=== PATIENT | male | born 1950 | race Hispanic/Latino ===

== ENCOUNTER 2020-07-30 10:20 | Emergency (ER) | payer OTHER, MEDICARE ==
--- OUTSIDE RECORDS SUMMARY | 2020-07-30 11:15 | XMS REPORT | Summary of Care ---
:1950 Author Organization [facility] - Health Address [address] [place] [address] Care Team Providers Name Role Phone Annie Luis Primary Care Provider Reason for Visit Auth/Cert Status Reason Specialty Diagnoses / Procedures Referred By José Miguel ontact Referred To Contact Surgery Diagnoses Combined forms of age-related cataract, left eye Combined forms of age-related cataract of left eye [H25.812] Adc Pre/Pacu/Post Procedures GA XCAPSL CTRC RMVL INSJ IO LENS PROSTH W/O ECP PHACOEMULSIFICATION OF CATARACT WITH INTRAOCULAR LENS IMPLANT 29182 - GA XCAPSL CTRC RMVL INSJ IO LENS PROSTH W/O ECP [address] [place], [place] [address] Phone: Fax: Encounter Details Date Type Department Care Team Description 06/11/2020 Hospital Encounter [facility] MD [place] Dr [place] [address] [place] [address] [place] [address] [place], [place] [phone] Allergies No Known Allergiesdocumented as of this encounter (statuses as of 06/11/2020) Medications Medication Sig Dispensed Refills Start Date End Date Status metFORMIN 500 mg tablet 0 07/14/2016 Active lisinopril 20 mg tablet 0 07/05/2016 Active levothyroxine 50 mcg 0 07/05/2016 Active tablet atorvastatin 20 mg 0 07/05/2016 Active tablet acetaminophen (TYLENOL Take 650 mg by 0 Active ARTHRITIS PAIN) 650 mg mouth every 8 CR tablet (eight) hours as needed for Pain. documented as of this encounter (statuses as of 06/11/2020) Active Problems Not on filedocumented as of this encounter (statuses as of 06/11/2020) Social History Tobacco Use Types Packs/Day Years Used Date Never Smoker Smokeless Tobacco: Never Used Tobacco Cessation: Counseling Given: No Alcohol Use Drinks/Week oz/Week Comments Not Asked 0 Standard drinks or equivalent 0.0 Sex Assigned at Date Recorded Not on file COVID-19 Exposure Response Date Recorded In the last month, have you been in contact with No / Unsure 06/09/2020 1:15 PM SUPERVISOR PROPERTIES someone who was confirmed or suspected to have Coronavirus / COVID-19? documented as of this encounter Last Filed Vital Signs Vital Sign Reading Time Taken Comments Blood Pressure 129/72 06/11/2020 9:25 AM SUPERVISOR PROPERTIES Pulse 69 06/11/2020 9:25 AM SUPERVISOR PROPERTIES Temperature 36.6 C (97.8 F) 06/11/2020 9:20 AM SUPERVISOR PROPERTIES Respiratory Rate 16 06/11/2020 9:25 AM SUPERVISOR PROPERTIES Oxygen Saturation 96% 06/11/2020 9:25 AM SUPERVISOR PROPERTIES Inhaled Oxygen Concentration - - Weight 83.5 kg (184 lb) 06/09/2020 1:00 PM SUPERVISOR PROPERTIES Height 170.2 cm (5' 7") 06/09/2020 1:00 PM SUPERVISOR PROPERTIES Body Mass Index 28.82 06/09/2020 1:00 PM SUPERVISOR PROPERTIES documented in this encounter Discharge Instructions Araceli Martinez RN - 06/11/2020Procedure: Phacoemulsification with intraocular lens implant Dr. Quinteros Post Operative Cataract Instructions: ? With phacoemulsification and foldable lens implants, surgical incisions are very small and suturesmay not be necessary. ? Tape the eye shield on the operative eye on the day of surgery and whenever you nap or sleep at night for 1 week. ? The eye will be more comfortable if you wear protective sunglasses while outside. ? Do not lay on the operative side and put unnecessary pressure on the eye. ? It is okay to take Tylenol if needed for pain. Call your doctor if there is any undue eye discomfort. ? You may resume your normal diet and medications. ? You may experience a scratchy/ itchy sensation in the eye for a couple of days. Let the eye waternaturally and avoid rubbing or pressing on the eye. ? You may wear the eye shield over the operative eye while showering or bathing as a reminder not torub the eye. ? Your vision may be foggy or fluctuate in the early postoperative period. This is normal and generally will clear up in a few days. ? Limit your activities to light duty for the first week after surgery. Avoid any activity that puts pressure on the eye No pushing, pulling, bending at the waist, lifting, straining, jogging, running or swimming. You may watch TV, read or use the computer but you may find that this tires your eyes easily. ? You may gently clean your eyelids of debris or discharge with tissue and water if needed. Please remember to be gentle with your eye it has a lens implant in it! ? Please notify your doctor if you have any significant change to your vision or significant eye pain. ? Your follow-up appointment should be the following day after your surgery. What are some reasons I should contact the doctor? ? Nausea, vomiting and fatigue may occur for a few hours after surgery. If this lasts more than 12 hours, contact your doctor. ? Vision Loss ? Pain that persists despite the use of wmek-tpk-ycgthsw pain medications ? Increase eye redness ? Light flashes or multiple spots (floaters) in front of your eye Contact Information After Hours: [facility] Access Line [phone] and ask to speak to the Nurse On-Call General Surgical Discharge Instructions: ? The medication that was used will be acting in your system for the next 24 hours, so you might feel a little drowsy, with impaired judgment and/ or motor function. This feeling should wear off. Because the medication is still in your system for the next 24 hours you SHOULD NOT: o Drive a car, operate machinery or power tools. o Drink any alcoholic beverages. o Make any important decisions or sign any legal documents. ? You should rest the remainder of the day and not engage in any physical activity. YOU ARE RESPONSIBLE FOR HAVING SOMEONE AT HOME WITH YOU DURING THE AFTERNOON AND NIGHT IMMEDIATELY FOLLOWING YOUR SURGERY. Patients should cough and deep breathe every 2-4 hours while awake to avoid respiratory complications. ? Because the medications used could produce some residual nausea and vomiting after you go home, you should eat lightly today, starting with clear liquids (broth, soft drinks, apple juice, jello) and toast or crackers, progressing to your normal diet as tolerated. If you get sick, wait a couple of hours and then begin to eat. After 24 hours the nausea should be gone. If your nausea persists, callyour physician. ? You may experience some pain and your physician will advise you on what to take for discomfort. This should be taken as directed. If the pain is not relieved, contact your physician. You may also have a sore throat from the airway/ breathing tube that was in place. You may use lozenges, throat spray (Chloraseptic), or warm salt water gargles for symptomatic relief. ? If you are unable to urinate within five hours after your procedure, call your physician. ? The type of surgery performed will determine how much bleeding (if any) to expect. Normally, somespotting might occur. If your dressing pad become saturated, notify your physician. Elevate surgical site, if applicable, to reduce swelling and pain. ? Preventing a surgical site infection: o Dont smoke. It is best to quit at least 30 days before surgery, but quitting after surgery is also helpful. o If you are a diabetic, keep your blood sugar well controlled. WASH YOUR HANDS. o Keep your wound clean and remember to wash your hands before and after contact with the area. o Call your doctor if you have signs of infection: ? increased tenderness at the surgical site ? red streaks or increased redness of the area ? bad-smelling discharge from the incision ? fever of 101 or higher TOBACCO AVOIDANCE Exposure to tobacco either from smoking or from second hand (environmental)smoke or smokeless tobacco (snuff) is damaging to your health. This information is to encourage everyone to avoid tobacco exposure. It is recommended that you: If you smoke or use smokeless tobacco, we encourage you to quit. If you have already quit smoking, continue your good work! If you do not smoke or use smokeless tobacco, do not start. Avoid secondhand smoke. Additional Resources: You may want to contact these organizations for further information on smoking and how to quit- [employer] - http://www.lungusa.org/stop-smoking/ [employer] - http://www.cancer.org/Healthy/StayAwayfromTobacco/index [employer] Heart Association - http://www.heart.org/HEARTORG/GettingHealthy/QuitSmoking/Quit-Smoking _[facility]_001085_SubHomePage.jsp documented in this encounter H&P Notes James Meeks MD - 06/11/2020 8:30 AM CSTH&P Update H&P was reviewed and the patient was examined and there was no change in the patient's condition. documented in this encounter Plan of Treatment Health Maintenance Due Date Last Done Comments HEPATITIS C (HCV) SCREEN 1950 DTaP,Tdap,and Td Vaccines (1 - Tdap) 1967 COLON CANCER SCREENING ANNUAL FIT/FOBT 1998 COLON CANCER SCREENING FIT DNA EVERY 3 YEARS 1998 COLON CANCER SCREENING SIGMOIDOSCOPY EVERY 5 YEARS 1998 COLONOSCOPY 1998 Colorectal Cancer Screening 1998 Zoster Recombinant Vaccine (SHINGRIX) (1 of 2) 1998 Medicare Wellness Visit 2013 PNEUMOCOCCAL VACCINES 65+ (1 of 1 - PPSV23) 2013 INFLUENZA VACCINE (#1) 2020 Depression Screening 06/11/2021 06/11/2020 documented as of this encounter Implants Implanted Type Area Scientific Research Manager Device Shelf Model / Identifier Expiration Date Ser ial / Lot Lens, Stas #[id number] - [id number] LENS Left: Eye Stas 10/03/2024 [id number] / Implanted: Qty: 1 on 06/11/2020 by James Hammond MD at [facility] 1 [id number] / N/A documented as of this encounter Procedures Procedure Name Priority Date/Time Associated Comments Diagnosis POCT GLUCOSE(AGE Routine 06/11/2020 7:56 Results for this >30DAYS) AM SUPERVISOR PROPERTIES procedure are i n the results section. NOTICE OF BILLING Routine 06/02/2020 3:30 PRACTICES FOR MEDICARE PM SUPERVISOR PROPERTIES PATIENTS [facility] PATIENT FINANCIAL Routine 06/02/2020 3:30 POLICY PM SUPERVISOR PROPERTIES NO SHOW OR MISSED Routine 06/02/2020 3:29 APPOINTMENT POLICY PM SUPERVISOR PROPERTIES ACKNOWLEDGEMENT CONSENT/REFUSAL FOR Routine 06/02/2020 3:29 DIAGNOSIS AND TREATMENT PM SUPERVISOR PROPERTIES CONSENT/REFUSAL FOR Routine 06/02/2020 3:29 DIAGNOSIS AND TREATMENT PM SUPERVISOR PROPERTIES ASSIGNMENT OF BENEFITS Routine 06/02/2020 3:28 PM SUPERVISOR PROPERTIES ASSIGNMENT OF BENEFITS Routine 06/02/2020 3:28 PM SUPERVISOR PROPERTIES PHYSICIAN ORDERS Routine 06/02/2020 12:01 AM SUPERVISOR PROPERTIES documented in this encounter Results POCT Glucose (06/11/2020 7:56 AM SUPERVISOR PROPERTIES) Pathologist Sig nature POCT Glu (age>30days) 142 (A) 70 - 110 mg/dL Specimen Blood - CAPILLARY documented in this encounter Visit Diagnoses Diagnosis Cataract, nuclear sclerotic senile, left - Primary documented in this encounter Administered Medications Medication Order MAR Action Action Date Dose Rate Site mydriatic #5 ophthalmic solution Given 06/11/2020 7:50 AM SUPERVISOR PROPERTIES 0 .5 mL 0.5 mL syringe 0.5 mL, Left Eye, ONCE, 1 dose, Tue06/11/20 at 0800, Routine documented in this encounter Insurance Payer Benefit Plan Subscriber ID Effective Phone Address Typ e / Group Dates AETNA - AETNA [id number] 2019-Prese P O BOX Medic are Adv MANAGED MEDICARE ADV nt [id number] [place] [address] documented as of this encounter
--- OUTSIDE RECORDS SUMMARY | 2020-07-30 11:15 | XMS REPORT | Summary of Care ---
:1950 Author Organization [facility] - [facility] Address [address] [place] [address] Care Team Providers Name Role Phone Annie Luis Primary Care Provider Reason for Visit Reason Comments LAB Exposure Cough Encounter Details Date Type Department Care Team Description 07/27/2020 Laboratory Only [facility] Family Nikkie Molina, COMPUTER SCIENCE INTERN [address] [employer] [address] [employer] [address] [place] [address] Exposure to Medicine - [facility], Adc Fam Pob I SARS-associated [address] [facility] coronaviru s ([address] Dx) [place] [address] Allergies No Known Allergiesdocumented as of this encounter (statuses as of 07/27/2020) Medications Medication Sig Dispensed Refills Start Date [...] as of this encounter (statuses as of 07/27/2020) Active Problems Not on filedocumented as of this encounter (statuses as of 07/27/2020) Social History Tobacco Use Types Packs/Day Years Used Date Never Smoker Smokeless Tobacco: Never Used Alcohol Use Drinks/Week oz/Week Comments Not Asked 0 Standard drinks or equivalent 0.0 Sex Assigned at Date Recorded Not on file COVID-19 Exposure Response Date Recorded In the last month, have you been in contact with Yes 07/27/2020 4:49 PM AIR DIRECTOR someone who was confirmed or suspected to have Coronavirus / COVID-19? documented as of this encounter Last Filed Vital Signs Not on filedocumented in this encounter Nursing Notes Emilia Pittman LVN - 07/27/2020 5:20 PM CSTElizabeth Haas is a 70 year old male here for COVID Screening with a Nasopharyngeal Swab All droplet and contact precautions taken with appropriate PPE worn while interacting with patient. ? Goggles ? N95 Mask ? Gloves ? Gown RR 17 Pulse Ox 95% Patient educated on plan of care for visit, swabbing technique, risks and benefits of test and length of time to receive results. Verbal consent obtained to perform test. CDC Fact Sheet for Patients nCoV Diagnostic Panel dated 09/09/2019 and Factsheet What to Do if Sick with COVID 19 08/20/19 provided. Patient swabbed per appropriate nasopharyngeal technique, and patient tolerated well. Patient was discharged from the testing clinic in stable condition. Emilia Pittman LVN 07/27/2020 4:51 PM DIRECTOR documented in this encounter Plan of Treatment Name Type Priority Associated Diagnoses Order S chedule COVID-19 (MOLECULAR LAB Routine Exposure to Expected : 07/27/2020, TESTING SARS-associated Expires: 022 NUCLEIC ACID coronavirus AMPLIFICATION) Health Maintenance Due Date Last Done Comments HEPATITIS C (HCV) SCREEN 1950 SARS-CoV-2 (COVID-19) Vaccine (1 of 2) 1966 DTaP,Tdap,and Td Vaccines (1 - Tdap) 1967 [...] of this encounter Implants Implanted Type Area Floor Coverings Installer Device Shelf Model / Identifier Expiration Date Ser ial / Lot Lens, Stas #[id number] - [id number] LENS Left: Eye Stas 10/03/2024 [id number] / Implanted: Qty: 1 on 06/11/2020 by James Hammond MD at [facility] 1 [id number] / N/A documented as of this encounter Results Not on filedocumented in this encounter Visit Diagnoses Diagnosis Exposure to SARS-associated coronavirus - Primary documented in this encounter Additional Health Concerns Infection Onset Date Last Indicated Resolved Time COVID-19 Rule Out 07/27/2020 07/27/2020 documented as of this encounter Insurance Payer Benefit Plan Subscriber ID Effective Phone Address Typ e / Group Dates AETNA - AETNA [id number] 2019-Prese [address] BOX Me dicare Adv MANAGED MEDICARE ADV nt [id number] [place] [address] documented as of this encounter
--- OUTSIDE RECORDS SUMMARY | 2020-07-30 11:15 | XMS REPORT | Summary of Care ---
:1950 Author Organization [facility] - [facility] Address [address] [place] [address] Care Team Providers Name Role Phone Luis Annie Primary Care Provider Encounter Details Date Type Department Care Team Description 07/28/2020 Letter (Out) [facility] Latricia Harris RN [address] [place] [phone] [place] [address] Allergies No Known Allergiesdocumented as of this encounter (statuses as of 07/28/2020) Medications Medication Sig Dispensed Refills Start Date [...] as of this encounter (statuses as of 07/28/2020) Active Problems Not on filedocumented as of this encounter (statuses as of 07/28/2020) Social History Tobacco Use Types Packs/Day Years Used Date Never Smoker Smokeless Tobacco: Never Used Alcohol Use Drinks/Week oz/Week Comments Not Asked 0 Standard drinks or equivalent 0.0 Sex Assigned at Date Recorded Not on file COVID-19 Exposure Response Date Recorded In the last month, have you been in contact with Yes 07/27/2020 4:49 PM ASPNET DEVELOPER someone who was confirmed or suspected to have Coronavirus / COVID-19? documented as of this encounter Last Filed Vital Signs Not on filedocumented in this encounter Plan of Treatment Health [...] of this encounter Implants Implanted Type Area Data Processing Control Clerk Device Shelf Model / Identifier Expiration Date Ser ial / Lot Lens, Stas #[id number] - [id number] LENS Left: Eye Stas 10/03/2024 [id number] / Implanted: Qty: 1 on 06/11/2020 by James Hammond MD at [facility] 1 [id number] / N/A documented as of this encounter Results Not on filedocumented in this encounter Additional Health Concerns Infection Onset Date Last Indicated Resolved Time COVID-19 Rule Out 07/27/2020 07/27/2020 07/28/2020 5: 43 AM ASPNET DEVELOPER COVID-19 Confirmed 07/27/2020 07/27/2020 documented as of this encounter Insurance Payer Benefit Plan Subscriber ID Effective Phone Address Typ e / Group Dates AETNA - AETNA [id number] 2019-Prese [address] BOX Me dicare Adv MANAGED MEDICARE ADV nt [id number] [place] [address] documented as of this encounter
--- OUTSIDE RECORDS SUMMARY | 2020-07-30 11:15 | XMS REPORT | Summary of Care ---
:1950 Author Organization [facility] - Health Address [address] [place] [address] Care Team Providers Name Role Phone Annie Luis Primary Care Provider Encounter Details Date Type Department Care Team Description 07/27/2020 Letter (Out) [facility] Message s Doctor Unassigned, No [address] [facility] [place] [phone] [facility] [phone] [place] [address] Allergies No Known Allergiesdocumented as of this [...] Assigned at Date Recorded Not on file documented as of this encounter Last Filed Vital Signs Not on filedocumented in this encounter Plan of Treatment Date Type Specialty Care Team Description 07/27/2020 Laboratory Only Family Medicine Nikkie Molina FN P [address] [facility] [address] [place] [address] [phone] Arrived Lab, Adc Fam Pob I Health Maintenance Due Date Last Done Comments [...] of this encounter Implants Implanted Type Area Senior Geologist Device Shelf Model / Identifier Expiration Date Ser ial / Lot Lens, Stas #[id number] - [id number] LENS Left: Eye Stas 10/03/2024 [id number] / Implanted: Qty: 1 on 06/11/2020 by James Hammond MD at [facility] 1 [id number] / N/A documented as of this encounter Results Not on filedocumented in this encounter Insurance Payer Benefit Plan Subscriber ID Effective Phone Address Typ e / Group Dates AETNA - AETNA [id number] 2019-Prese [address] Me dicare Adv MANAGED MEDICARE ADV nt [id number] [place] [address] documented as of this encounter
--- OUTSIDE RECORDS SUMMARY | 2020-07-30 11:15 | XMS REPORT ---
:1950 Author Organization [facility] Address [address] [place], [address] [place] [address] Care Team Providers Name Role Phone Luis Unavailable [phone] PROBLEMS Type Condition ICD9-CM [id number] Onset Condition SNOMED Code Notes Code Code Dates Status Problem Diabetes E11.9 Active 90770246 mellitus, type 2 Problem Hyperlipidemia, E78.2 Active 581385939 mixed Problem Allergic J30.2 Active 950119926 rhinitis, seasonal Problem Carpal tunnel G56.00 Active 44858806 syndrome Problem Chronic back pain M54.9 Active 141191765 Problem Hypertension I10 Active 03512931 Problem Osteoarthritis of M15.9 Active 807383197 multiple joints Problem Atopic dermatitis L20.9 Active 16124684 Problem Pulmonary nodule, R91.1 Active 765822522 right Problem Hypothyroidism E03.9 Active 84405779 Problem Memory changes R41.3 Active 922004598 Problem Lumbar M51.36 Active 36890828 degenerative disc disease Problem Idiopathic G60.9 Active 52456238 peripheral neuropathy Problem Acquired M41.9 Active 573768333 scoliosis Problem Osteoarthritis of M17.0 Active 975984719 both knees, unspecified osteoarthritis type Problem Primary M17.12 Active [id number] osteoarthritis of left knee ALLERGIES No Known Allergies ENCOUNTERS from 1950 to 2020-06-06 Encounter Location Date Provider Diagnosis [facility] [place] [address] [place], [place] Diabetes mellitus, type [address] [place] E11.9 ; [place] [address] Hypothyroidism E03.9 ; Allergic contac t dermatitis, uns pecified trigger L23.9 ; Hypertension I1 0 ; Pulmonary nodul e, right R91.1 ; Hyperli pidemia, mixed E78.2 ; Osteoarthritis of both knees, unspecif ied osteoarthritis type M17.0 ; Memory changes R41.3 ; Adult B MT 28.0-28.9 kg/sq m Z68.28 ; Lower urinary tract symptoms R39.9 and Renal insuf ficiency N28.9 IMMUNIZATIONS Vaccine Route Administration Date Status FluAD IM Intramuscular Apr 15, 2020 Administered FLUZONE HIGH DOSE OVER 65 IM Intramuscular Mar 06, 2019 Admin istered Kenalog (Triamcinolone) IM Intramuscular May 21, 2019 Adminis tered Kenalog (Triamcinolone) IM Intramuscular Aug 07, 2018 Adminis tered SOCIAL HISTORY Tobacco Use: Social History Observation Description Date Details (start date - stop date) Former Smoker Sex Assigned At : Social History Observation Description Sex Assigned At Unknown Alcohol Screen Question Answer Notes Did you have a drink containing alcohol in Yes the past year? Points 2 Interpretation Negative How often did you have 6 or more drinks on Never (0 points) one occasion in the past year? How many drinks did you have on a typical 1 or 2 (0 points) day when you were drinking in the past year? How often did you have a drink containing Two to four times a month (2 points) alcohol in the past year? Tobacco Use/Smoking Question Answer Notes Are you a former smoker Additional Findings: Tobacco Non-User Current non-smoker Tobacco use other than smoking: Question Answer Notes Are you an other tobacco user? No REASON FOR REFERRAL No Information VITAL SIGNS Height 67 in May, Weight 180.6 lbs May, Temperature 97.7 degrees Fahrenheit May, BMI 28.28 kg/m2 May, Oximetry 97 % May, Respiratory Rate 18 /min May, Blood pressure systolic 138 mm Hg May, Blood pressure diastolic 70 mm Hg May, MEDICATIONS Medication SIG (Take, Route, Notes Start Date End Date Status Frequency, Duration) Lipitor 20 MG 1 tablet Orally Once a Active day for 30 days Metformin HCl 1000 MG 1 tablet with meals Active Orally Twice a day for 30 days Lisinopril-Hydrochlorothiaz TAKE ONE TABLET BY MOUTH Active nicole 20-12.5 MG TWICE DAILY for 90 Zestoretic 20-12.5 MG 1 tablet Orally Twice a Active day for 30 days Triamcinolone Acetonide 0.1 1 application to affected Active % area Externally Twice a day for 30 days Levothyroxine Sodium 50 MCG 1 tablet on an empty Active stomach in the morning Orally Once a day for 30 days Aspirin 81 81 MG 1 tablet Orally Once a Active day PROCEDURES No Information RESULTS No Results REASON FOR VISIT 3 mth lab f/u MEDICAL (GENERAL) HISTORY Type Description Date Medical History Diabetes mellitus, type 2 Medical History Hypothyroidism Medical History Hypertension Medical History Hyperlipidemia, mixed Medical History Osteoarthritis of multiple joints Medical History Chronic back pain Medical History Lumbar degenerative disc disease Medical History Idiopathic peripheral neuropathy Medical History Acquired scoliosis Medical History Atopic dermatitis Medical History Allergic rhinitis, seasonal Medical History Carpal tunnel syndrome Surgical History carpal tunnel release Right 03/2017 Surgical History arthroscopic knee surgery right Goals Section No Information Health Concerns No Information MEDICAL EQUIPMENT No Information MENTAL STATUS No Information FUNCTIONAL STATUS No Information ASSESSMENTS Encounter Date Diagnosis Assessment Notes Treatment Notes Treatm ent Clinical Notes May, Diabetes mellitus, Controlled. Diabetes type 2 (ICD-10 - Education Diabetes E11.9) is a disorder that disrupts the way your body uses glucose (sugar). It is a chronic medication condition that requires regular monitoring and treatment throughout your life. Treatment includes: lifestyle modification, self-care measures, and medication. Fortunately, these treatments can keep the blood sugar levels close to normal and minimize the risk of developing complications. The primary blood test to measure the progress of diabetes is the Hemoglobin A1c. Normal levels is less than 7.0 but less than 6.5 is considered excellent control. Fasting blood sugars should be in the range of 80-120 while random blood sugars should range below 200 especially after meals. Carbohydrate (sugar) intake for diabetics should be below 45 grams per meal and 15 grams per snack. Diabetic preventive care is vital to prevent complications, so it is important to have yearly diabetic eye and foot exams with specialists. If your diabetes is not controlled, then contact your doctor to further address.Medication may need to be adjusted and/or added. May, Hypothyroidism Stable. Compliant (ICD-10 - E03.9) with medications May, Allergic contact dermatitis, unspecified trigger (ICD-10 - L23.9) May, Hypertension (ICD-10 Controlled at home. - I10) HTN Education This is a condition that puts at risk for heart attack, stroke, and kidney disease. Lifestyle modification, low fat/low salt diet, exercise, low alcohol intake and medication is utilized to help control your BP. Untreated HTN increases the strain on the heart and arteries, eventually causing organ damage.Normal BP is less than 140/90. High BP is greater than 140/90. If your BP is not controlled, call your doctor. Medication may need to be adjusted and/or added. Compliance with medication is vital. If you have chest pain, shortness of breath, severe nausea/vomiting, fatigue, and other symptoms, you will need to contact your doctor or go to the ER immediately to address. May, Pulmonary nodule, Ordered CT. right (ICD-10 - Asymptomatic. Former R91.1) tobacco user. Encouraged to make appointment. May, Hyperlipidemia, Hyperlipidemia mixed (ICD-10 - Education: E78.2) Hyperlipidemia refers to increased levels of lipids(fats) in the blood, including cholesterol and triglycerides. This can significantly increase your risk of developing coronary artery disease and peripheral artery disease. This can cause chest pain, heart attack, stroke, and fatigue. Treatment is recommended to decrease your risk. Treatment includes: lifestyle modification, low salt/low fat diet, exercise, tobacco cessation, low alcohol intake and sometimes medication. Blood tests (TC,TG, HDL, LDL) are utilized to determine treatment regimens. TC(Total cholesterol) should be below 200. TG(Total Triglycerides) should be below 150. HDL(Good cholesterol) should be above 40. LDL(Bad Cholesterol) should be below 130(if you have one risk factor) or less than 100( if you have more than one risk factor or have DM/CAD/PVD). Compliance with medication and treatment is vital. If you have questions, talk to your doctor. May, Osteoarthritis of Managed by , both knees, Moderate OA. unspecified Planning for osteoarthritis type cortisone (ICD-10 - M17.0) injections. May, Memory changes Discussed (ICD-10 - R41.3) differential diagnosis patient. education given. Will refer to neurology for further evaluation and management. Concern for mild cognitive impairment May, Adult BMI 28.0-28.9 Counseling given. kg/sq m (ICD-10 - Z68.28) May, Lower urinary tract Stable. PSA: 2.2. symptoms (ICD-10 - Education given. R39.9) May, Renal insufficiency Discussed DDX. (ICD-10 - N28.9) Education given. Limited hydration. May, Other -- Medication reviewed and updated. -- Dietary and Lifestyle modifications addressed regarding diet, exercise and weight managemen t. -- Treatment options, risks and benefits, side effects reviewed in detail. -- Advised on signs/symptoms to monitor and when to call clinic and/or visit the nearest ER. Patient verbalized understanding and agreeable with plan. PLAN OF TREATMENT Medication Medication Name Sig Start Date Stop Date Lipitor 20 MG 1 tablet Orally Once a day for 30 days Triamcinolone Acetonide 0.1 % 1 application to affected area Externally Twice a day for 30 days Levothyroxine Sodium 50 MCG 1 tablet on an empty stomach in the morning Orally Once a day for 30 days Zestoretic 20-12.5 MG 1 tablet Orally Twice a day for 30 days Metformin HCl 1000 MG 1 tablet with meals Orally Twice a day for 30 days Treatment Notes Assessment Notes Clinical Notes Diabetes mellitus, type 2 Controlled. Diabetes Education Diabetes is a disorder that disrupts the way your body uses glucose (sugar). It is a chronic medication condition that requires regular monitoring and treatment throughout your life. Treatment includes: lifestyle modification, self-care measures, and medication. Fortunately, these treatments can keep the blood sugar levels close to normal and minimize the risk of developing complications. The primary blood test to measure the progress of diabetes is the Hemoglobin A1c. Normal levels is less than 7.0 but less than 6.5 is considered excellent control. Fasting blood sugars should be in the range of 80-120 while random blood sugars should range below 200 especially after meals. Carbohydrate (sugar) intake for diabetics should be below 45 grams per meal and 15 grams per snack. Diabetic preventive care is vital to prevent complications, so it is important to have yearly diabetic eye and foot exams with specialists. If your diabetes is not controlled, then contact your doctor to further address.Medication may need to be adjusted and/or added. Hypothyroidism Stable. Compliant with medications Hypertension Controlled at home. HTN Education This is a condition that puts at risk for heart attack, stroke, and kidney disease. Lifestyle modification, low fat/low salt diet, exercise, low alcohol intake and medication is utilized to help control your BP. Untreated HTN increases the strain on the heart and arteries, eventually causing organ damage.Normal BP is less than 140/90. High BP is greater than 140/90. If your BP is not controlled, call your doctor. Medication may need to be adjusted and/or added. Compliance with medication is vital. If you have chest pain, shortness of breath, severe nausea/vomiting, fatigue, and other symptoms, you will need to contact your doctor or go to the ER immediately to address. Pulmonary nodule, right Ordered CT. Asymptomatic. Former tobacco user. Encouraged to make appointment. Hyperlipidemia, mixed Hyperlipidemia Education: Hyperlipidemia refers to increased levels of lipids(fats) in the blood, including cholesterol and triglycerides. This can significantly increase your risk of developing coronary artery disease and peripheral artery disease. This can cause chest pain, heart attack, stroke, and fatigue. Treatment is recommended to decrease your risk. Treatment includes: lifestyle modification, low salt/low fat diet, exercise, tobacco cessation, low alcohol intake and sometimes medication. Blood tests (TC,TG, HDL, LDL) are utilized to determine treatment regimens. TC(Total cholesterol) should be below 200. TG(Total Triglycerides) should be below 150. HDL(Good cholesterol) should be above 40. LDL(Bad Cholesterol) should be below 130(if you have one risk factor) or less than 100( if you have more than one risk factor or have DM/CAD/PVD). Compliance with medication and treatment is vital. If you have questions, talk to your doctor. Osteoarthritis of both knees, Managed by , Moderate O A. unspecified osteoarthritis type Planning for cortisone injec tions. Memory changes Discussed differential diagnosis patient. education given. Will refer to neurology for further evaluation and management. Concern for mild cognitive impairment Adult BMI 28.0-28.9 kg/sq m Counseling given. Lower urinary tract symptoms Stable. PSA: 2.2. Education giv en. Renal insufficiency Discussed DDX. Education given. Limited hydration. Treatment Notes Test Name Order Date Lipid Panel With LDL/HDL Ratio 2020-06-06 Thyroid Panel With TSH 2020-06-06 Microalbumin/Creat Ratio, Random Ur 2020-06-06 Hemoglobin A1c 2020-06-06 Comp. Metabolic Panel (14) (CMP) 2020-06-06 Next Appt Details 3 Months + AMW + Labs 1 week Reason: Provider Name:[facility], 2020-08-25 0 9:15:00 AM, [address], [address], [place], [address], Provider Name:[place], 2020-09-01 0 9:40:00 AM, [address], [place], [address], Insurance Providers Payer Name Payer Payer Insured Name Patient Coverage Covera End Address Phone Relationship to Start Date Enrike e Insured [employer] [phone] Francy Haas self 2021 [id number] [facility] [id number]
--- OUTSIDE RECORDS SUMMARY | 2020-07-30 11:15 | XMS REPORT | Summary of Care ---
:1950 Author Organization [facility] Address [address] [place] [id number] Care Team Providers Name Role Phone Annie Luis Primary Care Provider Reason for Visit Reason Comments LAB WORK Auth/Cert Status Reason Specialty Diagnoses / Referred By Referred To Procedures Contact Contact Clinical Medical Procedures Adc Lab Laboratory covid preop [address] [place] [phone] Encounter Details Date Type Department Care Team Description 06/10/2020 Laboratory Only [facility] James Meeks MD [address] [place] [phone] Preop testing Phlebotomy Only, [facility] Test (Primary Dx) Lab-[address] [address] Allergies No Known Allergiesdocumented as of this encounter (statuses as of 06/10/2020) Medications Medication Sig Dispensed Refills Start Date [...] as of this encounter (statuses as of 06/10/2020) Active Problems Not on filedocumented as of this encounter (statuses as of 06/10/2020) Social History Tobacco Use Types Packs/Day Years Used Date Never Smoker Smokeless Tobacco: Never Used Alcohol Use Drinks/Week oz/Week Comments Not Asked 0 Standard drinks or equivalent 0.0 Sex Assigned at Date Recorded Not on file COVID-19 Exposure Response Date Recorded In the last month, have you been in contact with No / Unsure 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 documented as of this encounter Last Filed Vital Signs Not on filedocumented in this encounter Nursing Notes Jacquelyn Shafer - 06/10/2020 10:45 AM CSTCovid swab collected. documented in this encounter Plan of Treatment Date Type Specialty Care Team Description 06/11/2020 Hospital Encounter Surgery James Meeks MD [address] [place] [address] [phone] 06/11/2020 Anesthesia Event Surgery Rolando Pimnetel C [address] [address] [phone] 06/11/2020 Surgery Surgery James Meeks PHACOEMULSI FICATION OF MD Ludwin CATARACT WITH INTRAOCULAR [address] [place] [address] [phone] Name Type Priority Associated Diagnoses Date/Ti me COVID-19 (ID NOW RAPID LAB Routine Preop testing 05/27 11:22 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 TESTING) Name Type Priority Associated Diagnoses Order S chedule COVID-19 (ID NOW RAPID LAB Routine Preop testing Expe cted: 06/10/2020, TESTING) Expires: 2020 Health Maintenance Due Date Last Done Comments HEPATITIS C (HCV) SCREEN 1950 Depression Screening 1960 DTaP,Tdap,and Td Vaccines (1 - Tdap) 1967 COLON CANCER SCREENING ANNUAL FIT/FOBT 1998 COLON CANCER SCREENING FIT DNA EVERY 3 YEARS 1998 COLON CANCER SCREENING SIGMOIDOSCOPY EVERY 5 YEARS 1998 COLONOSCOPY 1998 Colorectal Cancer Screening 1998 Zoster Recombinant Vaccine (SHINGRIX) (1 of 2) 1998 Medicare Wellness Visit 2013 PNEUMOCOCCAL VACCINES 65+ (1 of 1 - PPSV23) 2013 INFLUENZA VACCINE (#1) 2020 documented as of this encounter Results Not on filedocumented in this encounter Visit Diagnoses Diagnosis Preop testing - Primary Preoperative examination, unspecified 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
--- OUTSIDE RECORDS SUMMARY | 2020-07-30 11:15 | XMS REPORT | Continuity of Care Document ---
:1950 Author Organization [facility] t Address [address] [place] [address] Care Team Providers Name Role Phone Rafaela MARQUEZ, M Attending Clinician Kimberly CLOUD, T Attending Clinician Unavailable Lab, Fam Pob I Attending Clinician Unavailable Doctor Unassigned, Name Attending Clinician Unavailable oCnstantino MARQUEZ, A Attending Clinician Only, Test Attending Clinician Unavailable Pob, Lab Main Attending Clinician Unavailable Constantino MARQUEZ, A Admitting Clinician Problems This patient has no known problems. Allergies, Adverse Reactions, Alerts This patient has no known allergies or adverse reactions. Medications Ordered Filled Start Stop Current Ordering Indication Dosage Frequency Signature Comments Components Source Medication Medication Date Date Medication? Clinician (SIG) Name Name Sayda Alfredo Yes [facility] [address] [facility] ne ne 1-04 Luis applicatio [facility] - Acetonide Acetonide 00:00: n to Mem oria 00 affected l area Outpati ent Clinics Levothyroxi Levothyroxi Yes Rancho [address] [facility] ne Sodium ne Sodium Luis on an Wilfredo es - empty Memoria stomach in l the Outpati morning ent Clinics Lipitor Lipitor Yes Rancho [address] [facility] Aspirin 81 Aspirin 81 Yes Rancho [address] [facility] Zestoretic Zestoretic Yes Rancho [address] [facility] Metformin Metformin Yes Rancho [address] [facility] [address] HCl HCl Luis with meals kes - Memoria l [facility] Lisinopril- Lisinopril- Yes Rancho TAKE ONE [facility] Hydrochloro Hydrochloro Luis TABLET BY [facility] - thiazide thiazide MOUTH Memori a TWICE l DAILY [facility] Immunizations Ordered Filled Immunization Date Status Comments Sourc e Immunization Name Name FLUZONE HIGH DOSE FLUZONE HIGH DOSE 2019-03-[address] [facility] - OVER 65 OVER 65 00:00:00 [facility] Procedures This patient has no known procedures. Encounters Start End Encounter Admission Attending Care Care Encounter Source Date/Time Date/Time Type Type Clinicians Facility Department ID 2020-07-29 2020-07-29 Outpatient [facility] [id number] [facility] 2020-07-29 2020-07-29 Telephone Rafaela, [facility] [id number] 00:00:00 00:00:00 Luciano Valencia SPECIALTY [id number] [facility] [id number] CENTER AT [id number] JUDD [address] [place] [address] 2020-07-28 2020-07-28 Letter CHOLO Harris [id number] 00:00:00 00:00:00 (Out) Latricia CARDOZA [id number] [facility] 4.2.7.2.686 [id number] [id number] 2020-07-28 2020-07-28 Telephone Lab, [facility] [id number] 00:00:00 00:00:00 Fam Pob I Health [id number] [place] 4.2.7.2.686 Professio [id number] nal 044 Office Building One 2020-07-27 2020-07-27 Laboratory Lab, [facility] [id number] 16:41:40 17:01:40 Only Fam Pob I Health [id number] [place] 4.2.7.2.686 Professio [id number] nal 044 Office Building One 2020-07-27 2020-07-27 Letter Doctor CHOLO [id number] 00:00:00 00:00:00 (Out) Unassigned, NANI [id number] [place] [facility] 4.2.7.2.686 [id number] 2020-07-27 2020-07-27 Letter Doctor CHOLO [id number] 00:00:00 00:00:00 (Out) Unassigned, NANI [id number] [place] [facility] 4.2.7.2.686 [id number] 2020-07-09 2020-07-09 [facility] [id number]00 [facility] 2020-06-11 2020-06-11 [facility] [id number] 07:45:00 09:40:00 Encounter James Giraldo [id number] [place] 4.2.7.2.686 [facility] [id number] [place] 071 2020-06-10 2020-06-10 Laboratory Only, [facility] [id number] 11:09:27 11:24:27 Only Test [place] [id number] [place] 4.2.7.2.686 [place] [id number] 2020-06-09 2020-06-09 Orders Doctor CHOLO [id number] 00:00:00 00:00:00 Only Unassigned, NANI 350.1.13.10 [place] [facility] 4.2.7.2.686 [id number] 2020-06-06 2020-06-06 [facility] [id number] [facility] 00[facility]00 [facility] 2020-06-02 2020-06-02 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 [facility] [id number] 15:27:19 15:42:19 Visit Lab Main [place] [id number] [place] 4.2.7.2.686 [facility] [id number] [address] 2020-04-24 2020-04-24 [facility] [id number] [facility] 2020-04-15 2020-04-15 [facility] [id number] [facility] 2020-03-07 2020-03-07 [facility] [id number] 08:40:00 08:40:00 t Edgar Edgar Inuvo Luke s - Drive [facility] Medicine l Medicine Outpati ent Clinics 2020-02-01 2020-02-01 [facility] [id number] 15:31:00 15:31:00 t Edgar [employer] s - Drive [facility] l Medicine Outpati ent Clinics 2019-12-06 2019-12-06 [facility] [id number] 08:00:00 08:00:00 t Edgar Edgar Kihon s - Drive [facility] Medicine Medicine Outpati ent Clinics 2019-10-30 2019-10-30 [facility] [id number] 13:56:00 13:56:00 t Edgar Edgar Kihon s - Drive [facility] Medicine l Medicine Outpati ent Clinics 2019-09-07 2019-09-07 [facility] [id number] 08:30:00 08:30:00 t Edgar Edgar Kihon s - Drive [facility] l Medicine Outpati ent Clinics 2019-08-22 2019-08-22 [facility] [id number] 09:54:00 09:54:00 t Edgar Edgar Kihon s - Drive [facility] Medicine Medicine Outpati ent Clinics 2019-06-08 2019-06-08 [facility] [id number] 13:51:00 13:51:00 t Edgar Edgar Kihon s - Drive [facility] l Medicine Outpati ent Clinics 2019-06-07 2019-06-07 [facility] [id number] 08:45:00 08:45:[address] Luke s - Drive [facility] Medicine Medicine Outpati ent Clinics 2019-05-31 2019-05-31 [facility] [id number] 16:16:00 16:16:00 t Edgar Edgar Inuvo Luke s - Drive [facility] l Medicine Outpati ent Clinics 2019-05-21 2019-05-21 [facility] [id number] 08:45:00 08:45:00 t Edgar Edgar Inuvo Luke s - Drive [facility] Medicine l Medicine Outpati ent Clinics 2019-04-11 2019-04-11 [facility] [id number] 15:14:00 15:14:00 t Edgar Edgar Inuvo [employer] s - Drive [facility] Medicine Outpati ent Clinics 2019-03-06 2019-03-06 [facility] [id number] 08:45:00 08:45:00 t Edgar Edgar Kihon s - Drive [facility] Medicine Outpati ent Clinics 2019-02-02 2019-02-02 [facility] [id number] 08:42:00 08:42:00 t Edgar Edgar Kihon s - Drive [facility] Medicine Medicine Outpati ent Clinics 2019-01-26 2019-01-26 [facility] [id number] 09:45:00 09:45:00 t Edgar Edgar Kihon s - Drive [facility] Medicine Outpati ent Clinics 2018-10-23 2018-10-23 [facility] [id number] 08:30:00 08:30:00 t Edgar Edgar Inuvo [employer] s - Drive [facility] Medicine Medicine Outpati ent Clinics 2018-08-07 2018-08-07 [facility] [id number] 14:30:00 14:30:00 t Edgar Edgar Inuvo [employer] s - Drive [facility] Medicine Outpati ent Clinics 2018-07-25 2018-07-25 [facility] [id number] 08:15:00 08:15:00 t Edgar Edgar Inuvo [employer] s - Drive [facility] Medicine Outpati ent Clinics 2018-06-30 2018-06-30 [facility] [id number] 08:00:00 08:00:00 t ABODO s [email or web address] [facility] Medicine Outpati ent Clinics Results This patient has no known results.
--- OUTSIDE RECORDS SUMMARY | 2020-07-30 11:15 | XMS REPORT | Summary of Care ---
:1950 Author Organization [facility] Address [address] [place] [address] Care Team Providers Name Role Phone Annie Luis Primary Care Provider Reason for Visit Reason Comments LAB WORK Auth/Cert Status Reason Specialty Diagnoses / Procedures Referred By José Miguel arce Referred To Contact Phlebotomy Diagnoses h25.812 Adc Pob Lab Draw Procedures cbc Professional Office Building [address] [facility] [facility] , [address] [place] [address] Phone: Fax: Encounter Details Date Type Department Care Team Description 06/02/2020 Pump Tester Visit [facility] Kwame Meeks MD [address] [place] [address] [place] [address] Combined form of Professional Office Pob, Adc Lab Main senile cataract, Building Phlebotomy unspecif ied Lab laterality (Primary Professional Office Dx) Building [address] [facility] , [address] [place] [address] Allergies No Known Allergiesdocumented as of this encounter (statuses as of 06/02/2020) Medications Medication Sig Dispensed Refills Start Date [...] as of this encounter (statuses as of 06/02/2020) Active Problems Not on filedocumented as of this encounter (statuses as of 06/02/2020) Social History Tobacco Use Types Packs/Day Years Used Date Former Smoker Alcohol Use Drinks/Week oz/Week Comments Not Asked 0 Standard drinks or equivalent 0.0 Sex Assigned at Date Recorded Not on file COVID-19 Exposure Response Date Recorded In the last month, have you been in contact with No / Unsure 06/02/2020 3:26 PM SPECIFICATION CONSULTANT someone who was confirmed or suspected to have Coronavirus / COVID-19? documented as of this encounter Last Filed Vital Signs Not on filedocumented in this encounter Nursing Notes Jacquelyn Shafer - 06/02/2020 3:30 PM CST Venipuncture collection performed by clean technique on the right anticubitus. Total of 1 attempts were made. Slight pressure and a bandage/dressing were applied to the site(s). The patient experiencedno complications. The following specimens were processed according to instructions and sent to [facility] laboratories per lab order on : LT BLUE SST RED 1 LAV PPT DK GREEN (LiHep) DK GREEN (SodH) HANKINS DK BLUE (K2) DK BLUE (S) ACD Blood Culture NIPT/NTD documented in this encounter Plan of Treatment Date Type Specialty Care Team Description 06/10/2020 Laboratory Only Clinical Medical Kwame Meeks MD [address] [place] [address] [place] [address] [phone] Laboratory Only, Adc Test 06/11/2020 Hospital Surgery Constantino, Encounter James Mascorro MD [address] [place] [address] [place] [address] [phone] 06/11/2020 Surgery Surgery Constantino, PHACOEMULSIFICA TION OF James Mascorro MD CATARACT WITH INTRAOCULAR [address] [place] [address] [place] [address] [phone] Name Type Priority Associated Diagnoses Order S chedule CBC WITH DIFF LAB Routine Combined form of senile Exp ected: 06/02/2020, cataract, unspecified s: 06/02/2021 laterality Health Maintenance Due Date Last Done Comments [...] filedocumented in this encounter Visit Diagnoses Diagnosis Combined form of senile cataract, unspec ified laterality - Primary 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
--- OUTSIDE RECORDS SUMMARY | 2020-07-30 11:15 | XMS REPORT | Summary of Care ---
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 documented as of this encounter Last Filed Vital Signs Not on filedocumented in this encounter Plan of Treatment Date Type Specialty Care Team Description 07/27/2020 Laboratory Only Family Medicine Nikkie Molina, FN P [address] [facility] [address] [place] [address] [phone] Exposure to Lab, Adc Fam Pob I SARS-associated coronavirus (Pr imary Dx) Health Maintenance Due Date Last Done Comments [...] of this encounter Implants Implanted Type Area Vineyard Worker Device Shelf Model / Identifier Expiration Date Ser ial / Lot Lens, Stas #[id number] - [id number] LENS Left: Eye Stas 10/03/2024 [id number] / Implanted: Qty: 1 on 06/11/2020 by James Hammond MD at [facility] 1 [id number] / N/A documented as of this encounter Results Not on filedocumented in this encounter Additional Health Concerns Infection Onset Date Last Indicated Resolved Time COVID-19 Rule Out 07/27/2020 07/27/2020 documented as of this encounter Insurance Payer Benefit Plan Subscriber ID Effective Phone Address Typ e / Group Dates AETNA - AETNA [id number] 2019-Prese P O BOX Me dicare Adv MANAGED MEDICARE ADV nt [id number] [place] [address] documented as of this encounter
--- OUTSIDE RECORDS SUMMARY | 2020-07-30 11:15 | XMS REPORT | Summary of Care ---
:[address] [facility] - Health Address [address] [place] [address] Care Team Providers Name Role Phone Toby Annie Primary Care Provider Encounter Details Date Type Department Care Team Description 06/09/[address] [facility] Doctor Unassigned, No 301 [facility] [place] [address] [address] [place] [address] Allergies No Known Allergiesdocumented as of this encounter (statuses as of 06/09/2020) Medications Medication Sig Dispensed Refills Start Date [...] as of this encounter (statuses as of 06/09/2020) Active Problems Not on filedocumented as of this encounter (statuses as of 06/09/2020) Social History Tobacco Use Types Packs/Day Years Used Date Former Smoker Alcohol Use Drinks/Week oz/Week Comments Not Asked 0 Standard drinks or equivalent 0.0 Sex Assigned at Date Recorded Not on file COVID-19 Exposure Response Date Recorded In the last month, have you been in contact with No / Unsure 06/02/2020 3:26 PM SYSTEMS 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 documented as of this encounter Last Filed Vital Signs Not on filedocumented in this encounter Plan of Treatment Date Type Specialty Care Team Description 06/10/2020 Laboratory Only Kwame Han, MD [address] [place] [address] [phone] Laboratory Only, Adc Test 06/11/2020 [facility] Surgery James Meeks Encounter MD Lud[place] [address] [place] [address] [phone] 06/11/2020 Anesthesia Event Surgery Rolando Pimentel, [address] [phone] 06/11/2020 Surgery Surgery James Meeks PHACOEMULSI FICATION BLAKE Mascorro MD CATARACT WITH INTRAOCULAR [facility] [address] [facility] [place] [phone] Health Maintenance Due Date Last Done Comments [...] (#1) 2020 documented as of this encounter Procedures Procedure Name Priority Date/Time Associated Diagnosis Comme nts ASSIGNMENT OF BENEFITS Routine 06/09/2020 12:47 PM SYSTEMS REQUIREMENTS PLANNER documented in this encounter Results Not on filedocumented in this encounter Insurance Payer Benefit Plan Subscriber ID Effective Phone Address Typ e / Group Dates AETNA - AETNA [id number] 2019-Prese P O BOX Medic are Adv MANAGED MEDICARE ADV nt [id number] [place] [address] documented as of this encounter
--- OUTSIDE RECORDS SUMMARY | 2020-07-30 11:15 | XMS REPORT | Summary of Care ---
:1950 Author Organization [facility] Address [address] [place] [address] Care Team Providers Name Role Phone Annie Luis Primary Care Provider Reason for Visit Reason Comments Results Covid Test Results Encounter Details Date Type Department Care Team Description 07/28/2020 Telephone [facility] Family Lab, Adc Fam Pob Resul ts (Covid Test Medicine - [facility] Results) [address] [place] [address] [place] [address] Allergies No Known Allergiesdocumented as of this [...] in contact with Yes 07/27/2020 4:49 PM LEGAL BILLING CLERK someone who was confirmed or suspected to have Coronavirus / COVID-19? documented as of this encounter Last Filed Vital Signs Not on filedocumented in this encounter Miscellaneous Notes Telephone Encounter - Latricia Harris RN - 07/28/2020 1:13 PM CST [facility] SARS-CoV-2 NAAT Not Detected PositiveAbnormal I LVM on an Persian identified voicemail, "this is Teressa", to please call #[phone] to discuss recent results. Latricia Nails L BILLING CLERK documented in this encounter Plan of Treatment [...] of this encounter Implants Implanted Type Area Perinatal Social Worker Device Shelf Model / Identifier Expiration Date Ser ial / Lot Lens, Stas #[id number] - [id number] LENS Left: Eye Stas 10/03/2024 [id number] / Implanted: Qty: 1 on 06/11/2020 by James Hammond MD at [facility] 1 [id number] / N/A documented as of this encounter Results Not on filedocumented in this encounter Additional Health Concerns Infection Onset Date Last Indicated Resolved Time COVID-19 Rule Out 07/27/2020 07/27/2020 07/28/2020 5: 43 AM LEGAL BILLING CLERK COVID-19 Confirmed 07/27/2020 07/27/2020 documented as of this encounter Insurance Payer Benefit Plan Subscriber ID Effective Phone Address Typ e / Group Dates AETNA - AETNA [id number] 2019-Shay Gama MANAGED MEDICARE ADV nt [id number] [place] [address] documented as of this encounter
--- OUTSIDE RECORDS SUMMARY | 2020-07-30 11:15 | XMS REPORT | Summary of Care ---
:1950 Author Organization [facility] Address [address] [place] [address] Care Team Providers Name Role Phone Annie Luis Primary Care Provider Reason for Referral (Routine) Status Reason Specialty Diagnoses / Referred By Referred To Procedures Contact Contact New Request Infusion Therapy Diagnoses COVID-19 Luciano Russo, Procedures CONSULT/REFERRAL COVID POSITIVE INFUSION THERAPY Preferred location: [facility] [address] [place] [address] Reason for Visit Reason Comments Referral/consult Encounter Details Date Type Department Care Team Description 07/29/2020 Telephone [facility] Infusion Saritha Russo MD Referral/consult Center, [address] [place], [place] [id number] [place] [phone] Allergies No Known Allergiesdocumented as of this encounter (statuses as of 07/29/2020) Medications Medication Sig Dispensed Refills Start Date [...] as of this encounter (statuses as of 07/29/2020) Active Problems Not on filedocumented as of this encounter (statuses as of 07/29/2020) Social History Tobacco Use Types Packs/Day Years Used Date Never Smoker Smokeless Tobacco: Never Used Alcohol Use Drinks/Week oz/Week Comments Not Asked 0 Standard drinks or equivalent 0.0 Sex Assigned at Date Recorded Not on file COVID-19 Exposure Response Date Recorded In the last month, have you been in contact with Yes 07/27/2020 4:49 PM CENTER AISLE CASHIER someone who was confirmed or suspected to [...] of this encounter Implants Implanted Type Area Scale Clerk Device Shelf Model / Identifier Expiration Date Ser ial / Lot Lens, Stas #[id number] - [id number] LENS Left: Eye Stas 10/03/2024 [id number] / Implanted: Qty: 1 on 06/11/2020 by James Hammond MD at [facility] 1 [id number] / N/A documented as of this encounter Results Not on filedocumented in this encounter Visit Diagnoses Diagnosis COVID-19 - Primary documented in this encounter Additional Health Concerns Infection Onset Date Last Indicated Resolved Time COVID-19 Confirmed 07/27/2020 07/27/2020 documented as of this encounter Insurance Payer Benefit Plan Subscriber ID Effective Phone Address Typ e / Group Dates AETNA - AETNA [id number] 2019-Prese [address] Me dicare Adv MANAGED MEDICARE ADV nt [id number] [place] [address] documented as of this encounter
--- OUTSIDE RECORDS SUMMARY | 2020-07-30 11:15 | XMS REPORT ---
:1950 Author Organization [facility] Address [address] [place], 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.2 Active 723955781 rhinitis, seasonal Problem Carpal tunnel G56.00 Active 11470684 syndrome Problem Chronic back pain M54.9 Active 299501911 Problem Hypertension I10 Active 11841738 Problem Osteoarthritis of M15.9 Active 080335502 multiple joints Problem Atopic dermatitis L20.9 Active 54876271 Problem Pulmonary nodule, R91.1 Active 171814165 right Problem Hypothyroidism E03.9 Active 36488959 Problem Memory changes R41.3 Active 934826852 Problem Lumbar M51.36 Active 78742289 degenerative disc disease Problem Idiopathic G60.9 Active 54946971 peripheral neuropathy Problem Acquired M41.9 Active 294404530 scoliosis Problem Osteoarthritis of M17.0 Active 561696576 both knees, unspecified osteoarthritis type Problem Primary M17.12 Active 908883417133483 osteoarthritis of left knee ALLERGIES No Known Allergies ENCOUNTERS from 1950 to 2020-07-09 Encounter Location Date Provider Diagnosis [facility] [address] [place] [address] Jun, 2020 [facility] Luis Eye exam, routine Family Medicine [address], Z01.00 [place] [address] IMMUNIZATIONS Vaccine Route Administration Date Status FluAD [...] REASON FOR REFERRAL No Information VITAL SIGNS No information MEDICATIONS Medication SIG (Take, Route, Notes Start [...] Information RESULTS No Results REASON FOR VISIT updated ins refer ophthalm MEDICAL (GENERAL) HISTORY Type Description Date Medical [...] Notes Treatment Notes Treatm ent Clinical Notes Jun, Eye exam, routine (ICD-10 - Z01.00) PLAN OF TREATMENT Medication Medication Name Sig [...] Orally Twice a day for 30 days Next Appt Details Provider Name:Rancho Annie Luis, 2020-08-25 09:15:00 AM, [address], [address], [place], [address], Provider Name:Rancho Luis, 2020-09-01 09:40:00 AM, [address], [address], [place], [address], Insurance Providers Payer Name Payer Payer Insured Name Patient Coverage Covera ge End Address Phone Relationship to Start Date Enrike e Insured AETNA [phone] Francy Haas self 2021 [id number] [facility] [id number]
--- OUTSIDE RECORDS SUMMARY | 2020-07-30 11:16 | XMS REPORT ---
:1950 Author Organization [facility] Address [address] [place], [address] [place] [address] Care Team Providers Name Role Phone Luis Unavailable [phone] PROBLEMS Type Condition ICD9-CM [id number] Onset Condition W/U Status Risk SNOM ED Notes Code Code Dates Status Code Problem Diabetes E11.9 Active confirmed 59108583 mellitus, type 2 Problem Hyperlipidemi E78.2 Active confirmed 803507 003 a, mixed Problem Allergic J30.2 Active confirmed 429374478 rhinitis, seasonal Problem Carpal tunnel G56.00 Active confirmed 244193 09 syndrome Problem Chronic back M54.9 Active confirmed 7908920 02 pain Problem Hypertension I10 Active confirmed 8292332 3 Problem Osteoarthriti M15.9 Active confirmed 912811 009 s of multiple joints Problem Atopic L20.9 Active confirmed 44858863 dermatitis Problem Pulmonary R91.1 Active confirmed 798087392 nodule, right Problem Hypothyroidis E03.9 Active confirmed 055416 08 m Problem Memory R41.3 Active confirmed 523328470 changes Problem Lumbar M51.36 Active confirmed 61741631 degenerative disc disease Problem Idiopathic G60.9 Active confirmed 56509196 peripheral neuropathy Problem Acquired M41.9 Active confirmed 157504084 scoliosis Problem Osteoarthriti M17.0 Active confirmed 715878 007 s of both knees, unspecified osteoarthriti s type Problem Primary M17.12 Active confirmed 7840594604 osteoarthriti 67760 s of left knee ALLERGIES No Known Allergies ENCOUNTERS from 1950 to 2020-07-29 Encounter Location Date Provider Diagnosis [facility] [address] Gwen SO Jul[facility] [address], [place] [address] unspecified ty pe J06.9 ; COVID-1 9 U07.1 and Acute maxillary sinus itis, recurrence not specified J01.0 0 IMMUNIZATIONS Vaccine Route Administration Date Status FluAD [...] No Information VITAL SIGNS Height 67 in Jul, Weight 180 lbs Jul, Temperature 99.5 degrees Fahrenheit Jul, BMI 28.19 kg/m2 Jul, Blood pressure systolic 133 mm Hg Jul, Blood pressure diastolic 70 mm Hg Jul, MEDICATIONS Medication SIG (Take, Route, Notes Start Date End Date Status Frequency, Duration) Triamcinolone Acetonide 1 application to Active 0.1 % affected area Externally Twice a day for 30 days Azithromycin 250 MG 2 tablets on the Jul, Jul, Active first day, then 1 tablet daily for 4 days Orally Once a day for 5 day(s) Levothyroxine Sodium 50 1 tablet on an empty Active MCG stomach in the morning Orally Once a day for 30 days Lisinopril-Hydrochlorothi TAKE ONE TABLET BY Active azide 20-12.5 MG MOUTH TWICE DAILY for 90 Metformin HCl 1000 MG 1 tablet with meals Active Orally Twice a day for 30 days Lipitor 20 MG 1 tablet Orally Once a Active day for 30 days Aspirin 81 81 MG 1 tablet Orally Once a Active day Zestoretic 20-12.5 MG 1 tablet Orally Twice Active a day for 30 days Ivermectin 3 MG Take 5 tablets on day Jul, Jul, Active 1 and then on day 3 Orally Once a day for 2 days PROCEDURES No Information RESULTS No Results REASON FOR VISIT Covid + MEDICAL (GENERAL) HISTORY Type Description Date Medical [...] Notes Treatment Notes Treatm ent Clinical Notes Jul, Upper respiratory With the duration and tract infection, severity of unspecified type symptoms/PE, will (ICD-10 - J06.9) treat with Zpak. Side effect discussed with patient. In addition, discussed supportive measures and home remedies for symptomatic relief. Increase hydration. Advised on signs/symptoms to monitor. If able to take, OK to use OTC Tylenol and/or NSAIDs for pain and fever, temporarily. It is important to rest and take your medication as recommended by the doctor. You should clean your hands frequently. You should remain indoors and cover your mouth when coughing. If necessary you may have to wear a mask to keep from infecting others. You should also change your toothbrush within 24-48 hours of starting any antibiotics. Salt water gargles three times a day is recommended for pharyngeal irritation and congestion. Nasal saline sprays three times a day to the nostrils may help with the nasal congestion. You may also take Mucinex OTC for chest congestion. If the symptoms persists or worsen after 24-48 hours especially if taking medication, then you are to call back for reevaluation or go to the ER. 02 Feb, 2021 COVID-19 (ICD-10 Instructed patient on Di scussed - U07.1) vitamin extensively wit h supplementation patient and including but not daughter i n limited to vitamin B, regard s to FDA vitamin C, vitamin D and CDC along with zinc, recommendat ion. Pepcid and Zyrtec. There are no Okay to use approved [id number] medication sets analgesic as needed for outp atient and use as directed. treatme nt for Encourage to monitor against . pulse and oxygen, Discussed other obtain from store. clinical trials If Oxygen is <90% go and res ults. to ED immediately if Will pr escribe unable to maintain ivermecti n 2-day oxygen >90% at rest. course. Side Monitor vitals effect panel closely. Advised on discuss ed. signs and symptoms to Educat ion given. monitor when to contact clinic and/or visit the nearest ED. Patient vocalized understanding. Jul, Acute maxillary sinusitis, recurrence not specified (ICD-10 - J01.00) Jul, Other -- Medication reviewed and updated. -- [...] Medication Name Sig Start Date Stop Date Azithromycin 250 MG 2 tablets on the first day, then 1 Jul, 7 Jul, 2020 tablet daily for 4 days Orally Once a day for 5 day(s) Ivermectin 3 MG Take 5 tablets on day 1 and then on day Jul, 4 Jul, 2020 3 Orally Once a day for 2 days Treatment Notes Assessment Notes Clinical Notes Upper respiratory tract With the duration and severity infection, unspecified type of symptoms/PE, will treat with Zpak. Side effect discussed with patient. In addition, discussed supportive measures and home remedies for symptomatic relief. Increase hydration. Advised on signs/symptoms to monitor. If able to take, OK to use OTC Tylenol and/or NSAIDs for pain and fever, temporarily. It is important to rest and take your medication as recommended by the doctor. You should clean your hands frequently. You should remain indoors and cover your mouth when coughing. If necessary you may have to wear a mask to keep from infecting others. You should also change your toothbrush within 24-48 hours of starting any antibiotics. Salt water gargles three times a day is recommended for pharyngeal irritation and congestion. Nasal saline sprays three times a day to the nostrils may help with the nasal congestion. You may also take Mucinex OTC for chest congestion. If the symptoms persists or worsen after 24-48 hours especially if taking medication, then you are to call back for reevaluation or go to the ER. COVID-19 Instructed patient on vitamin Discussed extensively with supplementation including but patient an d daughter in not limited to vitamin B, regards to FDA and CDC vitamin C, vitamin D along with recommen dation. There are zinc, Pepcid and Zyrtec. Okay no approv ed medication sets to use [id number]-nwqowmc for outpatient t reatment analgesic as needed and use as for again st. Discussed directed. Encourage to monitor other cl inical trials and pulse and oxygen, obtain from results. Will prescribe store. If Oxygen is <90% go to ivermect in 2-day course. ED immediately if unable to Side effect panel maintain oxygen >90% at rest. discussed. Education Monitor vitals closely. given. Advised on signs and symptoms to monitor when to contact clinic and/or visit the nearest ED. Patient vocalized understanding. Next Appt Details prn Reason: Provider Name:Rancho Luis, 2020-08-25 09:15:00 AM, [address], [place], [address], Provider Name:Rancho Luis, 2020-09-01 09:40:00 AM, [address], [place], [address], Insurance Providers Payer Name Payer Payer Insured Name Patient Coverage Covera ge End Address Phone Relationship to Start Date Enrike e Insured [employer] [phone] Francy Haas self 2019 [id number] [facility] [id number]
[2020-07-30 13:04] LABS: Absolute Lymphocytes (CBC) 1.3 K/uL (0.7-4.9); Basophils % 0.4 % (0-1.3); Hematocrit 43.8 % (39.6-49.0); Lymphocytes % 21.1 % (15.3-44.8); RBC Red Blood Cell Count 4.72 M/uL (4.33-5.43)
[2020-07-30 13:07] LABS: Protime INR 0.94
[2020-07-30 13:22] LABS: ALT/SGPT 30 U/L (12-78); AST/SGOT 23 U/L (15-37); Alkaline Phosphatase 77 U/L (45-117); BUN Blood Urea Nitrogen 16 mg/dL (7-18); Bicarbonate 29 mmol/L (21-32); Bilirubin Direct 0.1 mg/dL (0-0.2); Bilirubin Total 0.4 mg/dL (0.2-1.0); Glucose Level 97 mg/dL (74-106); Magnesium 1.9 mg/dL (1.8-2.4); NT PRO-BNP 52 pg/mL (<125); Potassium 3.7 mmol/L (3.5-5.1); Protein, Total 8.1 g/dL (6.4-8.2); Sodium Level 139 mmol/L (136-145); Troponin (Emerg Dept Use Only) < 0.02 ng/mL (0.0-0.045)
--- NOTE | 2020-07-30 13:46 | RAD REPORT ---
EXAM DESCRIPTION: Nory Single View07/30/2020 1:35 pm CLINICAL HISTORY: Chest pain COMPARISON: 2017 FINDINGS: Previously described nodule within the right lung base is equivocally seen on the current exam. If it is present it does not appear to be changed in size Lungs appear clear of acute infiltrate. Heart is normal size
--- NOTE | 2020-07-30 15:28 | ER ---
Nurse's Notes [facility] Name: Elizabeth Haas Age: 70 yrs Sex: Male : 1950 Arrival Date: 07/30/2020 Time: 10:24 Bed 23 Private MD: Rancho Luis Diagnosis: Dyspnea, unspecified;Coronavirus infection, unspecified Presentation: 07/30 10:30 Chief complaint: Patient states: COVID +, cough, chest tightness, back pain, headache, sv decreased appetite x 5 days. Pt received a phone call from [phone] and told him to get seen here. Pt is unsure why though. Dr Luis his PCP has called in prescriptions for him and he has been taking them as prescribed. Coronavirus screen: Client denies travel out of the [place] in the last 14 days. Client presents with at least one sign or symptom that may indicate coronavirus-19. Standard/surgical mask placed on the client. Provider contacted for isolation considerations. Client reports previous positive COVID test result. Ebola Screen: No symptoms or risks identified at this time. Risk Assessment: Do you want to hurt yourself or someone else? Patient reports no desire to harm self or others. Onset of symptoms was June 2020. 10:30 Method Of Arrival: Ambulatory sv 10:30 Acuity: GALLO 4 sv 10:32 Initial Sepsis Screen: Does the patient meet any 2 criteria? No. Patient's initial sv sepsis screen is negative. Does the patient have a suspected source of infection? No. Patient's initial sepsis screen is negative. Triage Assessment: 10:35 General: Appears in no apparent distress. comfortable, Behavior is calm, cooperative, sv appropriate for age. Neuro: Level of Consciousness is awake, alert, obeys commands, Oriented to person, place, time, situation, Gait is steady. Respiratory: Reports cough that is Respiratory effort is even, unlabored, Respiratory pattern is regular, symmetrical. Historical: - Allergies: 10:32 No Known Allergies; sv - PMHx: 10:32 Diabetes - NIDDM; Hyperlipidemia; Hypertension; Thyroid problem; sv Screenin:35 Abuse screen: Denies threats or abuse. Nutritional screening: No deficits noted. vg1 Tuberculosis screening: No symptoms or risk factors identified. Fall Risk No fall in past 12 months (0 pts). No secondary diagnosis (0 pts). No IV (0 pts). Ambulatory Aid- None/Bed Rest/Nurse Assist (0 pts). Gait- Normal/Bed Rest/Wheelchair (0 pts) Mental Status- Oriented to own ability (0 pts). Total Lu Fall Scale indicates No Risk (0-24 pts). Assessment: 12:25 General: Appears in no apparent distress. comfortable, Behavior is calm, cooperative. vg1 Pain: Complains of pain in chest; states pain is when taking a deep breath. Pain currently is 2 out of 10 on a pain scale. Pain began 2-3 days ago. Neuro: Level of Consciousness is awake, alert, obeys commands, Oriented to person, place, time, situation. Cardiovascular: Patient's skin is warm and dry. Respiratory: Airway is patent Respiratory effort is even, unlabored, Respiratory pattern is regular, symmetrical, Breath sounds are clear bilaterally. GI: Reports nausea, Patient currently denies diarrhea, vomiting. : No signs and/or symptoms were reported regarding the genitourinary system. EENT: No signs and/or symptoms were reported regarding the EENT system. Derm: Skin is intact, is healthy with good turgor. Musculoskeletal: Circulation, motion, and sensation intact. 14:33 Reassessment: Patient appears in no apparent distress at this time. Patient and/or vg1 family updated on plan of care and expected duration. Pain level reassessed. Patient is alert, oriented x 3, equal unlabored respirations, skin warm/dry/pink. Patient denies pain at this time. 15:40 Reassessment: Patient appears in no apparent distress at this time. Patient and/or vg1 family updated on plan of care and expected duration. Pain level reassessed. Patient is alert, oriented x 3, equal unlabored respirations, skin warm/dry/pink. Patient denies pain at this time. Patient states feeling better. 15:45 Cardiovascular: Rhythm is sinus rhythm. vg1 Vital Signs: 10:32 BP 127 / 74; Pulse 83; Resp 16; Temp 98.3(TE); Pulse Ox 100% on R/A; Weight 79.38 kg; sv Height 5 ft. 7 in. (170.18 cm); 12:35 BP 127 / 68; Pulse 81; Resp 16; Pulse Ox 98% on R/A; vg1 13:30 BP 119 / 70; Pulse 80; Resp 16; Pulse Ox 96% on R/A; vg1 14:30 BP 122 / 71; Pulse 80; Resp 14; Pulse Ox 98% on R/A; vg1 15:30 BP 126 / 68; Pulse 80; Resp 16; Pulse Ox 97% on R/A; vg1 10:32 Body Mass Index 27.41 (79.38 kg, 170.18 cm) sv ED Course: 10:24 Patient arrived in ED. mr 10:25 Rancho Luis DO is Private Physician. mr 10:26 Arm band placed on. sv 10:32 Triage completed. sv 11:16 Angelo Heath PA is PHCP. jmm 11:16 Kaiden Hook MD is Attending Physician. jmm 12:21 Kaelyn Vee, RN is Primary Nurse. vg1 12:35 Patient has correct armband on for positive identification. Placed in gown. Bed in low vg1 position. Call light in reach. Side rails up X 1. 12:58 EKG done, by ED staff, reviewed by Angelo CUETO. Initial lab(s) drawn, by sc, sent vg1 to lab. Inserted saline lock: 20 gauge in right antecubital area, using aseptic technique. Blood collected. 13:31 Basic Metabolic Panel Sent. sv 13:31 CBC with Diff Sent. sv 13:35 XRAY Chest (1 view) In Process Unspecified. EDMS 13:55 D-Dimer Sent. jp3 15:27 Rancho Luis DO is Referral Physician. [facility] 15:45 No provider procedures requiring assistance completed. IV discontinued, intact, vg1 bleeding controlled, No redness/swelling at site. Pressure dressing applied. Administered Medications: No medications were administered Outcome: 15:28 Discharge ordered by MD. jmm 15:45 Discharged to home ambulatory. vg1 15:45 Condition: stable 15:45 Discharge instructions given to patient, Instructed on discharge instructions, the need for admit, medication usage, Demonstrated understanding of instructions, follow-up care, medications, Prescriptions given X 2. 15:46 Patient left the ED. vg1 Signatures: Dispatcher [employer] EDMS Sima Francis RN RN Angelo Heath PA PA Lindsay Garnica Chau Garzon jp3 Mariusz, Kaelyn, RN RN vg1 Corrections: (The following items were deleted from the chart) 10:35 10:32 Pulse 83bpm; Resp 16bpm; Pulse Ox 100% RA; Temp 98.3F Temporal; 79.38 kg; Height sv 5 ft. 7 in.; BMI: 27.4; sv
--- NOTE | 2020-07-30 15:28 | EDPHYS ---
Physician Documentation [facility] Name: Elizabeth Haas Age: 70 yrs Sex: Male : 1950 Arrival Date: 07/30/2020 Time: 10:24 Bed 23 Private MD: Toby [facility] ED Physician Kaiden Hook HPI: 07/30 12:39 This 70 yrs old Male presents to ER via Ambulatory with complaints of COVID+, jmm Breathing Difficulty. 12:39 The patient or guardian reports cough. Onset: The symptoms/episode began/occurred jmm gradually, 5 day(s) ago. Modifying factors: The symptoms are alleviated by nothing. the symptoms are aggravated by deep breath. Associated signs and symptoms: Pertinent positives: chest pain. This is a 70 year old male with a history of DM, HLP, HTN that presents to the ED with complaints of fatigue, headache, chest pain beginning approx 5 days ago with chest pain the past 3 days worsened with deep inspiration. Patient states the chest pain has been constant. recently diagnosed with covid as well. . Historical: - Allergies: 10:32 No Known Allergies; sv - PMHx: 10:32 Diabetes - NIDDM; Hyperlipidemia; Hypertension; Thyroid problem; sv ROS: 12:39 Constitutional: Positive for fatigue. jmm 12:39 Cardiovascular: Positive for chest pain, with cough. 12:39 Respiratory: Positive for cough, shortness of breath. 12:39 All other systems are negative. Exam: 12:39 Constitutional: This is a well developed, well nourished patient who is awake, alert, jmm and in no acute distress. Head/Face: atraumatic. Eyes: EOMI, no conjunctival erythema appreciated ENT: Moist Mucus Membranes Neck: Trachea midline, Supple Chest/axilla: Normal chest wall appearance and motion. Cardiovascular: Regular rate and rhythm. No edema appreciated Respiratory: Normal respirations, no respiratory distress appreciated Abdomen/GI: Non distended, soft Back: Normal ROM Skin: General appearance color normal MS/ Extremity: Moves all extremities, no obvious deformities appreciated, no edema noted to the lower extremities Neuro: Awake and alert, normal gait Psych: Behavior is normal, Mood is normal, Patient is cooperative and pleasant 13:08 ECG was reviewed by the Attending Physician. [facility] Vital Signs: 10:32 BP 127 / 74; Pulse 83; Resp 16; Temp 98.3(TE); Pulse Ox 100% on R/A; Weight 79.38 kg; sv Height 5 ft. 7 in. (170.18 cm); 12:35 BP 127 / 68; Pulse 81; Resp 16; Pulse Ox 98% on R/A; vg1 13:30 BP 119 / 70; Pulse 80; Resp 16; Pulse Ox 96% on R/A; vg1 14:30 BP 122 / 71; Pulse 80; Resp 14; Pulse Ox 98% on R/A; vg1 15:30 BP 126 / 68; Pulse 80; Resp 16; Pulse Ox 97% on R/A; vg1 10:32 Body Mass Index 27.41 (79.38 kg, 170.18 cm) sv MDM: 12:27 Patient medically screened. [facility] 15:25 Data reviewed: vital signs, nurses notes. Counseling: I had a detailed discussion with micheline the patient and/or guardian regarding: the historical points, exam findings, and any diagnostic results supporting the discharge/admit diagnosis, lab results, radiology results, the need for outpatient follow up, to return to the emergency department if symptoms worsen or persist or if there are any questions or concerns that arise at home. ED course: Patient is alert and non toxic in appearance in the ED. No signs of resp distress. Pain appears pleuretic. I do not suspect ACS. Patient is advised to follow up with pcp and otherwise given strict return precautions. Patient understood and agrees with the plan of care. . 07/30 12:29 Order name: Basic Metabolic Panel [facility] 07/30 12:29 Order name: CBC with Diff [facility] 07/30 12:29 Order name: LFT's; Complete Time: 13:26 [facility] 07/30 12:29 Order name: Magnesium; Complete Time: 13:26 [facility] 07/30 12:29 Order name: NT PRO-BNP; Complete Time: 13:26 [facility] 07/30 12:29 Order name: PT-INR; Complete Time: 13:26 [facility] 07/30 12:29 Order name: Troponin (emerg Dept Use Only); Complete Time: 13:26 [facility] 07/30 12:29 Order name: XRAY Chest (1 view); Complete Time: 13:52 [facility] 07/30 12:29 Order name: EKG; Complete Time: 12:30 [facility] 07/30 12:30 Order name: Basic Metabolic Panel; Complete Time: 13:26 [facility] 07/30 12:30 Order name: CBC with Automated Diff; Complete Time: 13:09 [facility] 07/30 12:38 Order name: CRP; Complete Time: 13:26 [facility] 07/30 13:52 Order name: D-Dimer [facility] 07/30 13:53 Order name: D-Dimer; Complete Time: 15:25 [facility] 07/30 12:29 Order name: Cardiac monitoring; Complete Time: 13:00 [facility] 07/30 12:29 Order name: EKG - Nurse/Tech; Complete Time: 13: [facility] 07/30 12:29 Order name: IV Saline Lock; Complete Time: 13: [facility] 07/30 12:29 Order name: Labs collected and sent; Complete Time: 13:00 [facility] 07/30 12:29 Order name: O2 Per Protocol; Complete Time: 13: [facility] 07/30 12:29 Order name: O2 Sat Monitoring; Complete Time: 13: [facility] EC:08 Rate is 78 beats/min. Rhythm is regular. QRS [place] is Normal. MD interval is normal. QRS jmm interval is normal. QT interval is normal. No Q waves. T waves are Normal. No ST changes noted. Reviewed by me. Administered Medications: No medications were administered Disposition: 07/31 06:00 Co-signature as Attending Physician, Kaiden Hook MD I agree with the assessment and kdr plan of care. Disposition: 07/30/20 15:28 Discharged to Home. Impression: Dyspnea, unspecified, Coronavirus infection, unspecified. - Condition is Stable. - Discharge Instructions: Shortness of Breath, COVID-19. - Prescriptions for Medrol (Josue) 4 mg Oral Tablets, Dose Pack - take 1 tablet by ORAL route as directed - follow package instructions; 1 packet. Albuterol Sulfate 90 mcg/actuation - inhale 1-2 puff by INHALATION route every 4-6 hours; 1 Inhaler. - Medication Reconciliation Form, Thank You Letter, Antibiotic Education, Prescription Opioid Use form. - Follow up: Rancho Luis DO; When: 2 - 3 days; Reason: Recheck today's complaints, Continuance of care, Re-evaluation by your physician. Signatures: Dispatcher [employer] Sima Hess, RN RN Kaiden Lyman MD MD kdr Mickail, Joel, PA PA jmm Garcia, Victoria, RN RN vg1 Corrections: (The following items were deleted from the chart) 07/30 15:46 15:28 07/30/2020 15:28 Discharged to Home. Impression: Dyspnea, unspecified; vg1 Coronavirus infection, unspecified. Condition is Stable. Forms are Medication Reconciliation Form, Thank You Letter, Antibiotic Education, Prescription Opioid Use. Follow up: Rancho Luis; When: 2 - 3 days; Reason: Recheck today's complaints, Continuance of care, Re-evaluation by your physician. shay
== END 2020-07-30 15:46 | disposition home or self-care (01) ==
LOC: ER 10:20
DX: U07.1 COVID-19 (principal); R07.9 Chest pain, unspecified; I10 Essential (primary) hypertension
CPT/HCPCS: 36415; 71045; 80048; 80076; 83735; 83880; 84484; 85025; 85379; 85610; 86140; 93005; 99284

== ENCOUNTER 2020-08-04 11:35 | Emergency (ER) | payer OTHER ==
[2020-08-04] MEDS ORDERED: NA CHLORIDE 0.9% 1,000 ML ONE (15:45)
[2020-08-04 15:59] LABS: Potassium 3.8 mmol/L (3.5-5.1)
--- NOTE | 2020-08-04 16:46 | RAD REPORT ---
EXAM DESCRIPTION: RAD - Chest Single View - 08/04/2020 4:26 pm CLINICAL HISTORY: covid + SOB;Cough COMPARISON: Portable July 30 TECHNIQUE: AP portable chest image was obtained 08/04/2020 4:26 pm . FINDINGS: Lung volumes are low. Minimal patchy alveolar opacities are present in the mid and lower l eneida russ. Upper lung russ are generally spared. Overall lung markings are accentuated by a more s hallow inspiratory effort. Pattern is typical for viral pneumonia. Given the history and current clin ica environment, bilateral COVID-19 pneumonia is the primary consideration. Heart and vasculature are normal. No measurable pleural effusion and no pneumothorax. No acute bony abnormality seen. No acute aortic findings suspected. IMPRESSION: Bilateral pneumonia pattern, mild in degree, most likely COVID-19 pneumonia.
[2020-08-04] MEDS ORDERED: Ringers Lactate 1,000 ML IV ONE (17:11)
--- NOTE | 2020-08-04 18:17 | ER ---
Nurse's Notes [facility] Name: Elizabeth Haas Age: 70 yrs Sex: Male : 1950 Arrival Date: 08/04/2020 Time: 11:42 Bed 23 Private MD: Rancho Luis Diagnosis: Coronavirus infection, unspecified Presentation: 08/04 11:55 Chief complaint: Patient states: COVID + 8 days ago in [place], c/o subjective fever, sv neck pain, decreased appetite since yesterday and diarrhea started today. Coronavirus screen: Client denies travel out of the [place] in the last 14 days. Client presents with at least one sign or symptom that may indicate coronavirus-19. Standard/surgical mask placed on the client. Provider contacted for isolation considerations. Client reports previous positive COVID test result. Ebola Screen: No symptoms or risks identified at this time. Initial Sepsis Screen: Does the patient meet any 2 criteria? HR > 90 bpm. No. Patient's initial sepsis screen is negative. Does the patient have a suspected source of infection? Yes: Other: COVID. Risk Assessment: Do you want to hurt yourself or someone else? Patient reports no desire to harm self or others. Onset of symptoms was August 03, 2020. 11:55 Method Of Arrival: Ambulatory sv 11:55 Acuity: GALLO 3 sv Triage Assessment: 11:57 General: Appears in no apparent distress. uncomfortable, Behavior is calm, cooperative, sv appropriate for age. Pain: Complains of pain in all over. Neuro: Level of Consciousness is awake, alert, obeys commands, Oriented to person, place, time, situation, Gait is steady. Respiratory: Respiratory effort is even, unlabored, Respiratory pattern is regular, symmetrical. Historical: - Allergies: 11:57 No Known Allergies; sv - PMHx: 11:57 Diabetes - NIDDM; Hyperlipidemia; Hypertension; Thyroid problem; sv - PSHx: 11:57 None; sv - Immunization history:: Adult Immunizations up to date. - Social history:: Smoking status: Patient denies any tobacco usage or history of. Screenin:12 Abuse screen: Denies threats or abuse. Denies injuries from another. Nutritional ss screening: No deficits noted. Tuberculosis screening: Never had TB. Fall Risk None identified. Assessment: 15:12 General: Appears in no apparent distress. ill, Behavior is calm, cooperative, Reports ss chills for >3 days, fever for > 3 days, feeling ill for > 3 days, fatigue for >3 days. Pain: Complains of pain in neck/ generalized body aches Pain currently is 10 out of 10 on a pain scale. Is continuous. Neuro: Level of Consciousness is awake, alert, obeys commands, Oriented to person, place, time, situation. Cardiovascular: Pulses are palpable in right radial artery, right posterior tibial artery, left radial artery and left posterior tibial artery. Respiratory: Reports cough that is since x 8 days Airway is patent Respiratory effort is even, unlabored, Respiratory pattern is regular, symmetrical. GI: Abdomen is non-distended, Reports diarrhea, since today decreased appetite x 3 days. EENT: Nares are clear Oral mucosa is moist. Derm: Skin is intact, is healthy with good turgor, Skin is dry, Skin is pink, warm \T\ dry. normal. Musculoskeletal: Circulation, motion, and sensation intact. Range of motion: intact in all extremities, Swelling absent. 15:12 : No signs and/or symptoms were reported regarding the genitourinary system. ss 17:00 Reassessment: Patient appears in no apparent distress at this time. Patient and/or ss family updated on plan of care and expected duration. Pain level reassessed. Patient states feeling better. Patient states symptoms have improved. 18:27 Reassessment: Patient appears in no apparent distress at this time. Patient and/or ss family updated on plan of care and expected duration. Pain level reassessed. Patient is alert, oriented x 3, equal unlabored respirations, skin warm/dry/pink. Patient states feeling better. Vital Signs: 11:55 BP 96 / 61; Pulse 100; Resp 16; Temp 99.3(O); Pulse Ox 98% on R/A; Weight 79.38 kg; sv Height 5 ft. 7 in. (170.18 cm); Pain 10/10; 16:15 BP 120 / 61; Pulse 85; Resp 18; Temp 99.8(O); Pulse Ox 92% on R/A; mh5 17:52 BP 112 / 67; Pulse 81; Resp 17; Temp 100.1(O); Pulse Ox 91% on R/A; mh5 11:55 Body Mass Index 27.41 (79.38 kg, 170.18 cm) ED Course: 11:42 Patient arrived in ED. mr 11:42 Rancho Luis DO is Private Physician. mr 11:57 Triage completed. sv 11:57 Arm band placed on. sv 15:10 Rain Khalil RN is Primary Nurse. 15:11 Angelo Heath PA is PHCP. [facility] 15:11 Devin Parr MD is Attending Physician. [facility] 15:12 Patient has correct armband on for positive identification. Bed in low position. Call ss light in reach. 15:27 Inserted saline lock: 20 gauge in right antecubital area, using aseptic technique. ss Blood collected. 16:26 XRAY Chest (1 view) In Process Unspecified. EDMS 17:00 No provider procedures requiring assistance completed. ss 18:16 Rancho Luis DO is Referral Physician. [facility] 18:27 IV discontinued, intact, bleeding controlled, No redness/swelling at site. Pressure ss dressing applied. Administered Medications: 15:32 Drug: NS 0.9% 1000 ml Route: IV; Rate: 1 bolus; Site: right antecubital; ss 16:54 Follow up: IV Status: Completed infusion; IV Intake: 1000ml 17:00 Drug: Lactated Ringers Solution 500 ml Route: IV; Rate: 500 bolus; Site: right ss antecubital; 17:34 Follow up: IV Status: Completed infusion; IV Intake: 500ml ss Intake: 16:54 IV: 1000ml; Total: 1000ml. 17:34 IV: 500ml; Total: 1500ml. Outcome: 18:16 Discharge ordered by MD. [facility] 18:27 Discharged to home ambulatory, with family. 18:27 Condition: improved 18:27 Discharge instructions given to patient, family, Instructed on discharge instructions, follow up and referral plans. medication usage, Demonstrated understanding of instructions, follow-up care, medications, Prescriptions given X 4. 18:28 Patient left the ED. Signatures: Dispatcher [employer] EDMS Sima Francis RN RN Angelo Heath PA PA Lindsay Garnica mr Rain Khalil RN RN Teressa Marte [facility] Corrections: (The following items were deleted from the chart) 15:14 15:12 Respiratory: Airway is patent Respiratory effort is even, unlabored, Respiratory ss pattern is regular, symmetrical, ss
--- NOTE | 2020-08-04 18:17 | EDPHYS ---
Physician Documentation [facility] Name: Elizabeth Haas Age: 70 yrs Sex: Male : 1950 Arrival Date: 08/04/2020 Time: 11:42 Bed 23 Private MD: Toby Rancho ED Physician Devin Parr HPI: 08/04 15:22 This 70 yrs old Male presents to ER via Ambulatory with complaints of COVID+, jmm Fever, Diarrhea. 15:22 The patient presents to the emergency department with diarrhea. Onset: The jmm symptoms/episode began/occurred gradually, 8 day(s) ago. Possible causes: covid 19. The symptoms are aggravated by nothing. The symptoms are alleviated by nothing. This is a 70 year old male with a history of DM, HLP, HTN, that presents to the ED with complaints of cough, shortness of breath, diarrhea, weakness. Diagnosed with covid 19 8 days ago and has since had a lack of appetite with diarrhea. Historical: - Allergies: 11:57 No Known Allergies; sv - PMHx: 11:57 Diabetes - NIDDM; Hyperlipidemia; Hypertension; Thyroid problem; sv - PSHx: 11:57 None; sv - Immunization history:: Adult Immunizations up to date. - Social history:: Smoking status: Patient denies any tobacco usage or history of. ROS: 15:22 Constitutional: Positive for body aches, fatigue, malaise. jmm 15:22 Cardiovascular: Positive for 15:22 Abdomen/GI: Positive for diarrhea. 15:22 All other systems are negative. 15:22 Respiratory: Positive for cough, shortness of breath. jmm Exam: 15:22 Constitutional: This is a well developed, well nourished patient who is awake, alert, jmm and in no acute distress. Head/Face: atraumatic. Eyes: EOMI, no conjunctival erythema appreciated ENT: Moist Mucus Membranes Neck: Trachea midline, Supple Chest/axilla: Normal chest wall appearance and motion. Cardiovascular: Regular rate and rhythm. No edema appreciated Respiratory: Normal respirations, no respiratory distress appreciated Abdomen/GI: Non distended, soft Back: Normal ROM Skin: General appearance color normal MS/ Extremity: Moves all extremities, no obvious deformities appreciated, no edema noted to the lower extremities Neuro: Awake and alert, normal gait Psych: Behavior is normal, Mood is normal, Patient is cooperative and pleasant Vital Signs: 11:55 BP 96 / 61; Pulse 100; Resp 16; Temp 99.3(O); Pulse Ox 98% on R/A; Weight 79.38 kg; sv Height 5 ft. 7 in. (170.18 cm); Pain 10/10; 16:15 BP 120 / 61; Pulse 85; Resp 18; Temp 99.8(O); Pulse Ox 92% on R/A; mh5 17:52 BP 112 / 67; Pulse 81; Resp 17; Temp 100.1(O); Pulse Ox 91% on R/A; mh5 11:55 Body Mass Index 27.41 (79.38 kg, 170.18 cm) sv MDM: 15:22 Patient medically screened. [facility] 18:14 Data reviewed: vital signs, nurses notes. Counseling: I had a detailed discussion with [facility] the patient and/or guardian regarding: the historical points, exam findings, and any diagnostic results supporting the discharge/admit diagnosis, lab results, radiology results, the need for outpatient follow up, to return to the emergency department if symptoms worsen or persist or if there are any questions or concerns that arise at home. ED course: Patient is alert and non toxic in appearance in the ED. Patient states he feels much better. Patient given strict return precautions. Patient understood and agrees with the plan of care. . 08/04 15:23 Order name: BMP; Complete Time: 16:06 [facility] 08/04 15:33 Order name: XRAY Chest (1 view); Complete Time: 16:54 ss 08/04 15:23 Order name: Saline Lock; Complete Time: 15:27 [facility] Administered Medications: 15:32 Drug: NS 0.9% 1000 ml Route: IV; Rate: 1 bolus; Site: right antecubital; ss 16:54 Follow up: IV Status: Completed infusion; IV Intake: 1000ml ss 17:00 Drug: Lactated Ringers Solution 500 ml Route: IV; Rate: 500 bolus; Site: right ss antecubital; 17:34 Follow up: IV Status: Completed infusion; IV Intake: 500ml ss Disposition: 18:30 Co-signature as Attending Physician, Devin Parr MD. rn Disposition: 08/04/20 18:16 Discharged to Home. Impression: Coronavirus infection, unspecified. - Condition is Stable. - Discharge Instructions: COVID-19. - Prescriptions for Zofran ODT 4 mg Oral tablet,disintegrating - place 1 tablet by TRANSLINGUAL route every 4-6 hours; 20 tablet. ivermectin 3 mg Oral tablet - take 6 tablet by ORAL route as directed One dose on day one, one dose on day 3; 12 tablet. Prednisone 20 mg Oral Tablet - take 3 tablet by ORAL route once daily for 5 days; 15 tablet. Albuterol Sulfate 90 mcg/actuation - inhale 1-2 puff by INHALATION route every 4-6 hours; 1 Inhaler. - Medication Reconciliation Form, Thank You Letter, Antibiotic Education, Prescription Opioid Use form. - Follow up: Rancho Luis DO; When: 1 - 2 days; Reason: Recheck today's complaints, Continuance of care, Re-evaluation by your physician. Signatures: Dispatcher [employer] Sima Hess RN RN sv Mickail, Joel, PA PA jmm Nieto, Roman, MD MD rn [facility] RN ss Corrections: (The following items were deleted from the chart) 18:28 18:16 08/04/2020 18:16 Discharged to Home. Impression: Coronavirus infection, ss unspecified. Condition is Stable. Forms are Medication Reconciliation Form, Thank You Letter, Antibiotic Education, Prescription Opioid Use. Follow up: Rancho Luis; When: 1 - 2 days; Reason: Recheck today's complaints, Continuance of care, Re-evaluation by your physician. [facility] 20:01 15:22 Cardiovascular: Negative for chest pain, palpitations, and edema, Respiratory: [facility] Negative for shortness of breath, cough, wheezing, and pleuritic chest pain, m
[2020-08-04 18:52] VITALS: BP 112/67; TEMP 100.1; O2SAT 91
--- OUTSIDE RECORDS SUMMARY | 2020-08-05 21:56 | XMS REPORT | Continuity of Care Document ---
:1950 Author Organization [facility] t Address [address] [place] [address] Care Team Providers Name Role Phone Rafaela MARQUEZ, M Attending Clinician Kimberly CLOUD, T Attending Clinician Unavailable Lab, Fam Pob I Attending Clinician Unavailable Doctor Unassigned, Name Attending Clinician Unavailable Constantino MARQUEZ, A Attending Clinician Only, Test Attending [...] ent Clinics Aspirin 81 Aspirin 81 Yes Rancoh [address] [facility] Zestoretic Zestoretic Yes Rancho [address] [facility] Clin[facility] Metformin Metformin Yes Rancho [address] [facility] HCl HCl Luis with meals [facility] Clinics Lisinopril- Lisinopril- Yes Rancho TAKE ONE [facility] Hydrochloro Hydrochloro Luis TABLET BY [facility] - thiazide thiazide MOUTH Memori a TWICE l DAILY [facility] ent [facility] Immunizations Ordered Filled Immunization Date Status Comments Sourc e Immunization Name Name FLUZONE HIGH DOSE FLUZONE HIGH DOSE 2019-03-[address] [facility] OVER [facility] OVER 65 00:00:00 [facility] Procedures This patient has no known procedures. Encounters Start End Encounter Admission Attending Care Care Encounter Source Date/Time Date/Time Type Type Clinicians Facility Department ID 2020-07-29 2020-07-29 [id number] 00:00:00 00:00:00 Luciano Valencia SPECIALTY [id number] [facility] [id number] CENTER AT [id number] JUDD Us3 [facility] 2020-07-29 2020-07-29 Outpatient [facility] [id number] [facility] 2020-07-28 2020-07-28 Letter CHOLO Harris [id number] 00:00:00 00:00:00 (Out) Latricia CARDOZA [id number] [facility] [id number] 2020-07-28 2020-07-28 Telephone Lab, [facility] [id number] 00:00:00 00:00:00 Fam Pob I Health [id number] [place] [id number] Professio [id number] nal [address] 2020-07-27 2020-07-27 Laboratory Lab, [facility] [id number] 16:41:40 17:01:40 Only Fam Pob I Health [id number] [place] [id number] Professio [id number] nal 0[address] 2020-07-27 2020-07-27 Letter Doctor CHOLO [id number] 00:00:00 00:00:00 (Out) Unassigned, NANI [id number] [place] [facility] [id number] 2020-07-27 2020-07-27 Letter Doctor CHOLO [id number] 00:00:00 00:00:00 (Out) Unassigned, NAIN [id number] [place] [facility] [id number] 2020-07-09 2020-07-09 [facility] [id number] [facility]00 [facility] 2020-06-11 2020-06-[address] [facility] [id number] 07:45:00 09:40:00 Encounter James Giraldo [id number] [place] [id number] [place] [id number] [place] 07 2020-06-10 2020-06-10 Laboratory Only, [facility] [id number] 11:09:27 11:24:27 Only Test [place] [id number] [place] [id number] [place] [id number] 2020-06-09 2020-06-09 Orders Doctor EMMANUEL [id number] 00:00:00 00:00:00 Only Unassigned, NANI [id number] [place] [facility] [id number] 2020-06-06 2020-06-06 [facility] [id number] [facility] 00[facility]00 [facility] 2020-06-02 2020-06-02 Public Accountant Esthela [facility] [id number] 15:27:19 15:42:19 Visit Lab Main [place] [id number] [place] [id number] [facility] [id number] [address] 2020-04-24 2020-04-24 [facility] [id number] [facility] 2020-04-15 2020-04-15 [facility] [id number] [facility] 2020-03-07 2020-03-07 [facility] [id number] 08:40:00 08:40:[address] [place] [address] [place] [address] [place] - Drive [facility] l Medicine Outpati ent Clinics 2020-02-01 2020-02-01 [facility] [id number] 15:31:00 15:31:00 [place] - Drive [facility] Medicine l Medicine Outpati ent Clinics 2019-12-06 2019-12-06 [facility] [id number] 08:00:00 08:00:00 [place] - Drive [facility] Medicine l Medicine Outpati ent Clinics 2019-10-30 2019-10-30 [facility] [id number] 13:56:00 13:56:00 [place] - [facility] Medicine l Medicine Outpati ent Clinics 2019-09-07 2019-09-07 [facility] [id number] 08:30:00 08:30:00 [place] - Drive [facility] l Medicine Outpati ent Clinics 2019-08-22 2019-08-22 [facility] [id number] 09:54:00 09:54:00 [place] - Drive [facility] l Medicine Outpati ent Clinics 2019-06-08 2019-06-08 [facility] [id number] 13:51:00 13:51:00 [place] - Drive [facility] l Medicine Outpati ent Clinics 2019-06-07 2019-06-07 [facility] [id number] 08:45:00 08:45:00 [place] [address] [place] [address] - Drive [facility] Medicine Medicine Outpati ent Clinics 2019-05-31 2019-05-31 [facility] [id number] 16:16:00 16:16:00 [place] [address] [place] [address] [place] - Drive [facility] l Medicine Outpati ent Clinics 2019-05-21 2019-05-21 [facility] [id number] 08:45:00 08:45:00 [place] [address] [place] - Drive [facility] Medicine l Medicine Outpati ent Clinics 2019-04-11 2019-04-11 [facility] [id number] 15:14:00 15:14:00 [place] [employer] s - Drive [facility] Medicine Outpati ent Clinics 2019-03-06 2019-03-06 [facility] [id number] 08:45:00 08:45:00 [place] [employer] s - Drive [facility] Medicine Outpati ent Clinics 2019-02-02 2019-02-02 [facility] [id number] 08:42:00 08:42:00 [place] [employer] s - Drive [facility] l Medicine Outpati ent Clinics 2019-01-26 2019-01-26 [facility] [id number] 09:45:00 09:45:00 [place] [employer] s - Drive [facility] Medicine Outpati ent Clinics 2018-10-23 2018-10-23 [facility] [id number] 08:30:00 08:30:00 [place] [employer] [place] - Drive [facility] Medicine Medicine Outpati ent Clinics 2018-08-07 2018-08-07 [facility] [id number] 14:30:00 14:30:00 [place] [employer] s - Drive [facility] l Medicine Outpati ent Clinics 2018-07-25 2018-07-25 [facility] [id number] 08:15:00 08:15:00 [place] [employer] s - Drive [facility] Medicine Outpati ent Clinics 2018-06-30 2018-06-30 [id number] [facility] 08:[facility] 08:00:00 [facility] Medicine Medicine Outpati ent Clinics Results This patient has no known results.
== END 2020-08-04 18:28 | disposition home or self-care (01) ==
LOC: ER 11:35
DX: U07.1 COVID-19 (principal); E11.9 Type 2 diabetes mellitus without complications; E78.5 Hyperlipidemia, unspecified; I10 Essential (primary) hypertension
CPT/HCPCS: 96361; 80048; 36415; 71045; 96360; 99284; J7120; J7030

== ENCOUNTER 2020-08-06 19:53 | Inpatient (IN) | payer OTHER ==
--- OUTSIDE RECORDS SUMMARY | 2020-08-06 20:27 | XMS REPORT | Continuity of Care Document ---
:1950 Author Organization [facility] t Address [address] [place] [address] Care Team Providers Name Role Phone Rafaela MARQUEZ, Annie Attending Clinician Lab, Fam Pob I Attending Clinician Unavailable Kimberly CLOUD, T Attending Clinician Unavailable Doctor Unassigned, Name Attending [...] [facility] Metformin Metformin Yes [place] [address] [facility] HCl HCl Luis with meals [facility] Lisinopril- Lisinopril- Yes [place]o TAKE ONE [facility] Hydrochloro Hydrochloro Luis TABLET BY [facility] - thiazide thiazide MOUTH Memori a TWICE l DAILY [facility] ent [facility] Immunizations Ordered Filled Immunization Date Status Comments Sourc e Immunization Name Name FLUZONE HIGH DOSE FLUZONE HIGH DOSE 2019-03-[address] [facility] OVER [facility] 00:[facility]:00 [facility] Procedures This patient has no known procedures. Encounters Start End Encounter Admission Attending Care Care Encounter Source Date/Time Date/Time Type Type Clinicians Facility Department ID 2020-07-29 2020-07-29 Outpatient [facility] [id number] [facility] 2020-07-29 2020-07-29 Telephone Rafaela, [facility] [id number] 00:00:00 00:00:00 Luciano Valencia SPECIALTY [id number] [facility] [id number] CENTER AT [id number] JUDD AbebaEdda [facility] 2020-07-28 2020-07-28 Telephone Lab, [facility] [id number] 00:00:00 00:00:00 Fam Pob I Health [id number] Ace [id number] Professio [id number] nal 044 [address] One 2020-07-28 2020-07-28 Letter CHOLO Harris 1.2.840.114 [id number] 00:00:00 00:00:00 (Out) Latricia CARDOZA [id number] [facility] [id number] 2020-07-27 2020-07-27 Laboratory Lab, [facility] 1.2.840.114 [id number] 16:41:40 17:01:40 Only Fam Pob I Health [id number] [facility] [id number] Professio [id number] nal 044 Office Building One 2020-07-27 2020-07-27 Letter Doctor CHOLO 1.2.840.114 [id number] 00:00:00 00:00:00 (Out) Unassigned, NANI [id number] Binger [facility] [id number] 2020-07-27 2020-07-27 Letter Doctor CHOLO 1.2.840.114 [id number] 00:00:00 00:00:00 (Out) Unassigned, NANI [id number] Binger [facility] [id number] [id number] 2020-07-09 2020-07-09 Outpatient [facility] [id number] [facility]00 [facility] ent [facility] 2020-06-11 2020-06-11 [facility] [id number] 07:45:00 09:40:00 Encounter James Giraldo [id number] [place] [id number] [facility] [id number] [place] 071 2020-06-10 2020-06-10 Laboratory Only, [facility] 1.2.840.114 [id number] 11:09:27 11:24:27 Only Test Ace [id number] [place] [id number] [place] [id number] 2020-06-09 2020-06-09 Orders Doctor CHOLO 1.2.840.114 [id number] 00:00:00 00:00:00 Only Unassigned, NANI [id number] [place]inger [facility] [id number] 2020-06-06 2020-06-06 Outpatient [facility] [id number] [facility]00 [facility] ent [facility] 2020-06-02 2020-06-02 [employer] Esthela [facility] 1.2.840.114 [id number] 15:27:19 15:42:19 Visit Lab Main [place] [id number] [place] [id number] [facility] [id number] [address] 2020-04-24 2020-04-24 Outpatient [facility] [id number] [facility] 2020-04-15 2020-04-15 Outpatient [facility] [id number] [facility] 2020-03-07 2020-03-07 [facility] [id number] [facility] 08:40:00 08:40:[address] [facility] - Drive [facility] l Medicine Outpati ent Clinics 2020-02-01 2020-02-01 [facility] [id number] 15:31:00 15:31:00 [place] [facility] - Drive [facility] Medicine l Medicine Outpati ent Clinics 2019-12-06 2019-12-06 [facility] [id number] 08:00:00 08:00:00 [place] [facility] - Drive [facility] Medicine l Medicine Outpati ent Clinics 2019-10-30 2019-10-30 [facility] [id number] 13:56:00 13:56:00 [place] [facility] - Drive [facility] Medicine l Medicine Outpati ent Clinics 2019-09-07 2019-09-07 [facility] [id number] 08:30:00 08:30:00 [place] [facility] - Drive [facility] Medicine l Medicine Outpati ent Clinics 2019-08-22 2019-08-22 [facility] [id number] 09:54:00 09:54:00 [place] [facility] - Drive [facility] Medicine l Medicine Outpati ent Clinics 2019-06-08 2019-06-08 [facility] [id number] 13:51:00 13:51:00 [place] [employer] s - Drive [facility] Medicine l Medicine Outpati ent Clinics 2019-06-07 2019-06-07 [facility] [id number] 08:45:00 08:45:[address] [place] [facility] - Drive [facility] Medicine Medicine Outpati ent Clinics 2019-05-31 2019-05-31 [facility] [id number] 16:16:00 16:16:[address] [facility] s - Drive [facility] Medicine l Medicine Outpati ent Clinics 2019-05-21 2019-05-21 [facility] [id number] 08:45:00 08:45:[address] [place] [facility] - Drive [facility] Medicine l Medicine Outpati ent Clinics 2019-04-11 2019-04-11 [facility] [id number] 15:14:00 15:14:00 [place] [facility] [place] [facility] Medicine Outpati ent Clinics 2019-03-06 2019-03-06 [facility] [id number] 08:45:00 08:45:00 [place] [facility] [place] [facility] Medicine Outpati ent Clinics 2019-02-02 2019-02-02 [facility] [id number] 08:42:00 08:42:00 [place] - Drive [facility] Medicine l Medicine Outpati ent Clinics 2019-01-26 2019-01-26 [facility] [id number] 09:45:00 09:45:00 [place] [facility] [place] [facility] Medicine Medicine Outpati ent Clinics 2018-10-23 2018-10-23 [facility] [id number] 08:30:00 08:30:00 [place] - Drive [facility] Medicine l Medicine Outpati ent Clinics 2018-08-07 2018-08-07 [facility] [id number] 14:30:00 14:30:00 [place] [facility] [place] [facility] Medicine Outpati ent Clinics 2018-07-25 2018-07-25 [facility] [id number] 08:15:00 08:15:00 [place] - Drive [facility] Medicine Medicine Outpati ent Clinics 2018-06-30 2018-06-30 [facility] [id number] 08:00:00 08:00:00 t [employer] [facility] [employer] [facility] [facility] Medicine Medicine Outpati ent Clinics Results This patient has no known results.
[2020-08-06 20:50] LABS: Absolute Lymphocytes (CBC) 0.4 K/uL (0.7-4.9); Basophils % 0.3 % (0-1.3); Hematocrit 40.9 % (39.6-49.0); MPV 8.6 fL (7.6-11.3); RBC Red Blood Cell Count 4.46 M/uL (4.33-5.43)
[2020-08-06] MEDS ORDERED: DIGOXIN 0.25 MG/ML AMP ONE (20:54)
[2020-08-06] MEDS ORDERED: NA CHLORIDE 0.9% 3,000 ML ONE (20:54)
[2020-08-06 20:55] LABS: Protime INR 0.93
[2020-08-06] MEDS ORDERED: METOPROLOL TARTRATE 5 MG/5 ML INJ IV ONE ×2 (21:05→22:52)
--- NOTE | 2020-08-06 21:13 | RAD REPORT ---
EXAM DESCRIPTION: Nory Single View08/06/2020 9:08 pm CLINICAL HISTORY: Shortness of breath COMPARISON: July FINDINGS: Mild worsening in moderate bilateral pulmonary opacities. Heart is normal size IMPRESSION: Moderate bilateral pulmonary opacities likely pneumonia
[2020-08-06 21:16] LABS: ALT/SGPT 23 U/L (12-78); AST/SGOT 30 U/L (15-37); Albumin 2.7 g/dL (3.4-5.0); Alkaline Phosphatase 57 U/L (45-117); BUN Blood Urea Nitrogen 24 mg/dL (7-18); Bicarbonate 23 mmol/L (21-32); Bilirubin Direct 0.2 mg/dL (0-0.2); Bilirubin Total 0.5 mg/dL (0.2-1.0); CKMB Creatine Kinase MB < 1.0 ng/mL (0.3-3.6); Creatine Phosphokinase 69 U/L (39-308); Glucose Level 386 mg/dL (74-106); Lipase 185 U/L (73-393); Potassium 4.1 mmol/L (3.5-5.1); Protein, Total 7.2 g/dL (6.4-8.2); Sodium Level 130 mmol/L (136-145); Troponin (Emerg Dept Use Only) < 0.02 ng/mL (0.0-0.045)
[2020-08-06 21:43] LABS: Platelet Estimate ADEQ; White Blood Cell Scan OK (OK)
[2020-08-06 21:44] LABS: Blood Morphology Comment NOT SEEN (NOT SEEN)
[2020-08-06] MEDS ORDERED: ENOXAPARIN 80 MG/0.8 ML SQ ONE (21:48)
[2020-08-06] MEDS ORDERED: METHYLPREDNISOLONE 125 MG INJ ONE (21:48)
[2020-08-06] MEDS ORDERED: CEFTRIAXONE/SWI 1gm 1 GM/10 ML SYR ONE (22:14)
[2020-08-06] MEDS ORDERED: NA CHLORIDE 0.9% 250 ML ONE (22:14)
[2020-08-06] MEDS ORDERED: AZITHROMYCIN 500 MG INJ IVPB ONE (22:14)
--- NOTE | 2020-08-06 22:16 | ER ---
Nurse's Notes [facility] Name: Elizabeth Haas Age: 70 yrs Sex: Male : 1950 Arrival Date: 08/06/2020 Time: 19:56 Bed 8 Private MD: Diagnosis: Respiratory failure, unspecified with hypoxia;Atrial fibrillation and flutter;Pneumonia due to other specified infectious organisms;Coronavirus infection, unspecified Presentation: 08/06 19:59 Chief complaint: Patient states: I am having chest pain and shortness of breath. I had jb4 high blood sugar, at home it was 457. I tested positive for Covid last tuesday. Coronavirus screen: Client reports previous positive COVID test result. Ebola Screen: Patient negative for fever greater than or equal to 101.5 degrees Fahrenheit, and additional compatible Ebola Virus Disease symptoms. 19:59 Method Of Arrival: Wheelchair jb4 20:01 Initial Sepsis Screen: Does the patient meet any 2 criteria? RR > 20 per min. HR > 90 jb4 bpm. Yes Does the patient have a suspected source of infection? No. Patient's initial sepsis screen is negative. Risk Assessment: Do you want to hurt yourself or someone else? Patient reports no desire to harm self or others. Onset of symptoms was August 06, 2020. 20:01 Transition of care: patient was not received from another setting of care. jb4 20:01 Acuity: GLALO 2 jb4 Historical: - Allergies: 20:01 No Known Allergies; jb4 - Home Meds: 08/07 05:57 levothyroxine oral [Active]; Lisinopril Oral [Active]; Metformin Oral [Active]; sg - PMHx: 08/06 20:01 Diabetes - NIDDM; Hyperlipidemia; Hypertension; Thyroid problem; jb4 - PSHx: 20:01 R knee; jb4 - Immunization history:: Adult Immunizations up to date. - Social history:: Smoking status: Patient denies any tobacco usage or history of. Patient/guardian denies using alcohol, street drugs. Screenin:46 Abuse screen: Denies threats or abuse. Nutritional screening: No deficits noted. ea Tuberculosis screening: No symptoms or risk factors identified. Fall Risk None identified. Assessment: 20:25 Reassessment: PT heart rate increased to 166, provider notified, EKG performed. jb4 20:40 General: Appears uncomfortable, Behavior is calm, cooperative, appropriate for age. ea Pain: Denies pain. Neuro: Level of Consciousness is awake, alert, obeys commands, Oriented to person, place, time. Cardiovascular: Patient's skin is warm and dry. Cardiovascular: Patient's skin is warm and dry. Rhythm is atrial fibrillation with rapid ventricular response. Respiratory: Airway is patent Respiratory effort is even, labored, Respiratory pattern is tachypnea. Derm: Skin is dry, Skin is normal, Skin temperature is warm. 21:30 Reassessment: Patient and/or family updated on plan of care and expected duration. Pain ea level reassessed. Patient is alert, oriented x 3, equal unlabored respirations, skin warm/dry/pink. 23:10 Reassessment: Patient and/or family updated on plan of care and expected duration. Pain ea level reassessed. Patient is alert, oriented x 3, equal unlabored respirations, skin warm/dry/pink. Vital Signs: 19:59 BP 124 / 86; Pulse 107; Resp 30; Temp 98.2(O); Pulse Ox 80% on R/A; Weight 79.83 kg jb4 (R); Height 5 ft. 7 in. (170.18 cm); Pain 8/10; 21:56 BP 96 / 69; Pulse 88; Resp 20; Pulse Ox 95% on NC; sg 23:00 BP 99 / 59; Pulse 75 MON; Resp 22; Pulse Ox 94% on NC; sg 19:59 Body Mass Index 27.56 (79.83 kg, 170.18 cm) jb4 19:59 Pt placed on 4L NC jb4 ED Course: 19:56 Patient arrived in ED. ag3 20:01 Triage completed. jb4 20:01 Arm band placed on right wrist. jb4 20:02 Harsha Gallegos PA is PHCP. cp 20:02 Miley Agudelo MD is Attending Physician. cp 20:36 Lida Moody, PEDRO LUIS is Primary Nurse. ea 20:46 Patient has correct armband on for positive identification. Bed in low position. Call ea light in reach. Side rails up X2. 21:08 Chest Single View XRAY In Process Unspecified. EDMS 22:09 Akil Klein is Hospitalizing Provider. cp 23:12 No provider procedures requiring assistance completed. Patient admitted, IV remains in ea place. Administered Medications: 20:40 Drug: NS 0.9% (30 ml/kg) 30 ml/kg Route: IV; Rate: bolus; Site: left forearm; sg 22:50 Follow up: Response: No adverse reaction; IV Status: Completed infusion; IV Intake: ea 2300ml 20:42 Not Given (Physician Discretion): Digoxin 0.5 mg IVP once sg 20:50 Drug: Lopressor 2.5 mg Route: IVP; Site: left forearm; ea 22:05 Follow up: Response: No adverse reaction ea 21:40 Drug: Digoxin 0.5 mg Route: IVP; Site: left forearm; sg 22:50 Follow up: Response: No adverse reaction ea 21:50 Drug: Rocephin 1 grams Route: IV; Rate: calculated rate; Site: left forearm; ea 22:50 Follow up: Response: No adverse reaction; IV Status: Completed infusion ea 21:52 Drug: SOLU-Medrol 125 mg Route: IVP; Site: left forearm; ea 22:05 Follow up: Response: No adverse reaction ea 22:05 Drug: Zithromax 500 mg Route: IVPB; Infused Over: 1 hrs; Site: left forearm; ea 23:13 Follow up: Response: No adverse reaction; IV Status: Completed infusion ea 22:46 Drug: Lopressor 2.5 mg Route: IVP; Site: left forearm; ea 08/07 01:08 Follow up: Response: No adverse reaction ea 08/06 22:46 Not Given (Other Intervention Used): Lopressor 5 mg IVP once; Hold for SBP <100 or HR ea <60. 23:06 Drug: Lopressor 25 mg Route: PO; ea 08/07 00:13 Follow up: Response: No adverse reaction ea 01:08 Drug: Lovenox 1 mg/kg Route: Sub-Q; Site: right lower abdomen; ea Intake: 08/06 22:50 IV: 2300ml; Total: 2300ml. ea Outcome: 22:15 Decision to Hospitalize by Provider. cp 22:38 Admitted to ER Hold. Please see [facility] for further documentation. sg 22:48 Condition: stable ea 22:48 Instructed on the need for admit. 08/07 11:37 Patient left the ED. jl7 Signatures: Dispatcher [employer] EDMS Antoine Garvey, RN RN sg Harsha Gallegos PA PA cp Bryson, James, RN RN jb4 Rogerio Jack RN RN jl7 Lida Moody, RN RN Rach Santana ag3 Corrections: (The following items were deleted from the chart) 08/06 20:13 19:59 BP 124 / 86; Pulse 107bpm; Resp 30bpm; Pulse Ox 85% RA; Temp 98.2F Oral; jb4 jb4 20:13 20:01 Acuity: GALLO 3 jb4 jb4 20:13 19:59 BP 124 / 86; Pulse 107bpm; Resp 30bpm; Pulse Ox 80% RA; Temp 98.2F Oral; 79.83 kg jb4 Reported; Height 5 ft. 7 in.; BMI: 27.5; Pain 8/10; jb4 20:31 20:01 Initial Sepsis Screen: Does the patient meet any 2 criteria? RR > 20 per min. Yes jb4 Does the patient have a suspected source of infection? No. Patient's initial sepsis screen is negative. jb4 08/07 05:57 08/06 20:01 Home Meds: Unable to obtain; jb4
--- NOTE | 2020-08-06 22:16 | EDPHYS ---
Physician Documentation [facility] Name: Elizabeth Haas Age: 70 yrs Sex: Male : 1950 Arrival Date: 08/06/2020 Time: 19:56 Bed 8 Private MD: ED Physician Miley Agudelo HPI: 08/06 20:35 This 70 yrs old Male presents to ER via Wheelchair with complaints of cp Shortness Of Breath, COVID +. 20:35 The patient has shortness of breath at rest. Onset: The symptoms/episode began/occurred cp gradually, and became worse today. Duration: The symptoms are continuous, and are steadily getting worse. Associated signs and symptoms: Pertinent positives: chest pain, productive cough, Pertinent negatives: diaphoresis, fever. Severity of symptoms: in the emergency department the symptoms are unchanged despite EMS interventions. Historical: - Allergies: 20:01 No Known Allergies; jb4 - Home Meds: 08/07 05:57 levothyroxine oral [Active]; Lisinopril Oral [Active]; Metformin Oral [Active]; sg - PMHx: 08/06 20:01 Diabetes - NIDDM; Hyperlipidemia; Hypertension; Thyroid problem; jb4 - PSHx: 20:01 R knee; jb4 - Immunization history:: Adult Immunizations up to date. - Social history:: Smoking status: Patient denies any tobacco usage or history of. Patient/guardian denies using alcohol, street drugs. ROS: 20:40 Constitutional: Negative for fever, poor PO intake. cp 20:40 Eyes: Negative for injury, pain, redness, and discharge. cp 20:40 ENT: Negative for ear pain, sore throat, difficulty swallowing, difficulty handling secretions. 20:40 Cardiovascular: Positive for chest pain, palpitations, Negative for edema. 20:40 Respiratory: Positive for cough, shortness of breath, at rest. Negative for wheezing. 20:40 Abdomen/GI: Negative for abdominal pain, nausea, vomiting, and diarrhea, black/tarry stool, rectal bleeding. 20:40 Skin: Negative for cellulitis, rash. 20:40 Neuro: Negative for altered mental status, headache, numbness, syncope, weakness. 20:40 All other systems are negative. Exam: 20:28 ECG was reviewed by the Attending Physician. cp 20:45 Constitutional: The patient appears alert, awake, non-diaphoretic, well developed, well cp nourished, in obvious distress, moderately distressed. 20:45 Head/Face: Normocephalic, atraumatic. cp 20:45 Eyes: Periorbital structures: appear normal, Conjunctiva: normal, no exudate, no injection, Sclera: no appreciated abnormality, Lids and lashes: appear normal, bilaterally. 20:45 ENT: External ear(s): are unremarkable, Nose: is normal, Mouth: Lips: moist, Oral mucosa: moist, Posterior pharynx: Airway: no evidence of obstruction, patent, swelling, is not appreciated, erythema, is not appreciated, exudate, is not appreciated. 20:45 Neck: ROM/movement: is normal, is supple, without pain, no range of motions limitations, no meningismus. 20:45 Chest/axilla: Inspection: normal, Palpation: is normal, no crepitus, no tenderness. 20:45 Cardiovascular: Rate: tachycardic, actual rate is 163 bpm, Rhythm: irregular, Edema: is not appreciated, JVD: is not appreciated. 20:45 Respiratory: moderate respiratory distress is noted, Respirations: labored breathing, that is moderate, shallow respirations, that is moderate, tachypnea, that is mild, Breath sounds: bronchial sounds, that are moderate, are heard diffusely, wheezing: is not appreciated. 20:45 Abdomen/GI: Inspection: abdomen appears normal, Bowel sounds: active, all quadrants, Palpation: abdomen is soft and non-tender, in all quadrants. 20:45 Back: pain, is absent, ROM is normal. 20:45 Skin: cellulitis, is not appreciated, no rash present. 20:45 Neuro: Orientation: to person, place \T\ time. Mentation: is normal, Cerebellar function: is grossly normal, Motor: moves all fours, strength is normal, Sensation: is normal. 20:46 ECG was reviewed by the Attending Physician. cp 21:50 ECG was reviewed by the Attending Physician. cp Vital Signs: 19:59 BP 124 / 86; Pulse 107; Resp 30; Temp 98.2(O); Pulse Ox 80% on R/A; Weight 79.83 kg jb4 (R); Height 5 ft. 7 in. (170.18 cm); Pain 8/10; 21:56 BP 96 / 69; Pulse 88; Resp 20; Pulse Ox 95% on NC; sg 23:00 BP 99 / 59; Pulse 75 MON; Resp 22; Pulse Ox 94% on NC; sg 19:59 Body Mass Index 27.56 (79.83 kg, 170.18 cm) jb4 19:59 Pt placed on 4L NC jb4 MDM: 20:28 Patient medically screened. cp 21:00 Differential diagnosis: CHF exacerbation, Chronic Obstructive Pulmonary Disease cp Myocardial Infarction pneumonia, pulmonary edema, Pulmonary Embolism Unstable Angina. 22:15 Data reviewed: vital signs, nurses notes, lab test result(s), EKG, radiologic studies, cp plain films, I have discussed the patient's presentation/case with the attending Emergency Department Physician; and as a result, I will admit patient, administer antibiotics Rocephin, Zithromax, administer IV fluids, NS bolus. 22:15 Test interpretation: by ED physician or midlevel provider: ECG, plain radiologic cp studies. Counseling: I had a detailed discussion with the patient and/or guardian regarding: the historical points, exam findings, and any diagnostic results supporting the discharge/admit diagnosis, lab results, radiology results, the need for further work-up and treatment in the hospital. Response to treatment: the patient's symptoms have markedly improved after treatment. Physician consultation: Reji CUETO was contacted at 22:00, regarding admission, to the ICU, patient's condition, and will see patient in ED, shortly. 08/06 20:29 Order name: Basic Metabolic Panel cp 08/06 20:29 Order name: Blood Culture Adult (2) cp 08/06 20:29 Order name: CBC with Diff cp 08/06 20:29 Order name: Ckmb cp 08/06 20:29 Order name: CPK cp 08/06 20:29 Order name: Lactate cp 08/06 20:29 Order name: LFT's cp 08/06 20:29 Order name: Lipase cp 08/06 20:29 Order name: Procalcitonin cp 08/06 20:29 Order name: Protime (+inr); Complete Time: 21:01 cp 08/06 20:29 Order name: Ptt, Activated; Complete Time: 21:01 cp 08/06 20:29 Order name: Troponin (emerg Dept Use Only); Complete Time: 21:32 cp 08/06 20:29 Order name: Urine Microscopic Only cp 08/06 20:29 Order name: Chest Single View XRAY; Complete Time: 21:32 cp 08/06 20:29 Order name: Accucheck; Complete Time: 06:28 cp 08/06 20:29 Order name: Cardiac monitoring; Complete Time: 20:30 cp 08/06 20:29 Order name: EKG - Nurse/Tech; Complete Time: 20:30 cp 08/06 20:29 Order name: IV Saline Lock - Large Bore; Complete Time: 20:47 cp 08/06 20:29 Order name: Labs collected and sent; Complete Time: 20:47 cp 08/06 20:29 Order name: O2 Per Protocol; Complete Time: 20:30 cp 08/06 20:29 Order name: O2 Sat Monitoring; Complete Time: 20:30 cp 08/06 20:29 Order name: Basic Metabolic Panel; Complete Time: 21:32 EDMS 08/06 21:32 Interpretation: Normal except: NA 130; CL 94; GLUC 386; BUN 24; CRE 1.70; GFR 40; CA cp 7.6. 08/06 20:29 Order name: Blood Culture EDMS 08/06 20:29 Order name: CBC with Automated Diff; Complete Time: 22:14 EDMS 08/06 20:29 Order name: CKMB Creatine Kinase MB; Complete Time: 21:32 EDMS 08/06 20:29 Order name: Creatine Phosphokinase; Complete Time: 21:32 EDMS 08/06 20:29 Order name: Lactate; Complete Time: 21:32 EDMS 08/06 21:32 Interpretation: Abnormal: LAC 3.0. cp 08/06 20:29 Order name: Liver (Hepatic) Function; Complete Time: 21:32 EDMS 08/06 21:33 Interpretation: Normal except: ALB 2.7; GLOB 4.5; A/G 0.6. cp 08/06 20:29 Order name: Lipase; Complete Time: 21:32 EDMS 08/06 21:43 Order name: CBC Smear Scan; Complete Time: 22:14 EDMS 08/06 21:56 Order name: SARS-COV-2 RT PCR; Complete Time: 22:14 EDMS 08/06 22:29 Order name: CONS Physician Consult EDMS 08/07 01:40 Order name: Lactate Sepsis 2 HR Follow-up EDPA 08/07 05:50 Order name: CBC with Automated Diff EDPA 08/07 05:55 Order name: Basic Metabolic Panel EDPA 08/07 05:55 Order name: Lipid Profile EDPA 08/07 05:55 Order name: C-Reactive Protein EDPA 08/07 05:55 Order name: T4 Free EDPA 08/07 05:55 Order name: Thyroid Stimulating Hormone EDPA 08/07 05:55 Order name: Ferritin EDPA 08/07 07:52 Order name: Glucose, Ancillary Testing EDPA EC:28 Rate is 163 beats/min. Rhythm is irregular. QRS interval is normal. QT interval is cp normal. T waves are Inverted in leads III, aVF, aVR. Interpreted by me. Reviewed by me. 20:46 Rate is 159 beats/min. Rhythm is irregular. QRS interval is normal. QT interval is cp normal. T waves are Inverted in leads III, aVF, aVR. Interpreted by me. Reviewed by me. 21:50 Rate is 98 beats/min. Rhythm is irregular. QRS interval is normal. QT interval is cp normal. T waves are Inverted in leads III, aVF, aVR. Interpreted by me. Reviewed by me. Administered Medications: 20:40 Drug: NS 0.9% (30 ml/kg) 30 ml/kg Route: IV; Rate: bolus; Site: left forearm; sg 22:50 Follow up: Response: No adverse reaction; IV Status: Completed infusion; IV Intake: ea 2300ml 20:42 Not Given (Physician Discretion): Digoxin 0.5 mg IVP once sg 20:50 Drug: Lopressor 2.5 mg Route: IVP; Site: left forearm; ea 22:05 Follow up: Response: No adverse reaction ea 21:40 Drug: Digoxin 0.5 mg Route: IVP; Site: left forearm; sg 22:50 Follow up: Response: No adverse reaction ea 21:50 Drug: Rocephin 1 grams Route: IV; Rate: calculated rate; Site: left forearm; ea 22:50 Follow up: Response: No adverse reaction; IV Status: Completed infusion ea 21:52 Drug: SOLU-Medrol 125 mg Route: IVP; Site: left forearm; ea 22:05 Follow up: Response: No adverse reaction ea 22:05 Drug: Zithromax 500 mg Route: IVPB; Infused Over: 1 hrs; Site: left forearm; ea 23:13 Follow up: Response: No adverse reaction; IV Status: Completed infusion ea 22:46 Drug: Lopressor 2.5 mg Route: IVP; Site: left forearm; ea 08/07 01:08 Follow up: Response: No adverse reaction ea 08/06 22:46 Not Given (Other Intervention Used): Lopressor 5 mg IVP once; Hold for SBP <100 or HR ea <60. 23:06 Drug: Lopressor 25 mg Route: PO; ea 08/07 00:13 Follow up: Response: No adverse reaction ea 01:08 Drug: Lovenox 1 mg/kg Route: Sub-Q; Site: right lower abdomen; ea Disposition: 08/06/20 22:15 Hospitalization ordered by Akil Klein for Inpatient Admission. Preliminary diagnosis are Respiratory failure, unspecified with hypoxia, Atrial fibrillation and flutter, Pneumonia due to other specified infectious organisms, Coronavirus infection, unspecified. - Bed requested for Intensive Care Unit. - Status is Inpatient Admission. jl7 - Condition is Serious. - Problem is new. - Symptoms have improved. Addendum: 09/05/2020 02:07 Co-signature as Attending Physician, Miley laureano a2 Signatures: Dispatcher [employer] [facility] Denae Allred RN RN dw Gay, Steven, RN RN sg Roszak, Josh, PA PA jr8 Geraldine Zaragoza RN RN tl1 Harsha Gallegos PA PA cp Bryson, James, RN RN jb4 Rogerio Jack RN RN jl7 Lida Moody RN RN ea Alzahri, Mohammad, MD MD ma2 Corrections: (The following items were deleted from the chart) 08/06 21:14 20:50 CORONAVIRUS+MR.LAB.BRZ ordered. EDPA EDMS 21:32 21:32 Normal except: NA 130; CL 94; GLUC 386; BUN 24; CRE 1.70; GFR 40. cp cp 21:37 21:05 Chest For PE Angio+CT.RAD.BRZ ordered. EDPA EDMS 22:16 22:15 Hospitalization Ordered by Akil Klein for Inpatient Admission. Preliminary cp diagnosis is Respiratory failure, unspecified with hypoxia; Atrial fibrillation and flutter; Pneumonia due to other specified infectious organisms. Bed requested for Telemetry/MedSurg (Inpatient). Status is Inpatient Admission. Condition is Serious. Problem is new. Symptoms have improved. cp 22:32 22:16 08/06/2020 22:15 Hospitalization Ordered by Akil Klein for Inpatient cp Admission. Preliminary diagnosis is Respiratory failure, unspecified with hypoxia; Atrial fibrillation and flutter; Pneumonia due to other specified infectious organisms; Coronavirus infection, unspecified. Bed requested for Telemetry/MedSurg (Inpatient). Status is Inpatient Admission. Condition is Serious. Problem is new. Symptoms have improved. cp 22:38 22:32 08/06/2020 22:15 Hospitalization Ordered by Akil Klein for Inpatient tl1 Admission. Preliminary diagnosis is Respiratory failure, unspecified with hypoxia; Atrial fibrillation and flutter; Pneumonia due to other specified infectious organisms; Coronavirus infection, unspecified. Bed requested for Intensive Care Unit. Status is Inpatient Admission. Condition is Serious. Problem is new. Symptoms have improved. cp 08/07 05:57 08/06 20:01 Home Meds: Unable to obtain; jb4 sg 08/07 11:10 08/06 22:38 08/06/2020 22:15 Hospitalization Ordered by Akil Klein for Inpatient dw Admission. Preliminary diagnosis is Respiratory failure, unspecified with hypoxia; Atrial fibrillation and flutter; Pneumonia due to other specified infectious organisms; Coronavirus infection, unspecified. Bed requested for [facility]. Status is Inpatient Admission. Condition is Serious. Problem is new. Symptoms have improved. tl1 08/07 11:37 11:10 08/06/2020 22:15 Hospitalization Ordered by Akil Klein for Inpatient jl7 Admission. Preliminary diagnosis is Respiratory failure, unspecified with hypoxia; Atrial fibrillation and flutter; Pneumonia due to other specified infectious organisms; Coronavirus infection, unspecified. Bed requested for Intensive Care Unit. Status is Inpatient Admission. Condition is Serious. Problem is new. Symptoms have improved. dw
[2020-08-06] MEDS ORDERED: METOPROLOL TAR 25 MG TAB ONE (23:16)
--- NOTE | 2020-08-06 23:26 | P.HP ---
Certification for Inpatient Patient admitted to: Inpatient With expected LOS: >2 Midnights Patient will require the following post-hospital care: None Practitioner: I am a practitioner with admitting privileges, knowledge of patient current condition, hospital course, and medical plan of care. Services: Services provided to patient in accordance with Admission requirements found in Title 42 Section 412.3 of the Code of Federal Regulations <Edmundo Arias - Last Filed: 08/06/20 23:21> Patient History Date of Service: 08/06/20 Primary Care Provider: Sincere Luis Reason for admission: Covid Pneumonia, Hypoxia, Atrial fib with RVR History of Present Illness: This is a 70-year-old male patient with a history of [id number] diabetes mellitus, hyperlipidemia, hypertension, thyroid dysfunction that presented to the emergency room for increased shortness of breath. Patient's initial vital signs in the emergency room showed a blood pressure of 124/86 with a pulse of 107, respiratory rate of 30, temperature 98.2, room air oxygen saturation of 80% with moderate increased work of breathing. Patient stated that he was recently diagnosed on July 31 with covid. Patient had been on steroids and Ivermectin. Patient stated over the last couple days he has had increased shortness of breath to the point where he needed to come to the emergency room for further evaluation. Patient was worked up in the ED and found to have a sodium of 130, potassium 4.1, chloride 94, bicarb 23, BUN 24, creatinine 1.7, glucose 386. Patient had a mild increase white cell count of 12.4 with a hemoglobin of 13.9, hematocrit 40.9, platelet 263. Lactate was 3.0. Repeat SARS test showed positive. Viral pneumonia bilaterally present on chest x-ray. Patient while in the emergency room also went into atrial fibrillation with rapid ventricular rate which was controlled with digoxin and Lopressor. Patient doing better at this time but will need to be continued on medicine and monitored in the intensive care unit. Patient was put on high-flow O2 and seems to be doing better after fluid resuscitation and oxygenation. Medicine was consulted at time for further evaluation admission. Patient poor historian so no current medications could be updated. Home medications list reviewed: Yes - Past Medical/Surgical History Diabetic: Yes - Social History Smoking Status: Never smoker () Smoking therapy provided: No Alcohol use: No CD- Drugs: No Caffeine use: Yes Place of Residence: Home <Edmundo Arias - Last Filed: 08/06/20 23:21> Date of Service: 08/07/20 <harpal chavez - Last Filed: 08/07/20 18:45> Allergies No Known Allerg Allergy (Uncoded 03/23/17 11:29) Unknown Home Medications: Levothyroxine [Synthroid] 50 mcg PO [id number] 03/23/17 Metformin HCl [Glucophage] 1,000 mg PO BID 03/23/17 lisinopriL [Lisinopril] 30 mg PO DAILY 03/23/17 Memantine HCl [Namenda] 5 mg PO DAILY 08/07/20 Review of Systems General: Fever, Chills, Weakness, Malaise Eyes: Unremarkable ENT: Unremarkable Respiratory: Cough, Shortness of Breath, SOB with Excertion Cardiovascular: Unremarkable Gastrointestinal: Unremarkable Genitourinary: Unremarkable Musculoskeletal: Unremarkable Integumentary: Unremarkable Neurological: Unremarkable Lymphatics: Unremarkable <Edmundo Arias - Last Filed: 08/06/20 23:21> Physical Examination - Vital Signs Temperature: 98.2 F Blood Pressure: 124/86 Pulse: 107 Respirations: 30 Pulse Ox (%): 80 (Room air) - Physical Exam General: Alert, Oriented x3, Cooperative, Mild distress HEENT: PERRLA, Other (Mucous membranes dry), EOMI Neck: Supple, 2+ carotid pulse no bruit, JVD not distended, No Thyromegaly Respiratory: Clear to auscultation bilaterally, Other (Tachypneic) Cardiovascular: No edema, Normal pulses, No gallops, No rubs, No murmurs, Irregular heart rate/rhythm (Tachycardic with irregular irregular heartbeat) Capillary refill: <2 Seconds Gastrointestinal: Normal bowel sounds, Soft and benign, Non-distended, No ascites, No tenderness, No masses, No rebound, No guarding Musculoskeletal: No clubbing, No swelling, No contractures, No erythema, No tenderness, No warmth Integumentary: No rashes, No breakdown, No significant lesion, No tenderness/swelling, No erythema, No warmth, No cyanosis Neurological: Normal speech, Normal strength at 5/5 x4 extr, Normal tone, Cranial nerves 3-12 intact, Normal affect Lymphatics: No axilla or inguinal lymphadenopathy - Studies Laboratory Data (last 24 hrs) 08/06/20 20:30: PT 10.7, INR 0.93, APTT 29.2 08/06/20 20:30: WBC 12.40 H D, Hgb 13.9, Hct 40.9, Plt Count 263 08/06/20 20:30: Sodium 130 L, Potassium 4.1, BUN 24 H, Creatinine 1.70 H, Glucose 386 H, Total Bilirubin 0.5, AST 30, ALT 23, Alkaline Phosphatase 57, Lipase 185 <Edmundo Arias - Last Filed: 08/06/20 23:21> - Studies Laboratory Data (last 24 hrs) 08/06/20 20:30: PT 10.7, INR 0.93, APTT 29.2 08/06/20 20:30: WBC 12.40 H D, Hgb 13.9, Hct 40.9, Plt Count 263 08/06/20 20:30: Sodium 130 L, Potassium 4.1, BUN 24 H, Creatinine 1.70 H, Glucose 386 H, Total Bilirubin 0.5, AST 30, ALT 23, Alkaline Phosphatase 57, Lipase 185 <harpal chavez - Last Filed: 08/07/20 18:45> Assessment and Plan - Problems (Diagnosis) (1) Hypertension Current Visit: Yes Status: Chronic Plan: Patient's blood pressure will be monitored in the ICU along with other vital signs. Blood pressure management will be given if systolic reaches greater than 162 and or diastolic reaches greater than 110 Qualifiers: Hypertension type: essential hypertension Qualified Code(s): I10 - Essential (primary) hypertension (2) Non-insulin dependent diabetes mellitus Current Visit: Yes Status: Chronic Plan: Patient will be placed on sliding scale as he does have moderate elevation in glucose. Will adjust scale as needed. He will have [facility] glucose checks and will be on ADA diet. (3) Pneumonia due to COVID-19 virus Current Visit: Yes Status: Acute Plan: Patient has chest x-ray and SARS test consistent with covid pneumonia. Patient will be on steroids along with regimented vitamins and therapeutic anticoagulation. Patient will also be started on Remdisivir. Patient has already completed the Ivermectin course. Pulmonology has been consulted for further recommendations. Patient on high-flow oxygen at this time and will be scaled to oxygen saturation and respiratory status. (4) Hypoxia Current Visit: Yes Status: Acute Plan: The patient was placed on high-flow oxygen and we will maintained on that for the time being. Patient be monitor with continuous pulse oximetry and will be scaled to oxygen saturation and respiratory status. Respiratory therapy has also been consulted along with pulmonology. (5) Atrial fibrillation with RVR Current Visit: Yes Status: Acute Plan: Patient was controlled in emergency room with digoxin and metoprolol. Will continue metoprolol b.i.d. and have 's consulted Cardiology for further recommendations if patient continues to be in intermittent rapid ventricular rate with atrial fib. Discharge Plan: Home Plan to discharge in: Greater than 2 days - Advance Directives Does patient have a Living Will: No Does patient have a Durable POA for Healthcare: No - Code Status/Comfort Care Code Status Assessed: No Critical Care: No Time Spent Managing Pts Care (In Minutes): 80 <Edmundo Arias - Last Filed: 08/06/20 23:21> - Problems (Diagnosis) (1) Acute respiratory failure with hypoxia Current Visit: Yes Status: Acute (2) Atrial fibrillation with RVR Current Visit: Yes Status: Acute (3) Pneumonia due to COVID-19 virus Current Visit: Yes Status: Acute (4) Hypertension Current Visit: Yes Status: Chronic Qualifiers: Hypertension type: essential hypertension Qualified Code(s): I10 - Essential (primary) hypertension (5) Non-insulin dependent diabetes mellitus Current Visit: Yes Status: Chronic Physician Review: Patient Assessed, Agree with Above Assessment and Plan Physician Review Additional Text: Acute respiratory failure with hypoxia Pneumonia due to conflict 19 Rapid atrial fibrillation Plan: High-dose steroid IV Remdesevir Consult to pulmonary. Metoprolol b.i.d. Eliquis Cardiology consult. <harpal chavez - Last Filed: 08/07/20 18:45>
[2020-08-07] MEDS ORDERED: D50W 25 GM/50 ML SYRINGE IV PRN ×2 (01:22)
[2020-08-07] MEDS ORDERED: Remdesivir 200 MG in NA CHLORIDE 0.9% 250 ML IV ONE ×2 (01:22→13:00)
[2020-08-07] MEDS ORDERED: GLUCAGON 1 MG/VIAL IM PRN ×2 (01:22)
[2020-08-07] MEDS ORDERED: ACETAMINOPHEN 325 MG TABLET PO PRN (01:22)
[2020-08-07] MEDS: NA CHLORIDE 0.9% 1,000 ML IV SCH ×2 (03:00→12:59)
[2020-08-07 05:33] LABS: Absolute Lymphocytes (CBC) 0.5 K/uL (0.7-4.9); Basophils % 0.3 % (0-1.3); Hematocrit 36.5 % (39.6-49.0); Lymphocytes % 4.8 % (15.3-44.8); MPV 8.5 fL (7.6-11.3); RBC Red Blood Cell Count 3.93 M/uL (4.33-5.43)
[2020-08-07 05:55] LABS: Ferritin 1277.2 ng/mL (26-388); Thyroid Stimulating Hormone 0.232 uIU/mL (0.360-3.740)
[2020-08-07] MEDS: METOPROLOL TAR 25 MG TAB PO SCH ×2 (06:00→17:36)
[2020-08-07] MEDS: FAMOTIDINE 20 MG/2 ML VIAL IV SCH ×2 (09:00→20:52)
[2020-08-07] MEDS: ASCORBIC ACID 500 MG TABLET PO SCH ×4 (09:00→20:54)
[2020-08-07] MEDS: APIXABAN 5 MG TABLET PO SCH ×2 (09:00→20:54)
[2020-08-07] MEDS ORDERED: METHYLPREDNISOLONE 40 MG INJ IV SCH (09:00)
[2020-08-07] MEDS: THIAMINE 200 MG/2 ML INJ IVP SCH ×2 (09:00→20:52)
[2020-08-07] MEDS: VITAMIN D 5,000 UNIT CAP PO SCH (09:00)
[2020-08-07] MEDS: ZINC SULFATE 220 MG CAP PO SCH (09:00)
[2020-08-07] MEDS: INSULIN -REGULAR HUMAN 50 UNIT/0.5 ML ML SQ SCH ×4 (09:08→20:54)
[2020-08-07] MEDS ORDERED: INSULIN -REGULAR HUMAN 50 UNIT/0.5 ML ML ONE (09:10)
[2020-08-07] MEDS ORDERED: METHYLPREDNISOLONE 125 MG INJ ONE (09:12)
[2020-08-07] MEDS ORDERED: ZINC SULFATE 220 MG CAP ONE (09:13)
[2020-08-07] MEDS ORDERED: ASCORBIC ACID 500 MG TABLET ONE (09:13)
[2020-08-07] MEDS ORDERED: APIXABAN 5 MG TABLET ONE (09:13)
[2020-08-07] MEDS ORDERED: FAMOTIDINE 20 MG/2 ML VIAL IV ONE (09:13)
[2020-08-07] MEDS ORDERED: THIAMINE HCL 100 MG TABLET ONE (09:15)
[2020-08-07] MEDS ORDERED: NA CHLORIDE 0.9% 1,000 ML ONE (10:21)
--- NOTE | 2020-08-07 18:25 | CON ---
Date of Consultation: 08/07/2020 Reason For Consultation: Atrial fibrillation with rapid ventricular response. History Of Present Illness: A 70-year-old male with history of diabetes, dyslipidemia, hypothyroidis m, presented to the emergency room with shortness of breath, was hypoxic and in respiratory failure. Oxygen saturation was 80%. He was diagnosed with COVID pneumonia. He apparently went into atrial f ibrillation with rapid ventricular response. Since I was consulted, the patient had a spontaneous co nversion to sinus rhythm and currently is in sinus rhythm and on metoprolol. Past Medical History: As outlined above in HPI. Medications: Refer to reconciliation sheet for detailed list. Allergies: NO KNOWN DRUG ALLERGIES. Family History: No premature coronary artery disease or cancer. Social History: Does not smoke or drink. Does not use any drugs. Review of Systems: All systems reviewed and they were negative except for what mentioned in the HPI. Physical Examination: Vital Signs: Temperature 98.1, pulse 72, breathing at 24, blood pressure is 122/65, saturating 90% o n high-flow oxygen. General: Pleasant elderly male, in no apparent distress. Head and Neck: Pupils are equal, reactive to light. Intact eye movements. No JVD. No cervical lym phadenopathy. Neck: Supple. Thyroid is not enlarged. Lungs: Clear to auscultation bilaterally. Heart: Regular rate and rhythm. No extra sounds. Abdomen: Soft, nontender. Bowel sounds positive. No organomegaly. No masses or hernia. No rigidi ty or rebound. Extremities: No clubbing, cyanosis. Intact pulses. Skin: No rash. Neurologic: Alert, awake, oriented x3. No acute focal deficits appreciated. Investigations: Creatinine 1.2. Rapid troponin is negative. TSH is low at 0.232. Assessment/plan: Atrial fibrillation, rate around 110 initially, now he is in sinus rhythm with norm al rate at 62. I agree with Emily and Vianey by mouth and please obtain echocardiogram. We sylvain l follow the patient as an outpatient post discharge. Thank you for the consult. /PAZ Voice ID: [id number] Report ID: [id number]
--- NOTE | 2020-08-07 18:39 | P.PN ---
Subjective Date of Service: 08/07/20 Primary Care Provider: Sincere Luis Chief Complaint: Covid Pneumonia, Hypoxia, Atrial fib with RVR Patient is currently needing high-flow oxygen. He was in atrial fibrillation but he continuously converted to sinus rhythm. Physical Examination - Vital Signs Temperature: 97.5 F Blood Pressure: 128/58 Pulse: 76 Respirations: 29 Pulse Ox (%): 90 - Physical Exam General: Alert, In no apparent distress Neck: Supple, JVD not distended Respiratory: Crackles/rales Cardiovascular: No edema, Regular rate/rhythm, Normal S1 S2 Gastrointestinal: Soft and benign, Non-distended Musculoskeletal: No swelling Integumentary: No rashes Neurological: Other (No focal motor deficit) - Studies Laboratory Data (last 24 hrs) 08/06/20 20:30: PT 10.7, INR 0.93, APTT 29.2 08/06/20 20:30: WBC 12.40 H D, Hgb 13.9, Hct 40.9, Plt Count 263 08/06/20 20:30: Sodium 130 L, Potassium 4.1, BUN 24 H, Creatinine 1.70 H, Glucose 386 H, Total Bilirubin 0.5, AST 30, ALT 23, Alkaline Phosphatase 57, Lipase 185 Assessment And Plan - Current Problems (Diagnosis) (1) Acute respiratory failure with hypoxia Current Visit: Yes Status: Acute (2) Atrial fibrillation with RVR Current Visit: Yes Status: Acute (3) Pneumonia due to COVID-19 virus Current Visit: Yes Status: Acute (4) Hypertension Current Visit: Yes Status: Chronic Qualifiers: Hypertension type: essential hypertension Qualified Code(s): I10 - Essential (primary) hypertension (5) Non-insulin dependent diabetes mellitus Current Visit: Yes Status: Chronic - Plan Continue IV steroid. Patient started on Remdesivir. Continue Eliquis for thrombo prophylaxis. He is on metoprolol 25 mg b.i.d. Patient converted to sinus rhythm. Cardiology input appreciated. Vitamin-D, vitamin-C and zinc supplementation. Titrate oxygen. High-flow and BiPAP as needed.
[2020-08-07] MEDS: METHYLPREDNISOLONE 125 MG INJ IV SCH (20:52)
[2020-08-07] MEDS: MELATONIN 5 MG TABLET PO SCH (20:53)
[2020-08-08] MEDS: NA CHLORIDE 0.9% 1,000 ML IV SCH (04:02)
[2020-08-08 05:50] LABS: Absolute Lymphocytes (CBC) 0.5 K/uL (0.7-4.9); Basophils % 0.2 % (0-1.3); Hematocrit 34.9 % (39.6-49.0); Lymphocytes % 2.9 % (15.3-44.8); RBC Red Blood Cell Count 3.67 M/uL (4.33-5.43)
[2020-08-08 06:08] LABS: C-Reactive Protein 96.3 mg/L (<3.00)
[2020-08-08] MEDS: METOPROLOL TAR 25 MG TAB PO SCH ×2 (06:32→17:22)
[2020-08-08 07:47] LABS: Albumin 2.2 g/dL (3.4-5.0); Bilirubin Direct 0.1 mg/dL (0-0.2); Bilirubin Total 0.4 mg/dL (0.2-1.0); Protein, Total 5.9 g/dL (6.4-8.2)
[2020-08-08] MEDS: INSULIN -REGULAR HUMAN 50 UNIT/0.5 ML ML SQ SCH ×4 (08:05→20:49)
[2020-08-08] MEDS: FAMOTIDINE 20 MG/2 ML VIAL IV SCH ×2 (08:06→20:06)
[2020-08-08] MEDS: VITAMIN D 5,000 UNIT CAP PO SCH (08:06)
[2020-08-08] MEDS: ASCORBIC ACID 500 MG TABLET PO SCH ×4 (08:06→20:05)
[2020-08-08] MEDS: METHYLPREDNISOLONE 125 MG INJ IV SCH ×2 (08:06→20:05)
[2020-08-08] MEDS: ZINC SULFATE 220 MG CAP PO SCH (08:06)
[2020-08-08] MEDS: THIAMINE 200 MG/2 ML INJ IVP SCH ×2 (08:07→20:05)
[2020-08-08] MEDS: APIXABAN 5 MG TABLET PO SCH ×2 (09:45→20:05)
[2020-08-08] MEDS: Remdesivir 100 MG in NA CHLORIDE 0.9% 250 ML IV SCH (09:45)
--- NOTE | 2020-08-08 15:31 | P.CNS ---
Date of Consult: 08/08/20 Reason for Consult: Respiratory failure Primary Care Provider: Sincere Luis Chief Complaint: Covid Pneumonia, Hypoxia, Atrial fib with RVR History of Present Illness: Patient is 70 years of age [id number]-vrqafsrsh diabetes metabolic syndrome as ended to the emergency room with worsening dyspnea was treated with steroids in ivermectin became progressively worse. She is currently very hypoxic chest x- ray consistent with herndon virus pneumonia Allergies No Known Allerg Allergy (Uncoded 03/23/17 11:29) Unknown Home Medications: Levothyroxine [Synthroid] 50 mcg PO [id number] 03/23/17 Metformin HCl [Glucophage] 1,000 mg PO BID 03/23/17 lisinopriL [Lisinopril] 30 mg PO DAILY 03/23/17 Memantine HCl [Namenda] 5 mg PO DAILY 08/07/20 - Past Medical/Surgical History Diabetic: Yes -: Diabetes -: Hypertension -: Dementia -: Hypothyroidism - Social History Alcohol use: No CD- Drugs: No Caffeine use: Yes Place of Residence: Home Review of Systems General: Weakness Respiratory: Shortness of Breath Physical Examination Temp Pulse Resp BP Pulse Ox 97.8 F 67 35 H 103/37 L 91 08/08/20 08:00 08/08/20 15:00 08/08/20 15:00 08/08/20 15:00 08/08/20 14:00 - Problems (1) Pneumonia due to COVID-19 virus Current Visit: Yes Status: Acute Plan: Patient is 70 years of age admitted with respiratory failure from herndon virus/Dc IV fluids continue with present medications white count is little elevated chest x-ray reviewed on high-flow oxygen resume metformin and Januvia add NPH insulin for sugars elevated
--- NOTE | 2020-08-08 16:58 | P.PN ---
Subjective Date of Service: 08/08/20 Primary Care Provider: Sincere Luis Chief Complaint: Covid Pneumonia, Hypoxia, Atrial fib with RVR Patient remain on high-flow oxygen. He is currently in sinus rhythm. He has no new complaint. Physical Examination - Vital Signs Temperature: 97.8 F Blood Pressure: 95/53 Pulse: 56 Respirations: 31 Pulse Ox (%): 92 - Physical Exam General: Alert, In no apparent distress, Oriented x3 Neck: JVD not distended Cardiovascular: No edema, Regular rate/rhythm Gastrointestinal: Soft and benign, Non-distended Musculoskeletal: No swelling Integumentary: No rashes Neurological: Other (No focal motor deficit) Assessment And Plan - Current Problems (Diagnosis) (1) Acute respiratory failure with hypoxia Current Visit: Yes Status: Acute (2) Atrial fibrillation with RVR Current Visit: Yes Status: Acute (3) Pneumonia due to COVID-19 virus Current Visit: Yes Status: Acute (4) Hypertension Current Visit: Yes Status: Chronic Qualifiers: Hypertension type: essential hypertension Qualified Code(s): I10 - Essential (primary) hypertension (5) Non-insulin dependent diabetes mellitus Current Visit: Yes Status: Chronic - Plan Continue IV steroid. Continue Remdesivir. Continue Eliquis for thrombo prophylaxis. He is on metoprolol 25 mg b.i.d. Vitamin-D, vitamin-C and zinc supplementation. Titrate oxygen. High-flow and BiPAP as needed.
[2020-08-08] MEDS ORDERED: METFORMIN HCL 500 MG TAB PO SCH (17:00)
[2020-08-08] MEDS: INSULIN 70/30 100 UNITS/ML SQ SCH (17:19)
[2020-08-08] MEDS: METFORMIN HCL 500 MG TAB PO SCH (17:21)
[2020-08-08] MEDS: MELATONIN 5 MG TABLET PO SCH (20:05)
[2020-08-09 04:40] LABS: Absolute Lymphocytes (CBC) 0.5 K/uL (0.7-4.9); Basophils % 0.2 % (0-1.3); Hematocrit 37.3 % (39.6-49.0); Lymphocytes % 2.8 % (15.3-44.8); MPV 8.2 fL (7.6-11.3); RBC Red Blood Cell Count 3.94 M/uL (4.33-5.43)
[2020-08-09 05:12] LABS: Blood Morphology Comment NOT SEEN (NOT SEEN); Platelet Estimate ADEQ
[2020-08-09] MEDS: METOPROLOL TAR 25 MG TAB PO SCH ×2 (05:56→17:09)
[2020-08-09 05:59] LABS: Albumin 2.2 g/dL (3.4-5.0); Bilirubin Direct 0.1 mg/dL (0-0.2); Bilirubin Total 0.4 mg/dL (0.2-1.0); C-Reactive Protein 51.1 mg/L (<3.00); Ferritin 1200.8 ng/mL (26-388); Potassium 4.1 mmol/L (3.5-5.1)
[2020-08-09] MEDS: INSULIN 70/30 100 UNITS/ML SQ SCH ×2 (07:59→16:45)
[2020-08-09] MEDS: INSULIN -REGULAR HUMAN 50 UNIT/0.5 ML ML SQ SCH ×4 (08:00→20:26)
[2020-08-09] MEDS: ZINC SULFATE 220 MG CAP PO SCH (08:01)
[2020-08-09] MEDS: METHYLPREDNISOLONE 125 MG INJ IV SCH ×2 (08:01→20:07)
[2020-08-09] MEDS: METFORMIN HCL 500 MG TAB PO SCH ×2 (08:01→16:45)
[2020-08-09] MEDS: THIAMINE 200 MG/2 ML INJ IVP SCH ×2 (08:01→20:07)
[2020-08-09] MEDS: APIXABAN 5 MG TABLET PO SCH ×2 (08:01→20:06)
[2020-08-09] MEDS: FAMOTIDINE 20 MG/2 ML VIAL IV SCH ×2 (08:01→20:07)
[2020-08-09] MEDS: VITAMIN D 5,000 UNIT CAP PO SCH (08:01)
[2020-08-09] MEDS: SITAGLIPTIN PHOS 100 MG TAB PO SCH (08:01)
[2020-08-09] MEDS: ASCORBIC ACID 500 MG TABLET PO SCH ×4 (10:02→20:06)
[2020-08-09] MEDS: Remdesivir 100 MG in NA CHLORIDE 0.9% 250 ML IV SCH (10:02)
--- NOTE | 2020-08-09 10:42 | P.PN ---
Subjective Date of Service: 08/09/20 Primary Care Provider: Sincere Luis Chief Complaint: Covid Pneumonia, Hypoxia, Atrial fib with RVR No changes from yesterday. She still remain on high-flow oxygen. He sometimes tolerate 100% non-rebreather mask. He remaine in sinus rhythm. He has no new complaint. He states he feels better. Physical Examination - Vital Signs Temperature: 97.5 F Blood Pressure: 152/96 Pulse: 77 Respirations: 29 Pulse Ox (%): 97 - Physical Exam General: Alert, In no apparent distress Neck: JVD not distended Cardiovascular: No edema, Regular rate/rhythm, Normal S1 S2 Gastrointestinal: Soft and benign, Non-distended Musculoskeletal: No swelling Integumentary: No rashes Neurological: Other (No focal motor deficit) Assessment And Plan - Current Problems (Diagnosis) (1) Acute respiratory failure with hypoxia Current Visit: Yes Status: Acute (2) Atrial fibrillation with RVR Current Visit: Yes Status: Acute (3) Pneumonia due to COVID-19 virus Current Visit: Yes Status: Acute (4) Hypertension Current Visit: Yes Status: Chronic Qualifiers: Hypertension type: essential hypertension Qualified Code(s): I10 - Essential (primary) hypertension (5) Non-insulin dependent diabetes mellitus Current Visit: Yes Status: Chronic - Plan Continue IV steroid. Continue Remdesivir day 4. Continue Eliquis. Cardiology input for AFib appreciated. Continue metoprolol 25 mg b.i.d. Vitamin-D, vitamin-C and zinc supplementation. Titrate oxygen. High-flow and BiPAP as needed.
[2020-08-09] MEDS ORDERED: D5W 0 ML IV ONE (18:34)
[2020-08-09] MEDS: MELATONIN 5 MG TABLET PO SCH (20:06)
[2020-08-10 05:10] LABS: Absolute Lymphocytes (CBC) 0.4 K/uL (0.7-4.9); Basophils % 0.2 % (0-1.3); Hematocrit 36.4 % (39.6-49.0); Lymphocytes % 2.3 % (15.3-44.8); MPV 8.3 fL (7.6-11.3)
[2020-08-10] MEDS: METOPROLOL TAR 25 MG TAB PO SCH ×2 (05:52→16:47)
[2020-08-10 05:53] LABS: Albumin 2.2 g/dL (3.4-5.0); Bilirubin Direct 0.2 mg/dL (0-0.2); Bilirubin Total 0.6 mg/dL (0.2-1.0); C-Reactive Protein 84.2 mg/L (<3.00); Ferritin 1196.5 ng/mL (26-388); Potassium 4.1 mmol/L (3.5-5.1); Protein, Total 5.9 g/dL (6.4-8.2)
[2020-08-10] MEDS: INSULIN -REGULAR HUMAN 50 UNIT/0.5 ML ML SQ SCH ×4 (07:03→19:49)
[2020-08-10] MEDS: FAMOTIDINE 20 MG/2 ML VIAL IV SCH (08:18)
[2020-08-10] MEDS: ASCORBIC ACID 500 MG TABLET PO SCH ×4 (08:18→19:49)
[2020-08-10] MEDS: THIAMINE 200 MG/2 ML INJ IVP SCH ×2 (08:18→19:49)
[2020-08-10] MEDS: VITAMIN D 5,000 UNIT CAP PO SCH (08:18)
[2020-08-10] MEDS: METHYLPREDNISOLONE 125 MG INJ IV SCH ×2 (08:18→19:48)
[2020-08-10] MEDS: ZINC SULFATE 220 MG CAP PO SCH (08:18)
[2020-08-10] MEDS: SITAGLIPTIN PHOS 100 MG TAB PO SCH (08:18)
[2020-08-10] MEDS: METFORMIN HCL 500 MG TAB PO SCH ×2 (08:22→16:47)
[2020-08-10] MEDS: APIXABAN 5 MG TABLET PO SCH ×2 (08:22→19:49)
[2020-08-10] MEDS: INSULIN 70/30 100 UNITS/ML SQ SCH ×2 (08:22→16:22)
[2020-08-10] MEDS: Remdesivir 100 MG in NA CHLORIDE 0.9% 250 ML IV SCH (09:47)
--- NOTE | 2020-08-10 10:19 | P.PN ---
Subjective Date of Service: 08/10/20 Primary Care Provider: Sincere Luis Chief Complaint: Covid Pneumonia, Hypoxia, Atrial fib with RVR Patient has no new complain. Nursing staff report he was a bit confused last night. Physical Examination - Vital Signs Temperature: 98.2 F Blood Pressure: 142/67 Pulse: 78 Respirations: 37 Pulse Ox (%): 79 - Physical Exam General: Alert, In no apparent distress Neck: Supple, JVD not distended Cardiovascular: No edema, Regular rate/rhythm Gastrointestinal: Soft and benign, Non-distended Musculoskeletal: No swelling Integumentary: No rashes Neurological: Other (No focal motor deficit.) Assessment And Plan - Current Problems (Diagnosis) (1) Acute respiratory failure with hypoxia Current Visit: Yes Status: Acute (2) Atrial fibrillation with RVR Current Visit: Yes Status: Acute (3) Pneumonia due to COVID-19 virus Current Visit: Yes Status: Acute (4) Hypertension Current Visit: Yes Status: Chronic Qualifiers: Hypertension type: essential hypertension Qualified Code(s): I10 - Essential (primary) hypertension (5) Non-insulin dependent diabetes mellitus Current Visit: Yes Status: Chronic - Plan Continue IV steroid. Should complete Remdesivir today. Continue Eliquis. Patient remain in sinus rhythm Continue metoprolol 25 mg b.i.d. Vitamin-D, vitamin-C and zinc supplementation. Titrate oxygen. High-flow and BiPAP as needed.
--- NOTE | 2020-08-10 11:00 | P.PN ---
Subjective Date of Service: 08/10/20 Primary Care Provider: Sincere Luis Chief Complaint: Respiratory failure No change still requiring high concentrations of oxygen Review of Systems Respiratory: Shortness of Breath Physical Examination - Vital Signs Temperature: 98.2 F Blood Pressure: 142/67 Pulse: 78 Respirations: 37 Pulse Ox (%): 79 Assessment & Plan - Problems (Diagnosis) (1) Pneumonia due to COVID-19 virus Current Visit: Yes Status: Acute Plan: Respiratory failure white count elevated most likely prerenal he has a hypernatremic encourage fluid intake start ivermectin still continues to remain very hypoxic Physician Review: Patient Assessed, Agree with Above Assessment and Plan
--- NOTE | 2020-08-10 11:07 | PN ---
Date of Progress Note: 08/08/2020 Subjective: The patient was seen by Dr. Hardy on 08/07/2020 for atrial fibrillation. He was placed on metoprolol and Eliquis. Today 08/08/2020, he is in atrial fibrillation. No cardiac complaints. I think he should continue metoprolol and Eliquis. The echocardiogram was still pending at the time of the dictation. Dr. Mora was seeing the patient for COVID pneumonia and hypoxia. He has a hi story of hypertension, diabetes, dementia, and hypothyroidism. We will continue metoprolol and Eliqu is. See what the echo shows. He will need to follow up in about a month. BRITTANY/PAZ Voice ID: [id number] Report ID: [id number]
[2020-08-10] MEDS ORDERED: IVERMECTIN 3 MG TABLET PO ONE (12:00)
[2020-08-10] MEDS: FAMOTIDINE 20 MG TAB PO SCH (19:49)
[2020-08-10] MEDS: MELATONIN 5 MG TABLET PO SCH (19:49)
--- NOTE | 2020-08-10 20:56 | RAD REPORT ---
EXAM DESCRIPTION: CT - Head Brain Wo Cont - 08/10/2020 8:44 pm CLINICAL HISTORY: Visual disturbance COMPARISON: 2016 TECHNIQUE: Computed axial tomography of the head was obtained. IV contrast was not requested. All CT scans are performed using dose optimization technique as appropriate and may include automated exposure control or mA/KV adjustment according to patient size. FINDINGS: An intracranial bleed is not seen . Small basal ganglia calcifications. The ventricles are normal in caliber. No extra-axial fluid collection is noted. 4 centimeter low-density area right temporal lobe. 7 centimeter low-density area right occipital jean etal lobe. 3 centimeter low-density area left occipital parietal lobe. These are all compatible with acute infarctions. Fluid within the sinuses/ mastoids is not seen. IMPRESSION: Bilateral acute cerebral infarcts. The patient's nurse Sujatha was notified at 8:50 p.m. August 10, 2020
[2020-08-10] MEDS: ASPIRIN 600 MG/SUPP PR SCH (20:59)
--- NOTE | 2020-08-10 20:59 | P.PN ---
Date of Service: 08/10/[address] showing b/l cerebral infarcts , -may be due to Covid infection vs atrial fib -on Eliquis but given altered mental statusand poor po intake , -will dc Eliquis -start rectal Aspirin and lovenox q12
[2020-08-10] MEDS: GLUCERNA SHAKE 237 ML CAN PO SCH (21:00)
[2020-08-10] MEDS: ENOXAPARIN 60 MG/0.6 ML SQ SCH (21:30)
[2020-08-11] MEDS: ASPIRIN 600 MG/SUPP PR SCH (05:07)
[2020-08-11 05:15] LABS: Absolute Lymphocytes (CBC) 0.5 K/uL (0.7-4.9); Basophils % 0.1 % (0-1.3); Hematocrit 37.6 % (39.6-49.0); Lymphocytes % 2.5 % (15.3-44.8); MPV 8.4 fL (7.6-11.3); RBC Red Blood Cell Count 3.99 M/uL (4.33-5.43)
[2020-08-11 05:35] LABS: Albumin 2.2 g/dL (3.4-5.0); Bilirubin Direct 0.2 mg/dL (0-0.2); Bilirubin Total 0.9 mg/dL (0.2-1.0); Protein, Total 6.2 g/dL (6.4-8.2)
[2020-08-11] MEDS: METOPROLOL TAR 25 MG TAB PO SCH ×2 (06:00→17:05)
[2020-08-11] MEDS: ENOXAPARIN 60 MG/0.6 ML SQ SCH ×2 (08:25→21:23)
[2020-08-11] MEDS: INSULIN 70/30 100 UNITS/ML SQ SCH ×3 (08:25→17:00)
[2020-08-11] MEDS: SITAGLIPTIN PHOS 100 MG TAB PO SCH (08:25)
[2020-08-11] MEDS: METHYLPREDNISOLONE 125 MG INJ IV SCH ×2 (08:25→21:25)
[2020-08-11] MEDS: VITAMIN D 5,000 UNIT CAP PO SCH (08:26)
[2020-08-11] MEDS: FAMOTIDINE 20 MG TAB PO SCH ×2 (08:26→21:25)
[2020-08-11] MEDS: Remdesivir 100 MG in NA CHLORIDE 0.9% 250 ML IV SCH (08:26)
[2020-08-11] MEDS: ASCORBIC ACID 500 MG TABLET PO SCH ×4 (08:26→22:45)
[2020-08-11] MEDS: THIAMINE 200 MG/2 ML INJ IVP SCH (08:26)
[2020-08-11] MEDS: ZINC SULFATE 220 MG CAP PO SCH (08:26)
[2020-08-11] MEDS: METFORMIN HCL 500 MG TAB PO SCH ×2 (08:26→17:01)
[2020-08-11] MEDS: GLUCERNA SHAKE 237 ML CAN PO SCH ×2 (08:27→21:45)
[2020-08-11] MEDS: INSULIN -REGULAR HUMAN 50 UNIT/0.5 ML ML SQ SCH ×5 (08:27→21:24)
--- NOTE | 2020-08-11 11:34 | P.PN ---
Subjective Date of Service: 08/11/20 Primary Care Provider: Sincere Luis Chief Complaint: Respiratory failure Patient developed acute visual loss yesterday. CT head done showed acute bilateral occipitoparietal lobe infarcts. Patient continued to require high-flow oxygen. Physical Examination - Vital Signs Temperature: 96.7 F Blood Pressure: 133/63 Pulse: 73 Respirations: 12 Pulse Ox (%): 87 - Physical Exam General: In no apparent distress, Confused HEENT: Mucous membr. moist/pink Neck: Supple, JVD not distended Respiratory: Crackles/rales Cardiovascular: Regular rate/rhythm, Normal S1 S2 Gastrointestinal: Soft and benign, Non-distended Musculoskeletal: No swelling, No tenderness Integumentary: No rashes Neurological: Normal speech, Other (No focal motor deficit. Peripheral vision loss. Difficult to do accurate vision assessment given associated confusion.) Assessment And Plan - Current Problems (Diagnosis) (1) Acute respiratory failure with hypoxia Current Visit: Yes Status: Acute (2) Atrial fibrillation with RVR Current Visit: Yes Status: Acute (3) Pneumonia due to COVID-19 virus Current Visit: Yes Status: Acute (4) Hypertension Current Visit: Yes Status: Chronic Qualifiers: Hypertension type: essential hypertension Qualified Code(s): I10 - Essential (primary) hypertension (5) Non-insulin dependent diabetes mellitus Current Visit: Yes Status: Chronic (6) Acute CVA (cerebrovascular accident) Current Visit: Yes Status: Acute - Plan Continue IV steroid. Eliquis changed to full-dose subcutaneous Lovenox. Aspirin added. MRI of the brain once clinically stable. Echocardiogram completed on 08/08/2020. Result is pending. Speech consult for swallow evaluation. PT Consul. Status post Remdesivir Continue Eliquis. Patient remain in sinus rhythm Continue metoprolol 25 mg b.i.d. Vitamin-D, vitamin-C and zinc supplementation. Titrate oxygen. High-flow and BiPAP as needed.
--- NOTE | 2020-08-11 12:39 | RAD REPORT ---
EXAM DESCRIPTION: - CP - 08/11/2020 12:31 pm CLINICAL HISTORY: Acute CVA, COVID positive COMPARISON: No comparisons TECHNIQUE: Real-time sonographic evaluation of bilateral carotid and vertebral systems was performed . Kim scale and Doppler interrogation were performed with waveform tracing bilaterally. FINDINGS: Normal high resistance waveforms are noted in both external carotid arteries. The common c arotid arteries and internal carotid arteries show normal low resistance waveforms. Calcified and noncalcified plaquing changes are present. Visually this does not cause significant deg lázaro of luminal narrowing. No dissection seen. Velocity values are relatively symmetric right versus left. Peak systolic and end diastolic velocity values and the ICA/CCA ratios are in the non-hemodynam ically significant range. Vertebral arteries not well visualized. Velocity values and ratios were recorded and are retained in the patient's imaging records. IMPRESSION: Calcified and noncalcified plaquing changes are present without significant luminal narr owing. No evidence of a hemodynamically significant stenosis.
[2020-08-11 14:17] LABS: BUN Blood Urea Nitrogen 34 mg/dL (7-18); Bicarbonate 27 mmol/L (21-32); Glucose Level 133 mg/dL (74-106); Potassium 4.3 mmol/L (3.5-5.1); Sodium Level 147 mmol/L (136-145)
--- NOTE | 2020-08-11 14:38 | RAD REPORT ---
EXAM DESCRIPTION: CT - Head angio - 08/11/2020 2:12 pm CLINICAL HISTORY: Acute CVA Headache, drowsiness, CVA symptomology COMPARISON: Head Brain Wo Cont dated 08/10/2020; Head Brain Wo Cont dated 02/03/2017 TECHNIQUE: CT angiography of the head was performed with MIPs. All CT scans are performed using dose optimization technique as appropriate and may include automated exposure control or mA/KV adjustment according to patient size. FINDINGS: No evidence of aneurysm is detected. No flow-limiting stenosis or vascular malformation id entified. Antegrade flow is seen in the vertebral arteries. The vertebral arteries are left-sided dominant. The visualized dural venous sinuses are patent. IMPRESSION: No significant flow abnormality is detected.
--- NOTE | 2020-08-11 14:42 | RAD REPORT ---
EXAM DESCRIPTION: CT - Neck Angio - 08/11/2020 2:13 pm CLINICAL HISTORY: Acute CVA Headache, drowsiness, CVA COMPARISON: Carotid Artery Bilateral dated 08/11/2020 TECHNIQUE: CT angiography of the neck vessels was performed with MIPs. All CT scans are performed using dose optimization technique as appropriate and may include automated exposure control or mA/KV adjustment according to patient size. FINDINGS: A left aortic arch is identified with normal three vessel configuration of the great vesse ls. No significant flow abnormality is seen of the common carotid bilaterally. Moderate atheromatous plaquing is present involving both carotid bulbs, greater on the right. Stenosi s of less than 50% suspected based on NASCET criteria involving the right carotid bulb. Left-sided dominant vertebral artery noted. Severe lung opacities are present in both upper lobes. IMPRESSION: Less than 50% stenosis suspected right carotid bulb.
--- NOTE | 2020-08-11 15:45 | P.PN ---
Subjective Date of Service: 08/11/20 Primary Care Provider: Sincere Luis Chief Complaint: Respiratory failure/Stroke Pt deveopled loss of vision and cordination. Develeped a stroke while of Eliquis. He seems to be doign better Eating Physical Examination - Vital Signs Temperature: 97.9 F Blood Pressure: 115/58 Pulse: 63 Respirations: 21 Pulse Ox (%): 93 Assessment & Plan - Problems (Diagnosis) (1) Pneumonia due to COVID-19 virus Current Visit: Yes Status: Acute Plan: Resp failure recent stroke and AfibWBC elevated. Renal function is normal/ pt on lovenox NormalSR Still on high concentration of Fio2. Hypernatremia. Bilateral acute cerebral infacts. Klein eot Po asprin Physician Review: Patient Assessed, Agree with Above Assessment and Plan
[2020-08-11] MEDS: MELATONIN 5 MG TABLET PO SCH (21:23)
[2020-08-11] MEDS: THIAMINE HCL 100 MG TABLET PO SCH (21:26)
[2020-08-12 05:21] LABS: Absolute Lymphocytes (CBC) 0.2 K/uL (0.7-4.9); Basophils % 0.3 % (0-1.3); Hematocrit 36.1 % (39.6-49.0); Lymphocytes % 1.2 % (15.3-44.8); MPV 8.9 fL (7.6-11.3); RBC Red Blood Cell Count 3.81 M/uL (4.33-5.43)
[2020-08-12 06:04] LABS: ALT/SGPT 19 U/L (12-78); AST/SGOT 25 U/L (15-37); Alkaline Phosphatase 103 U/L (45-117); BUN Blood Urea Nitrogen 32 mg/dL (7-18); Bicarbonate 27 mmol/L (21-32); Bilirubin Total 0.7 mg/dL (0.2-1.0); Glucose Level 165 mg/dL (74-106); Potassium 4.4 mmol/L (3.5-5.1); Protein, Total 5.7 g/dL (6.4-8.2); Sodium Level 149 mmol/L (136-145)
[2020-08-12] MEDS: INSULIN -REGULAR HUMAN 50 UNIT/0.5 ML ML SQ SCH ×4 (07:30→21:00)
[2020-08-12] MEDS: SITAGLIPTIN PHOS 100 MG TAB PO SCH (07:41)
[2020-08-12] MEDS: THIAMINE HCL 100 MG TABLET PO SCH ×2 (07:41→21:45)
[2020-08-12] MEDS: ASPIRIN EC 81 MG TAB PO SCH (07:41)
[2020-08-12] MEDS: FAMOTIDINE 20 MG TAB PO SCH ×2 (07:41→21:45)
[2020-08-12] MEDS: VITAMIN D 5,000 UNIT CAP PO SCH (07:42)
[2020-08-12] MEDS: ZINC SULFATE 220 MG CAP PO SCH (07:42)
[2020-08-12] MEDS: INSULIN 70/30 100 UNITS/ML SQ SCH ×2 (07:42→17:32)
[2020-08-12] MEDS: ENOXAPARIN 60 MG/0.6 ML SQ SCH ×2 (07:42→21:44)
[2020-08-12] MEDS: METHYLPREDNISOLONE 125 MG INJ IV SCH ×2 (07:42→21:45)
[2020-08-12] MEDS: METFORMIN HCL 500 MG TAB PO SCH ×2 (07:42→17:32)
[2020-08-12] MEDS: GLUCERNA SHAKE 237 ML CAN PO SCH ×2 (07:43→21:44)
[2020-08-12] MEDS: METOPROLOL TAR 25 MG TAB PO SCH ×2 (07:44→17:32)
[2020-08-12] MEDS: ASCORBIC ACID 500 MG TABLET PO SCH ×4 (08:52→21:45)
--- NOTE | 2020-08-12 11:24 | P.PN ---
Subjective Date of Service: 08/12/20 Primary Care Provider: Sincere Luis Chief Complaint: Respiratory failure/Stroke Subjective: No new changes (no new significant changes. patient reports feeling slightly better today "maybe". no new complaints. reports low appetite) Physical Examination - Vital Signs Temperature: 97.8 F Blood Pressure: 122/76 Pulse: 66 Respirations: 29 Pulse Ox (%): 89 - Studies Microbiology Data (last 24 hrs): 08/06/20 21:51 Blood - Blood Aerobic Blood Culture - Final No growth in 5 days. 08/06/20 21:51 Blood - Blood Anaerobic Blood Culture - Final No growth in 5 days. 08/06/20 20:30 Blood - Blood Aerobic Blood Culture - Final No growth in 5 days. 08/06/20 20:30 Blood - Blood Anaerobic Blood Culture - Final No growth in 5 days. Assessment & Plan Physician Review Additional Text: Physical Exam Gen: In no apparent distress, appears depressed HEENT: Mucous membr. moist/pink Pulm: Crackles/rales bibasilar, on BIPAP CV: Regular rate/rhythm, Normal S1 S2 Abd: Soft and benign, Non-distended, non-tender Msk: No swelling, No tenderness Skin: No rashes Neurological: normal speech/hearing, no focal motor defecit. b/l vision loss, sees shapes / fuzziness, unable to tell me how many fingers i'm holding up in either eye Problem List Acute respiratory failure with hypoxia Atrial fibrillation with RVR Pneumonia due to COVID-19 virus Hypertension Non-insulin dependent DM2 Acute CVA with b/l vision loss Continue IV solumedrol 80 BID. s/p Remdesevir High-flow and BiPAP as needed. - pulm following Eliquis changed to full-dose subcutaneous Lovenox for now. aspirin added after stroke, continue MRI consistent with stroke, MRA ok, carotids ok. Neurology consulted Continue metoprolol 25 mg b.i.d. - per cardiology recommendations Echocardiogram completed on 08/08/2020. Result is pending. Speech consulted for swallow evaluation. PT/OT consulted Vitamin-D, vitamin-C and zinc supplementation. Titrate oxygen. VTE: full lovenox Dispo: anticipate hospitalization > 2 more days, PT/OT/ST bernstein, neurology consulted would likely benefit from SNF rehab - will discuss with patient/family Time Spent Managing Pts Care (In Minutes): 40
[2020-08-12] MEDS: MELATONIN 5 MG TABLET PO SCH (21:45)
[2020-08-13 05:11] LABS: Hematocrit 35.3 % (39.6-49.0); MPV 8.8 fL (7.6-11.3); RBC Red Blood Cell Count 3.79 M/uL (4.33-5.43)
[2020-08-13 05:32] LABS: BUN Blood Urea Nitrogen 37 mg/dL (7-18); Bicarbonate 30 mmol/L (21-32); Ferritin 1185.8 ng/mL (26-388); Glucose Level 124 mg/dL (74-106); Magnesium 2.4 mg/dL (1.8-2.4); Potassium 4.6 mmol/L (3.5-5.1); Sodium Level 148 mmol/L (136-145)
[2020-08-13 05:46] LABS: Blood Morphology Comment NOT SEEN (NOT SEEN); Platelet Estimate ADEQ
[2020-08-13] MEDS: METOPROLOL TAR 25 MG TAB PO SCH ×2 (06:43→16:48)
[2020-08-13] MEDS: INSULIN -REGULAR HUMAN 50 UNIT/0.5 ML ML SQ SCH ×4 (07:52→20:46)
[2020-08-13] MEDS: INSULIN 70/30 100 UNITS/ML SQ SCH ×2 (07:52→16:48)
[2020-08-13] MEDS: METHYLPREDNISOLONE 125 MG INJ IV SCH ×2 (07:52→20:46)
[2020-08-13] MEDS: ENOXAPARIN 60 MG/0.6 ML SQ SCH ×2 (07:52→20:45)
[2020-08-13] MEDS: ASCORBIC ACID 500 MG TABLET PO SCH ×4 (07:53→20:47)
[2020-08-13] MEDS: SITAGLIPTIN PHOS 100 MG TAB PO SCH (07:53)
[2020-08-13] MEDS: ZINC SULFATE 220 MG CAP PO SCH (07:53)
[2020-08-13] MEDS: ASPIRIN EC 81 MG TAB PO SCH (07:53)
[2020-08-13] MEDS: THIAMINE HCL 100 MG TABLET PO SCH ×2 (07:53→20:46)
[2020-08-13] MEDS: METFORMIN HCL 500 MG TAB PO SCH ×2 (07:53→16:48)
[2020-08-13] MEDS: FAMOTIDINE 20 MG TAB PO SCH ×2 (07:53→20:46)
[2020-08-13] MEDS: GLUCERNA SHAKE 237 ML CAN PO SCH ×2 (09:00→20:45)
[2020-08-13] MEDS: VITAMIN D 5,000 UNIT CAP PO SCH (11:58)
[2020-08-13] MEDS ORDERED: IVERMECTIN 3 MG TABLET PO ONE (12:22)
--- NOTE | 2020-08-13 12:28 | P.PN ---
Subjective Date of Service: 08/13/20 Primary Care Provider: Sincere Luis Chief Complaint: Respiratory failure/Stroke Improving. Doing better, Not eating or drinking Physical Examination - Vital Signs Temperature: 97.3 F Blood Pressure: 135/62 Pulse: 59 Respirations: 17 Pulse Ox (%): 94 Assessment & Plan - Problems (Diagnosis) (1) Pneumonia due to COVID-19 virus Current Visit: Yes Status: Acute Plan: Still requiring high conc of O2 Not eating or drinking. Hyernatremia. Needs IV fluid. Poor appeite. Wakes up .Sleeps most of the time . No taste or smell patient started on D5 water will in courage to eat and drink oxygen concentration as been reduced labs reviewed Physician Review: Patient Assessed, Agree with Above Assessment and Plan
[2020-08-13] MEDS: D5W 1,000 ML IV SCH (13:24)
--- NOTE | 2020-08-13 15:00 | ECHO ---
HEIGHT: 5 ft 7 in WEIGHT: 172 lb 0 oz DATE OF STUDY: 08/08/[address]: Bryan Coelho MD 2-DIMENSIONAL: YES M.MODE: YES DOPPLER: YES COLOR FLOW: YES TDS: NO PORTABLE: NO DEFINITY: NO BUBBLE STUDY: NO DIAGNOSIS: ATRIAL FIBRILLATION CARDIAC HISTORY: CATHERIZATION: SURGERY: PROSTHETIC VALVE: PACEMAKER: MEASUREMENTS (cm) DIASTOLIC (NORMALS) SYSTOLIC (NORMALS) IVSd 1.2 (0.6-1.2) LA Diam 3.4 (1.9-4.0) LVEF 79% LVIDd 3.4 (3.5-5.7) LVIDs 1.8 (2.0-3.5) %FS 47% LVPWd 1.0 (0.6-1.2) Ao Diam 2.7 (2.0-3.7) 2 DIMENSIONAL ASSESSMENT: RIGHT ATRIUM: NORMAL LEFT ATRIUM: NORMAL RIGHT VENTRICLE: NORMAL LEFT VENTRICLE: NORMAL TRICUSPID VALVE: NORMAL MITRAL VALVE: NORMAL PULMONIC VALVE: NORMAL AORTIC VALVE: NORMAL PERICARDIAL EFFUSION: NONE AORTIC ROOT: NORMAL LEFT VENTRICULAR WALL MOTION: NORMAL. DOPPLER/COLOR FLOW: NORMAL. COMMENTS: NORMAL 2D ECHO WITH DOPPLER. NO WALL MOTION ABNORMALITY. NO EFFUSION. TECHNOLOGIST: MANAS CAMERON
--- NOTE | 2020-08-13 15:47 | P.PN ---
Subjective Date of Service: 08/13/20 Primary Care Provider: Sincere Luis Chief Complaint: Respiratory failure/Stroke Subjective: Improving (feels a little better today, low appetite, reports is thirsty, encouraged to drink more water. on high levels of BIPAP. vision unchanged) Review of Systems 10-point ROS is otherwise unremarkable Physical Examination - Vital Signs Temperature: 97.3 F Blood Pressure: 126/60 Pulse: 57 Respirations: 20 Pulse Ox (%): 95 Assessment & Plan Physician Review Additional Text: Physical Exam Gen: NAD, on BIPAP HEENT: sclera anicteric, normal conjunctiva Pulm: nonlabored on BIPAP CV: Regular rate/rhythm, Normal S1 S2 Abd: Soft and benign, Non-distended, non-tender Msk: No swelling, No tenderness Skin: No rashes Neurological: b/l vision loss, sees shapes / fuzziness, unable to tell me how many fingers he sees Problem List Acute respiratory failure with hypoxia Atrial fibrillation with RVR Pneumonia due to COVID-19 virus Hypertension Non-insulin dependent DM2 Acute CVA with b/l vision loss Hypernatremia Continue IV solumedrol 80 BID. s/p Remdesevir High-flow and BiPAP as needed. - pulm following Eliquis changed to full-dose subcutaneous Lovenox for now. aspirin added after stroke, will switch to xarelto when improving / tolerating off BIPAP better MRI consistent with stroke, MRA ok, carotids ok. Neurology consulted Continue metoprolol 25 mg b.i.d. - per cardiology recommendations Echo (08/08/20): normal echo Speech consulted for swallow evaluation - to be done today PT/OT consulted Vitamin-D, vitamin-C and zinc supplementation. HyperNa - low PO intake, encouraged more, discussed possibly needing dobhoff if does not improve. started on D5 VTE: full lovenox Dispo: anticipate hospitalization > 2 more days, PT/OT/ST bernstein, neurology consulted would likely benefit from SNF rehab - will discuss with patient/family, unable to discuss yesterday Time Spent Managing Pts Care (In Minutes): 35
[2020-08-13] MEDS: MELATONIN 5 MG TABLET PO SCH (20:45)
[2020-08-14] MEDS: D5W 1,000 ML IV SCH ×2 (01:03→12:16)
[2020-08-14 05:55] LABS: C-Reactive Protein 52.4 mg/L (<3.00); Ferritin 1418.5 ng/mL (26-388); Magnesium 2.5 mg/dL (1.8-2.4); Potassium 4.5 mmol/L (3.5-5.1)
[2020-08-14] MEDS: METOPROLOL TAR 25 MG TAB PO SCH ×2 (06:23→17:17)
[2020-08-14] MEDS: SITAGLIPTIN PHOS 100 MG TAB PO SCH (08:06)
[2020-08-14] MEDS: FAMOTIDINE 20 MG TAB PO SCH ×2 (08:06→20:53)
[2020-08-14] MEDS: ASCORBIC ACID 500 MG TABLET PO SCH ×4 (08:06→20:53)
[2020-08-14] MEDS: THIAMINE HCL 100 MG TABLET PO SCH ×2 (08:06→20:53)
[2020-08-14] MEDS: ZINC SULFATE 220 MG CAP PO SCH (08:06)
[2020-08-14] MEDS: METFORMIN HCL 500 MG TAB PO SCH ×2 (08:06→17:17)
[2020-08-14] MEDS: ASPIRIN EC 81 MG TAB PO SCH (08:06)
[2020-08-14] MEDS: INSULIN -REGULAR HUMAN 50 UNIT/0.5 ML ML SQ SCH ×4 (08:07→20:55)
[2020-08-14] MEDS: METHYLPREDNISOLONE 125 MG INJ IV SCH ×2 (08:07→20:53)
[2020-08-14] MEDS: VITAMIN D 5,000 UNIT CAP PO SCH (08:07)
[2020-08-14] MEDS: INSULIN 70/30 100 UNITS/ML SQ SCH ×2 (08:07→17:13)
[2020-08-14] MEDS: ENOXAPARIN 60 MG/0.6 ML SQ SCH ×2 (08:07→20:53)
[2020-08-14] MEDS: GLUCERNA SHAKE 237 ML CAN PO SCH ×2 (08:08→21:17)
--- NOTE | 2020-08-14 17:09 | P.PN ---
Subjective Date of Service: 08/14/20 Primary Care Provider: Sincere Luis Chief Complaint: Respiratory failure/Stroke Subjective: Improving (Feeling a little better, without complaints today) Review of Systems 10-point ROS is otherwise unremarkable Physical Examination - Vital Signs Temperature: 97.8 F Blood Pressure: 124/64 Pulse: 60 Respirations: 21 Pulse Ox (%): 93 Assessment & Plan Physician Review Additional Text: Physical Exam Gen: NAD, on BIPAP Pulm: nonlabored on BIPAP CV: Regular rate/rhythm Abd: Soft and benign, Non-distended, non-tender Msk: No swelling, No tenderness Skin: No rashes Neurological: b/l vision loss Problem List Acute respiratory failure with hypoxia Atrial fibrillation with RVR Pneumonia due to COVID-19 virus Hypertension Non-insulin dependent DM2 Acute CVA with b/l vision loss Hypernatremia Continue IV solumedrol 80 BID. s/p Remdesevir High-flow and BiPAP as needed. - pulm following Eliquis changed to full-dose subcutaneous Lovenox for now. aspirin added after stroke, will switch to xarelto when improving / tolerating off BIPAP better MRI consistent with stroke, MRA ok, carotids ok. Neurology consulted Continue metoprolol 25 mg b.i.d. - per cardiology recommendations Echo (08/08/20): normal echo Speech consulted for swallow evaluation PT/OT consulted Vitamin-D, vitamin-C and zinc supplementation. HyperNa started on D5, improving VTE: full lovenox Dispo: anticipate hospitalization > 2 more days, PT/OT/ST eval, neurology consulted would likely benefit from SNF rehab - will discuss with patient/family Time Spent Managing Pts Care (In Minutes): 35
[2020-08-14] MEDS: MELATONIN 5 MG TABLET PO SCH (20:53)
[2020-08-15] MEDS: D5W 1,000 ML IV SCH ×2 (00:24→16:48)
[2020-08-15] MEDS: METOPROLOL TAR 25 MG TAB PO SCH ×2 (05:25→16:48)
[2020-08-15 05:43] LABS: Absolute Lymphocytes (CBC) 0.3 K/uL (0.7-4.9); Hematocrit 37.7 % (39.6-49.0); Lymphocytes % 1.7 % (15.3-44.8); MPV 9.7 fL (7.6-11.3); RBC Red Blood Cell Count 4.07 M/uL (4.33-5.43)
[2020-08-15 06:10] LABS: BUN Blood Urea Nitrogen 25 mg/dL (7-18); Bicarbonate 28 mmol/L (21-32); Ferritin 1216.2 ng/mL (26-388); Glucose Level 177 mg/dL (74-106); Magnesium 2.1 mg/dL (1.8-2.4); Potassium 4.3 mmol/L (3.5-5.1); Sodium Level 136 mmol/L (136-145)
[2020-08-15] MEDS: INSULIN 70/30 100 UNITS/ML SQ SCH ×3 (07:30→16:04)
[2020-08-15] MEDS ORDERED: APIXABAN 2.5 MG TABLET PO SCH (09:00)
[2020-08-15] MEDS ORDERED: APIXABAN 5 MG TABLET PO SCH (09:00)
[2020-08-15] MEDS: GLUCERNA SHAKE 237 ML CAN PO SCH ×2 (09:00→21:00)
[2020-08-15] MEDS: VITAMIN D 5,000 UNIT CAP PO SCH (09:14)
[2020-08-15] MEDS: FAMOTIDINE 20 MG TAB PO SCH ×2 (09:14→19:59)
[2020-08-15] MEDS: ZINC SULFATE 220 MG CAP PO SCH (09:14)
[2020-08-15] MEDS: SITAGLIPTIN PHOS 100 MG TAB PO SCH (09:14)
[2020-08-15] MEDS: ASCORBIC ACID 500 MG TABLET PO SCH ×4 (09:14→19:59)
[2020-08-15] MEDS: METHYLPREDNISOLONE 125 MG INJ IV SCH ×2 (09:14→19:59)
[2020-08-15] MEDS: THIAMINE HCL 100 MG TABLET PO SCH ×2 (09:14→19:59)
[2020-08-15] MEDS: INSULIN -REGULAR HUMAN 50 UNIT/0.5 ML ML SQ SCH ×4 (09:15→20:00)
[2020-08-15] MEDS: ASPIRIN EC 81 MG TAB PO SCH (09:15)
[2020-08-15] MEDS: METFORMIN HCL 500 MG TAB PO SCH ×2 (09:15→16:47)
--- NOTE | 2020-08-15 12:12 | P.PN ---
Subjective Date of Service: 08/15/20 Primary Care Provider: Sincere Luis Chief Complaint: Respiratory failure/Stroke Patient is not very cooperative diffusing to eat or drink much intake is pills does not cooperate with therapy he or positioning Review of Systems is unable to be obtained Physical Examination - Vital Signs Temperature: 98.3 F Blood Pressure: 129/63 Pulse: 67 Respirations: 25 Pulse Ox (%): 89 - Physical Exam General: Alert Respiratory: Clear to auscultation bilaterally, Diminished Assessment & Plan - Problems (Diagnosis) (1) Pneumonia due to COVID-19 virus Current Visit: Yes Status: Acute Plan: No change oxygen requirements have been declining white count elevated change to p.o. Eliquis insulin increased lab reviewed Physician Review: Patient Assessed, Agree with Above Assessment and Plan
--- NOTE | 2020-08-15 15:07 | P.PN ---
Subjective Date of Service: 08/15/20 Primary Care Provider: Sincere Lusi Chief Complaint: Respiratory failure/Stroke Subjective: No new changes (breathing slightly better. no appetite, not eating much, nursing reports not participating in much over past 24hrs.) Review of Systems 10-point ROS is otherwise unremarkable Physical Examination - Vital Signs Temperature: 98.3 F Blood Pressure: 108/57 Pulse: 67 Respirations: 24 Pulse Ox (%): 86 Assessment & Plan Physician Review Additional Text: Physical Exam Gen: NAD, on BIPAP Pulm: nonlabored on BIPAP CV: Regular rate/rhythm Abd: Soft and benign, Non-distended, non-tender Msk: No swelling, No tenderness Neuro: b/l decreased vision, sees shapes / fuzziness Problem List Acute respiratory failure with hypoxia Atrial fibrillation with RVR Pneumonia due to COVID-19 virus Hypertension Non-insulin dependent DM2 Acute CVA with b/l vision loss Hypernatremia Continue IV solumedrol 80 BID. s/p Remdesevir High-flow and BiPAP as needed. - pulm following Eliquis changed to full-dose subcutaneous Lovenox for now. aspirin added after stroke, will switch to xarelto MRI consistent with stroke, MRA ok, carotids ok. Neurology consulted Continue metoprolol 25 mg b.i.d. - per cardiology recommendations Echo (08/08/20): normal echo Speech consulted for swallow eval 08/14 - pt did well PT/OT consulted Vitamin-D, vitamin-C and zinc supplementation. HyperNa started on D5, improving VTE: full lovenox Dispo: anticipate hospitalization > 2 more days, PT/OT/ST eval, neurology consulted would likely benefit from SNF rehab - will discuss with patient/family Time Spent Managing Pts Care (In Minutes): 35
[2020-08-15] MEDS: RIVAROXABAN 20 MG TABLET PO SCH (16:47)
[2020-08-15] MEDS: MELATONIN 5 MG TABLET PO SCH (19:59)
[2020-08-16 05:09] LABS: Absolute Lymphocytes (CBC) 0.3 K/uL (0.7-4.9); Basophils % 0.2 % (0-1.3); Lymphocytes % 1.4 % (15.3-44.8); MPV 9.2 fL (7.6-11.3); RBC Red Blood Cell Count 3.88 M/uL (4.33-5.43)
[2020-08-16] MEDS: METOPROLOL TAR 25 MG TAB PO SCH ×2 (05:10→17:45)
[2020-08-16] MEDS: D5W 1,000 ML IV SCH ×2 (05:16→18:31)
[2020-08-16 05:27] LABS: BUN Blood Urea Nitrogen 23 mg/dL (7-18); Bicarbonate 29 mmol/L (21-32); Ferritin 1212.1 ng/mL (26-388); Glucose Level 196 mg/dL (74-106); Magnesium 2.1 mg/dL (1.8-2.4); Potassium 4.4 mmol/L (3.5-5.1); Sodium Level 135 mmol/L (136-145)
[2020-08-16] MEDS: INSULIN 70/30 100 UNITS/ML SQ SCH ×2 (07:30→16:30)
[2020-08-16] MEDS: INSULIN -REGULAR HUMAN 50 UNIT/0.5 ML ML SQ SCH ×4 (08:00→21:00)
[2020-08-16] MEDS: METFORMIN HCL 500 MG TAB PO SCH ×2 (08:00→17:41)
[2020-08-16] MEDS: FAMOTIDINE 20 MG TAB PO SCH ×2 (08:58→21:00)
[2020-08-16] MEDS: THIAMINE HCL 100 MG TABLET PO SCH ×2 (08:58→21:00)
[2020-08-16] MEDS: GLUCERNA SHAKE 237 ML CAN PO SCH ×2 (08:58→21:39)
[2020-08-16] MEDS: ZINC SULFATE 220 MG CAP PO SCH (08:58)
[2020-08-16] MEDS: MEGESTROL 40 MG TAB PO SCH (08:58)
[2020-08-16] MEDS: METHYLPREDNISOLONE 125 MG INJ IV SCH ×2 (08:58→21:00)
[2020-08-16] MEDS: ASCORBIC ACID 500 MG TABLET PO SCH ×4 (08:58→21:00)
[2020-08-16] MEDS: ASPIRIN EC 81 MG TAB PO SCH (08:58)
[2020-08-16] MEDS: VITAMIN D 5,000 UNIT CAP PO SCH (08:58)
[2020-08-16] MEDS: SITAGLIPTIN PHOS 100 MG TAB PO SCH (08:58)
[2020-08-16] MEDS: RIVAROXABAN 20 MG TABLET PO SCH (17:45)
[2020-08-16] MEDS: MELATONIN 5 MG TABLET PO SCH (21:00)
[2020-08-17] MEDS: METOPROLOL TAR 25 MG TAB PO SCH ×2 (05:59→17:56)
[2020-08-17] MEDS: D5W 1,000 ML IV SCH (06:00)
[2020-08-17 06:15] LABS: C-Reactive Protein 14.3 mg/L (<3.00); Ferritin 1287.3 ng/mL (26-388)
[2020-08-17] MEDS: INSULIN -REGULAR HUMAN 50 UNIT/0.5 ML ML SQ SCH ×4 (08:11→20:21)
[2020-08-17] MEDS: INSULIN 70/30 100 UNITS/ML SQ SCH ×2 (08:12→16:30)
[2020-08-17] MEDS: SITAGLIPTIN PHOS 100 MG TAB PO SCH (08:38)
[2020-08-17] MEDS: FAMOTIDINE 20 MG TAB PO SCH ×2 (08:38→20:21)
[2020-08-17] MEDS: ASPIRIN EC 81 MG TAB PO SCH (08:38)
[2020-08-17] MEDS: THIAMINE HCL 100 MG TABLET PO SCH ×2 (08:38→20:20)
[2020-08-17] MEDS: METFORMIN HCL 500 MG TAB PO SCH ×2 (08:38→17:46)
[2020-08-17] MEDS: ZINC SULFATE 220 MG CAP PO SCH (08:38)
[2020-08-17] MEDS: ASCORBIC ACID 500 MG TABLET PO SCH ×4 (08:38→20:21)
[2020-08-17] MEDS: VITAMIN D 5,000 UNIT CAP PO SCH (08:38)
[2020-08-17] MEDS: METHYLPREDNISOLONE 125 MG INJ IV SCH ×2 (08:39→20:20)
[2020-08-17] MEDS: GLUCERNA SHAKE 237 ML CAN PO SCH ×2 (08:48→20:45)
--- NOTE | 2020-08-17 09:09 | P.PN ---
Subjective Date of Service: 08/16/20 (Hospitalist) Primary Care Provider: Sincere Luis Chief Complaint: Respiratory failure/Stroke No change in patient's condition patient not very motivated still hypoxic Review of Systems General: Weakness Respiratory: Shortness of Breath Physical Examination - Vital Signs Temperature: 96.9 F Blood Pressure: 115/66 Pulse: 63 Respirations: 24 Pulse Ox (%): 93 - Physical Exam General: Alert, Other (Not cooperative) Respiratory: Clear to auscultation bilaterally, Diminished Assessment & Plan - Problems (Diagnosis) (1) Pneumonia due to COVID-19 virus Current Visit: Yes Status: Acute Plan: Respiratory failure he is eating and drinking not very motivated with therapy in you to titrate his oxygen level down chemistries reviewed white count is mildly elevated vital signs stable labs reviewed his patient is on Xarelto that a stroke blood sugars reasonable Physician Review: Patient Assessed, Agree with Above Assessment and Plan
--- NOTE | 2020-08-17 09:11 | P.PN ---
Subjective Date of Service: 08/17/20 (Hospital is) Primary Care Provider: Sincere Luis Chief Complaint: Respiratory failure/Stroke Again no change patient is not cooperative eating and drinking Review of Systems is unable to be obtained Physical Examination - Vital Signs Temperature: 96.9 F Blood Pressure: 115/66 Pulse: 63 Respirations: 24 Pulse Ox (%): 93 - Physical Exam General: Alert HEENT: Atraumatic Respiratory: Clear to auscultation bilaterally Cardiovascular: No edema, Normal S1 S2 Assessment & Plan - Problems (Diagnosis) (1) Pneumonia due to COVID-19 virus Current Visit: Yes Status: Acute Plan: Respiratory failure no change in patient's condition IV fluids discontinued vital signs stable no change oxygen requirements declining Physician Review: Patient Assessed, Agree with Above Assessment and Plan
[2020-08-17] MEDS: MEGESTROL 40 MG TAB PO SCH (09:30)
[2020-08-17] MEDS: RIVAROXABAN 20 MG TABLET PO SCH (17:45)
[2020-08-17] MEDS: MELATONIN 5 MG TABLET PO SCH (20:21)
[2020-08-18] MEDS: METOPROLOL TAR 25 MG TAB PO SCH ×2 (05:50→17:08)
[2020-08-18 06:32] LABS: C-Reactive Protein 25.4 mg/L (<3.00); Ferritin 1444.1 ng/mL (26-388)
[2020-08-18] MEDS: INSULIN 70/30 100 UNITS/ML SQ SCH ×2 (07:30→16:30)
[2020-08-18] MEDS: INSULIN -REGULAR HUMAN 50 UNIT/0.5 ML ML SQ SCH ×4 (07:30→20:22)
[2020-08-18] MEDS: METFORMIN HCL 500 MG TAB PO SCH ×2 (07:59→17:08)
[2020-08-18] MEDS: METHYLPREDNISOLONE 40 MG INJ IV SCH ×2 (08:02→20:21)
[2020-08-18] MEDS: ASCORBIC ACID 500 MG TABLET PO SCH ×4 (08:02→20:22)
[2020-08-18] MEDS: FAMOTIDINE 20 MG TAB PO SCH ×2 (08:02→20:22)
[2020-08-18] MEDS: ASPIRIN EC 81 MG TAB PO SCH (08:03)
[2020-08-18] MEDS: MEGESTROL 40 MG TAB PO SCH (08:03)
[2020-08-18] MEDS: VITAMIN D 5,000 UNIT CAP PO SCH (08:03)
[2020-08-18] MEDS: ZINC SULFATE 220 MG CAP PO SCH (08:03)
[2020-08-18] MEDS: GLUCERNA SHAKE 237 ML CAN PO SCH ×2 (08:03→20:22)
[2020-08-18] MEDS: THIAMINE HCL 100 MG TABLET PO SCH ×2 (09:06→20:21)
[2020-08-18] MEDS: SITAGLIPTIN PHOS 100 MG TAB PO SCH (09:06)
[2020-08-18] MEDS: FLUCONAZOLE 100 MG TAB PO SCH (12:23)
--- NOTE | 2020-08-18 12:29 | P.PN ---
Subjective Date of Service: 08/18/20 Primary Care Provider: Sincere Luis Chief Complaint: Respiratory failure/Stroke Subjective: No new changes (feeling about the same, nursing staff report he is more active, ate 20-30% of his meals yesterday, in a slightly better mood.) Review of Systems 10-point ROS is otherwise unremarkable Physical Examination - Vital Signs Temperature: 98.2 F Blood Pressure: 98/57 Pulse: 64 Respirations: 21 Pulse Ox (%): 91 Assessment & Plan Physician Review: Patient Assessed, Agree with Above Assessment and Plan Physician Review Additional Text: Physical Exam Gen: NAD, eyes closed, doesn't want to talk much today Pulm: nonlabored, on BIPAP CV: Regular rate/rhythm Abd: Soft and benign, Non-distended, non-tender Msk: No swelling, No tenderness Neuro: b/l decreased vision, sees shapes / fuzziness, responds with 3 or 4 when i'm holding up 2 fingers Problem List Acute respiratory failure with hypoxia Atrial fibrillation with RVR Pneumonia due to COVID-19 virus Hypertension Non-insulin dependent DM2 Acute CVA with b/l vision loss Hypernatremia Continue IV solumedrol 80 BID. s/p Remdesevir High-flow and BiPAP as needed. - pulm following on Xarelto, stroke occurred while on Eliquis MRI consistent with stroke, MRA ok, carotids ok. Neurology consulted Continue metoprolol 25 mg b.i.d. - per cardiology recommendations Echo (08/08/20): normal echo Speech consulted for swallow eval 08/14 - pt did well PT/OT consulted Vitamin-D, vitamin-C and zinc supplementation. HyperNa started on D5, improving VTE: full lovenox Dispo: anticipate hospitalization > 2 more days, PT/OT/ST ongoing eval would likely benefit from SNF rehab - will discuss with patient/family, pending further eval by PT/OT Time Spent Managing Pts Care (In Minutes): 40
[2020-08-18] MEDS: RIVAROXABAN 20 MG TABLET PO SCH (17:08)
[2020-08-18] MEDS: MELATONIN 5 MG TABLET PO SCH (20:22)
[2020-08-19 05:42] LABS: ALT/SGPT 26 U/L (12-78); AST/SGOT 22 U/L (15-37); Alkaline Phosphatase 126 U/L (45-117); BUN Blood Urea Nitrogen 38 mg/dL (7-18); Bicarbonate 28 mmol/L (21-32); Bilirubin Total 0.7 mg/dL (0.2-1.0); Ferritin 1680.5 ng/mL (26-388); Glucose Level 161 mg/dL (74-106); Phosphorus 4.8 mg/dL (2.5-4.9); Potassium 4.7 mmol/L (3.5-5.1); Protein, Total 5.6 g/dL (6.4-8.2); Sodium Level 136 mmol/L (136-145)
[2020-08-19] MEDS: METOPROLOL TAR 25 MG TAB PO SCH ×2 (06:16→17:07)
--- NOTE | 2020-08-19 08:25 | P.PN ---
Subjective Date of Service: 08/19/20 Primary Care Provider: Sincere Luis Chief Complaint: Respiratory failure/Stroke Patient refusing to cooperate on high-flow oxygen heating and drinking Review of Systems is unable to be obtained Physical Examination - Vital Signs Temperature: 98.8 F Blood Pressure: 108/60 Pulse: 66 Respirations: 23 Pulse Ox (%): 90 - Physical Exam General: Alert Respiratory: Clear to auscultation bilaterally, Diminished Assessment & Plan - Problems (Diagnosis) (1) Pneumonia due to COVID-19 virus Current Visit: Yes Status: Acute Plan: Respiratory failure no change continue to wean on oxygen continue titrate oxygen blood sugars mildly elevated Physician Review: Patient Assessed, Agree with Above Assessment and Plan
[2020-08-19] MEDS: INSULIN 70/30 100 UNITS/ML SQ SCH ×2 (08:30→16:30)
[2020-08-19] MEDS: SITAGLIPTIN PHOS 100 MG TAB PO SCH (08:31)
[2020-08-19] MEDS: ASPIRIN EC 81 MG TAB PO SCH (08:31)
[2020-08-19] MEDS: FAMOTIDINE 20 MG TAB PO SCH ×2 (08:31→21:21)
[2020-08-19] MEDS: ASCORBIC ACID 500 MG TABLET PO SCH ×4 (08:31→21:24)
[2020-08-19] MEDS: THIAMINE HCL 100 MG TABLET PO SCH ×2 (08:31→21:21)
[2020-08-19] MEDS: INSULIN -REGULAR HUMAN 50 UNIT/0.5 ML ML SQ SCH ×4 (08:31→21:00)
[2020-08-19] MEDS: FLUCONAZOLE 100 MG TAB PO SCH (08:31)
[2020-08-19] MEDS: VITAMIN D 5,000 UNIT CAP PO SCH (08:32)
[2020-08-19] MEDS: ZINC SULFATE 220 MG CAP PO SCH (08:32)
[2020-08-19] MEDS: METFORMIN HCL 500 MG TAB PO SCH ×3 (08:32→17:00)
[2020-08-19] MEDS: MEGESTROL 40 MG TAB PO SCH (08:37)
[2020-08-19] MEDS: GLUCERNA SHAKE 237 ML CAN PO SCH ×2 (09:00→21:20)
[2020-08-19] MEDS: METHYLPREDNISOLONE 40 MG INJ IV SCH ×2 (10:31→21:20)
--- NOTE | 2020-08-19 13:18 | P.PN ---
Subjective Date of Service: 08/19/20 Primary Care Provider: Sincere Luis Chief Complaint: Respiratory failure/Stroke No major changes from yesterday. Patient continue to require high-flow oxygen. Physical Examination - Vital Signs Temperature: 98.8 F Blood Pressure: 116/59 Pulse: 67 Respirations: 33 Pulse Ox (%): 91 - Physical Exam General: In no apparent distress Neck: JVD not distended Respiratory: Other (Nonlabored breathing) Cardiovascular: No edema, Regular rate/rhythm Gastrointestinal: Non-distended Musculoskeletal: No swelling Integumentary: No rashes, Other (No focal motor deficit.) Assessment And Plan - Current Problems (Diagnosis) (1) Acute respiratory failure with hypoxia Current Visit: Yes Status: Acute (2) Atrial fibrillation with RVR Current Visit: Yes Status: Acute (3) Pneumonia due to COVID-19 virus Current Visit: Yes Status: Acute (4) Hypertension Current Visit: Yes Status: Chronic Qualifiers: Hypertension type: essential hypertension Qualified Code(s): I10 - Essential (primary) hypertension (5) Non-insulin dependent diabetes mellitus Current Visit: Yes Status: Chronic (6) Acute CVA (cerebrovascular accident) Current Visit: Yes Status: Acute (7) Hypernatremia Current Visit: Yes Status: Acute - Plan Continue IV steroid. Continue Xarelto and Aspirin Echocardiogram unremarkable. Patient tolerating normal diet. Continue PT. Status post Remdesivir Patient remain in sinus rhythm Continue metoprolol 25 mg b.i.d. Hypernatremia resolved Vitamin-D, vitamin-C and zinc supplementation. Titrate oxygen. High-flow and BiPAP as needed.
[2020-08-19] MEDS: MORPHINE 2 MG/ML SYR IV PRN (14:23)
[2020-08-19] MEDS ORDERED: FUROSEMIDE 20 MG/ 2ML VIAL IV ONE (16:00)
--- NOTE | 2020-08-19 16:20 | P.PN ---
Date of Service: 08/19/20 Patient was complaining of chest pain. EKG done shows sinus rhythm, no ischemic changes. Troponin mildly elevated. Patient is already on anticoagulation. Pain responded to IV morphine. Most recent echocardiogram unremarkable. Elevated troponin likely secondary to demand ischemia. Patient with severe acute respiratory failure on 100% FiO2 and BiPAP. Continue medical management.
[2020-08-19] MEDS: RIVAROXABAN 20 MG TABLET PO SCH (16:41)
[2020-08-19] MEDS: MELATONIN 5 MG TABLET PO SCH (21:21)
[2020-08-20 05:18] LABS: Absolute Lymphocytes (CBC) 0.3 K/uL (0.7-4.9); Basophils % 0.3 % (0-1.3); Hematocrit 39.6 % (39.6-49.0); Lymphocytes % 1.4 % (15.3-44.8); MPV 9.4 fL (7.6-11.3); RBC Red Blood Cell Count 4.26 M/uL (4.33-5.43)
[2020-08-20 05:37] LABS: BUN Blood Urea Nitrogen 46 mg/dL (7-18); Bicarbonate 28 mmol/L (21-32); Ferritin 1856.3 ng/mL (26-388); Glucose Level 153 mg/dL (74-106); Potassium 4.7 mmol/L (3.5-5.1); Sodium Level 137 mmol/L (136-145)
[2020-08-20] MEDS: METOPROLOL TAR 25 MG TAB PO SCH ×2 (06:00→17:45)
[2020-08-20 06:38] LABS: Blood Morphology Comment NOT SEEN (NOT SEEN); Platelet Estimate ADEQ
[2020-08-20] MEDS: INSULIN 70/30 100 UNITS/ML SQ SCH ×2 (08:00→17:43)
[2020-08-20] MEDS: METFORMIN HCL 500 MG TAB PO SCH ×2 (08:00→17:43)
[2020-08-20] MEDS: INSULIN -REGULAR HUMAN 50 UNIT/0.5 ML ML SQ SCH ×4 (08:00→20:21)
[2020-08-20] MEDS: ASCORBIC ACID 500 MG TABLET PO SCH ×4 (09:00→20:22)
[2020-08-20] MEDS: ZINC SULFATE 220 MG CAP PO SCH (09:00)
[2020-08-20] MEDS: ASPIRIN EC 81 MG TAB PO SCH (09:00)
[2020-08-20] MEDS: VITAMIN D 5,000 UNIT CAP PO SCH (09:00)
[2020-08-20] MEDS: GLUCERNA SHAKE 237 ML CAN PO SCH ×2 (09:00→20:21)
[2020-08-20] MEDS: SITAGLIPTIN PHOS 100 MG TAB PO SCH (09:00)
[2020-08-20] MEDS: THIAMINE HCL 100 MG TABLET PO SCH ×2 (09:00→20:22)
[2020-08-20] MEDS: FLUCONAZOLE 100 MG TAB PO SCH (09:00)
[2020-08-20] MEDS: FAMOTIDINE 20 MG TAB PO SCH ×2 (09:00→20:21)
[2020-08-20] MEDS: METHYLPREDNISOLONE 40 MG INJ IV SCH ×2 (09:00→20:22)
[2020-08-20] MEDS: MEGESTROL 40 MG TAB PO SCH (09:00)
--- NOTE | 2020-08-20 09:19 | RAD REPORT ---
EXAM DESCRIPTION: Nory Single View08/20/2020 8:57 am CLINICAL HISTORY: Cough COMPARISON: August 06, 2020 FINDINGS: No significant change in the moderate bilateral pulmonary opacities. Heart is normal size IMPRESSION: No significant change in the bilateral pneumonia
--- NOTE | 2020-08-20 10:54 | P.PN ---
Subjective Date of Service: 08/20/20 Primary Care Provider: Sincere Luis Chief Complaint: Respiratory failure/Stroke Subjective: No new changes, Improving Feeling better Shortness of breath is improving Denies any chest pain No fever or chills Review of Systems 10-point ROS is otherwise unremarkable General: Unremarkable Respiratory: Other (Shortness of breath is improving) Physical Examination - Vital Signs Temperature: 91 F Blood Pressure: 117/57 Pulse: 77 Respirations: 29 Pulse Ox (%): 91 - Physical Exam General: Alert, Oriented x3, Mild distress HEENT: Atraumatic, Normocephalic Neck: Supple, JVD not distended Respiratory: Diminished, Crackles/rales Cardiovascular: Regular rate/rhythm, Normal S1 S2 Capillary refill: <2 Seconds Gastrointestinal: Soft and benign, W/out hepatosplenomegaly Musculoskeletal: No clubbing, No swelling Integumentary: No rashes Neurological: Normal speech, Normal strength at 5/5 x4 extr Lymphatics: No axilla or inguinal lymphadenopathy Assessment & Plan Physician Review: Patient Assessed, Agree with Above Assessment and Plan Physician Review Additional Text: Acute respiratory failure with hypoxia Atrial fibrillation with RVR Pneumonia due to COVID-19 virus Hypertension Non-insulin dependent DM2 Acute CVA with b/l vision loss Hypernatremia Plan Continue IV solumedrol 80 BID. s/p Remdesevir High-flow and BiPAP as needed. Patient is more comfortable will get a repeat x-ray chest Appreciate help from pulmonology Continue steroids on Xarelto, stroke occurred while on Eliquis MRI consistent with stroke, MRA ok, carotids ok. Neurology consulted Continue metoprolol 25 mg b.i.d. - per cardiology recommendations Echo (08/08/20): normal echo Speech consulted for swallow eval 08/14 - pt did well PT/OT consulted Vitamin-D, vitamin-C and zinc supplementation. HyperNa started on D5, improving Will try to wean down oxygen requirement Possible transfer out of ICU once cleared by pulmonology Dispo: anticipate hospitalization > 2 more days, PT/OT/ST ongoing eval would likely benefit from SNF rehab - will discuss with patient/family, pending further eval by PT/OT Critical Care: Yes Time Spent Managing Pts Care (In Minutes): 42
--- NOTE | 2020-08-20 11:50 | P.PN ---
Subjective Date of Service: 08/20/20 Primary Care Provider: Sincere Luis Chief Complaint: Respiratory failure/Stroke Patient is improving oxygen requirements are decreasing Review of Systems General: Weakness Respiratory: Shortness of Breath Physical Examination - Vital Signs Temperature: 91 F Blood Pressure: 117/57 Pulse: 77 Respirations: 29 Pulse Ox (%): 91 Assessment & Plan - Problems (Diagnosis) (1) Pneumonia due to COVID-19 virus Current Visit: Yes Status: Acute Plan: Respiratory failure continue to wean white count is again elevated at levofloxacin possibility of an infection pro calcitonin for sugars reasonably control patient appears to be more cooperate Physician Review: Patient Assessed, Agree with Above Assessment and Plan
[2020-08-20] MEDS: MORPHINE 2 MG/ML SYR IV PRN ×2 (12:22→20:57)
[2020-08-20] MEDS: levoFLOXacin 500 MG TAB PO SCH (13:42)
[2020-08-20] MEDS: RIVAROXABAN 20 MG TABLET PO SCH (17:44)
[2020-08-20] MEDS: MELATONIN 5 MG TABLET PO SCH (20:21)
[2020-08-21] MEDS: MORPHINE 2 MG/ML SYR IV PRN (03:06)
--- NOTE | 2020-08-21 05:41 | EKG ---
Test Date: 2020-08-19 Test Time: 13:58:33 Pre Wave Assembler: RNNT MEASUREMENT RESULTS: Intervals: Rate: 65 MI: 116 QRSD: 78 QT: 404 QTc: 420 [place]: P: 49 MI: 116 QRS: -3 T: 3 INTERPRETIVE STATEMENTS: Normal sinus rhythm Minimal voltage criteria for LVH, may be normal variant Inferior infarct, age undetermined Abnormal ECG Compared to ECG 08/19/2020 13:57:26 Myocardial infarct finding now present Electronically Signed On 08-21-20 05:36:09 CASING WRINGER OPERATOR by Bryan Coelho
--- NOTE | 2020-08-21 05:41 | EKG ---
Test Date: 2020-08-19 Test Time: 14:00:09 Jewelry Manager: RNNT MEASUREMENT RESULTS: Intervals: Rate: 66 IA: 110 QRSD: 82 QT: 410 QTc: 429 [place]: P: 49 IA: 110 QRS: -1 T: 2 INTERPRETIVE STATEMENTS: Sinus rhythm with short IA Minimal voltage criteria for LVH, may be normal variant Borderline ECG Compared to ECG 08/19/2020 13:58:33 Short IA interval now present Myocardial infarct finding no longer present Electronically Signed On 08-21-20 05:36:08 DYE HOUSE WORKER by Bryan Coelho
--- NOTE | 2020-08-21 05:42 | EKG ---
Test Date: 2020-08-19 Test Time: 13:56:52 Membership Administrator: RNNT MEASUREMENT RESULTS: Intervals: Rate: 64 [place]: 112 QRSD: 76 QT: 416 QTc: 429 [place]: P: 48 DE: 112 QRS: -2 T: -3 INTERPRETIVE STATEMENTS: Normal sinus rhythm Minimal voltage criteria for LVH, may be normal variant Inferior infarct, age undetermined Abnormal ECG Compared to ECG 08/06/2020 21:42:51 Left ventricular hypertrophy now present Myocardial infarct finding now present Atrial flutter no longer present ST (T wave) deviation no longer present Electronically Signed On 08-21-20 05:36:11 VOICE AND DATA TECHNICIAN by Bryan Coelho
--- NOTE | 2020-08-21 05:42 | EKG ---
Test Date: 2020-08-19 Test Time: 13:57:26 Instruction Librarian: RNNT MEASUREMENT RESULTS: Intervals: Rate: 66 ME: 114 QRSD: 90 QT: 408 QTc: 427 [place]: P: 51 ME: 114 QRS: -2 T: 6 INTERPRETIVE STATEMENTS: Normal sinus rhythm Minimal voltage criteria for LVH, may be normal variant Borderline ECG Compared to ECG 08/19/2020 13:56:52 Myocardial infarct finding no longer present Electronically Signed On 08-21-20 05:36:10 CHAIN MAKER by Bryan Coelho
[2020-08-21 05:55] LABS: C-Reactive Protein 19.3 mg/L (<3.00); Ferritin 1912.9 ng/mL (26-388)
[2020-08-21] MEDS: METOPROLOL TAR 25 MG TAB PO SCH ×2 (06:36→18:02)
[2020-08-21] MEDS: INSULIN 70/30 100 UNITS/ML SQ SCH ×2 (07:30→16:30)
[2020-08-21] MEDS: INSULIN -REGULAR HUMAN 50 UNIT/0.5 ML ML SQ SCH ×4 (07:30→21:00)
[2020-08-21] MEDS: FLUCONAZOLE 100 MG TAB PO SCH (09:20)
[2020-08-21] MEDS: levoFLOXacin 500 MG TAB PO SCH (09:20)
[2020-08-21] MEDS: ASPIRIN EC 81 MG TAB PO SCH (09:20)
[2020-08-21] MEDS: THIAMINE HCL 100 MG TABLET PO SCH ×2 (09:20→21:12)
[2020-08-21] MEDS: VITAMIN D 5,000 UNIT CAP PO SCH (09:20)
[2020-08-21] MEDS: METHYLPREDNISOLONE 40 MG INJ IV SCH ×2 (09:20→21:13)
[2020-08-21] MEDS: ZINC SULFATE 220 MG CAP PO SCH (09:20)
[2020-08-21] MEDS: MEGESTROL 40 MG TAB PO SCH (09:20)
[2020-08-21] MEDS: FAMOTIDINE 20 MG TAB PO SCH ×2 (09:21→21:12)
[2020-08-21] MEDS: ASCORBIC ACID 500 MG TABLET PO SCH ×4 (09:21→21:12)
[2020-08-21] MEDS: GLUCERNA SHAKE 237 ML CAN PO SCH ×2 (10:30→21:12)
[2020-08-21] MEDS: METFORMIN HCL 500 MG TAB PO SCH ×2 (10:32→18:09)
[2020-08-21] MEDS: SITAGLIPTIN PHOS 100 MG TAB PO SCH (10:53)
--- NOTE | 2020-08-21 16:36 | P.PN ---
Subjective Date of Service: 08/21/20 Primary Care Provider: Sincere Luis Chief Complaint: Respiratory failure/Stroke No new complain. Patient continue to require high-flow oxygen. Physical Examination - Vital Signs Temperature: 96.6 F Blood Pressure: 131/66 Pulse: 96 Respirations: 38 Pulse Ox (%): 88 - Physical Exam General: Alert, In no apparent distress Neck: JVD not distended Respiratory: Other (Nonlabored breathing.) Cardiovascular: No edema, Regular rate/rhythm Gastrointestinal: Soft and benign, Non-distended Musculoskeletal: No swelling Integumentary: No rashes Neurological: Other (No focal motor deficit) Assessment And Plan - Current Problems (Diagnosis) (1) Acute respiratory failure with hypoxia Current Visit: Yes Status: Acute (2) Atrial fibrillation with RVR Current Visit: Yes Status: Acute (3) Pneumonia due to COVID-19 virus Current Visit: Yes Status: Acute (4) Hypertension Current Visit: Yes Status: Chronic Qualifiers: Hypertension type: essential hypertension Qualified Code(s): I10 - Essential (primary) hypertension (5) Non-insulin dependent diabetes mellitus Current Visit: Yes Status: Chronic (6) Acute CVA (cerebrovascular accident) Current Visit: Yes Status: Acute (7) Hypernatremia Current Visit: Yes Status: Acute - Plan Continue IV steroid. Continue Xarelto and Aspirin Echocardiogram unremarkable. Patient tolerating normal diet. Continue PT. Status post Remdesivir Patient remain in sinus rhythm Continue metoprolol 25 mg b.i.d. Hypernatremia resolved Vitamin-D, vitamin-C and zinc supplementation. Titrate oxygen. High-flow and BiPAP as needed.
[2020-08-21] MEDS: RIVAROXABAN 20 MG TABLET PO SCH (18:02)
[2020-08-21] MEDS: MELATONIN 5 MG TABLET PO SCH (21:12)
[2020-08-22 04:38] LABS: Absolute Lymphocytes (CBC) 0.2 K/uL (0.7-4.9); Basophils % 0.4 % (0-1.3); Hematocrit 39.9 % (39.6-49.0); Lymphocytes % 1.2 % (15.3-44.8); MPV 9.3 fL (7.6-11.3); RBC Red Blood Cell Count 4.21 M/uL (4.33-5.43)
[2020-08-22 05:00] LABS: C-Reactive Protein 76.8 mg/L (<3.00); Ferritin 1957.3 ng/mL (26-388); Potassium 4.9 mmol/L (3.5-5.1)
[2020-08-22] MEDS: GLUCERNA SHAKE 237 ML CAN PO SCH ×2 (09:00→20:21)
--- NOTE | 2020-08-22 10:42 | P.PN ---
Subjective Date of Service: 08/22/20 Primary Care Provider: Sincere Luis Chief Complaint: Respiratory failure/Stroke Condition stable not doing well patient not very cooperative or motivated eating and drinking Review of Systems General: Weakness Respiratory: Shortness of Breath Physical Examination - Vital Signs Temperature: 97.4 F Blood Pressure: 108/64 Pulse: 72 Respirations: 18 Pulse Ox (%): 92 Assessment & Plan - Problems (Diagnosis) (1) Pneumonia due to COVID-19 virus Current Visit: Yes Status: Acute Plan: Respiratory failure white count is declining patient not very motivated on high concentrations of oxygen vital signs stable BUN nasal elevated I have added another dose of ivermectin patient is on steroid prognosis poor Physician Review: Patient Assessed, Agree with Above Assessment and Plan
[2020-08-22] MEDS ORDERED: IVERMECTIN 3 MG TABLET PO ONE (10:45)
[2020-08-22] MEDS: METOPROLOL TAR 25 MG TAB PO SCH ×2 (11:23→17:36)
[2020-08-22] MEDS: INSULIN 70/30 100 UNITS/ML SQ SCH ×2 (11:24→16:30)
[2020-08-22] MEDS: INSULIN -REGULAR HUMAN 50 UNIT/0.5 ML ML SQ SCH ×4 (11:24→20:21)
[2020-08-22] MEDS: FLUCONAZOLE 100 MG TAB PO SCH (11:25)
[2020-08-22] MEDS: ASPIRIN EC 81 MG TAB PO SCH (11:25)
[2020-08-22] MEDS: METFORMIN HCL 500 MG TAB PO SCH ×2 (11:25→17:35)
[2020-08-22] MEDS: SITAGLIPTIN PHOS 100 MG TAB PO SCH (11:25)
[2020-08-22] MEDS: ZINC SULFATE 220 MG CAP PO SCH (11:25)
[2020-08-22] MEDS: levoFLOXacin 500 MG TAB PO SCH (11:25)
[2020-08-22] MEDS: METHYLPREDNISOLONE 40 MG INJ IV SCH ×2 (11:26→20:21)
[2020-08-22] MEDS: VITAMIN D 5,000 UNIT CAP PO SCH (11:26)
[2020-08-22] MEDS: ASCORBIC ACID 500 MG TABLET PO SCH ×4 (11:26→20:20)
[2020-08-22] MEDS: FAMOTIDINE 20 MG TAB PO SCH ×2 (11:26→20:20)
[2020-08-22] MEDS: THIAMINE HCL 100 MG TABLET PO SCH ×2 (11:26→20:19)
[2020-08-22] MEDS: MEGESTROL 40 MG TAB PO SCH (11:27)
--- NOTE | 2020-08-22 14:56 | P.PN ---
Subjective Date of Service: 08/22/20 Primary Care Provider: Sincere Luis Chief Complaint: Respiratory failure/Stroke No new complain. No issues overnight. Patient continue to require high-flow oxygen. Physical Examination - Vital Signs Temperature: 96.6 F Blood Pressure: 119/69 Pulse: 78 Respirations: 27 Pulse Ox (%): 92 - Physical Exam General: Alert, In no apparent distress Neck: JVD not distended Respiratory: Other (Nonlabored breathing) Cardiovascular: Regular rate/rhythm, Normal S1 S2 Gastrointestinal: Non-distended Musculoskeletal: No swelling Integumentary: No rashes Neurological: Other (No focal motor deficit) Assessment And Plan - Current Problems (Diagnosis) (1) Acute respiratory failure with hypoxia Current Visit: Yes Status: Acute (2) Atrial fibrillation with RVR Current Visit: Yes Status: Acute (3) Pneumonia due to COVID-19 virus Current Visit: Yes Status: Acute (4) Hypertension Current Visit: Yes Status: Chronic Qualifiers: Hypertension type: essential hypertension Qualified Code(s): I10 - Essential (primary) hypertension (5) Non-insulin dependent diabetes mellitus Current Visit: Yes Status: Chronic (6) Acute CVA (cerebrovascular accident) Current Visit: Yes Status: Acute (7) Hypernatremia Current Visit: Yes Status: Acute - Plan Continue IV steroid. Continue Xarelto and Aspirin Echocardiogram unremarkable. Patient tolerating normal diet. Continue PT. Status post Remdesivir Patient remain in sinus rhythm Continue metoprolol 25 mg b.i.d. Hypernatremia resolved Vitamin-D, vitamin-C and zinc supplementation. Titrate oxygen. High-flow and BiPAP as needed. Physician Review: Patient Assessed, Agree with Above Assessment and Plan Physician Review Additional Text: Acute respiratory failure with hypoxia Atrial fibrillation with RVR Pneumonia due to COVID-19 virus Hypertension Non-insulin dependent DM2 Acute CVA with b/l vision loss Hypernatremia Plan Continue IV solumedrol 80 BID. s/p Remdesevir High-flow and BiPAP as needed. Pulmonology input appreciated. Continue steroids on Xarelto, stroke occurred while on Eliquis MRI consistent with stroke, MRA ok, carotids ok. Neurology consulted Continue metoprolol 25 mg b.i.d. - per cardiology recommendations Echo (08/08/20): normal echo Speech consulted for swallow eval 2/18 - pt did well. Patient tolerating diet. PT seen patient. Vitamin-D, vitamin-C and zinc supplementation. HyperNa resolved
[2020-08-22] MEDS: RIVAROXABAN 20 MG TABLET PO SCH (17:35)
[2020-08-22] MEDS: MELATONIN 5 MG TABLET PO SCH (20:20)
[2020-08-23 05:05] LABS: Absolute Lymphocytes (CBC) 0.3 K/uL (0.7-4.9); Basophils % 0.3 % (0-1.3); Hematocrit 38.9 % (39.6-49.0); Lymphocytes % 1.4 % (15.3-44.8); RBC Red Blood Cell Count 4.15 M/uL (4.33-5.43)
[2020-08-23 05:42] LABS: BUN Blood Urea Nitrogen 60 mg/dL (7-18); Bicarbonate 23 mmol/L (21-32); Ferritin 1773.3 ng/mL (26-388); Glucose Level 156 mg/dL (74-106); Potassium 4.8 mmol/L (3.5-5.1); Sodium Level 138 mmol/L (136-145)
[2020-08-23] MEDS: METOPROLOL TAR 25 MG TAB PO SCH ×2 (06:00→17:05)
[2020-08-23] MEDS: INSULIN -REGULAR HUMAN 50 UNIT/0.5 ML ML SQ SCH ×4 (08:48→20:24)
[2020-08-23] MEDS: INSULIN 70/30 100 UNITS/ML SQ SCH ×2 (08:48→16:30)
[2020-08-23] MEDS: METHYLPREDNISOLONE 40 MG INJ IV SCH ×2 (08:49→19:59)
[2020-08-23] MEDS: METFORMIN HCL 500 MG TAB PO SCH ×2 (08:49→17:04)
[2020-08-23] MEDS: THIAMINE HCL 100 MG TABLET PO SCH ×2 (08:49→19:58)
[2020-08-23] MEDS: ASPIRIN EC 81 MG TAB PO SCH (08:49)
[2020-08-23] MEDS: ASCORBIC ACID 500 MG TABLET PO SCH ×4 (08:49→19:58)
[2020-08-23] MEDS: SITAGLIPTIN PHOS 100 MG TAB PO SCH (08:50)
[2020-08-23] MEDS: levoFLOXacin 500 MG TAB PO SCH (08:50)
[2020-08-23] MEDS: VITAMIN D 5,000 UNIT CAP PO SCH (08:50)
[2020-08-23] MEDS: ZINC SULFATE 220 MG CAP PO SCH (08:50)
[2020-08-23] MEDS: FAMOTIDINE 20 MG TAB PO SCH ×2 (08:50→19:58)
[2020-08-23] MEDS: GLUCERNA SHAKE 237 ML CAN PO SCH ×2 (08:52→20:23)
[2020-08-23] MEDS: FLUCONAZOLE 100 MG TAB PO SCH (08:52)
[2020-08-23] MEDS: MEGESTROL 40 MG TAB PO SCH (08:52)
--- NOTE | 2020-08-23 10:30 | P.PN ---
Subjective Date of Service: 08/23/20 Primary Care Provider: Sincere Luis Chief Complaint: Respiratory failure/Stroke No new complain. Patient is comfortable on high-flow oxygen. Physical Examination - Vital Signs Temperature: 97.0 F Blood Pressure: 107/70 Pulse: 90 Respirations: 29 Pulse Ox (%): 92 - Physical Exam General: Alert, In no apparent distress Neck: JVD not distended Respiratory: Other (Nonlabored breathing) Cardiovascular: No edema, Regular rate/rhythm Gastrointestinal: Soft and benign, Non-distended Musculoskeletal: No swelling Integumentary: No rashes, Other (No focal motor deficit.) Assessment And Plan - Current Problems (Diagnosis) (1) Acute respiratory failure with hypoxia Current Visit: Yes Status: Acute (2) Atrial fibrillation with RVR Current Visit: Yes Status: Acute (3) Pneumonia due to COVID-19 virus Current Visit: Yes Status: Acute (4) Hypertension Current Visit: Yes Status: Chronic Qualifiers: Hypertension type: essential hypertension Qualified Code(s): I10 - Essential (primary) hypertension (5) Non-insulin dependent diabetes mellitus Current Visit: Yes Status: Chronic (6) Acute CVA (cerebrovascular accident) Current Visit: Yes Status: Acute (7) Hypernatremia Current Visit: Yes Status: Acute Physician Review Additional Text: Acute respiratory failure with hypoxia Atrial fibrillation with RVR Pneumonia due to COVID-19 virus Hypertension Non-insulin dependent DM2 Acute CVA with b/l vision loss Hypernatremia Plan Continue IV solumedrol 80 BID. s/p Remdesevir High-flow and BiPAP as needed. Pulmonology is following Continue steroids on Xarelto, stroke occurred while on Eliquis MRI consistent with stroke, MRA ok, carotids ok. Neurology consulted Continue metoprolol 25 mg b.i.d. - per cardiology recommendations Echo (08/08/20): normal echo Speech consulted for swallow eval 08/14 - pt did well. Patient tolerating diet. PT seen patient. Vitamin-D, vitamin-C and zinc supplementation. HyperNa resolved
[2020-08-23] MEDS: RIVAROXABAN 20 MG TABLET PO SCH (17:05)
[2020-08-23] MEDS: MELATONIN 5 MG TABLET PO SCH (19:57)
[2020-08-24 05:49] LABS: C-Reactive Protein 15.6 mg/L (<3.00); Ferritin 1669.8 ng/mL (26-388)
[2020-08-24] MEDS: METOPROLOL TAR 25 MG TAB PO SCH ×2 (06:37→17:34)
[2020-08-24] MEDS: INSULIN 70/30 100 UNITS/ML SQ SCH ×2 (07:30→16:30)
[2020-08-24] MEDS: INSULIN -REGULAR HUMAN 50 UNIT/0.5 ML ML SQ SCH ×4 (07:30→20:20)
[2020-08-24] MEDS: GLUCERNA SHAKE 237 ML CAN PO SCH ×2 (09:00→21:00)
--- NOTE | 2020-08-24 10:17 | P.PN ---
Subjective Date of Service: 08/24/20 Primary Care Provider: Sincere Luis Chief Complaint: Respiratory failure/Stroke No new complain. Patient is comfortable on high-flow oxygen. No change in FiO2 over the last few days. Physical Examination - Vital Signs Temperature: 97.1 F Blood Pressure: 107/58 Pulse: 78 Respirations: 25 Pulse Ox (%): 93 - Physical Exam General: Alert, In no apparent distress Respiratory: Other (Nonlabored Breathing) Cardiovascular: No edema, Regular rate/rhythm Gastrointestinal: Soft and benign, Non-distended Musculoskeletal: No swelling Integumentary: No rashes Neurological: Other (No focal motor deficit.) Assessment And Plan - Current Problems (Diagnosis) (1) Acute respiratory failure with hypoxia Current Visit: Yes Status: Acute (2) Atrial fibrillation with RVR Current Visit: Yes Status: Acute (3) Pneumonia due to COVID-19 virus Current Visit: Yes Status: Acute (4) Hypertension Current Visit: Yes Status: Chronic Qualifiers: Hypertension type: essential hypertension Qualified Code(s): I10 - Essential (primary) hypertension (5) Non-insulin dependent diabetes mellitus Current Visit: Yes Status: Chronic (6) Acute CVA (cerebrovascular accident) Current Visit: Yes Status: Acute (7) Hypernatremia Current Visit: Yes Status: Acute Physician Review: Patient Assessed, Agree with Above Assessment and Plan Physician Review Additional Text: Acute respiratory failure with hypoxia Atrial fibrillation with RVR Pneumonia due to COVID-19 virus Hypertension Non-insulin dependent DM2 Acute CVA with b/l vision loss Hypernatremia Plan Continue IV solumedrol 80 BID. s/p Remdesevir High-flow and BiPAP as needed. Continue steroids on Xarelto, stroke occurred while on Eliquis MRI consistent with stroke, MRA ok, carotids ok. Continue metoprolol 25 mg b.i.d. - per cardiology recommendations Echo (08/08/20): normal echo Speech consulted for swallow eval 08/14 - pt did well. Patient tolerating diet. PT seen patient. Vitamin-D, vitamin-C and zinc supplementation. HyperNa resolved
[2020-08-24] MEDS: SITAGLIPTIN PHOS 100 MG TAB PO SCH (10:35)
[2020-08-24] MEDS: FLUCONAZOLE 100 MG TAB PO SCH (10:35)
[2020-08-24] MEDS: METFORMIN HCL 500 MG TAB PO SCH ×2 (10:35→16:43)
[2020-08-24] MEDS: ASPIRIN EC 81 MG TAB PO SCH (10:36)
[2020-08-24] MEDS: FAMOTIDINE 20 MG TAB PO SCH ×2 (10:36→20:21)
[2020-08-24] MEDS: METHYLPREDNISOLONE 40 MG INJ IV SCH (10:36)
[2020-08-24] MEDS: VITAMIN D 5,000 UNIT CAP PO SCH (10:36)
[2020-08-24] MEDS: MEGESTROL 40 MG TAB PO SCH (10:36)
[2020-08-24] MEDS: ZINC SULFATE 220 MG CAP PO SCH (10:36)
[2020-08-24] MEDS: levoFLOXacin 500 MG TAB PO SCH (10:36)
[2020-08-24] MEDS: ASCORBIC ACID 500 MG TABLET PO SCH ×4 (10:36→20:21)
[2020-08-24] MEDS: THIAMINE HCL 100 MG TABLET PO SCH ×2 (10:36→20:21)
--- NOTE | 2020-08-24 12:12 | P.PN ---
Subjective Date of Service: 08/24/20 Primary Care Provider: Sincere Luis Chief Complaint: Respiratory failure/Stroke no change patient is not motivated probably underlying significant amount her depression still requiring high concentrations of oxygen Review of Systems is unable to be obtained Physical Examination - Vital Signs Temperature: 97.1 F Blood Pressure: 117/61 Pulse: 84 Respirations: 27 Pulse Ox (%): 86 Assessment & Plan - Problems (Diagnosis) (1) Pneumonia due to COVID-19 virus Current Visit: Yes Status: Acute Plan: respiratory failure no change still requiring high concentrations of oxygen patient does eat as not motivated I have added mirtazapine may have significant element of depression labs reviewed change to p.o. prednisone Dc melatonin doubt the patient has sepsis will check pro calcitonin Dc antibiotics if normal Physician Review: Patient Assessed, Agree with Above Assessment and Plan
[2020-08-24] MEDS: RIVAROXABAN 20 MG TABLET PO SCH (17:34)
[2020-08-24] MEDS: predniSONE 20 MG TAB PO SCH (20:20)
[2020-08-24] MEDS: MIRTAZAPINE 15 MG TAB PO SCH (20:21)
[2020-08-25 04:58] LABS: Albumin 2.3 g/dL (3.4-5.0); Potassium 4.8 mmol/L (3.5-5.1); Protein, Total 6.1 g/dL (6.4-8.2)
[2020-08-25 05:11] LABS: Absolute Lymphocytes (CBC) 0.2 K/uL (0.7-4.9); Basophils % 0.3 % (0-1.3); Hematocrit 42.2 % (39.6-49.0); Lymphocytes % 1.1 % (15.3-44.8); MPV 9.2 fL (7.6-11.3); RBC Red Blood Cell Count 4.51 M/uL (4.33-5.43)
[2020-08-25] MEDS: METOPROLOL TAR 25 MG TAB PO SCH ×2 (05:45→17:23)
--- NOTE | 2020-08-25 07:14 | RAD REPORT ---
EXAM DESCRIPTION: RAD - Chest Single View - 08/25/2020 5:34 am CLINICAL HISTORY: pneumonia COMPARISON: Portable chest August 20 TECHNIQUE: AP portable chest image was obtained 08/25/2020 5:34 am . FINDINGS: Lung volumes are low. Interstitial and alveolar opacities in each mid and lower lung field noted similar or fractionally improved. Heart and vasculature are normal. No measurable pleural effu kirit and no pneumothorax. No acute bony abnormality seen. No acute aortic findings suspected. IMPRESSION: Bilateral pneumonia findings are similar or slightly improved from comparison.
[2020-08-25] MEDS: INSULIN -REGULAR HUMAN 50 UNIT/0.5 ML ML SQ SCH ×4 (07:15→20:17)
[2020-08-25] MEDS: ASCORBIC ACID 500 MG TABLET PO SCH ×4 (07:17→20:10)
[2020-08-25] MEDS: MEGESTROL 40 MG TAB PO SCH (07:17)
[2020-08-25] MEDS: FAMOTIDINE 20 MG TAB PO SCH ×2 (07:17→20:11)
[2020-08-25] MEDS: FLUCONAZOLE 100 MG TAB PO SCH (07:17)
[2020-08-25] MEDS: VITAMIN D 5,000 UNIT CAP PO SCH (07:17)
[2020-08-25] MEDS: ZINC SULFATE 220 MG CAP PO SCH (07:17)
[2020-08-25] MEDS: ASPIRIN EC 81 MG TAB PO SCH (07:17)
[2020-08-25] MEDS: METFORMIN HCL 500 MG TAB PO SCH ×2 (07:18→16:14)
[2020-08-25] MEDS: predniSONE 20 MG TAB PO SCH ×2 (07:18→20:11)
[2020-08-25] MEDS: SITAGLIPTIN PHOS 100 MG TAB PO SCH (07:18)
[2020-08-25] MEDS: levoFLOXacin 500 MG TAB PO SCH (07:18)
[2020-08-25] MEDS: GLUCERNA SHAKE 237 ML CAN PO SCH ×2 (07:19→20:12)
[2020-08-25] MEDS: THIAMINE HCL 100 MG TABLET PO SCH ×2 (07:21→20:10)
[2020-08-25] MEDS: INSULIN 70/30 100 UNITS/ML SQ SCH ×2 (08:00→17:00)
[2020-08-25 09:03] LABS: Blood Morphology Comment NOT SEEN (NOT SEEN); Platelet Estimate ADEQ
[2020-08-25] MEDS: MORPHINE 2 MG/ML SYR IV PRN (09:28)
[2020-08-25] MEDS: LORazepam 2 MG/ML VIAL IV PRN ×2 (11:53→20:11)
--- NOTE | 2020-08-25 11:55 | P.PN ---
Subjective Date of Service: 08/25/20 Primary Care Provider: Sincere Luis Chief Complaint: Respiratory failure/Stroke Subjective: No new changes (no signficant changes, still requiring high levels of O2 supplementation. not eating well, seems discouraged/depressed, nursing rep ort some increasing confusion/agitation over the past few days as well, morphine has helped with anxiety/agitation) Review of Systems 10-point ROS is otherwise unremarkable Physical Examination - Vital Signs Temperature: 97 F Blood Pressure: 122/87 Pulse: 105 Respirations: 28 Pulse Ox (%): 95 Assessment & Plan Physician Review Additional Text: Physical Exam Gen: NAD, eyes closed, doesn't want to talk much today Pulm: nonlabored, on BIPAP CV: Regular rate/rhythm Abd: Soft and benign, Non-distended, non-tender Ext: No swelling, No tenderness Neuro: not cooperative with exam today Problem List: Acute respiratory failure with hypoxia secondary to Pneumonia due to COVID-19 virus Atrial fibrillation with RVR Hypertension 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 s/p Remdesevir on levaquin and diflucan (prolonged steroids), CXR slight improvement, procal d ecreased High-flow and BiPAP as needed. on Xarelto, stroke occurred while on Eliquis MRI consistent with stroke, MRA ok, carotids ok. Continue metoprolol 12.5 mg b.i.d. - per cardiology recommendations remeron started on 08/24 by pulm for appetite / depression add low dose ativan for agitation 08/25 Echo (08/08/20): normal echo Speech consulted for swallow eval 08/14 - pt did well. Patient tolerating diet. PT seen patient. Vitamin-D, vitamin-C and zinc supplementation. HyperNa resolved discussed with family - they are concerned with his low appetite, and briefly discussed with patient today if unable to increase PO intake today, will place dobhoff for enteral feeds Dispo: hospitalization for several more days Time Spent Managing Pts Care (In Minutes): 35
[2020-08-25] MEDS: RIVAROXABAN 20 MG TABLET PO SCH (16:03)
[2020-08-25] MEDS: MIRTAZAPINE 15 MG TAB PO SCH (20:11)
[2020-08-25] MEDS ORDERED: WATER FOR INJ,STERILE 10 ML IM PRN (21:53)
[2020-08-25] MEDS ORDERED: ZIPRASIDONE MESYLA 20 MG/VIAL IM PRN (21:53)
[2020-08-26 05:15] LABS: Absolute Lymphocytes (CBC) 0.4 K/uL (0.7-4.9); Basophils % 0.8 % (0-1.3); Hematocrit 40.3 % (39.6-49.0); Lymphocytes % 1.5 % (15.3-44.8); MPV 9.1 fL (7.6-11.3); RBC Red Blood Cell Count 4.29 M/uL (4.33-5.43)
[2020-08-26 05:32] LABS: Albumin 2.2 g/dL (3.4-5.0); Bilirubin Total 0.8 mg/dL (0.2-1.0); C-Reactive Protein 31.2 mg/L (<3.00); Ferritin 1766.8 ng/mL (26-388); Magnesium 2.8 mg/dL (1.8-2.4); Potassium 4.3 mmol/L (3.5-5.1)
[2020-08-26] MEDS: METOPROLOL TAR 25 MG TAB PO SCH ×2 (06:00→17:30)
[2020-08-26] MEDS: INSULIN -REGULAR HUMAN 50 UNIT/0.5 ML ML SQ SCH ×4 (07:30→20:42)
[2020-08-26] MEDS: INSULIN 70/30 100 UNITS/ML SQ SCH ×2 (07:30→17:30)
[2020-08-26 08:45] LABS: Blood Gas Oxyhemoglobin 86.9 % (94-97); Blood O2 Saturation 88.5 % (92-98.5)
[2020-08-26] MEDS: ASCORBIC ACID 500 MG TABLET PO SCH ×4 (09:00→20:41)
[2020-08-26] MEDS: VITAMIN D 5,000 UNIT CAP PO SCH (09:00)
[2020-08-26] MEDS: GLUCERNA SHAKE 237 ML CAN PO SCH ×3 (09:00→20:41)
--- NOTE | 2020-08-26 11:13 | P.PN ---
Subjective Date of Service: 08/26/20 Primary Care Provider: Sincere Luis Chief Complaint: Respiratory failure/Stroke Subjective: Other (overnight with agitation / confusion, pulling off oxygen mask, mumbling. Ativan worsened symptoms last night. Geodon didn't seem to help much per nursing staff. Patient tired / sleeping this morning) Review of Systems is unable to be obtained Physical Examination - Vital Signs Temperature: 97 F Blood Pressure: 99/70 Pulse: 100 Respirations: 27 Pulse Ox (%): 91 Assessment & Plan Physician Review Additional Text: Physical Exam Gen: NAD, eyes closed, wakes momentarily, states he is "ok" then back to sleep Pulm: nonlabored, on HFNC/nonrebreather CV: Regular rate/rhythm Abd: Soft, non-tender, non-distended Ext: No swelling, No tenderness Problem List: Acute respiratory failure with hypoxia secondary to Pneumonia due to COVID-19 virus Atrial fibrillation with RVR Hypertension Non-insulin dependent 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 s/p Remdesevir. Vitamin-D, vitamin-C and zinc supplementation. on levaquin and diflucan (prolonged steroids), CXR slight improvement, procal decreased High-flow and BiPAP as needed. on Xarelto, stroke occurred while on Eliquis MRI consistent with stroke, MRA ok, carotids ok. Continue metoprolol 12.5 mg b.i.d. - per cardiology recommendations as long as BP can withstand remeron started on 08/24 by pulm for appetite / depression low dose ativan trialed on 08/25 with worsening of agitation, discontinued Geodon PRN ordered, can try low dose dilaudid as well - if BP is ok Echo (08/08/20): normal echo Speech consulted for swallow eval 08/14 - pt did well. Patient tolerating diet, continues with poor appetite discussed with family - they are concerned with his low appetite, and briefly discussed with patient today will place dobhoff for enteral feeds Dispo: hospitalization for several more days Time Spent Managing Pts Care (In Minutes): 35
--- NOTE | 2020-08-26 11:21 | RAD REPORT ---
EXAM DESCRIPTION: RAD - Abdomen 1 View (KUB) - 08/26/2020 10:58 am CLINICAL HISTORY: Device placement Dobhoff tube placement FINDINGS: A Dobhoff tube is coiled within the gastric fundus. The tip lies 4 centimeters from the G E junction.
--- NOTE | 2020-08-26 12:26 | RAD REPORT ---
EXAM DESCRIPTION: RAD - Abdomen 1 View (KUB) - 08/26/2020 12:14 pm CLINICAL HISTORY: Device placement Dobhoff tube placement FINDINGS: Suboptimal evaluation of the Dobhoff tube as the patient could not suspend breathing duri ng the exposure. The tube appears to lie within the proximal stomach near the GE junction.
--- NOTE | 2020-08-26 12:40 | P.PN ---
Subjective Date of Service: 08/26/20 Primary Care Provider: Sincere Luis Chief Complaint: Respiratory failure/Stroke Patient not doing well continues to remain very hypoxic acquiring high concentrations of oxygen and BiPAP Review of Systems is unable to be obtained Physical Examination - Vital Signs Temperature: 97 F Blood Pressure: 99/70 Pulse: 100 Respirations: 27 Pulse Ox (%): 91 - Physical Exam General: Moderate distress Respiratory: Clear to auscultation bilaterally, Diminished Assessment & Plan - Problems (Diagnosis) (1) Pneumonia due to COVID-19 virus Current Visit: Yes Status: Acute Plan: Respiratory failure prognosis very poor on high concentrations of oxygen start on tube feeds white count is elevated continues to remain very hypoxic prognosis remains very poor is made no progress may end up on a ventilator increase EPAP Physician Review: Patient Assessed, Agree with Above Assessment and Plan
[2020-08-26] MEDS: FLUCONAZOLE 100 MG TAB PO SCH (12:51)
[2020-08-26] MEDS: THIAMINE HCL 100 MG TABLET PO SCH ×2 (12:51→20:40)
[2020-08-26] MEDS: METFORMIN HCL 500 MG TAB PO SCH ×2 (12:51→17:29)
[2020-08-26] MEDS: MEGESTROL 40 MG TAB PO SCH (12:51)
[2020-08-26] MEDS: ZINC SULFATE 220 MG CAP PO SCH (12:51)
[2020-08-26] MEDS: predniSONE 20 MG TAB PO SCH ×2 (12:51→20:41)
[2020-08-26] MEDS: FAMOTIDINE 20 MG TAB PO SCH ×2 (12:52→20:41)
[2020-08-26] MEDS: levoFLOXacin 500 MG TAB PO SCH (12:52)
[2020-08-26] MEDS: SITAGLIPTIN PHOS 100 MG TAB PO SCH (12:52)
[2020-08-26] MEDS: ASPIRIN EC 81 MG TAB PO SCH (12:52)
[2020-08-26] MEDS: HYDROMORPHONE HCL 1 MG/ML INJ IV PRN ×2 (14:59→20:41)
[2020-08-26] MEDS: RIVAROXABAN 20 MG TABLET PO SCH (17:29)
[2020-08-26] MEDS: MIRTAZAPINE 15 MG TAB PO SCH (20:41)
[2020-08-27 05:09] LABS: Absolute Lymphocytes (CBC) 0.3 K/uL (0.7-4.9); Basophils % 0.2 % (0-1.3); Hematocrit 39.4 % (39.6-49.0); Lymphocytes % 1.4 % (15.3-44.8); MPV 9.3 fL (7.6-11.3); RBC Red Blood Cell Count 4.16 M/uL (4.33-5.43)
[2020-08-27] MEDS ORDERED: ADENOSINE 6 MG/ 2ML VIAL IV ONE (05:18)
[2020-08-27 05:31] LABS: C-Reactive Protein 16.3 mg/L (<3.00); Ferritin 1598.8 ng/mL (26-388); Magnesium 2.8 mg/dL (1.8-2.4); Potassium 4.5 mmol/L (3.5-5.1)
[2020-08-27 06:16] LABS: Blood O2 Saturation 84.9 % (92-98.5)
[2020-08-27 06:17] LABS: Arterial Blood Carboxyhemoglob 1.1 % (0-1.5)
[2020-08-27] MEDS: METOPROLOL TAR 25 MG TAB PO SCH ×2 (06:36→16:57)
[2020-08-27] MEDS ORDERED: METOPROLOL TARTRATE 5 MG/5 ML INJ IV STA ×2 (07:00→17:49)
[2020-08-27] MEDS ORDERED: METOPROLOL TARTRATE 5 MG/5 ML INJ IV ONE (07:16)
[2020-08-27] MEDS: INSULIN -REGULAR HUMAN 50 UNIT/0.5 ML ML SQ SCH ×4 (07:29→21:00)
[2020-08-27] MEDS: VITAMIN D 5,000 UNIT CAP PO SCH (07:32)
--- NOTE | 2020-08-27 09:01 | RAD REPORT ---
EXAM DESCRIPTION: RAD - Chest Single View - 08/27/2020 6:33 am CLINICAL HISTORY: Covid Pna Chest pain. COMPARISON: Abdomen 1 View (KUB) dated 08/26/2020; Abdomen 1 View (KUB) dated 08/26/2020; Chest Single V iew dated 08/25/2020; Chest Single View dated 08/20/2020 FINDINGS: Portable technique limits examination quality. Mild bilateral interstitial lung opacities are present, unchanged since comparative study. The heart is normal in size. Enteric tube is in the stomach. IMPRESSION: Stable chest since 08/25/2020.
[2020-08-27] MEDS: levoFLOXacin 500 MG TAB PO SCH (09:17)
[2020-08-27] MEDS: ZINC SULFATE 220 MG CAP PO SCH (09:17)
[2020-08-27] MEDS: THIAMINE HCL 100 MG TABLET PO SCH ×2 (09:17→21:44)
[2020-08-27] MEDS: INSULIN 70/30 100 UNITS/ML SQ SCH ×2 (09:17→16:59)
[2020-08-27] MEDS: FAMOTIDINE 20 MG TAB PO SCH ×2 (09:17→21:44)
[2020-08-27] MEDS: SITAGLIPTIN PHOS 100 MG TAB PO SCH (09:18)
[2020-08-27] MEDS: ASPIRIN EC 81 MG TAB PO SCH (09:18)
[2020-08-27] MEDS: METFORMIN HCL 500 MG TAB PO SCH ×2 (09:18→16:57)
[2020-08-27] MEDS: FLUCONAZOLE 100 MG TAB PO SCH (09:19)
[2020-08-27] MEDS: ASCORBIC ACID 500 MG TABLET PO SCH ×4 (09:19→21:44)
[2020-08-27] MEDS: predniSONE 20 MG TAB PO SCH ×2 (09:19→21:44)
--- NOTE | 2020-08-27 09:34 | P.PN ---
Subjective Date of Service: 08/27/20 Primary Care Provider: Sincere Luis Chief Complaint: Respiratory failure/Stroke Subjective: Other (early this AM with ~8 minutes SVT up to 210, resolved prior to administration of adenosine. continued in sinus tachy 110s. On morning rounds , patient went into SVT again to 170s after BIPAP was taken off for sip of water. HR responded well to IV lopressor 5mg, patient denies chest pain / palpitation) Review of Systems 10-point ROS is otherwise unremarkable Physical Examination - Vital Signs Temperature: 96.9 F Blood Pressure: 134/86 Pulse: 166 Respirations: 26 Pulse Ox (%): 88 Assessment & Plan Physician Review Additional Text: Physical Exam Gen: NAD, feels "ok" and "about the same" Pulm: mild labored respirations on BIPAP CV: SVT: 150-170, then sinus rhythm Abd: Soft, non-tender, non-distended Ext: No swelling, No tenderness Problem List: Acute respiratory failure with hypoxia secondary to Pneumonia due to COVID-19 virus Atrial fibrillation with RVR Hypertension Non-insulin dependent 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 s/p Remdesevir. Vitamin-D, vitamin-C and zinc supplementation. on levaquin and diflucan (prolonged steroids), WBC and procal decreased, CXR today - stable MRI consistent with stroke, MRA ok, carotids ok. Echo (08/08/20): normal echo on Xarelto, stroke occurred while on Eliquis. increase metoprolol from 12.5mg BID -> 25mg BID, BP has been slightly elevated today. Briefly discussed with cardiology, recommended to consider increasing further if HR remains elevated and if BP tolerates remeron started on 08/24 by pulm for appetite / depression low dose ativan trialed on 08/25 with worsening of agitation, discontinued Geodon PRN ordered, can try low dose dilaudid as well - if BP is ok Speech consulted for swallow eval 08/14 - pt did well. Patient tolerating diet, however with low appetite - 10-20% of plate; dobhoff placed on 08/26 - receiving grant june Dispo: prolonged hospitalization, minimal/slow improvement, patient now very debilitated will likely need LTAC or SNF. will discuss further with family Time Spent Managing Pts Care (In Minutes): 40
[2020-08-27] MEDS: ASPIRIN 81 MG CHEWABLE TABLET FT SCH (10:26)
[2020-08-27] MEDS: GLUCERNA SHAKE 237 ML CAN PO SCH ×3 (10:26→21:00)
[2020-08-27] MEDS: MEGESTROL 40 MG TAB PO SCH (10:26)
[2020-08-27] MEDS: GLUCERNA 1.5 CAL 1,000 ML BOT FT SCH ×2 (14:00→21:00)
[2020-08-27 16:47] LABS: Urine Appearance CLEAR; Urine Bilirubin NEGATIVE (NEG); Urine Blood TRACE (NEG); Urine Color DK YELLOW; Urine Glucose NEGATIVE (NEG); Urine Protein TRACE (NEG); Urine Specific Gravity >=1.030 (1.005-1.030); Urine pH 5.5 (5.0-7.0)
[2020-08-27 16:48] LABS: Urine Bacteria <20 /HPF (NONE SEEN); Urine Microscopic Reflex ORDER UMIC; Urine RBC <5 /HPF (NONE SEEN)
[2020-08-27] MEDS: RIVAROXABAN 20 MG TABLET PO SCH (16:58)
[2020-08-27] MEDS: HYDROMORPHONE HCL 1 MG/ML INJ IV PRN (17:25)
[2020-08-27] MEDS: NA CHLORIDE 0.9% 1,000 ML IV SCH (20:00)
[2020-08-27] MEDS: MIRTAZAPINE 15 MG TAB PO SCH (21:00)
[2020-08-27] MEDS ORDERED: INSULIN -REGULAR HUMAN 50 UNIT/0.5 ML ML SQ SCH (22:00)
[2020-08-28] MEDS: HYDROMORPHONE HCL 2 MG/ML inj IV PRN (02:51)
[2020-08-28] MEDS ORDERED: METOPROLOL TARTRATE 5 MG/5 ML INJ IV STA (04:47)
[2020-08-28] MEDS ORDERED: METOPROLOL TARTRATE 5 MG/5 ML INJ IV ONE (04:57)
[2020-08-28 05:36] LABS: Absolute Lymphocytes (CBC) 0.4 K/uL (0.7-4.9); Basophils % 0.2 % (0-1.3); Hematocrit 38.4 % (39.6-49.0); Lymphocytes % 2.4 % (15.3-44.8); RBC Red Blood Cell Count 4.03 M/uL (4.33-5.43)
[2020-08-28 05:58] LABS: Ferritin 1481.8 ng/mL (26-388); Magnesium 2.5 mg/dL (1.8-2.4); Phosphorus 3.8 mg/dL (2.5-4.9); Potassium 5.2 mmol/L (3.5-5.1)
[2020-08-28] MEDS: INSULIN -REGULAR HUMAN 50 UNIT/0.5 ML ML SQ SCH ×3 (06:00→17:43)
[2020-08-28] MEDS: predniSONE 20 MG TAB PO SCH ×2 (08:08→20:21)
[2020-08-28] MEDS: FLUCONAZOLE 100 MG TAB PO SCH (08:08)
[2020-08-28] MEDS: METOPROLOL TAR 25 MG TAB PO SCH ×2 (08:08→17:49)
[2020-08-28] MEDS: INSULIN 70/30 100 UNITS/ML SQ SCH ×2 (08:08→17:48)
[2020-08-28] MEDS: ZINC SULFATE 220 MG CAP PO SCH (08:08)
[2020-08-28] MEDS: MEGESTROL 40 MG TAB PO SCH (08:09)
[2020-08-28] MEDS: SITAGLIPTIN PHOS 100 MG TAB PO SCH (08:10)
[2020-08-28] MEDS: FAMOTIDINE 20 MG TAB PO SCH ×2 (08:10→20:22)
[2020-08-28] MEDS: METFORMIN HCL 500 MG TAB PO SCH ×2 (08:10→17:49)
[2020-08-28] MEDS: ASCORBIC ACID 500 MG TABLET PO SCH ×4 (08:10→20:21)
[2020-08-28] MEDS: GLUCERNA SHAKE 237 ML CAN PO SCH ×2 (08:11→14:00)
[2020-08-28] MEDS: ASPIRIN 81 MG CHEWABLE TABLET FT SCH (08:11)
[2020-08-28] MEDS: THIAMINE HCL 100 MG TABLET PO SCH ×2 (08:11→20:21)
[2020-08-28] MEDS: GLUCERNA 1.5 CAL 1,000 ML BOT FT SCH ×3 (08:12→20:22)
[2020-08-28] MEDS: VITAMIN D 5,000 UNIT CAP PO SCH (08:12)
[2020-08-28] MEDS: DOCUSATE NA 100 MG CAP PO SCH ×3 (09:00→20:22)
[2020-08-28] MEDS: NA CHLORIDE 0.9% 1,000 ML IV SCH (09:49)
--- NOTE | 2020-08-28 09:56 | P.PN ---
Subjective Date of Service: 08/28/20 Primary Care Provider: Sincere Luis Chief Complaint: Respiratory failure/Stroke Subjective: Other (~3 episodes of SVT overnight, with movement / repositioning. improves temporarily with IV lopressor, BP on low end now. Pt denies chest pain / feeling palpitations. Started on IVF last night. no BM in ~2 days) Physical Examination - Vital Signs Temperature: 97.6 F Blood Pressure: 98/75 Pulse: 89 Respirations: 10 Pulse Ox (%): 95 Assessment & Plan Physician Review Additional Text: Physical Exam Gen: tachypneic, keeps eyes closed during conversation Pulm: mild labored respirations on BIPAP, tachypnea CV: sinus tachycardia: 90-100, no edema Abd: Soft, non-tender, non-distended Ext: No swelling, No tenderness Neuro: AAOx2, doesn't want to answer many questions again this morning Problem List: Acute respiratory failure with hypoxia secondary to Pneumonia due to COVID-19 virus Atrial fibrillation with RVR Sinus tachycardia with SVT Hypertension Non-insulin dependent 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 s/p Remdesevir. Vitamin-D, vitamin-C and zinc supplementation. dc'd levaquin due to potential QT prolongation and ongoing SVT. Continue diflucan (given prolonged steroid use), WBC and procal decreasing MRI consistent with stroke, MRA ok, carotids ok. Echo (08/08/20): normal echo on Xarelto, stroke occurred while on Eliquis. will discuss further with Cardiology given ongoing SVT; metoprolol increased from 12.5 -> 25mg BID on 08/27, BP low; will check trop NS @75 started evening of 08/27, marinelli witch to D5 1/2NS given mildly elevated Na remeron started on 08/24 by pulm for appetite / depression low dose ativan trialed on 08/25 with worsening of agitation, discontinued Geodon PRN ordered, can try low dose dilaudid as well Speech consulted for swallow eval 08/14 - pt did well. Patient was tolerating diet, however had low appetite - 10-20% of plate; dobhoff placed on 08/26 - receiving glucerna Dispo: prolonged hospitalization, minimal improvement, patient now very debilitated and having SVT. prognosis guarded will likely need LTAC or SNF. will discuss further with family Time Spent Managing Pts Care (In Minutes): 35
[2020-08-28] MEDS ORDERED: D5 0.45 NS 1,000 ML IV SCH (10:00)
--- NOTE | 2020-08-28 13:39 | P.PN ---
Subjective Date of Service: 08/28/20 Primary Care Provider: Sincere Luis Chief Complaint: Respiratory failure/Stroke No change patient is not cooperative requiring constant BiPAP is on a nasal cannula tube feeds Review of Systems is unable to be obtained Physical Examination - Vital Signs Temperature: 97.6 F Blood Pressure: 101/77 Pulse: 86 Respirations: 10 Pulse Ox (%): 94 - Physical Exam General: Unresponsive Respiratory: Clear to auscultation bilaterally, Diminished, Crackles/rales Assessment & Plan - Problems (Diagnosis) (1) Pneumonia due to COVID-19 virus Current Visit: Yes Status: Acute Plan: Respiratory failure from [place] virus patient is on optimal medical therapy no change patient is hyperkalemia BUN is elevated recommend starting on IV fluids prognosis very poor Physician Review: Patient Assessed, Agree with Above Assessment and Plan
[2020-08-28] MEDS: METOPROLOL TARTRATE 5 MG/5 ML INJ IV STA ×2 (16:59→17:14)
[2020-08-28] MEDS: RIVAROXABAN 20 MG TABLET PO SCH (17:49)
[2020-08-28] MEDS: MIRTAZAPINE 15 MG TAB PO SCH (20:21)
[2020-08-28] MEDS: POLYETHYL GLY 3350 17 GM/DOSE PO PRN (20:22)
[2020-08-28] MEDS: HYDROMORPHONE HCL 1 MG/ML INJ IV PRN (20:35)
[2020-08-28] MEDS ORDERED: AMIODARONE HCL 150 MG in D5W 100 ML IV STA (21:21)
[2020-08-28] MEDS ORDERED: AMIODARONE HCL 150 MG/3 ML INJ IV ONE (21:55)
[2020-08-28] MEDS ORDERED: AMIODARONE IN DEXTROSE,ISO-OSM 360 MG/200 ML BAG IV ONE (21:56)
[2020-08-28] MEDS ORDERED: D5W 100 ML IV ONE (21:56)
[2020-08-28] MEDS ORDERED: AMIODARONE IN DEXTROSE,ISO-OSM 360 MG/200 ML BAG IV SCH ×2 (22:00→22:19)
[2020-08-28] MEDS ORDERED: AMIODARONE HCL 900 MG in Dextrose 5%-Water 482 ML IV SCH (22:00)
[2020-08-29] MEDS: HYDROMORPHONE HCL 1 MG/ML INJ IV PRN (02:40)
[2020-08-29] MEDS ORDERED: AMIODARONE IN DEXTROSE,ISO-OSM 360 MG/200 ML BAG IV ONE (03:41)
[2020-08-29] MEDS: METOPROLOL TAR 25 MG TAB PO SCH (05:03)
[2020-08-29 05:53] LABS: Absolute Lymphocytes (CBC) 0.5 K/uL (0.7-4.9); Basophils % 0.3 % (0-1.3); Hematocrit 35.6 % (39.6-49.0); Lymphocytes % 2.8 % (15.3-44.8); MPV 9.3 fL (7.6-11.3); RBC Red Blood Cell Count 3.75 M/uL (4.33-5.43)
[2020-08-29] MEDS: INSULIN -REGULAR HUMAN 50 UNIT/0.5 ML ML SQ SCH ×4 (06:00→18:00)
[2020-08-29 06:09] LABS: ALT/SGPT 132 U/L (12-78); AST/SGOT 69 U/L (15-37); Alkaline Phosphatase 85 U/L (45-117); BUN Blood Urea Nitrogen 40 mg/dL (7-18); Bicarbonate 27 mmol/L (21-32); Bilirubin Total 0.7 mg/dL (0.2-1.0); C-Reactive Protein 8.39 mg/L (<3.00); Ferritin 1356.9 ng/mL (26-388); Glucose Level 116 mg/dL (74-106); Magnesium 2.1 mg/dL (1.8-2.4); Protein, Total 5.4 g/dL (6.4-8.2); Sodium Level 139 mmol/L (136-145)
[2020-08-29] MEDS: GLUCERNA 1.5 CAL 1,000 ML BOT FT SCH ×3 (07:48→20:23)
[2020-08-29] MEDS: INSULIN 70/30 100 UNITS/ML SQ SCH ×2 (07:49→16:06)
[2020-08-29] MEDS: ZINC SULFATE 220 MG CAP PO SCH (07:50)
[2020-08-29] MEDS: METFORMIN HCL 500 MG TAB PO SCH ×2 (07:50→16:07)
[2020-08-29] MEDS: MEGESTROL 40 MG TAB PO SCH (07:50)
[2020-08-29] MEDS: FLUCONAZOLE 100 MG TAB PO SCH (07:50)
[2020-08-29] MEDS: THIAMINE HCL 100 MG TABLET PO SCH ×2 (07:50→20:22)
[2020-08-29] MEDS: FAMOTIDINE 20 MG TAB PO SCH ×2 (07:50→20:22)
[2020-08-29] MEDS: SITAGLIPTIN PHOS 100 MG TAB PO SCH (07:50)
[2020-08-29] MEDS: ASCORBIC ACID 500 MG TABLET PO SCH ×4 (07:50→20:22)
[2020-08-29] MEDS: predniSONE 20 MG TAB PO SCH (07:51)
[2020-08-29] MEDS: VITAMIN D 5,000 UNIT CAP PO SCH (07:51)
[2020-08-29] MEDS: ASPIRIN 81 MG CHEWABLE TABLET FT SCH (07:51)
[2020-08-29] MEDS: DOCUSATE NA 100 MG CAP PO SCH ×2 (07:52→20:22)
--- NOTE | 2020-08-29 08:47 | P.PN ---
Subjective Date of Service: 08/29/20 Primary Care Provider: Sincere Luis Chief Complaint: Respiratory failure/Stroke Subjective: Other (2 episodes of SVT yesterday, 3rd last night. Placed on amio drip yesterday evening. Patient reports feeling a little better. reports he feel s thirsty. discussed want to minimize coming off BIPAP - as that triggers his HR. Was able to see son and yesterday) Review of Systems 10-point ROS is otherwise unremarkable Physical Examination - Vital Signs Temperature: 98.3 F Blood Pressure: 136/52 Pulse: 88 Respirations: 14 Pulse Ox (%): 93 Assessment & Plan Physician Review Additional Text: Physical Exam Gen: NAD, on BIPAP Pulm: mild labored respirations on BIPAP CV: HR: 80s with frequent PVCs, no edema Abd: Soft, non-tender, non-distended Ext: No swelling, No tenderness Neuro: awake, alert, moves all extremities Problem List: Acute respiratory failure with hypoxia secondary to Pneumonia due to COVID-19 virus Atrial fibrillation with RVR Sinus tachycardia with SVT Hypertension Non-insulin dependent 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 s/p Remdesevir. Vitamin-D, vitamin-C and zinc supplementation. dc'd levaquin due to potential QT prolongation and ongoing SVT. Continue diflucan (given prolonged steroid use), WBC and procal decreasing MRI consistent with stroke, MRA ok, carotids ok. Echo (08/08/20): normal echo. on Xarelto, stroke occurred while on Eliquis. started amiodarone - to give for 24hrs - discussed with cardiology given ongoing SVT; metop dc'd BUN improved with IVF for last 24hrs, dc'd, continue free water with tube feeds / meds remeron started on 08/24 by pulm for appetite / depression low dose ativan trialed on 08/25 with worsening of agitation, discontinued anxiety responds well to dilaudid - seems to help, SpO2 improves Speech consulted for swallow eval 08/14 - pt did well. Patient was tolerating diet, however had low appetite - 10-20% of plate; dobhoff placed on 08/26 - receiving glucerna and free water Dispo: prolonged hospitalization, minimal improvement, patient now very debilitated and having SVT episodes. prognosis guarded family visited at bedside yesterday. Had discussion over prognosis and code status - family would like to continue with full code / everything possible Time Spent Managing Pts Care (In Minutes): 35
[2020-08-29 09:10] LABS: Platelet Estimate ADEQ
[2020-08-29 09:11] LABS: Blood Morphology Comment NOT SEEN (NOT SEEN)
[2020-08-29] MEDS: METHYLPREDNISOLONE 40 MG INJ IV SCH ×2 (11:04→20:22)
[2020-08-29] MEDS: HYDROMORPHONE HCL 2 MG/ML inj IV PRN (12:35)
[2020-08-29] MEDS: POLYETHYL GLY 3350 17 GM/DOSE PO PRN (13:46)
--- NOTE | 2020-08-29 15:27 | RAD REPORT ---
EXAM DESCRIPTION: RAD - Chest Single View - 08/29/2020 2:55 pm CLINICAL HISTORY: Device placement PICC line placement . IMPRESSION: PICC line with its tip in the superior vena cava
[2020-08-29] MEDS: RIVAROXABAN 20 MG TABLET PO SCH (16:07)
[2020-08-29] MEDS: MIRTAZAPINE 15 MG TAB PO SCH (20:22)
[2020-08-30] MEDS ORDERED: METOPROLOL TARTRATE 5 MG/5 ML INJ IV ONE ×2 (00:29→08:22)
[2020-08-30] MEDS ORDERED: MORPHINE 2 MG/ML SYR ONE ×2 (00:36→06:58)
[2020-08-30] MEDS ORDERED: MORPHINE 2 MG/ML SYR IV ONE (00:39)
[2020-08-30] MEDS ORDERED: METOPROLOL TARTRATE 5 MG/5 ML INJ IV STA ×2 (00:43→08:11)
[2020-08-30 05:17] LABS: Absolute Lymphocytes (CBC) 0.4 K/uL (0.7-4.9); Basophils % 0.2 % (0-1.3); Hematocrit 36.7 % (39.6-49.0); Lymphocytes % 1.9 % (15.3-44.8); MPV 9.1 fL (7.6-11.3); RBC Red Blood Cell Count 3.86 M/uL (4.33-5.43)
[2020-08-30] MEDS: INSULIN -REGULAR HUMAN 50 UNIT/0.5 ML ML SQ SCH ×4 (05:24→18:00)
[2020-08-30 05:31] LABS: ALT/SGPT 149 U/L (12-78); AST/SGOT 57 U/L (15-37); Albumin 2.1 g/dL (3.4-5.0); Alkaline Phosphatase 91 U/L (45-117); BUN Blood Urea Nitrogen 37 mg/dL (7-18); Bicarbonate 29 mmol/L (21-32); Bilirubin Total 0.8 mg/dL (0.2-1.0); C-Reactive Protein 7.42 mg/L (<3.00); Ferritin 1533.1 ng/mL (26-388); Glucose Level 175 mg/dL (74-106); Magnesium 1.9 mg/dL (1.8-2.4); Potassium 4.4 mmol/L (3.5-5.1); Protein, Total 5.3 g/dL (6.4-8.2); Sodium Level 136 mmol/L (136-145)
[2020-08-30 06:32] LABS: Arterial Blood Carboxyhemoglob 1.4 % (0-1.5); Blood Gas Oxyhemoglobin 88.2 % (94-97); Blood O2 Saturation 90.3 % (92-98.5)
[2020-08-30] MEDS: INSULIN 70/30 100 UNITS/ML SQ SCH ×2 (07:48→17:30)
[2020-08-30] MEDS: METHYLPREDNISOLONE 40 MG INJ IV SCH ×2 (07:48→20:07)
[2020-08-30] MEDS: GLUCERNA 1.5 CAL 1,000 ML BOT FT SCH ×3 (07:49→20:07)
[2020-08-30] MEDS: SITAGLIPTIN PHOS 100 MG TAB PO SCH (07:49)
[2020-08-30] MEDS: METFORMIN HCL 500 MG TAB PO SCH ×2 (07:49→17:30)
[2020-08-30] MEDS: ZINC SULFATE 220 MG CAP PO SCH (07:49)
[2020-08-30] MEDS: FLUCONAZOLE 100 MG TAB PO SCH (07:49)
[2020-08-30] MEDS: THIAMINE HCL 100 MG TABLET PO SCH ×2 (07:49→20:06)
[2020-08-30] MEDS: VITAMIN D 5,000 UNIT CAP PO SCH (07:50)
[2020-08-30] MEDS: ASPIRIN 81 MG CHEWABLE TABLET FT SCH (07:50)
[2020-08-30] MEDS: ASCORBIC ACID 500 MG TABLET PO SCH ×4 (07:50→20:07)
[2020-08-30] MEDS: DOCUSATE NA 100 MG CAP PO SCH ×2 (07:50→20:06)
[2020-08-30] MEDS: FAMOTIDINE 20 MG TAB PO SCH ×2 (07:50→20:07)
[2020-08-30] MEDS: MEGESTROL 40 MG TAB PO SCH (07:51)
--- NOTE | 2020-08-30 10:30 | P.PN ---
Subjective Date of Service: 08/30/20 Primary Care Provider: Sincere Luis Chief Complaint: Respiratory failure/Stroke Subjective: Other (no significant changes. SVT overnight for a few minutes - after patient got temporarily confused and pulled of BIPAP, took several minutes to recover SpO2 as well) Physical Examination - Vital Signs Temperature: 97.8 F Blood Pressure: 133/83 Pulse: 98 Respirations: 33 Pulse Ox (%): 89 Assessment & Plan Physician Review Additional Text: Physical Exam Gen: on BIPAP, tachypneic Pulm: mild labored respirations, tachypnea on BIPAP CV: HR: 80-90s with frequent PVCs, no edema Abd: Soft, non-tender, non-distended Ext: No swelling, No tenderness Neuro: awake, alert, moves all extremities Problem List: Acute respiratory failure with hypoxia secondary to Pneumonia due to COVID-19 virus Atrial fibrillation with RVR Sinus tachycardia with SVT Hypertension Non-insulin dependent 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 s/p Remdesevir. Vitamin-D, vitamin-C and zinc supplementation. dc'd levaquin due to potential QT prolongation and ongoing SVT. Continue diflucan (given prolonged steroid use) MRI consistent with stroke, MRA ok, carotids ok. Echo (08/08/20): normal echo. on Xarelto, stroke occurred while on Eliquis. started amiodarone - discussed with cardiology given ongoing SVT; metop dc'd, still having some SVT at times, may need to restart metoprolol, as long as BP is ok remeron started on 08/24 by pulm for appetite / depression low dose ativan trialed on 08/25 with worsening of agitation, discontinued anxiety responds well to dilaudid / morphine- seems to help, SpO2 improves Speech consulted for swallow eval 08/14 - pt did well. Patient was tolerating diet, however had low appetite - 10-20% of plate; dobhoff placed on 08/26 - receiving glucerna and free water Dispo: prolonged hospitalization, minimal improvement, patient now very debilitated and having SVT episodes. prognosis guarded family visited at bedside yesterday. Had discussion over prognosis and code status - family would like to continue with full code / everything possible Time Spent Managing Pts Care (In Minutes): 35
[2020-08-30] MEDS: POLYETHYL GLY 3350 17 GM/DOSE PO PRN (13:07)
[2020-08-30] MEDS: RIVAROXABAN 20 MG TABLET PO SCH (17:30)
[2020-08-30] MEDS: METOPROLOL TAR 25 MG TAB FT SCH (17:30)
[2020-08-30] MEDS ORDERED: METOPROLOL TAR 25 MG TAB PO SCH (18:00)
[2020-08-30] MEDS: HYDROMORPHONE HCL 1 MG/ML INJ IV PRN ×2 (18:22→23:44)
[2020-08-30] MEDS: MIRTAZAPINE 15 MG TAB PO SCH (20:06)
[2020-08-30] MEDS ORDERED: FUROSEMIDE 20 MG/ 2ML VIAL IV ONE (20:08)
--- NOTE | 2020-08-30 20:11 | P.PN ---
Subjective Date of Service: 08/30/20 (TV) Primary Care Provider: Sincere Luis Chief Complaint: Respiratory failure/Stroke No change intermittent Aflutter on Amiodarone. Physical Examination - Vital Signs Temperature: 98.3 F Blood Pressure: 141/61 Pulse: 104 Respirations: 31 Pulse Ox (%): 92 Assessment & Plan - Problems (Diagnosis) (1) Pneumonia due to COVID-19 virus Current Visit: Yes Status: Acute Plan: RREsp failureContinure to titrate sat to 90%, On Amiodarone Labs reviewed pt hypoxic Labs reviewed. Cultures neg CXRY no change. prognosis poor Physician Review: Patient Assessed, Agree with Above Assessment and Plan
[2020-08-30] MEDS: MORPHINE 2 MG/ML SYR IV PRN (21:32)
[2020-08-31] MEDS ORDERED: ALTEPLASE 2 MG/VIAL IV ONE ×2 (04:00→22:00)
[2020-08-31] MEDS: MORPHINE 2 MG/ML SYR IV PRN ×2 (04:53→10:42)
[2020-08-31 05:21] LABS: Absolute Lymphocytes (CBC) 0.6 K/uL (0.7-4.9); Basophils % 0.3 % (0-1.3); Hematocrit 36.8 % (39.6-49.0); MPV 9.1 fL (7.6-11.3); RBC Red Blood Cell Count 3.87 M/uL (4.33-5.43)
[2020-08-31] MEDS: METOPROLOL TAR 25 MG TAB FT SCH ×2 (05:25→18:23)
[2020-08-31 05:43] LABS: ALT/SGPT 136 U/L (12-78); AST/SGOT 43 U/L (15-37); Albumin 2.3 g/dL (3.4-5.0); Alkaline Phosphatase 96 U/L (45-117); BUN Blood Urea Nitrogen 44 mg/dL (7-18); Bicarbonate 29 mmol/L (21-32); Bilirubin Total 0.6 mg/dL (0.2-1.0); C-Reactive Protein 5.85 mg/L (<3.00); Glucose Level 184 mg/dL (74-106); Magnesium 2.1 mg/dL (1.8-2.4); Potassium 4.8 mmol/L (3.5-5.1); Protein, Total 5.8 g/dL (6.4-8.2); Sodium Level 132 mmol/L (136-145)
[2020-08-31] MEDS: INSULIN 70/30 100 UNITS/ML SQ SCH ×2 (08:12→18:22)
[2020-08-31] MEDS: METHYLPREDNISOLONE 40 MG INJ IV SCH ×2 (08:12→19:50)
[2020-08-31] MEDS: HYDROMORPHONE HCL 1 MG/ML INJ IV PRN ×4 (08:12→21:37)
--- NOTE | 2020-08-31 08:58 | P.PN ---
Subjective Date of Service: 08/31/20 Primary Care Provider: Sincere Luis Chief Complaint: Respiratory failure/Stroke Subjective: Other (Restless overnight. 2 episodes of AFib/flutter for few min. This morning, patient reports feeling Okay. Oriented x3.) Review of Systems 10-point ROS is otherwise unremarkable Physical Examination - Vital Signs Temperature: 97.5 F Blood Pressure: 168/100 Pulse: 100 Respirations: 40 Pulse Ox (%): 91 Assessment & Plan Physician Review Additional Text: Physical Exam Gen: on BIPAP, tachypneic, awake/alert, oriented x3 HEENT: Dobhoff in place Pulm: mild labored respirations, tachypnea (30) on BIPAP CV: HR: 90s-100 with PVCs, no edema Abd: Soft, non-tender, non-distended Ext: No swelling, No tenderness Problem List: Acute respiratory failure with hypoxia secondary to Pneumonia due to COVID-19 virus Atrial fibrillation with RVR Sinus tachycardia with SVT Hypertension Non-insulin dependent 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 s/p Remdesevir. Vitamin-D, vitamin-C and zinc supplementation. Continue diflucan (given prolonged steroid use) MRI consistent with stroke, MRA ok, carotids ok. Echo (08/08/20): normal echo. on Xarelto, stroke occurred while on Eliquis. started amiodarone - discussed with cardiology given ongoing SVT/aflutter; restarted low dose metop 12.5 BID pressures are tolerating well, will increase to 25 remeron started on 08/24 by pulm for appetite / depression anxiety responds well to dilaudid / morphine- seems to help, SpO2 improves; low dose ativan trialed on 08/25 with worsening of agitation, discontinued Speech consulted for swallow eval 08/14 - pt did well. Patient was tolerating diet, however had low appetite - 10-20% of plate; dobhoff placed on 08/26 - receiving glucerna and free water Dispo: prolonged hospitalization, minimal improvement, patient now very debilitated and having SVT episodes. prognosis guarded Family would like to continue with full code / everything possible Patient states he is ok with intubation if needed -discussed on 08/30 and 08/31 Time Spent Managing Pts Care (In Minutes): 40
[2020-08-31] MEDS ORDERED: METOPROLOL TAR 25 MG TAB PO ONE (09:04)
[2020-08-31] MEDS: ZINC SULFATE 220 MG CAP PO SCH (09:12)
[2020-08-31] MEDS: DOCUSATE NA 100 MG CAP PO SCH ×2 (09:12→19:49)
[2020-08-31] MEDS: THIAMINE HCL 100 MG TABLET PO SCH ×2 (09:12→19:49)
[2020-08-31] MEDS: FLUCONAZOLE 100 MG TAB PO SCH (09:12)
[2020-08-31] MEDS: ASPIRIN 81 MG CHEWABLE TABLET FT SCH (09:13)
[2020-08-31] MEDS: FAMOTIDINE 20 MG TAB PO SCH ×2 (09:13→19:50)
[2020-08-31] MEDS: ASCORBIC ACID 500 MG TABLET PO SCH ×4 (09:13→19:49)
[2020-08-31] MEDS: VITAMIN D 5,000 UNIT CAP PO SCH (09:13)
[2020-08-31] MEDS: SITAGLIPTIN PHOS 100 MG TAB PO SCH (09:13)
[2020-08-31] MEDS: METFORMIN HCL 500 MG TAB PO SCH ×2 (09:13→18:23)
[2020-08-31] MEDS: MEGESTROL 40 MG TAB PO SCH (09:14)
[2020-08-31] MEDS: NA CHLORIDE 0.9% 1,000 ML IV SCH (09:16)
[2020-08-31] MEDS: GLUCERNA 1.5 CAL 1,000 ML BOT FT SCH ×3 (09:17→19:50)
[2020-08-31] MEDS: INSULIN -REGULAR HUMAN 50 UNIT/0.5 ML ML SQ SCH ×4 (12:00→23:56)
--- NOTE | 2020-08-31 16:30 | P.PN ---
Subjective Date of Service: 08/31/20 (TV) Primary Care Provider: Sincere Luis Chief Complaint: Respiratory failure/Stroke No change. Intermittent tachy. Still on high Fi02 Physical Examination - Vital Signs Temperature: 97.8 F Blood Pressure: 127/96 Pulse: 103 Respirations: 17 Pulse Ox (%): 92 Assessment & Plan - Problems (Diagnosis) (1) Pneumonia due to COVID-19 virus Current Visit: Yes Status: Acute Plan: Resp failure.No change. intermittent tachy. Lopressor helping. Still onhighconcentration o O2/ Labs reviewed. CXRY no change. On tube feeds/Prognosis poor Physician Review: Patient Assessed, Agree with Above Assessment and Plan
[2020-08-31] MEDS: RIVAROXABAN 20 MG TABLET PO SCH (18:23)
[2020-08-31] MEDS: MIRTAZAPINE 15 MG TAB PO SCH (19:50)
[2020-08-31] MEDS ORDERED: WATER FOR INJ,STERILE 10 ML ONE (22:25)
[2020-09-01] MEDS: HYDROMORPHONE HCL 1 MG/ML INJ IV PRN ×3 (01:28→23:07)
[2020-09-01] MEDS: NA CHLORIDE 0.9% 1,000 ML IV SCH (04:37)
[2020-09-01] MEDS: METOPROLOL TAR 25 MG TAB FT SCH ×2 (05:08→18:05)
[2020-09-01 05:49] LABS: Absolute Lymphocytes (CBC) 0.4 K/uL (0.7-4.9); Basophils % 0.1 % (0-1.3); Hematocrit 32.4 % (39.6-49.0); Lymphocytes % 2.5 % (15.3-44.8); MPV 8.9 fL (7.6-11.3); RBC Red Blood Cell Count 3.42 M/uL (4.33-5.43)
[2020-09-01] MEDS: INSULIN -REGULAR HUMAN 50 UNIT/0.5 ML ML SQ SCH ×4 (06:00→23:48)
[2020-09-01 06:16] LABS: ALT/SGPT 124 U/L (12-78); AST/SGOT 61 U/L (15-37); Albumin 2.1 g/dL (3.4-5.0); Alkaline Phosphatase 86 U/L (45-117); BUN Blood Urea Nitrogen 32 mg/dL (7-18); Bicarbonate 29 mmol/L (21-32); Bilirubin Total 0.6 mg/dL (0.2-1.0); C-Reactive Protein < 2.90 mg/L (<3.00); Ferritin 1479.9 ng/mL (26-388); Glucose Level 59 mg/dL (74-106); Potassium 5.3 mmol/L (3.5-5.1); Protein, Total 5.3 g/dL (6.4-8.2); Sodium Level 132 mmol/L (136-145)
[2020-09-01] MEDS: D50W 25 GM/50 ML VIAL IV PRN (06:21)
--- NOTE | 2020-09-01 07:26 | RAD REPORT ---
EXAM DESCRIPTION: RAD - Chest Single View - 09/01/2020 6:17 am CLINICAL HISTORY: pneumothorax, COVID, BIPAP COMPARISON: August 31 TECHNIQUE: AP portable chest image was obtained 09/01/2020 6:17 am . FINDINGS: Lung volumes are low. The trace pneumothorax seen on the prior study is not evident on the current examination. Anterior pneumothorax can be occult on a portable study. No left-sided pneumoth orax seen. Feeding tube remains in place with the tip in the proximal stomach. PICC line is unchanged in position mid to distal SVC. Bilateral lung parenchymal opacification present not substantially different from the prior study. Saundra ng markings are accentuated by the low lung volumes. Heart size is normal. Pneumomediastinum detailed previously is less evident. No new or enlarging pleural effusion. IMPRESSION: Bilateral lung base opacification not substantially different from comparison. The trace right-sided apical pneumothorax seen on prior day imaging is not identifiable currently.
--- NOTE | 2020-09-01 07:49 | RAD REPORT ---
EXAM DESCRIPTION: Chest Single View CLINICAL HISTORY: Check PICC line placement COMPARISON: 08/30/2019 FINDINGS: Single frontal view of the chest. Tubes and lines: Right arm PICC with tip in the SVC. Feeding tube with tip in the stomach. Leads over lie the chest. Cardiomediastinal silhouette: Stable pneumomediastinum. Heart is not enlarged. Lungs: Slight improved aeration with persistent bilateral airspace and interstitial opacities. Low michael ng volumes. Trace right apical pneumothorax. Bones: Degenerative change of the spine and shoulders. Upper abdomen: No additional findings. IMPRESSION: 1. Right arm PICC with tip in the SVC. 2. Slight improved aeration with persistent bilateral opacities. 3. Pneumomediastinum with trace right apical pneumothorax. No evidence of tension. Electronically signed by: Alexi Perez 08/31/2020 4:43 AM INFORMATION SYSTEMS ADMINISTRATOR Due to temporary technical issues with the PACS/Fluency reporting system, reports are being signed by the in house radiologists without review as a courtesy to insure prompt reporting. The interpreting radiologist is fully responsible for the content of the report.
[2020-09-01 07:54] LABS: Blood Morphology Comment NOT SEEN (NOT SEEN); Platelet Estimate ADEQ
[2020-09-01] MEDS: DOCUSATE NA 100 MG CAP PO SCH ×2 (09:00→20:06)
[2020-09-01] MEDS: HYDROMORPHONE HCL 2 MG/ML inj IV PRN (09:10)
[2020-09-01] MEDS: METHYLPREDNISOLONE 40 MG INJ IV SCH ×2 (09:10→20:06)
[2020-09-01] MEDS: ASPIRIN 81 MG CHEWABLE TABLET FT SCH (09:46)
[2020-09-01] MEDS: FLUCONAZOLE 100 MG TAB PO SCH (09:46)
[2020-09-01] MEDS: SITAGLIPTIN PHOS 100 MG TAB PO SCH (09:46)
[2020-09-01] MEDS: VITAMIN D 5,000 UNIT CAP PO SCH (09:46)
--- NOTE | 2020-09-01 09:46 | P.PN ---
Subjective Date of Service: 09/01/20 Primary Care Provider: Sincere Luis Chief Complaint: Respiratory failure/Stroke Subjective: Other (had 3 BM's overnight, feels better. HR/BP more stable overnight, no SVT / tachyarrhythmia. Patient reports feeling okay. Ferritin CRP trending down) Review of Systems 10-point ROS is otherwise unremarkable Physical Examination - Vital Signs Temperature: 96.9 F Blood Pressure: 149/75 Pulse: 80 Respirations: 45 Pulse Ox (%): 85 Assessment & Plan Physician Review Additional Text: Physical Exam Gen: on BIPAP, tawake/alert, calm HEENT: Dobhoff in place Pulm: mild labored respirations, tachypnea (24-26) on BIPAP CV: HR: 80s, sinus rhythm, no edema Abd: Soft, non-tender, non-distended Ext: No swelling, No tenderness Problem List: Acute respiratory failure with hypoxia secondary to Pneumonia due to COVID-19 virus Atrial fibrillation with RVR Sinus tachycardia with SVT Hypertension Non-insulin dependent 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 s/p Remdesevir. Vitamin-D, vitamin-C and zinc supplementation. Continue diflucan (given prolonged steroid use) MRI consistent with stroke, MRA ok, carotids ok. Echo (08/08/20): normal echo. on Xarelto, stroke occurred while on Eliquis. started amiodarone - discussed with cardiology given ongoing SVT/aflutter; restarted low dose metop 12.5 BID pressures are tolerating well, increased 25 mg on 08/31. HR better control the last 24 hr remeron started on 08/24 by pulm for appetite / depression anxiety responds well to dilaudid, SpO2 improves, HR improves; low dose ativan trialed on 08/25 with worsening of agitation, discontinued Speech consulted for swallow eval 08/14 - pt did well. Patient was tolerating diet, however had low appetite - 10-20% of plate; dobhoff placed on 08/26 - receiving glucerna and free water Dispo: prolonged hospitalization, minimal improvement, patient now very debilitated and having SVT episodes. prognosis poor Family would like to continue with full code / everything possible Patient states he is ok with intubation if needed -discussed on 08/30 and 08/31 Time Spent Managing Pts Care (In Minutes): 35
[2020-09-01] MEDS: ZINC SULFATE 220 MG CAP PO SCH (09:47)
[2020-09-01] MEDS: METFORMIN HCL 500 MG TAB PO SCH ×2 (09:47→18:05)
[2020-09-01] MEDS: FAMOTIDINE 20 MG TAB PO SCH ×2 (09:48→20:06)
[2020-09-01] MEDS: GLUCERNA 1.5 CAL 1,000 ML BOT FT SCH ×4 (09:48→20:07)
[2020-09-01] MEDS: THIAMINE HCL 100 MG TABLET PO SCH ×2 (09:50→20:06)
[2020-09-01] MEDS: MEGESTROL 40 MG TAB PO SCH (09:50)
[2020-09-01] MEDS: ASCORBIC ACID 500 MG TABLET PO SCH ×4 (09:50→20:06)
[2020-09-01 15:04] LABS: C.diff Antigen/Toxin Ag neg : Tox neg (NEG : NEG)
[2020-09-01] MEDS: RIVAROXABAN 20 MG TABLET PO SCH (18:05)
[2020-09-01] MEDS: INSULIN 70/30 100 UNITS/ML SQ SCH (18:22)
[2020-09-01] MEDS: MIRTAZAPINE 15 MG TAB PO SCH (20:06)
[2020-09-01] MEDS ORDERED: BISMUTH SUBSALICYL 262MG/15ML-240 ML BTL PO ONE (22:14)
[2020-09-01] MEDS ORDERED: DIPHENOX/ATROP SULF 1 TAB PO ONE (22:34)
[2020-09-02] MEDS: NA CHLORIDE 0.9% 1,000 ML IV SCH ×2 (00:44→21:12)
[2020-09-02] MEDS: METOPROLOL TAR 25 MG TAB FT SCH ×2 (05:23→17:49)
[2020-09-02] MEDS: INSULIN -REGULAR HUMAN 50 UNIT/0.5 ML ML SQ SCH ×3 (06:00→16:31)
[2020-09-02 06:08] LABS: Absolute Lymphocytes (CBC) 0.3 K/uL (0.7-4.9); Basophils % 0.1 % (0-1.3); Hematocrit 31.2 % (39.6-49.0); Lymphocytes % 2.2 % (15.3-44.8); MPV 9.3 fL (7.6-11.3); RBC Red Blood Cell Count 3.28 M/uL (4.33-5.43)
[2020-09-02 06:27] LABS: ALT/SGPT 114 U/L (12-78); AST/SGOT 45 U/L (15-37); Albumin 2.1 g/dL (3.4-5.0); Alkaline Phosphatase 89 U/L (45-117); BUN Blood Urea Nitrogen 25 mg/dL (7-18); Bicarbonate 31 mmol/L (21-32); Bilirubin Total 0.5 mg/dL (0.2-1.0); Ferritin 1337.7 ng/mL (26-388); Glucose Level 121 mg/dL (74-106); Magnesium 1.9 mg/dL (1.8-2.4); Potassium 4.6 mmol/L (3.5-5.1); Protein, Total 5.2 g/dL (6.4-8.2); Sodium Level 128 mmol/L (136-145)
[2020-09-02 06:39] LABS: C-Reactive Protein < 2.90 mg/L (<3.00)
[2020-09-02] MEDS: MEGESTROL 40 MG TAB PO SCH (07:56)
[2020-09-02] MEDS: THIAMINE HCL 100 MG TABLET PO SCH ×2 (07:56→21:12)
[2020-09-02] MEDS: ASPIRIN 81 MG CHEWABLE TABLET FT SCH (07:57)
[2020-09-02] MEDS: FLUCONAZOLE 100 MG TAB PO SCH (07:57)
[2020-09-02] MEDS: ZINC SULFATE 220 MG CAP PO SCH (07:57)
[2020-09-02] MEDS: FAMOTIDINE 20 MG TAB PO SCH ×2 (07:57→21:12)
[2020-09-02] MEDS: ASCORBIC ACID 500 MG TABLET PO SCH ×4 (07:57→21:12)
[2020-09-02] MEDS: METFORMIN HCL 500 MG TAB PO SCH ×2 (07:57→16:22)
[2020-09-02] MEDS: SITAGLIPTIN PHOS 100 MG TAB PO SCH (07:57)
[2020-09-02] MEDS: DOCUSATE NA 100 MG CAP PO SCH ×2 (07:58→21:00)
[2020-09-02] MEDS: VITAMIN D 5,000 UNIT CAP PO SCH (07:58)
[2020-09-02] MEDS: GLUCERNA 1.5 CAL 1,000 ML BOT FT SCH ×4 (07:58→21:13)
[2020-09-02] MEDS: INSULIN 70/30 100 UNITS/ML SQ SCH ×2 (07:59→16:20)
[2020-09-02] MEDS: METHYLPREDNISOLONE 40 MG INJ IV SCH ×2 (08:00→21:12)
[2020-09-02] MEDS: HYDROMORPHONE HCL 1 MG/ML INJ IV PRN ×2 (08:01→11:55)
[2020-09-02 09:54] LABS: Anisocytosis SLIGHT; Basophilic Stippling 2+; Blood Morphology Comment NOTED (NOT SEEN); Platelet Estimate ADEQ
[2020-09-02] MEDS ORDERED: ALTEPLASE 2 MG/VIAL IV ONE ×3 (10:00→10:31)
[2020-09-02 10:50] LABS: Arterial Blood Carboxyhemoglob 1.7 % (0-1.5); Blood Gas Oxyhemoglobin 88.2 % (94-97); Blood O2 Saturation 90.6 % (92-98.5)
[2020-09-02] MEDS ORDERED: DIPHENOX/ATROP SULF 1 TAB PO PRN (13:22)
--- NOTE | 2020-09-02 13:29 | P.PN ---
Subjective Date of Service: 09/02/20 Primary Care Provider: Sincere Luis Chief Complaint: Respiratory failure/Stroke No new complain. Patient remained in atrial fibrillation but rate controlled on the amiodarone drip. He is still requiring high-flow oxygen. He is occasionally agitated and dysphoria. Physical Examination - Vital Signs Temperature: 98.0 F Blood Pressure: 137/70 Pulse: 80 Respirations: 28 Pulse Ox (%): 88 - Physical Exam General: In no apparent distress, Other (Awake) HEENT: Sclerae nonicteric Neck: Supple Respiratory: Other (No labored breathing) Cardiovascular: No edema, Irregular heart rate/rhythm Gastrointestinal: Non-distended Musculoskeletal: No swelling Integumentary: No rashes Neurological: Other (No focal motor deficits) Assessment And Plan - Current Problems (Diagnosis) (1) Acute respiratory failure with hypoxia Current Visit: Yes Status: Acute (2) Atrial fibrillation with RVR Current Visit: Yes Status: Acute (3) Pneumonia due to COVID-19 virus Current Visit: Yes Status: Acute (4) Hypertension Current Visit: Yes Status: Chronic Qualifiers: Hypertension type: essential hypertension Qualified Code(s): I10 - Essential (primary) hypertension (5) Non-insulin dependent diabetes mellitus Current Visit: Yes Status: Chronic (6) Acute CVA (cerebrovascular accident) Current Visit: Yes Status: Acute (7) Hypernatremia Current Visit: Yes Status: Acute Physician Review: Patient Assessed, Agree with Above Assessment and Plan Physician Review Additional Text: Physical Exam Gen: on BIPAP, tawake/alert, calm HEENT: Dobhoff in place Pulm: mild labored respirations, tachypnea (24-26) on BIPAP CV: HR: 80s, sinus rhythm, no edema Abd: Soft, non-tender, non-distended Ext: No swelling, No tenderness Problem List: Acute respiratory failure with hypoxia secondary to Pneumonia due to COVID-19 virus Atrial fibrillation with RVR Sinus tachycardia with SVT Hypertension Non-insulin dependent 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 s/p Remdesevir. Vitamin-D, vitamin-C and zinc supplementation. Continue diflucan (given prolonged steroid use) MRI consistent with stroke, MRA ok, carotids ok. Echo (08/08/20): normal echo. on Xarelto, stroke occurred while on Eliquis. started amiodarone - discussed with cardiology given ongoing SVT/aflutter; restarted low dose metop 12.5 BID pressures are tolerating well, increased 25 mg on 08/31. HR better control the last 24 hr. Amiodarone drip transition to oral amiodarone. remeron started on 08/24 by pulm for appetite / depression anxiety responds well to dilaudid. Decreased appetite. dobhoff placed on 08/26 - receiving glucerna and free water Dispo: prolonged hospitalization, minimal improvement, patient now very debilitated and having SVT episodes. prognosis poor He remain full code.
[2020-09-02] MEDS: HYDROMORPHONE HCL 2 MG/ML inj IV PRN (14:21)
[2020-09-02] MEDS: RIVAROXABAN 20 MG TABLET PO SCH (16:22)
[2020-09-02] MEDS ORDERED: AMIODARONE HCL 200 MG TAB PO SCH (21:00)
[2020-09-02] MEDS: AMIODARONE HCL 200 MG TAB PO SCH (21:12)
[2020-09-02] MEDS: MIRTAZAPINE 15 MG TAB PO SCH (21:12)
[2020-09-03] MEDS ORDERED: RSI MEDICATION KIT IV ONE (01:44)
[2020-09-03] MEDS: HYDROMORPHONE HCL 1 MG/ML INJ IV PRN ×5 (02:39→19:17)
[2020-09-03] MEDS: NA CHLORIDE 0.9% 1,000 ML IV SCH ×2 (04:29→21:00)
[2020-09-03] MEDS: FENTANYL CITR 100 MCG/2 ML IV PRN ×2 (04:30→23:35)
[2020-09-03] MEDS ORDERED: FENTANYL CITR 100 MCG/2 ML ONE (04:43)
[2020-09-03] MEDS ORDERED: NA CHLORIDE 0.9% 250 ML IV ONE (05:00)
[2020-09-03] MEDS: METOPROLOL TAR 25 MG TAB FT SCH ×2 (05:13→17:21)
[2020-09-03 05:45] LABS: Arterial Blood Carboxyhemoglob 1.6 % (0-1.5); Blood Gas Oxyhemoglobin 68.4 % (94-97); Blood O2 Saturation 70.2 % (92-98.5)
[2020-09-03] MEDS: INSULIN -REGULAR HUMAN 50 UNIT/0.5 ML ML SQ SCH ×5 (06:00→23:45)
[2020-09-03 06:12] LABS: BUN Blood Urea Nitrogen 35 mg/dL (7-18); Bicarbonate 26 mmol/L (21-32); Glucose Level 97 mg/dL (74-106); Potassium 4.4 mmol/L (3.5-5.1); Sodium Level 132 mmol/L (136-145)
[2020-09-03] MEDS: NOREPINEPHRINE 4 MG in D5W 250 ML IV PRN ×2 (06:15→11:31)
[2020-09-03] MEDS ORDERED: NOREPINEPHRINE 4mg/D5W 250mL 4 MG/250 ML BAG IV ONE (06:27)
[2020-09-03] MEDS ORDERED: CALCIUM GLUC 10% INJ 9.3 MEQ in NA CHLORIDE 0.9% 100 ML IV ONE (07:00)
[2020-09-03] MEDS: INSULIN 70/30 100 UNITS/ML SQ SCH ×2 (07:18→16:30)
[2020-09-03] MEDS: DOCUSATE NA 100 MG CAP PO SCH ×2 (07:20→20:56)
[2020-09-03] MEDS ORDERED: ETOMIDATE 20 MG/10 ML VIAL IV ONE (07:53)
[2020-09-03] MEDS ORDERED: SUCCINYLCHOLINE 20 MG/ML (10 ML) IV ONE (07:53)
[2020-09-03] MEDS ORDERED: NA CHLORIDE 0.9% 250 ML IV PRN (08:01)
[2020-09-03] MEDS ORDERED: MIDAZOLAM HCL 2 MG/2 ML INJ IV PRN (08:01)
[2020-09-03] MEDS ORDERED: HALOPERIDOL LACT 5 MG/ML INJ IV PRN (08:01)
[2020-09-03] MEDS ORDERED: VASOPRESSIN 80 UNIT in NA CHLORIDE 0.9% 250 ML IV PRN (08:04)
[2020-09-03] MEDS: AMIODARONE HCL 200 MG TAB PO SCH ×2 (08:39→20:56)
[2020-09-03] MEDS: ZINC SULFATE 220 MG CAP PO SCH (08:40)
[2020-09-03] MEDS: ASPIRIN 81 MG CHEWABLE TABLET FT SCH (08:40)
[2020-09-03] MEDS: FLUCONAZOLE 100 MG TAB PO SCH (08:40)
[2020-09-03] MEDS: FAMOTIDINE 20 MG TAB PO SCH ×2 (08:40→20:57)
[2020-09-03] MEDS: SITAGLIPTIN PHOS 100 MG TAB PO SCH (08:40)
[2020-09-03] MEDS: THIAMINE HCL 100 MG TABLET PO SCH ×2 (08:40→20:57)
[2020-09-03] MEDS: METFORMIN HCL 500 MG TAB PO SCH (08:40)
[2020-09-03] MEDS: LORazepam 2 MG/ML VIAL IV PRN ×3 (08:41→19:17)
[2020-09-03] MEDS: METHYLPREDNISOLONE 40 MG INJ IV SCH (08:41)
[2020-09-03] MEDS: MEGESTROL 40 MG TAB PO SCH (08:42)
[2020-09-03] MEDS: GLUCERNA 1.5 CAL 1,000 ML BOT FT SCH ×4 (08:42→21:00)
[2020-09-03] MEDS: ASCORBIC ACID 500 MG TABLET PO SCH ×4 (08:44→20:57)
[2020-09-03] MEDS: VITAMIN D 5,000 UNIT CAP PO SCH (08:45)
--- NOTE | 2020-09-03 11:13 | P.PN ---
Subjective Date of Service: 09/03/20 Primary Care Provider: Sincere Luis Chief Complaint: Respiratory failure/Stroke Patient became hypoxic on BiPAP, 100% FiO2 and subsequently intubated overnight. He also developed hypotension and was started on vasopressors. He is currently sedated. SaO2 is still hovering between 70s and 80s despite good ventilation. Physical Examination - Vital Signs Temperature: 98.5 F Blood Pressure: 64/35 Pulse: 74 Respirations: 24 Pulse Ox (%): 80 - Physical Exam General: Other (Sedated) HEENT: Other (ETT) Neck: Supple Respiratory: Other (Upper airway transmitted sounds.) Cardiovascular: No edema, Normal S1 S2, Irregular heart rate/rhythm Gastrointestinal: Soft and benign, Non-distended Musculoskeletal: No swelling Integumentary: No rashes Neurological: Other (Sedated) Assessment And Plan - Current Problems (Diagnosis) (1) Acute respiratory failure with hypoxia Current Visit: Yes Status: Acute (2) Atrial fibrillation with RVR Current Visit: Yes Status: Acute (3) Pneumonia due to COVID-19 virus Current Visit: Yes Status: Acute (4) Hypertension Current Visit: Yes Status: Chronic Qualifiers: Hypertension type: essential hypertension Qualified Code(s): I10 - Essential (primary) hypertension (5) Non-insulin dependent diabetes mellitus Current Visit: Yes Status: Chronic (6) Acute CVA (cerebrovascular accident) Current Visit: Yes Status: Acute (7) Hypernatremia Current Visit: Yes Status: Acute Physician Review: Patient Assessed, Agree with Above Assessment and Plan Physician Review Additional Text: Patient is on mechanical ventilation. Sedation per protocol. Avoid propofol for now due to hypotension. Change prednisone to IV Solu-Medrol. NG tube for medications and feeding. Titrate vasopressors to keep MAP > 65. s/p Remdesevir. Vitamin-D, vitamin-C and zinc supplementation. Continue diflucan (given prolonged steroid use) MRI consistent with stroke, MRA ok, carotids ok. Echo (08/08/20): normal echo. on Xarelto, stroke occurred while on Eliquis. Hold amiodarone due to hypotension. Dobhoff placed on 08/26 - receiving glucerna and free water Dispo: prolonged hospitalization, minimal improvement, patient now very debilitated. Prognosis poor Family want to continue aggressive measures.
--- NOTE | 2020-09-03 11:14 | RAD REPORT ---
EXAM DESCRIPTION: Chest Radiography COMPARISON: Chest radiograph August 31, 2020 CLINICAL HISTORY: [facility] MAIN ET PLACEMENT FINDINGS: A single AP view of the chest demonstrates a normal cardiomediastinal silhouette. Endotrac heal tube tip is 4.4 cm from the alvin. Stable right PICC line. Stable enteric tube. Stable trace right apical pneumothorax. Stable small pleural effusions. Mild progression of diffuse b ilateral consolidations. Osseous structures are intact. IMPRESSION: 1. Endotracheal tube tip is 4.4 cm from the alvin. 2. Progressive multifocal pneumonia versus pulmonary edema. 3. Stable trace right apical pneumothorax. Electronically signed by: Mateusz Fernandes MD 09/03/2020 2:12 AM WHOLESALE AGRONOMIST Due to temporary technical issues with the PACS/Fluency reporting system, reports are being signed by the in house radiologist without review as a courtesy to ensure prompt reporting. The interpreting r adiologist is fully responsible for the content of the report.
[2020-09-03] MEDS: D50W 25 GM/50 ML VIAL IV PRN (12:40)
--- NOTE | 2020-09-03 12:58 | P.PN ---
Subjective Date of Service: 09/03/20 Primary Care Provider: Sincere Luis Chief Complaint: Respiratory failure/Stroke Patient's condition worsened last night had to be intubated placed on a ventilator this morning patient was on vasopressors very hypoxic hypotensive unresponsive Review of Systems is unable to be obtained Physical Examination - Vital Signs Temperature: 98.5 F Blood Pressure: 64/35 Pulse: 74 Respirations: 24 Pulse Ox (%): 90 - Physical Exam General: Unresponsive Respiratory: Clear to auscultation bilaterally, Diminished Assessment & Plan - Problems (Diagnosis) (1) Pneumonia due to COVID-19 virus Current Visit: Yes Status: Acute Plan: Respiratory failure patient was placed on a ventilator yesterday he is currently in shock continue with vasopressors prognosis very poor unable to oxygenate the patient despite maximum ventilatory setting is on pressure control at 25 labs chemistries reviewed prognosis very poor change to Lovenox Dc Xarelto Dc megestrol increase Solu-Medrol he is at a problem with SVT Physician Review: Patient Assessed, Agree with Above Assessment and Plan
[2020-09-03] MEDS: NOREPINEPHRINE 8 MG in Dextrose 5%-Water 500 ML IV PRN ×2 (16:06→23:56)
[2020-09-03] MEDS: CISATRACURIUM INJECTION 2 MG/ML (10 ML Vial) IV PRN ×2 (19:19→23:36)
[2020-09-03] MEDS: METHYLPREDNISOLONE 125 MG INJ IV SCH (20:57)
[2020-09-03] MEDS: ENOXAPARIN 80 MG/0.8 ML SQ SCH (20:58)
[2020-09-03] MEDS: propofoL 1,000 MG/100 ML VIAL IV PRN (21:46)
[2020-09-04] MEDS: FENTANYL CITR 100 MCG/2 ML IV PRN ×2 (03:41→20:24)
[2020-09-04] MEDS: CISATRACURIUM INJECTION 2 MG/ML (10 ML Vial) IV PRN ×2 (03:42→20:25)
[2020-09-04] MEDS: INSULIN -REGULAR HUMAN 50 UNIT/0.5 ML ML SQ SCH ×3 (05:41→17:05)
[2020-09-04 05:48] LABS: Blood Gas Oxyhemoglobin 78.8 % (94-97); Blood O2 Saturation 81.1 % (92-98.5)
[2020-09-04] MEDS: METOPROLOL TAR 25 MG TAB FT SCH ×2 (06:00→15:49)
[2020-09-04 07:13] LABS: Albumin 1.7 g/dL (3.4-5.0); Bilirubin Total 0.5 mg/dL (0.2-1.0); Ferritin 1466.9 ng/mL (26-388); Potassium 4.7 mmol/L (3.5-5.1); Protein, Total 4.6 g/dL (6.4-8.2)
[2020-09-04] MEDS: HYDROMORPHONE HCL 1 MG/ML INJ IV PRN (07:17)
[2020-09-04 07:25] LABS: Absolute Lymphocytes (CBC) 0.3 K/uL (0.7-4.9); Basophils % 0.4 % (0-1.3); Hematocrit 25.9 % (39.6-49.0); Lymphocytes % 2.6 % (15.3-44.8); MPV 9.9 fL (7.6-11.3); RBC Red Blood Cell Count 2.68 M/uL (4.33-5.43)
--- NOTE | 2020-09-04 07:37 | RAD REPORT ---
EXAM DESCRIPTION: RAD - Chest Single View - 09/04/2020 6:06 am CLINICAL HISTORY: intubated, respiratory distress COMPARISON: Portable September 03 TECHNIQUE: AP portable chest image was obtained 09/04/2020 6:06 am . FINDINGS: The patient has a 50% right-sided pneumothorax. Right lung parenchymal opacification is no t substantially different from the comparison. Dense mid and lower lung field opacification still pre sent. There is been no improvement. Tip of the endotracheal tube is 2 cm above the aortic knob. Feeding tube extends below the diaphragm, off the field of view. Trachea is midline. Cardiomediastinal silhouette the shifted slightly to the left primarily due to patient rotation. Tension pneumothorax is not likely. Heart size is normal. No enlarging pleural effusions. Findings telephoned to Dr. Mora at 0731 hours IMPRESSION: Right-side 50% pneumothorax. Endotracheal tube 2 cm above the aortic arch.
[2020-09-04] MEDS: GLUCERNA 1.5 CAL 1,000 ML BOT FT SCH ×4 (07:52→20:26)
[2020-09-04] MEDS: ENOXAPARIN 80 MG/0.8 ML SQ SCH ×2 (07:53→20:24)
[2020-09-04] MEDS: INSULIN 70/30 100 UNITS/ML SQ SCH ×3 (07:59→17:03)
[2020-09-04] MEDS: ASCORBIC ACID 500 MG TABLET PO SCH ×4 (08:00→20:22)
[2020-09-04] MEDS: AMIODARONE HCL 200 MG TAB PO SCH ×2 (08:00→20:23)
[2020-09-04] MEDS: DOCUSATE NA 100 MG CAP PO SCH ×2 (08:00→20:22)
[2020-09-04] MEDS: FAMOTIDINE 20 MG TAB PO SCH ×2 (08:00→20:23)
[2020-09-04] MEDS: METHYLPREDNISOLONE 125 MG INJ IV SCH ×2 (08:00→20:24)
[2020-09-04] MEDS: THIAMINE HCL 100 MG TABLET PO SCH ×2 (08:00→20:22)
[2020-09-04] MEDS: FLUCONAZOLE 100 MG TAB PO SCH (08:00)
[2020-09-04] MEDS: SITAGLIPTIN PHOS 100 MG TAB PO SCH (08:00)
[2020-09-04] MEDS: VITAMIN D 5,000 UNIT CAP PO SCH (08:01)
[2020-09-04] MEDS: ASPIRIN 81 MG CHEWABLE TABLET FT SCH (08:01)
--- NOTE | 2020-09-04 08:58 | RAD REPORT ---
EXAM DESCRIPTION: RAD - Chest Single View - 09/04/2020 8:52 am CLINICAL HISTORY: ETT placement COMPARISON: Portable September 04 TECHNIQUE: AP portable chest image was obtained 09/04/2020 8:52 am . FINDINGS: Endotracheal tube has been advanced with the tip now at the top of the aortic arch. The ri ght-side 50% pneumothorax has not progressed. Trachea remains in the midline. Feeding tube is below t he diaphragm. Left base opacification obscures the left heart border and left hemidiaphragm. IMPRESSION: ET tube tip has been advanced since prior imaging now at the top of the aortic arch. Right-side 50% pneumothorax unchanged.
[2020-09-04] MEDS: NA CHLORIDE 0.9% 1,000 ML IV SCH ×3 (09:00→13:00)
[2020-09-04] MEDS: NOREPINEPHRINE 8 MG in Dextrose 5%-Water 500 ML IV PRN ×2 (09:48→19:47)
[2020-09-04 09:53] LABS: Anisocytosis 1+; Blood Morphology Comment NOTED (NOT SEEN); Platelet Estimate ADEQ; Polychromasia 1+
[2020-09-04 09:54] LABS: Basophilic Stippling 1+
[2020-09-04] MEDS: LORazepam 2 MG/ML VIAL IV PRN (10:56)
--- NOTE | 2020-09-04 11:10 | P.PN ---
Subjective Date of Service: 09/04/20 Primary Care Provider: Sincere Luis Chief Complaint: Respiratory failure/Stroke Patient sedated and on mechanical ventilation. He is currently on Levophed with systolic blood pressure in the 110-120s. Nursing staff reports leaking ET cuff. ET tube was changed this morning. Patient now saturating in the low 90s. Physical Examination - Vital Signs Temperature: 99.1 F Blood Pressure: 112/63 Pulse: 96 Respirations: 20 Pulse Ox (%): 91 - Physical Exam General: Other (Sedated) HEENT: Other (ETT) Respiratory: Other (Nonlabored breathing.) Cardiovascular: No edema Gastrointestinal: Soft and benign, Non-distended Musculoskeletal: No erythema Integumentary: No rashes Neurological: Other (Sedated) Assessment And Plan - Current Problems (Diagnosis) (1) Acute respiratory failure with hypoxia Current Visit: Yes Status: Acute (2) Atrial fibrillation with RVR Current Visit: Yes Status: Acute (3) Pneumonia due to COVID-19 virus Current Visit: Yes Status: Acute (4) Hypertension Current Visit: Yes Status: Chronic Qualifiers: Hypertension type: essential hypertension Qualified Code(s): I10 - Essential (primary) hypertension (5) Non-insulin dependent diabetes mellitus Current Visit: Yes Status: Chronic (6) Acute CVA (cerebrovascular accident) Current Visit: Yes Status: Acute (7) Hypernatremia Current Visit: Yes Status: Acute Physician Review Additional Text: Continue on mechanical ventilation. Sedation per protocol. Avoid propofol for now due to hypotension. Contain IV Solu-Medrol. NG tube for medications and feeding. Titrate vasopressors to keep MAP > 65. s/p Remdesevir. Vitamin-D, vitamin-C and zinc supplementation. Continue diflucan (given prolonged steroid use) MRI consistent with stroke, MRA ok, carotids ok. Echo (08/08/20): normal echo. on Xarelto, stroke occurred while on Eliquis. Reduced amiodarone dose to 20 mg b.i.d. Dobhoff placed on 08/26 - receiving glucerna and free water Dispo: prolonged hospitalization, minimal improvement, patient now very debilitated. Prognosis poor. Patient remain full code.
[2020-09-04] MEDS: HYDROMORPHONE HCL 2 MG/ML inj IV PRN (12:31)
--- NOTE | 2020-09-04 12:52 | P.PN ---
Subjective Date of Service: 09/04/20 Primary Care Provider: Sincere Luis Chief Complaint: Pneumothorax respiratory failure Patient is not doing well he still hypoxic develop a significant pneumothorax and had a chest tube had to be placed Review of Systems is unable to be obtained Physical Examination - Vital Signs Temperature: 99.1 F Blood Pressure: 112/63 Pulse: 96 Respirations: 20 Pulse Ox (%): 91 - Physical Exam General: Unresponsive HEENT: Other (Patient is got nasal bridge ulceration from a CPAP) Neck: Supple Respiratory: Diminished Cardiovascular: No edema Assessment & Plan - Problems (Diagnosis) (1) Pneumonia due to COVID-19 virus Current Visit: Yes Status: Acute Plan: Respiratory failure patient very hypoxic blood pressures most able patient is hyponatremia trial of IV fluids hypocalcemia normal when corrected for low albumin blood sugars elevated white count is declined an prognosis very poor (2) Pneumothorax Current Visit: Yes Status: Acute Plan: Patient developed a pneumothorax 50% on the right-sided chest tube was inserted Qualifiers: Pneumothorax type: spontaneous, primary Qualified Code(s): J93.11 - Primary spontaneous pneumothorax Physician Review: Patient Assessed, Agree with Above Assessment and Plan
--- NOTE | 2020-09-04 12:56 | P.OP ---
Date of Service: 09/04/20 (Right-sided chest tube) Findings and Operative Technique Patient is 70 years of age with a history of herndon virus pneumonia on a ventilator developed significant right-sided pneumothorax has a reason for the chest you Patient's relative were informed about the chest tube Lovenox was held Using generous topical anesthesia and aseptic condition percutaneous size 12 the chest tube was inserted without any difficulty connected to the he pleural vac was operative chest x-ray has been ordered this was inserted using the Seldinger technique
--- NOTE | 2020-09-04 14:16 | RAD REPORT ---
EXAM DESCRIPTION: N[place] Single View09/04/2020 2:06 pm CLINICAL HISTORY: Device placement right chest tube placement IMPRESSION: A right chest tube has been inserted. The tip overlies the midportion of the medial aspe ct of the right hemithorax. The right lung has re-expanded. A residual right pneumothorax is not seen on this exam. Endotracheal tube overlies the level of top of the aortic arch
[2020-09-04 16:49] LABS: Potassium 4.8 mmol/L (3.5-5.1)
[2020-09-04] MEDS: propofoL 1,000 MG/100 ML VIAL IV PRN (17:30)
[2020-09-05] MEDS: CISATRACURIUM INJECTION 2 MG/ML (10 ML Vial) IV PRN ×3 (03:29→20:39)
[2020-09-05] MEDS: FENTANYL CITR 100 MCG/2 ML IV PRN ×3 (03:29→20:39)
[2020-09-05 05:00] LABS: Absolute Lymphocytes (CBC) 0.2 K/uL (0.7-4.9); Basophils % 0.5 % (0-1.3); Hematocrit 26.2 % (39.6-49.0); Lymphocytes % 1.3 % (15.3-44.8); MPV 8.6 fL (7.6-11.3); RBC Red Blood Cell Count 2.71 M/uL (4.33-5.43)
[2020-09-05 05:21] LABS: Albumin 1.7 g/dL (3.4-5.0); Bilirubin Total 0.3 mg/dL (0.2-1.0); Potassium 4.5 mmol/L (3.5-5.1); Protein, Total 4.8 g/dL (6.4-8.2)
[2020-09-05] MEDS: INSULIN -REGULAR HUMAN 50 UNIT/0.5 ML ML SQ SCH ×4 (05:21→17:12)
[2020-09-05 05:40] LABS: C-Reactive Protein 94.2 mg/L (<3.00); Ferritin 1709.9 ng/mL (26-388)
[2020-09-05] MEDS: METOPROLOL TAR 25 MG TAB FT SCH ×2 (05:41→17:12)
[2020-09-05] MEDS: GLUCERNA 1.5 CAL 1,000 ML BOT FT SCH ×4 (09:00→21:00)
[2020-09-05] MEDS ORDERED: CEFEPIME 1 GM/VIAL IV SCH (09:00)
[2020-09-05] MEDS: ENOXAPARIN 80 MG/0.8 ML SQ SCH ×2 (09:00→20:38)
[2020-09-05] MEDS: INSULIN 70/30 100 UNITS/ML SQ SCH ×2 (09:44→17:11)
--- NOTE | 2020-09-05 10:11 | RAD REPORT ---
EXAM DESCRIPTION: RAD - Chest Single View - 09/05/2020 9:49 am CLINICAL HISTORY: Resp failure Chest pain. COMPARISON: Chest Single View dated 09/04/2020; Chest Single View dated 09/04/2020; Chest Single View dated 09/04/2020; Chest Single View dated 09/03/2020 FINDINGS: Portable technique limits examination quality. Tip of the endotracheal tube is about 1 cm above the level of the aortic arch. Enteric tube coils in the stomach. Right-sided PICC line is stable in position with its tip in the SVC. Bilateral pulmonary opacities are slightly improved since yesterday's study.Heart size mildly enlarged. ICU nurse was no tified.
[2020-09-05 10:30] LABS: White Blood Cell Scan OK (OK)
[2020-09-05 10:31] LABS: Basophilic Stippling 1+; Blood Morphology Comment NOTED (NOT SEEN); Platelet Estimate ADEQ
[2020-09-05] MEDS: VITAMIN D 5,000 UNIT CAP PO SCH (10:39)
[2020-09-05] MEDS: ASCORBIC ACID 500 MG TABLET PO SCH ×4 (10:39→20:38)
[2020-09-05] MEDS: propofoL 1,000 MG/100 ML VIAL IV PRN (10:39)
[2020-09-05] MEDS: METHYLPREDNISOLONE 125 MG INJ IV SCH (10:39)
[2020-09-05] MEDS: AMIODARONE HCL 200 MG TAB PO SCH ×2 (10:39→20:37)
[2020-09-05] MEDS: NA CHLORIDE 0.9% 1,000 ML IV SCH ×2 (10:39→23:22)
[2020-09-05] MEDS: CEFEPIME/SWI 1gm 10 ML IV SCH ×2 (10:39→20:37)
[2020-09-05 10:40] LABS: Arterial Blood Carboxyhemoglob 1.8 % (0-1.5); Blood Gas Oxyhemoglobin 85.8 % (94-97); Blood O2 Saturation 88.4 % (92-98.5)
[2020-09-05] MEDS: ASPIRIN 81 MG CHEWABLE TABLET FT SCH (10:40)
[2020-09-05] MEDS: FAMOTIDINE 20 MG TAB PO SCH ×2 (10:40→20:38)
[2020-09-05] MEDS: THIAMINE HCL 100 MG TABLET PO SCH ×2 (10:40→20:38)
[2020-09-05] MEDS: FLUCONAZOLE 100 MG TAB PO SCH (10:40)
[2020-09-05] MEDS: DOCUSATE NA 100 MG CAP PO SCH ×2 (10:48→20:39)
--- NOTE | 2020-09-05 12:02 | P.PN ---
Subjective Date of Service: 09/09/20 Primary Care Provider: Sincere Luis Chief Complaint: Pneumothorax respiratory failure For change patient continues to remain very hypoxic chest x-ray no evidence of pneumothorax chronic interstitial changes Review of Systems is unable to be obtained Physical Examination - Vital Signs Temperature: 97.8 F Blood Pressure: 120/59 Pulse: 93 Respirations: 34 Pulse Ox (%): 89 - Physical Exam General: Unresponsive Respiratory: Clear to auscultation bilaterally, Diminished Cardiovascular: No edema, Normal S1 S2 Assessment & Plan - Problems (Diagnosis) (1) Pneumonia due to COVID-19 virus Current Visit: Yes Status: Acute Plan: Respiratory failure prognosis very poor patient continues to remain very hypoxic ET tube adjusted advanced 1 cm no evidence of pneumothorax status post chest tube mild hyponatremia vasopressors currently weaned off increase peep to 10 cm blood culture is pending (2) Pneumothorax Current Visit: Yes Status: Acute Plan: Complete re-expansion no evidence of any air leak chest tube in place Qualifiers: Pneumothorax type: spontaneous, primary Qualified Code(s): J93.11 - Primary spontaneous pneumothorax Physician Review: Patient Assessed, Agree with Above Assessment and Plan
--- NOTE | 2020-09-05 14:43 | P.PN ---
Subjective Date of Service: 09/05/20 Primary Care Provider: Sincere Luis Chief Complaint: Pneumothorax respiratory failure Patient sedated and on mechanical ventilation. He remain on Levophed. Patient now saturating in the low 90s. Right-sided chest tube. Physical Examination - Vital Signs Temperature: 97.8 F Blood Pressure: 102/54 Pulse: 87 Respirations: 29 Pulse Ox (%): 93 - Physical Exam General: Other (Sedated) Neck: JVD not distended Respiratory: Diminished, Other (Right side chest tube.) Cardiovascular: No edema, Regular rate/rhythm Gastrointestinal: Non-distended Musculoskeletal: No swelling Neurological: Other (Sedated) Assessment And Plan - Current Problems (Diagnosis) (1) Acute respiratory failure with hypoxia Current Visit: Yes Status: Acute (2) Atrial fibrillation with RVR Current Visit: Yes Status: Acute (3) Pneumonia due to COVID-19 virus Current Visit: Yes Status: Acute (4) Hypertension Current Visit: Yes Status: Chronic Qualifiers: Hypertension type: essential hypertension Qualified Code(s): I10 - Essential (primary) hypertension (5) Non-insulin dependent diabetes mellitus Current Visit: Yes Status: Chronic (6) Acute CVA (cerebrovascular accident) Current Visit: Yes Status: Acute (7) Hypernatremia Current Visit: Yes Status: Acute Physician Review: Patient Assessed, Agree with Above Assessment and Plan Physician Review Additional Text: Continue on mechanical ventilation. Sedation per protocol. Contain IV Solu-Medrol. Chest tube in place for pneumothorax. Pulmonary is following. NG tube for medications and feeding. Titrate vasopressors to keep MAP > 65. s/p Remdesevir. Vitamin-D, vitamin-C and zinc supplementation. Continue diflucan (given prolonged steroid use) MRI consistent with stroke, MRA ok, carotids ok. Echo (08/08/20): normal echo. on Xarelto, stroke occurred while on Eliquis. Reduced amiodarone dose to 20 mg b.i.d. Dobhoff placed on 08/26 - receiving glucerna and free water. Dispo: prolonged hospitalization, minimal improvement, patient now very debilitated. Prognosis poor. Patient remain full code.
[2020-09-05] MEDS: METHYLPREDNISOLONE 40 MG INJ IV SCH (20:42)
[2020-09-06] MEDS: D50W 25 GM/50 ML VIAL IV PRN ×2 (05:00→12:49)
[2020-09-06] MEDS: METOPROLOL TAR 25 MG TAB FT SCH (05:04)
[2020-09-06] MEDS: INSULIN -REGULAR HUMAN 50 UNIT/0.5 ML ML SQ SCH ×6 (05:06→20:39)
[2020-09-06 05:22] LABS: Arterial Blood Carboxyhemoglob 1.6 % (0-1.5); Blood Gas Oxyhemoglobin 90.8 % (94-97); Blood O2 Saturation 93.4 % (92-98.5)
[2020-09-06 05:34] LABS: Absolute Lymphocytes (CBC) 0.2 K/uL (0.7-4.9); Basophils % 0.3 % (0-1.3); Hematocrit 23.2 % (39.6-49.0); Lymphocytes % 1.3 % (15.3-44.8); MPV 8.8 fL (7.6-11.3); RBC Red Blood Cell Count 2.39 M/uL (4.33-5.43)
[2020-09-06 06:16] LABS: Albumin 1.5 g/dL (3.4-5.0); Bilirubin Total 0.3 mg/dL (0.2-1.0); C-Reactive Protein 51.8 mg/L (<3.00); Ferritin 1424.2 ng/mL (26-388); Potassium 4.6 mmol/L (3.5-5.1); Protein, Total 4.3 g/dL (6.4-8.2)
[2020-09-06] MEDS: INSULIN 70/30 100 UNITS/ML SQ SCH ×2 (07:30→16:30)
[2020-09-06] MEDS: GLUCERNA 1.5 CAL 1,000 ML BOT FT SCH (09:00)
[2020-09-06] MEDS: ASPIRIN 81 MG CHEWABLE TABLET FT SCH ×2 (09:00→09:52)
[2020-09-06] MEDS: ENOXAPARIN 80 MG/0.8 ML SQ SCH (09:00)
[2020-09-06] MEDS ORDERED: CALCIUM GLUC 10% INJ 9.3 MEQ in NA CHLORIDE 0.9% 100 ML IV ONE (09:30)
[2020-09-06 09:37] LABS: Blood Morphology Comment NOT SEEN (NOT SEEN); Platelet Estimate ADEQ; White Blood Cell Scan OK (OK)
[2020-09-06] MEDS: FLUCONAZOLE 100 MG TAB PO SCH (09:51)
[2020-09-06] MEDS: ASCORBIC ACID 500 MG TABLET PO SCH ×4 (09:52→20:39)
[2020-09-06] MEDS: METHYLPREDNISOLONE 40 MG INJ IV SCH ×2 (09:52→20:43)
[2020-09-06] MEDS: THIAMINE HCL 100 MG TABLET PO SCH ×2 (09:52→20:38)
[2020-09-06] MEDS: AMIODARONE HCL 200 MG TAB PO SCH ×2 (09:52→20:43)
[2020-09-06] MEDS: VITAMIN D 5,000 UNIT CAP PO SCH (09:52)
[2020-09-06] MEDS: FAMOTIDINE 20 MG TAB PO SCH ×2 (09:53→20:38)
[2020-09-06] MEDS: CEFEPIME/SWI 1gm 10 ML IV SCH ×2 (10:06→20:37)
[2020-09-06] MEDS: DOCUSATE NA 100 MG CAP PO SCH ×2 (10:16→20:38)
[2020-09-06] MEDS: NA CHLORIDE 0.9% 1,000 ML IV SCH (10:26)
--- NOTE | 2020-09-06 10:26 | P.PN ---
Subjective Date of Service: 09/09/20 Primary Care Provider: Sincere Luis Chief Complaint: Pneumothorax respiratory failure Patient is improving he still has subcutaneous emphysema recent scrotal bleed anemia oxygenation has improved Review of Systems is unable to be obtained Physical Examination - Vital Signs Temperature: 98.5 F Blood Pressure: 118/60 Pulse: 90 Respirations: 26 Pulse Ox (%): 100 - Physical Exam General: Unresponsive Respiratory: Clear to auscultation bilaterally Cardiovascular: Normal S1 S2, Edema External genitalia: Other (Scrotal bleeding) Assessment & Plan - Problems (Diagnosis) (1) Pneumonia due to COVID-19 virus Current Visit: Yes Status: Acute Plan: Respiratory failure oxygenation has improved chest x-ray also looks better nasal bridge ulceration oxygenation has improved reduce peep patient has subcutaneous emphysema reduce peep continue to titrate O2 down anemic patient will be transfused hyponatremia improving resume tube feeds hold anticoagulation no further episodes of supraventricular tachycardia he is on amiodarone and metoprolol (2) Pneumothorax Current Visit: Yes Status: Acute Plan: Complete lung re-expansion with no air leak Qualifiers: Pneumothorax type: spontaneous, primary Qualified Code(s): J93.11 - Primary spontaneous pneumothorax Physician Review: Patient Assessed, Agree with Above Assessment and Plan
--- NOTE | 2020-09-06 10:56 | RAD REPORT ---
EXAM DESCRIPTION: RAD - Chest Single View - 09/06/2020 5:58 am CLINICAL HISTORY: Resp failure Chest pain. COMPARISON: Chest Single View dated 09/05/2020; Chest Single View dated 09/04/2020; Chest Single View dated 09/04/2020; Chest Single View dated 09/04/2020 FINDINGS: Portable technique limits examination quality. Mild bilateral pulmonary opacities are again noted, unchanged. Tip of the endotracheal tube is at the level of the aortic arch. Heart size is mildly enlarged. Enteric tube is in the stomach. IMPRESSION: Stable chest since yesterday's study.
--- NOTE | 2020-09-06 11:39 | P.PN ---
Subjective Date of Service: 09/06/20 Primary Care Provider: Sincere Luis Chief Complaint: Pneumothorax respiratory failure Patient sedated and on mechanical ventilation. He remain on Levophed. Oxygen saturation is better today. Right-sided chest tube in situ. Hemoglobin dropped to 7.5 today. He also has hypocalcemia. Physical Examination - Vital Signs Temperature: 98.5 F Blood Pressure: 118/60 Pulse: 90 Respirations: 26 Pulse Ox (%): 100 - Physical Exam General: Other (Sedated) HEENT: Other (ETT) Respiratory: Other (Upper airway transmitted sounds) Cardiovascular: No edema, Regular rate/rhythm, Normal S1 S2 Gastrointestinal: Soft and benign, Non-distended Musculoskeletal: No swelling Integumentary: No rashes Neurological: Other (Sedated) Assessment And Plan - Current Problems (Diagnosis) (1) Acute respiratory failure with hypoxia Current Visit: Yes Status: Acute (2) Atrial fibrillation with RVR Current Visit: Yes Status: Acute (3) Pneumonia due to COVID-19 virus Current Visit: Yes Status: Acute (4) Hypertension Current Visit: Yes Status: Chronic Qualifiers: Hypertension type: essential hypertension Qualified Code(s): I10 - Ess ential (primary) hypertension (5) Non-insulin dependent diabetes mellitus Current Visit: Yes Status: Chronic (6) Acute CVA (cerebrovascular accident) Current Visit: Yes Status: Acute (7) Hypernatremia Current Visit: Yes Status: Acute - Plan On IV steroid. Hold anticoagulation given drop in hemoglobin. Echocardiogram unremarkable. Patient tolerating normal diet. Continue PT. Status post Remdesivir Patient remain in sinus rhythm Continue metoprolol 25 mg b.i.d. Hypernatremia resolved Vitamin-D, vitamin-C and zinc supplementation. Titrate oxygen. High-flow and BiPAP as needed. Physician Review: Patient Assessed, Agree with Above Assessment and Plan Physician Review Additional Text: Continue on mechanical ventilation. Sedation per protocol. Continue IV Solu-Medrol. Chest tube in place for pneumothorax. Pulmonary is following. NG tube for medications and feeding. Feeds at continue slow rate as tolerated. Check residual frequently. Titrate vasopressors to keep MAP > 65. s/p Remdesevir. Vitamin-D, vitamin-C and zinc supplementation. Continue diflucan (given prolonged steroid use) MRI consistent with stroke, MRA ok, carotids ok. Echo (08/08/20): normal echo. on Xarelto, stroke occurred while on Eliquis. Reduced amiodarone dose to 20 mg b.i.d. Hold anticoagulation given drop in hemoglobin Transfuse 1 unit PRBC. Dispo: prolonged hospitalization, minimal improvement, patient now very debilitated. Prognosis poor. Patient remain full code.
[2020-09-06] MEDS ORDERED: NA CHLORIDE 0.9% 250 ML IV SCH (12:00)
[2020-09-06] MEDS ORDERED: NA CHLORIDE 0.9% 250 ML ONE (14:42)
[2020-09-06] MEDS ORDERED: GLUCAGON 1 MG/VIAL IM PRN (15:36)
[2020-09-06] MEDS ORDERED: ACETAMINOPHEN 325 MG TABLET PO PRN (15:38)
[2020-09-06] MEDS ORDERED: D50W 25 GM/50 ML VIAL IV PRN (15:43)
[2020-09-06] MEDS ORDERED: WATER FOR INJ,STERILE 10 ML IM PRN (15:52)
[2020-09-06] MEDS ORDERED: DIPHENOX/ATROP SULF 1 TAB PO PRN (16:00)
[2020-09-06] MEDS ORDERED: POLYETHYL GLY 3350 17 GM/DOSE PO PRN (16:12)
[2020-09-06] MEDS: METOPROLOL TAR 25 MG TAB PO SCH (16:35)
[2020-09-06] MEDS ORDERED: METFORMIN HCL 500 MG TAB PO SCH (17:00)
[2020-09-06] MEDS: propofoL 1,000 MG/100 ML VIAL IV PRN (19:28)
[2020-09-06] MEDS ORDERED: AMIODARONE HCL 200 MG TAB ONE (20:59)
[2020-09-06] MEDS ORDERED: MELATONIN 5 MG TABLET PO SCH (21:00)
[2020-09-06] MEDS ORDERED: METHYLPREDNISOLONE 125 MG INJ IV SCH (21:00)
[2020-09-06] MEDS ORDERED: METHYLPREDNISOLONE 40 MG INJ ONE (21:00)
[2020-09-06 21:24] LABS: Hematocrit 26.2 % (39.6-49.0)
[2020-09-06] MEDS: FENTANYL CITR 100 MCG/2 ML IV PRN (21:25)
[2020-09-07] MEDS: NA CHLORIDE 0.9% 1,000 ML IV SCH ×2 (00:07→06:26)
[2020-09-07] MEDS ORDERED: NA CHLORIDE 0.9% 1,000 ML ONE (00:21)
[2020-09-07] MEDS: FENTANYL CITR 100 MCG/2 ML IV PRN (03:37)
[2020-09-07] MEDS: METOPROLOL TAR 25 MG TAB PO SCH ×2 (05:28→17:25)
[2020-09-07] MEDS: HYDROMORPHONE HCL 2 MG/ML inj IV PRN ×3 (05:28→21:45)
[2020-09-07] MEDS: INSULIN -REGULAR HUMAN 50 UNIT/0.5 ML ML SQ SCH ×6 (05:29→23:41)
[2020-09-07 06:09] LABS: Arterial Blood Carboxyhemoglob 1.4 % (0-1.5); Blood Gas Oxyhemoglobin 87.5 % (94-97); Blood O2 Saturation 89.5 % (92-98.5)
[2020-09-07 06:34] LABS: Absolute Lymphocytes (CBC) 0.2 K/uL (0.7-4.9); Basophils % 0.2 % (0-1.3); Hematocrit 28.8 % (39.6-49.0); MPV 8.6 fL (7.6-11.3); RBC Red Blood Cell Count 3.11 M/uL (4.33-5.43)
[2020-09-07 07:03] LABS: Blood Morphology Comment NOT SEEN (NOT SEEN); Platelet Estimate ADEQ
[2020-09-07 07:11] LABS: C-Reactive Protein 31.2 mg/L (<3.00); Ferritin 1409.3 ng/mL (26-388); Potassium 4.9 mmol/L (3.5-5.1)
[2020-09-07] MEDS: ASPIRIN 81 MG CHEWABLE TABLET FT SCH (08:26)
[2020-09-07] MEDS: CEFEPIME/SWI 1gm 10 ML IV SCH (08:26)
[2020-09-07] MEDS: ASCORBIC ACID 500 MG TABLET PO SCH ×4 (08:27→20:22)
[2020-09-07] MEDS: THIAMINE HCL 100 MG TABLET PO SCH ×2 (08:27→20:21)
[2020-09-07] MEDS: VITAMIN D 5,000 UNIT CAP PO SCH (08:27)
[2020-09-07] MEDS: ZINC SULFATE 220 MG CAP PO SCH (08:27)
[2020-09-07] MEDS: FAMOTIDINE 20 MG TAB PO SCH ×2 (08:27→20:21)
[2020-09-07] MEDS: DOCUSATE NA 100 MG CAP PO SCH ×2 (08:27→20:22)
[2020-09-07] MEDS: FLUCONAZOLE 100 MG TAB PO SCH (08:27)
[2020-09-07] MEDS: INSULIN 70/30 100 UNITS/ML SQ SCH ×2 (08:28→16:30)
[2020-09-07] MEDS: METHYLPREDNISOLONE 40 MG INJ IV SCH ×2 (08:30→20:21)
[2020-09-07] MEDS: AMIODARONE HCL 200 MG TAB PO SCH ×2 (08:31→20:21)
[2020-09-07] MEDS ORDERED: METHYLPREDNISOLONE 40 MG INJ ONE ×2 (08:47→19:55)
[2020-09-07] MEDS ORDERED: AMIODARONE HCL 200 MG TAB ONE ×2 (08:48→19:55)
--- NOTE | 2020-09-07 08:57 | RAD REPORT ---
EXAM DESCRIPTION: RAD - Chest Single View - 09/07/2020 4:05 am CLINICAL HISTORY: Resp failure COMPARISON: September 06 portable, September 05 portable TECHNIQUE: AP portable chest image was obtained 09/07/2020 4:05 am . FINDINGS: Endotracheal tube is in place. Tip is 2 cm above the aortic arch the T2 level. Feeding tub e is in the proximal stomach unchanged in position. Right upper extremity PICC line has not changed. Dense opacification at the left lung base remains. Left costophrenic angle is blunted with obscuring of the left hemidiaphragm. Airspace opacification is present in the right base and both midlung field s. Adjusting for respiratory differences the lung parenchymal pattern has not changed. Trachea is midline. Heart size is stable. Central vasculature stable as well. No new or enlarging pne umothorax. No enlarging pleural effusion. ET tube position telephoned to Marcy in the ICU 8:53 a.m. IMPRESSION: Endotracheal tube tip is 2 cm above the aortic arch. Bilateral lung parenchymal opacification, worse in the left base, stable from prior day imaging.
[2020-09-07] MEDS ORDERED: SITAGLIPTIN PHOS 100 MG TAB PO SCH (09:00)
--- NOTE | 2020-09-07 14:08 | P.PN ---
Subjective Date of Service: 09/07/20 Primary Care Provider: Sincere Luis Chief Complaint: Pneumothorax respiratory failure Patient sedated and on mechanical ventilation. Levophed weaned off. Blood pressure fluctuates but mostly soft. Right-sided chest tube in situ. Status post 1 unit PRBC transfusion yesterday. Posttransfusion hemoglobin is up to 8.8. Physical Examination - Vital Signs Temperature: 97.6 F Blood Pressure: 102/58 Pulse: 70 Respirations: 34 Pulse Ox (%): 88 - Physical Exam General: Other (Sedated) HEENT: Other (ETT) Respiratory: Other (Bilateral upper airway transmitted sounds) Cardiovascular: No edema, Regular rate/rhythm Gastrointestinal: Soft and benign, Non-distended Musculoskeletal: No swelling Neurological: Other (Sedated) Assessment And Plan - Current Problems (Diagnosis) (1) Acute respiratory failure with hypoxia Current Visit: Yes Status: Acute (2) Atrial fibrillation with RVR Current Visit: Yes Status: Acute (3) Pneumonia due to COVID-19 virus Current Visit: Yes Status: Acute (4) Hypertension Current Visit: Yes Status: Chronic Qualifiers: Hypertension type: essential hypertension Qualified Code(s): I10 - Essential (primary) hypertension (5) Non-insulin dependent diabetes mellitus Current Visit: Yes Status: Chronic (6) Acute CVA (cerebrovascular accident) Current Visit: Yes Status: Acute (7) Hypernatremia Current Visit: Yes Status: Acute Physician Review: Patient Assessed, Agree with Above Assessment and Plan Physician Review Additional Text: Continue on mechanical ventilation. Sedation per protocol. Patient not needing much sedation Continue IV Solu-Medrol. Chest tube in place for pneumothorax. Pulmonary is following. NG tube for medications and feeding. Feed at continuous slow rate as tolerated. Check residual frequently. s/p Remdesevir. Vitamin-D, vitamin-C and zinc supplementation. Continue diflucan (given prolonged steroid use) MRI consistent with stroke, MRA ok, carotids ok. Echo (08/08/20): normal echo. on Xarelto, stroke occurred while on Eliquis. Reduced amiodarone dose to 20 mg b.i.d. Hold anticoagulation given drop in hemoglobin Status post 1 unit PRBC transfusion. Monitor CBC. Dispo: prolonged hospitalization, minimal improvement, patient now very debilitated. Prognosis poor. Patient remain full code.
[2020-09-07] MEDS ORDERED: GLUCERNA 1.2 CAL 1,000 ML BOT RTH SCH (18:00)
[2020-09-07 18:12] LABS: Arterial Blood Carboxyhemoglob 1.4 % (0-1.5); Blood Gas Oxyhemoglobin 90.5 % (94-97); Blood O2 Saturation 92.8 % (92-98.5)
[2020-09-07] MEDS: propofoL 1,000 MG/100 ML VIAL IV PRN (18:14)
[2020-09-07] MEDS: APIXABAN 2.5 MG TABLET PO SCH (20:21)
[2020-09-08] MEDS: HYDROMORPHONE HCL 2 MG/ML inj IV PRN ×3 (04:00→16:55)
[2020-09-08] MEDS: METOPROLOL TAR 25 MG TAB PO SCH ×2 (05:48→17:36)
[2020-09-08] MEDS: INSULIN -REGULAR HUMAN 50 UNIT/0.5 ML ML SQ SCH ×4 (05:49→23:54)
[2020-09-08 05:51] LABS: Arterial Blood Carboxyhemoglob 1.6 % (0-1.5); Blood Gas Oxyhemoglobin 87.7 % (94-97); Blood O2 Saturation 90.1 % (92-98.5)
[2020-09-08 05:57] LABS: Absolute Lymphocytes (CBC) 0.2 K/uL (0.7-4.9); Basophils % 0.2 % (0-1.3); Hematocrit 27.9 % (39.6-49.0); Lymphocytes % 1.2 % (15.3-44.8); MPV 8.2 fL (7.6-11.3); RBC Red Blood Cell Count 3.01 M/uL (4.33-5.43)
[2020-09-08 06:41] LABS: C-Reactive Protein 17.5 mg/L (<3.00); Ferritin 1255.1 ng/mL (26-388); Potassium 5.4 mmol/L (3.5-5.1)
[2020-09-08] MEDS: INSULIN 70/30 100 UNITS/ML SQ SCH ×2 (07:30→16:30)
--- NOTE | 2020-09-08 07:39 | RAD REPORT ---
EXAM DESCRIPTION: RAD - Chest Single View - 09/08/2020 4:39 am CLINICAL HISTORY: Resp failure COMPARISON: September 07 TECHNIQUE: AP portable chest image was obtained 09/08/2020 4:39 am . FINDINGS: Endotracheal tube tip is top of the aortic arch. No change the feeding tube or right-sided PICC line. Lung volumes are low. Lung parenchymal opacification is not substantially different. Heart and vascul ature are normal. No new or enlarging pneumothorax or enlarging pleural effusion. No acute bony abnor mality seen. No acute aortic findings suspected. IMPRESSION: Endotracheal tube tip in good position. Bilateral lung parenchymal opacification not substantially different from prior day imaging.
[2020-09-08 07:59] LABS: Basophilic Stippling 1+; Blood Morphology Comment NOTED (NOT SEEN); Platelet Estimate ADEQ
[2020-09-08] MEDS: METHYLPREDNISOLONE 40 MG INJ IV SCH ×3 (09:00→20:41)
[2020-09-08] MEDS: VITAMIN D 5,000 UNIT CAP PO SCH (09:00)
[2020-09-08] MEDS: AMIODARONE HCL 200 MG TAB PO SCH ×3 (09:00→20:42)
[2020-09-08] MEDS ORDERED: COLLAGENASE 30 GM OINTMENT TOP SCH (09:00)
[2020-09-08] MEDS: DOCUSATE NA 100 MG CAP PO SCH ×2 (09:00→20:42)
[2020-09-08] MEDS: APIXABAN 2.5 MG TABLET PO SCH (09:24)
[2020-09-08] MEDS: FLUCONAZOLE 100 MG TAB PO SCH (09:25)
[2020-09-08] MEDS: ASCORBIC ACID 500 MG TABLET PO SCH ×4 (09:25→20:42)
[2020-09-08] MEDS: ASPIRIN 81 MG CHEWABLE TABLET FT SCH (09:25)
[2020-09-08] MEDS: THIAMINE HCL 100 MG TABLET PO SCH ×2 (09:33→20:42)
[2020-09-08] MEDS: ZINC SULFATE 220 MG CAP PO SCH (09:33)
[2020-09-08] MEDS: FAMOTIDINE 20 MG TAB PO SCH ×2 (09:33→20:42)
--- NOTE | 2020-09-08 12:43 | P.PN ---
Subjective Date of Service: 09/08/20 Primary Care Provider: Sincere Luis Chief Complaint: Pneumothorax respiratory failure Patient continues to remain very hypoxic there is no air leak on the right side Review of Systems is unable to be obtained Physical Examination - Vital Signs Temperature: 98.3 F Blood Pressure: 114/55 Pulse: 86 Respirations: 20 Pulse Ox (%): 99 - Physical Exam General: Unresponsive Respiratory: Clear to auscultation bilaterally, Diminished Cardiovascular: Regular rate/rhythm, Edema Assessment & Plan - Problems (Diagnosis) (1) Pneumonia due to COVID-19 virus Current Visit: Yes Status: Acute Plan: Respiratory failure patient is still requiring high concentrations of oxygen no evidence of pneumothorax on the right side labs reviewed white count is mildly elevated opacification the left side of the lung (2) Pneumothorax Current Visit: Yes Status: Acute Plan: Complete lung re-expansion with no air leak Qualifiers: Pneumothorax type: spontaneous, primary Qualified Code(s): J93.11 - Primary spontaneous pneumothorax Physician Review: Patient Assessed, Agree with Above Assessment and Plan
--- NOTE | 2020-09-08 13:05 | P.PN ---
Subjective Date of Service: 09/08/20 Primary Care Provider: Sincere Luis Chief Complaint: Pneumothorax respiratory failure Patient sedated and on mechanical ventilation. No changes from yesterday. Blood pressure are better today. Right-sided chest tube in situ. Physical Examination - Vital Signs Temperature: 98.3 F Blood Pressure: 114/55 Pulse: 86 Respirations: 20 Pulse Ox (%): 99 - Physical Exam General: Unresponsive, Other (On sedation.) HEENT: Other (ETT) Respiratory: Other (Bilateral upper airway transmitted sounds) Cardiovascular: No edema, Regular rate/rhythm Gastrointestinal: Non-distended Musculoskeletal: No swelling Integumentary: No rashes Neurological: Other (Unresponsive) Assessment And Plan - Current Problems (Diagnosis) (1) Acute respiratory failure with hypoxia Current Visit: Yes Status: Acute (2) Atrial fibrillation with RVR Current Visit: Yes Status: Acute (3) Pneumonia due to COVID-19 virus Current Visit: Yes Status: Acute (4) Hypertension Current Visit: Yes Status: Chronic Qualifiers: Hypertension type: essential hypertension Qualified Code(s): I10 - Essential (primary) hypertension (5) Non-insulin dependent diabetes mellitus Current Visit: Yes Status: Chronic (6) Acute CVA (cerebrovascular accident) Current Visit: Yes Status: Acute (7) Hypernatremia Current Visit: Yes Status: Acute Physician Review: Patient Assessed, Agree with Above Assessment and Plan Physician Review Additional Text: Continue on mechanical ventilation. Patient is unresponsive Continue IV Solu-Medrol. Chest tube in place for pneumothorax. Pulmonary is following. NG tube for medications and feeding. Feed at continuous slow rate as tolerated. Patient with high gastric residual. Check residual frequently. s/p Remdesevir. Vitamin-D, vitamin-C and zinc supplementation. Continue diflucan (given prolonged steroid use) MRI consistent with stroke, MRA ok, carotids ok. Echo (08/08/20): normal echo. on Xarelto, stroke occurred while on Eliquis. Reduced amiodarone dose to 20 mg b.i.d. Xarelto on hold given drop in hemoglobin Status post 1 unit PRBC transfusion. Monitor CBC and blood chemistry. I had a discussion with the daughter and the regarding his prognosis. They are leaning towards DNR but did not make any decision on hospice or withdrawal of treatment.
[2020-09-08 14:12] LABS: Arterial Blood Carboxyhemoglob 1.7 % (0-1.5); Blood O2 Saturation 84.4 % (92-98.5)
[2020-09-08] MEDS: propofoL 1,000 MG/100 ML VIAL IV PRN (14:44)
[2020-09-08] MEDS: APIXABAN 5 MG TABLET PO SCH (20:42)
[2020-09-09] MEDS: HYDROMORPHONE HCL 2 MG/ML inj IV PRN ×4 (01:16→22:05)
[2020-09-09 05:18] LABS: Absolute Lymphocytes (CBC) 0.1 K/uL (0.7-4.9); Basophils % 0.8 % (0-1.3); Hematocrit 28.3 % (39.6-49.0); Lymphocytes % 0.8 % (15.3-44.8); MPV 8.1 fL (7.6-11.3); RBC Red Blood Cell Count 3.03 M/uL (4.33-5.43)
[2020-09-09] MEDS: propofoL 1,000 MG/100 ML VIAL IV PRN ×2 (05:29→20:21)
[2020-09-09] MEDS: METOPROLOL TAR 25 MG TAB PO SCH ×2 (05:30→17:45)
[2020-09-09 05:52] LABS: Arterial Blood Carboxyhemoglob 1.8 % (0-1.5); Blood Gas Oxyhemoglobin 83.5 % (94-97); Blood O2 Saturation 85.9 % (92-98.5)
[2020-09-09 05:58] LABS: Albumin 1.6 g/dL (3.4-5.0); Bilirubin Total 0.4 mg/dL (0.2-1.0); Ferritin 1300.7 ng/mL (26-388); Protein, Total 4.7 g/dL (6.4-8.2)
[2020-09-09 06:01] LABS: Potassium 6.1 mmol/L (3.5-5.1)
[2020-09-09] MEDS: INSULIN -REGULAR HUMAN 50 UNIT/0.5 ML ML SQ SCH ×3 (06:33→17:10)
[2020-09-09] MEDS ORDERED: INSULIN -REGULAR HUMAN 50 UNIT/0.5 ML ML ONE (06:50)
[2020-09-09] MEDS ORDERED: SOD POLYSTYREN SUL 15 GM/60 ML UCUP FT ONE ×2 (07:31→21:02)
[2020-09-09] MEDS: INSULIN 70/30 100 UNITS/ML SQ SCH ×2 (07:58→16:30)
[2020-09-09] MEDS: ASPIRIN 81 MG CHEWABLE TABLET FT SCH (07:59)
[2020-09-09] MEDS: DOCUSATE NA 100 MG CAP PO SCH ×2 (07:59→20:19)
[2020-09-09] MEDS: AMIODARONE HCL 200 MG TAB PO SCH ×2 (07:59→20:19)
[2020-09-09] MEDS: METHYLPREDNISOLONE 40 MG INJ IV SCH ×2 (08:00→20:20)
[2020-09-09] MEDS: APIXABAN 5 MG TABLET PO SCH ×2 (08:00→20:19)
[2020-09-09] MEDS: ZINC SULFATE 220 MG CAP PO SCH (08:00)
[2020-09-09] MEDS: VITAMIN D 5,000 UNIT CAP PO SCH (08:00)
[2020-09-09] MEDS: FLUCONAZOLE 100 MG TAB PO SCH (08:00)
[2020-09-09] MEDS: FAMOTIDINE 20 MG TAB PO SCH ×2 (08:00→20:19)
[2020-09-09] MEDS: THIAMINE HCL 100 MG TABLET PO SCH ×2 (08:00→20:20)
--- NOTE | 2020-09-09 08:06 | RAD REPORT ---
EXAM DESCRIPTION: Nory Single View09/09/2020 5:57 am CLINICAL HISTORY: Respiratory failure COMPARISON: none FINDINGS: Endotracheal tube at the level of the top of the aortic arch. Feeding tube within the chas ashlie fundus. Improvement in the left and minimal worsening in right diffuse pulmonary opacities. Heart upper limits normal size. There may be small left pleural effusion
[2020-09-09] MEDS: COLLAGENASE 30 GM OINTMENT TOP SCH (09:00)
--- NOTE | 2020-09-09 09:26 | P.PN ---
Subjective Date of Service: 09/09/20 Primary Care Provider: Sincere Luis Chief Complaint: Pneumothorax respiratory failure Subjective: No new changes (no significant overnight events / changes since yesterday) Review of Systems 10-point ROS is otherwise unremarkable Physical Examination - Vital Signs Temperature: 97.4 F Blood Pressure: 124/65 Pulse: 90 Respirations: 30 Pulse Ox (%): 97 Assessment & Plan Physician Review Additional Text: Physical Exam General: Unresponsive, intubated, sedated HEENT: ETT, NGT in place Respiratory: intubated Cardiovascular: No edema, Regular rate/rhythm Gastrointestinal: soft, Non-distended Musculoskeletal: No swelling Integumentary: No rashes Problem List Acute respiratory failure with hypoxia Pneumonia due to COVID-19 virus new, paroxysmal Atrial fibrillation with RVR Hypertension Non-insulin dependent diabetes mellitus Acute CVA (cerebrovascular accident) Hypernatremia Decubitus ulcer, sacral stage 3 Continue on mechanical ventilation. IV solumedrol. s/p Remdesevir. Vitamin-D, vitamin-C and zinc supplementation. Chest tube in place for pneumothorax. Pulmonary is following. NG tube for medications and feeding. Feed at continuous slow rate as tolerated. Patient with high gastric residual a few days ago, improved. Check residual frequently. MRI consistent with stroke, MRA ok, carotids ok. Echo (08/08/20): normal echo. continue amiodarone 200 mg b.i.d. Xarelto was on hold given drop in hemoglobin, Eliquis restarted per pulm on 09/08 adjust insulin as needed mild hyponatremia now, will review and adjust free water as appropriate Status post 1 unit PRBC transfusion. Monitor CBC and blood chemistry. hyperkalemia this morning, will give kayexalate, repeat K at noon Dispo: poor prognosis will continue to update family per report - daughter and are leaning towards DNR but did not make any decision on hospice or withdrawal of treatment Time Spent Managing Pts Care (In Minutes): 35
[2020-09-09] MEDS: ASCORBIC ACID 500 MG TABLET PO SCH ×2 (11:37→17:45)
--- NOTE | 2020-09-09 12:09 | P.PN ---
Subjective Date of Service: 09/09/20 Primary Care Provider: Sincere Luis Chief Complaint: Pneumothorax respiratory failure Patient's condition no changes still continues to be hypoxic Review of Systems is unable to be obtained Physical Examination - Vital Signs Temperature: 97.4 F Blood Pressure: 145/75 Pulse: 76 Respirations: 18 Pulse Ox (%): 96 - Physical Exam General: Unresponsive Respiratory: Clear to auscultation bilaterally, Diminished Cardiovascular: Regular rate/rhythm, Edema Assessment & Plan - Problems (Diagnosis) (1) Pneumonia due to COVID-19 virus Current Visit: Yes Status: Acute Plan: Respiratory failure his pulse ox is not correlating with ABG patient is also hy perkalemia and repeat blood gases pending chest x-ray still shows diffuse interstitial changes hyperkalemia I suspect may be from muscle breakdown of ordered CK due to the combination of steroids and paralytic drugs prognosis very poor increase insulin (2) Pneumothorax Current Visit: Yes Status: Acute Plan: Complete lung re-expansion with no air leak Qualifiers: Pneumothorax type: spontaneous, primary Qualified Code(s): J93.11 - Primary spontaneous pneumothorax Physician Review: Patient Assessed, Agree with Above Assessment and Plan Physician Review Additional Text: Physical Exam General: Unresponsive, intubated, sedated HEENT: ETT, NGT in place Respiratory: intubated Cardiovascular: No edema, Regular rate/rhythm Gastrointestinal: soft, Non-distended Musculoskeletal: No swelling Integumentary: No rashes Problem List Acute respiratory failure with hypoxia Pneumonia due to COVID-19 virus new, paroxysmal Atrial fibrillation with RVR Hypertension Non-insulin dependent diabetes mellitus Acute CVA (cerebrovascular accident) Hypernatremia Decubitus ulcer, sacral stage 3 Continue on mechanical ventilation. IV solumedrol. s/p Remdesevir. Vitamin-D, vitamin-C and zinc supplementation. Chest tube in place for pneumothorax. Pulmonary is following. NG tube for medications and feeding. Feed at continuous slow rate as tolerated. Patient with high gastric residual a few days ago, improved. Check residual frequently. MRI consistent with stroke, MRA ok, carotids ok. Echo (08/08/20): normal echo. continue amiodarone 200 mg b.i.d. Xarelto was on hold given drop in hemoglobin, Eliquis restarted per pulm on 09/08 adjust insulin as needed mild hyponatremia now, will review and adjust free water as appropriate Status post 1 unit PRBC transfusion. Monitor CBC and blood chemistry. hyperkalemia this morning, will give kayexalate, repeat K at noon Dispo: poor prognosis will continue to update family per report - daughter and are leaning towards DNR but did not make any decision on hospice or withdrawal of treatment
[2020-09-09 15:54] LABS: Arterial Blood Carboxyhemoglob 1.8 % (0-1.5); Blood Gas Oxyhemoglobin 84.1 % (94-97); Blood O2 Saturation 86.6 % (92-98.5)
[2020-09-09 15:56] LABS: Arterial Blood Carboxyhemoglob 1.7 % (0-1.5); Blood Gas Oxyhemoglobin 86.7 % (94-97); Blood O2 Saturation 89.3 % (92-98.5)
[2020-09-09] MEDS ORDERED: FUROSEMIDE 20 MG/ 2ML VIAL IV ONE (21:02)
[2020-09-09] MEDS ORDERED: CALCIUM GLUC 10% INJ 4.65 MEQ in NA CHLORIDE 0.9% 100 ML IV ONE (21:02)
[2020-09-09] MEDS ORDERED: CALCIUM GLUCONATE 1 GM IVPB 1 GM/50 ML BAG IV ONE (22:19)
[2020-09-09] MEDS ORDERED: D50W 25 GM/50 ML SYRINGE IV ONE (22:42)
[2020-09-09] MEDS ORDERED: GLUCAGON 1 MG/VIAL IM PRN (22:43)
[2020-09-09] MEDS ORDERED: D50W 25 GM/50 ML SYRINGE IV PRN (22:43)
[2020-09-09] MEDS ORDERED: INSULIN -REGULAR HUMAN 50 UNIT/0.5 ML ML IV ONE (22:43)
[2020-09-10] MEDS: ASCORBIC ACID 500 MG TABLET PO SCH ×4 (00:24→18:55)
[2020-09-10] MEDS: INSULIN -REGULAR HUMAN 50 UNIT/0.5 ML ML SQ SCH ×5 (00:25→17:53)
[2020-09-10 02:42] LABS: UR PROTEIN 27 mg/dL (<11.9)
[2020-09-10 02:45] LABS: UR CREAT < 13.0 mg/dL (20-370)
[2020-09-10 02:47] LABS: Urine Appearance CLEAR; Urine Bilirubin NEGATIVE (NEG); Urine Blood 3+ (NEG); Urine Color YELLOW; Urine Glucose NEGATIVE (NEG); Urine Protein NEGATIVE (NEG); Urine Urobilinogen 0.2 mg/dL (0.2-1.0)
[2020-09-10 03:03] LABS: Urine Microscopic Reflex ORDER UMIC
[2020-09-10 03:32] LABS: Calcium Oxalate Crystals- Ur FEW (NONE SEEN); Urine Bacteria <20 /HPF (NONE SEEN); Urine RBC <5 /HPF (NONE SEEN); Urine Urothelial Cells <5 /HPF (NONE SEEN)
[2020-09-10] MEDS: METOPROLOL TAR 25 MG TAB PO SCH ×2 (05:36→18:55)
[2020-09-10] MEDS: HYDROMORPHONE HCL 2 MG/ML inj IV PRN ×2 (05:37→10:39)
[2020-09-10 05:49] LABS: Absolute Lymphocytes (CBC) 0.2 K/uL (0.7-4.9); Basophils % 1.2 % (0-1.3); Hematocrit 29.6 % (39.6-49.0); Lymphocytes % 1.3 % (15.3-44.8); MPV 9.2 fL (7.6-11.3); RBC Red Blood Cell Count 3.19 M/uL (4.33-5.43)
--- NOTE | 2020-09-10 07:19 | RAD REPORT ---
EXAM DESCRIPTION: Nory Single View09/10/2020 6:10 am CLINICAL HISTORY: Respiratory failure COMPARISON: September 09, 2020 FINDINGS: Endotracheal tube with its tip overlying the aortic arch. Feeding tube within the gastric fundus. PICC line in place. Overall no significant change in the bilateral pulmonary opacities when allowing for differences tech nique. Small left pleural effusion may be present IMPRESSION: No significant change in the bilateral pulmonary opacities
[2020-09-10 07:53] LABS: Albumin 1.8 g/dL (3.4-5.0); C-Reactive Protein 14.3 mg/L (<3.00); Ferritin 1479.4 ng/mL (26-388); Folic Acid, (Folate) 4.7 ng/mL (3.1-17.5); Magnesium 2.1 mg/dL (1.8-2.4); Potassium 4.9 mmol/L (3.5-5.1); Uric Acid 5.2 mg/dL (3.5-7.2)
[2020-09-10] MEDS: VITAMIN D 5,000 UNIT CAP PO SCH (10:08)
[2020-09-10] MEDS: FAMOTIDINE 20 MG TAB PO SCH ×2 (10:08→21:08)
[2020-09-10] MEDS: ZINC SULFATE 220 MG CAP PO SCH (10:08)
[2020-09-10] MEDS: AMIODARONE HCL 200 MG TAB PO SCH ×2 (10:09→21:08)
[2020-09-10] MEDS: THIAMINE HCL 100 MG TABLET PO SCH ×2 (10:09→21:08)
[2020-09-10] MEDS: ASPIRIN 81 MG CHEWABLE TABLET FT SCH (10:09)
[2020-09-10] MEDS: APIXABAN 5 MG TABLET PO SCH ×2 (10:10→21:08)
[2020-09-10] MEDS: FLUCONAZOLE 100 MG TAB PO SCH (10:10)
[2020-09-10] MEDS: INSULIN 70/30 100 UNITS/ML SQ SCH ×2 (10:17→16:30)
[2020-09-10] MEDS: FLUDROCORTISONE 0.1 MG TAB FT SCH (10:18)
[2020-09-10] MEDS: DOCUSATE NA 100 MG CAP PO SCH ×2 (10:18→21:08)
[2020-09-10] MEDS: METHYLPREDNISOLONE 40 MG INJ IV SCH ×2 (10:19→21:09)
[2020-09-10] MEDS: COLLAGENASE 30 GM OINTMENT TOP SCH (10:19)
[2020-09-10] MEDS: propofoL 1,000 MG/100 ML VIAL IV PRN (10:39)
[2020-09-10] MEDS: CISATRACURIUM INJECTION 2 MG/ML (10 ML Vial) IV PRN (10:47)
[2020-09-10 11:06] LABS: Blood Morphology Comment NOTED (NOT SEEN); Platelet Estimate ADEQ
[2020-09-10 11:07] LABS: Anisocytosis SLIGHT; Basophilic Stippling 1+
--- NOTE | 2020-09-10 13:18 | P.PN ---
Subjective Date of Service: 09/10/20 Primary Care Provider: Sincere Luis Chief Complaint: Pneumothorax respiratory failure Subjective: No new changes (no significan events or changes since yesterday, remains intubated) Review of Systems is unable to be obtained Physical Examination - Vital Signs Temperature: 99.4 F Blood Pressure: 88/46 Pulse: 76 Respirations: 30 Pulse Ox (%): 100 Assessment & Plan Physician Review Additional Text: Physical Exam General: Unresponsive, intubated, sedated HEENT: ETT, NGT in place Respiratory: intubated Cardiovascular: No lower extremity edema, Regular rate/rhythm Gastrointestinal: soft, Non-distended Musculoskeletal: b/l swelling in hands Integumentary: No rashes Problem List Acute respiratory failure with hypoxia Pneumonia due to COVID-19 virus new, paroxysmal Atrial fibrillation with RVR Hypertension Non-insulin dependent diabetes mellitus Acute CVA (cerebrovascular accident) Hypernatremia Decubitus ulcer, sacral stage 3 Continue on mechanical ventilation. IV solumedrol. s/p Remdesevir. Vitamin-D, vitamin-C and zinc supplementation. Chest tube in place for pneumothorax. Pulmonary is following. NG tube for medications and feeding. Feed at continuous slow rate as tolerated. Patient with high gastric residual a few days ago, improved. Check residual frequently. MRI consistent with stroke, MRA ok, carotids ok. Echo (08/08/20): normal echo. continue amiodarone 200 mg b.i.d. Xarelto was on hold given drop in hemoglobin, Eliquis restarted per pulm on 09/08 hyperkalemia yesterday, responded partially to kayexalate, given insulin as well. nephrology was consulted given increase in Cr as well Status post 1 unit PRBC transfusion. Monitor CBC and blood chemistry. Cxr unchanged, ferritin remains elevated Dispo: poor prognosis will continue to update family - have a meeting with family today at 6pm per report - daughter and are leaning towards DNR but did not make any decision on hospice or withdrawal of treatment Time Spent Managing Pts Care (In Minutes): 40
[2020-09-10] MEDS: AMPICILLIN/SULBACT 3 GM in NA CHLORIDE 0.9% 100 ML IVPB SCH (18:57)
--- NOTE | 2020-09-10 20:57 | RAD REPORT ---
EXAM DESCRIPTION: RAD - Chest Single View - 09/10/2020 8:21 pm CLINICAL HISTORY: Intubation, shortness of breath, difficulty breathing COMPARISON: Portable September 10 TECHNIQUE: AP portable chest image was obtained 09/10/2020 8:21 pm . FINDINGS: Approximately 50% right-sided pneumothorax has developed. Trachea remains in the midline. Right-sided chest tube is in place. No measurable right-sided pleural fluid collection. Endotracheal tube tip is mid aortic arch. No change in positioning of the feeding tube. Left lung parenchymal opac ification has not changed. Opacification remains dense in the left base. Heart size is normal. There is subtle left shift of the heart and mediastinal structures. Right-sided PICC line remains in place. Findings telephoned to the patient's nurse in the ICU 8:52 p.m. IMPRESSION: Approximately 50% right-sided pneumothorax has developed in the patient with an indwelli ng chest tube. There is slight heart and mediastinal shift to the left. This could be a developing tension pneumotho rax. Tubes and lines are unchanged in position. Mid and lower lung field opacification on the left remains.
--- NOTE | 2020-09-10 21:07 | CON ---
Date of Consultation: 09/10/2020 Reason For Consultation: Hyperkalemia, fluid management. History Of Present Illness: All the information has been obtained from the record as the patient is intubated. The patient is a 70-year-old gentleman with significant past medical history of diabetes, hyperlipidemia, hypertension, hypothyroidism, the patient was admitted to the hospital with COVID pneumonia back on August 06. The patient developed pneumothorax, respiratory failure. The patient is intubated. The patient yesterday developed hyperkalemia. For that reason, we have been consulted. Also lab showed elevation in BUN and creatinine. The patient apparently on Glucerna as tube feeding yesterday. Over the night, we gave the patient insulin and nebulizer treatment. We gave him bolus and the Lasix. Potassium normalized after that. The patient had iron deficiency anemia. Past Medical History: Includes, 1. Diabetes. 2. Hypertension. 3. Hypothyroidism. 4. COVID pneumonia. 5. Respiratory failure. Social History: Denies smoking. Denies drinking. Denies drugs abuse. Allergies: NO KNOWN DRUGS ALLERGY. Past Surgical History: None obtainable. Home Medications: Include levothyroxine, metformin, lisinopril, Namenda. Review of Systems: Not obtainable. Current Medications: The patient on include, yesterday the patient received Lasix, albuterol. Currently aspirin, fluconazole, Eliquis, amiodarone, metoprolol, lorazepam, sedation, Pepcid, insulin, Solu-Medrol, Thiamine. Physical Examination: Vital Signs: Patient on vent, requiring 80%. Blood pressure 88/46, pulse of 76. Chest: Crackles bilateral. Heart: S1, S2. Systolic murmur. Abdomen: Soft. Marginal distention. Bowel sounds appreciated. Extremities: Plus edema. Neuro: Patient is sedated. Laboratory Data: WBC 18.7, H and H 9.7/29.6. Sodium 130, potassium 4.9, bicarb 27, BUN 55, creatinine 1.1, GFR of 60. Yesterday, potassium 6.4, calcium 7.7, phosphorus 4. Iron saturation 11, CK 483, B12 1748, cortisol 12. Urinalysis negative for infection. Assessment And Plan: 1. 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 I am going to send for serology given the significant proteinuria mostly secondary to diabetes. 2. hypoNa secondary to dilutional. Patient is status post diuresis yesterday. We will send for uric acid and cortisol. We will monitor the patient. Diurese p.r.n. 3. Hyperkalemia with the presence of GIANNA , need to be ruled out. Anyhow, the patient on the prednisone. Currently, no workup is indicated. 4. COVID pneumonia. Continue current treatment. We will follow up with the primary and Pulmonary. 5. Respiratory failure secondary to COVID pneumonia, pneumothorax. We will follow up with Pulmonary. time spent examined the patient face to face s discussed with the patient placed order discussing the case with other merchandise team manager including nurses , discussing with other specialist include a hospitalist 45 min DAIJA Voice ID: [id number] Report ID: [id number] MTDD
[2020-09-11] MEDS: AMPICILLIN/SULBACT 3 GM in NA CHLORIDE 0.9% 100 ML IVPB SCH ×5 (00:30→23:38)
[2020-09-11] MEDS: propofoL 1,000 MG/100 ML VIAL IV PRN (01:31)
[2020-09-11] MEDS: METOPROLOL TAR 25 MG TAB PO SCH ×2 (05:48→18:00)
[2020-09-11] MEDS: ASCORBIC ACID 500 MG TABLET PO SCH ×5 (05:49→23:38)
[2020-09-11] MEDS: INSULIN -REGULAR HUMAN 50 UNIT/0.5 ML ML SQ SCH ×4 (05:49→18:18)
[2020-09-11 05:52] LABS: Absolute Lymphocytes (CBC) 0.1 K/uL (0.7-4.9); Basophils % 0.7 % (0-1.3); Hematocrit 28.4 % (39.6-49.0); Lymphocytes % 0.7 % (15.3-44.8); MPV 8.8 fL (7.6-11.3); RBC Red Blood Cell Count 3.07 M/uL (4.33-5.43)
[2020-09-11 06:20] LABS: Albumin 1.5 g/dL (3.4-5.0); C-Reactive Protein 34.6 mg/L (<3.00); Ferritin 1545.9 ng/mL (26-388); Phosphorus 4.8 mg/dL (2.5-4.9); Potassium 3.9 mmol/L (3.5-5.1)
[2020-09-11] MEDS: MIDAZOLAM HCL 2 MG/2 ML INJ IV PRN (08:33)
[2020-09-11] MEDS: APIXABAN 5 MG TABLET PO SCH ×2 (08:33→21:04)
[2020-09-11] MEDS: FLUCONAZOLE 100 MG TAB PO SCH (08:34)
[2020-09-11] MEDS: THIAMINE HCL 100 MG TABLET PO SCH ×2 (08:34→21:04)
[2020-09-11] MEDS: FAMOTIDINE 20 MG TAB PO SCH ×2 (08:34→21:04)
[2020-09-11] MEDS: VITAMIN D 5,000 UNIT CAP PO SCH (08:34)
[2020-09-11] MEDS: ASPIRIN 81 MG CHEWABLE TABLET FT SCH (08:34)
[2020-09-11] MEDS: AMIODARONE HCL 200 MG TAB PO SCH ×2 (08:35→21:04)
[2020-09-11] MEDS: INSULIN 70/30 100 UNITS/ML SQ SCH ×2 (08:35→18:18)
[2020-09-11] MEDS: METHYLPREDNISOLONE 40 MG INJ IV SCH ×2 (08:35→21:05)
[2020-09-11] MEDS: DOCUSATE NA 100 MG CAP PO SCH ×2 (08:35→21:00)
[2020-09-11] MEDS: COLLAGENASE 30 GM OINTMENT TOP SCH (08:36)
[2020-09-11] MEDS: FLUDROCORTISONE 0.1 MG TAB FT SCH (08:36)
[2020-09-11] MEDS: ZINC SULFATE 220 MG CAP PO SCH (08:38)
[2020-09-11] MEDS: HYDROMORPHONE HCL 2 MG/ML inj IV PRN ×4 (09:06→21:21)
[2020-09-11 09:25] LABS: White Blood Cell Scan OK (OK)
[2020-09-11 09:26] LABS: Basophilic Stippling 2+; Blood Morphology Comment NOTED (NOT SEEN); Platelet Estimate ADEQ
--- NOTE | 2020-09-11 09:28 | RAD REPORT ---
EXAM DESCRIPTION: XR Chest Single View CLINICAL HISTORY: 70 years Male right pneumothorax TECHNIQUE: One view of the chest. COMPARISON: Examination performed earlier the same day. FINDINGS: Stable endotracheal tube, nasogastric tube, and right-sided PICC line. Also again seen is a right-sided chest tube. Its tip projects between the right fourth and fifth ribs posteriorly. There has been interval near complete resolution of the previously seen prominent right pneumothorax. There is a trace residual right apical pneumothorax (less than 10%). Diffusely increased interstitial markings present bilaterally with a stable retrocardiac infiltrate o n the left. No pleural effusion. Stable cardiac mediastinal silhouette. IMPRESSION: Stable lines and tubes. Interval near complete resolution of the previously seen right p neumothorax. Trace residual right apical pneumothorax. Continued follow-up recommended. Diffusely increased interstitial markings with a left retrocardiac infiltrate again seen. Electronically signed by: Sierra Reilly MD 09/10/2020 10:10 PM CDT Due to temporary technical issues with the PACS/Fluency reporting system, reports are being signed by the in house radiologist without review as a courtesy to ensure prompt reporting. The interpreting r adiologist is fully responsible for the content of the report.
[2020-09-11 10:40] LABS: Arterial Blood Carboxyhemoglob 1.7 % (0-1.5); Blood Gas Oxyhemoglobin 90.1 % (94-97); Blood O2 Saturation 92.8 % (92-98.5)
[2020-09-11] MEDS: LORazepam 2 MG/ML VIAL IV PRN (11:50)
[2020-09-11] MEDS: CISATRACURIUM INJECTION 2 MG/ML (10 ML Vial) IV PRN (12:11)
--- NOTE | 2020-09-11 12:50 | P.PN ---
Subjective Date of Service: 09/11/20 Primary Care Provider: Sincere Luis Chief Complaint: Pneumothorax respiratory failure No change patient is not improving is still very hypoxic sputum culture positive Review of Systems is unable to be obtained Physical Examination - Vital Signs Temperature: 97.2 F Blood Pressure: 140/65 Pulse: 75 Respirations: 32 Pulse Ox (%): 86 - Physical Exam General: Unresponsive Respiratory: Clear to auscultation bilaterally, Diminished Cardiovascular: Edema Assessment & Plan - Problems (Diagnosis) (1) Pneumonia due to COVID-19 virus Current Visit: Yes Status: Acute Plan: Respiratory failure no change his very hypoxic his PO2 64 on 100% FiO2 labs revi ew white count elevated Enterococcus in the sputum patient is on Unasyn (2) Pneumothorax Current Visit: Yes Status: Acute Plan: Complete lung re-expansion with no air leak chest x-ray pending Qualifiers: Pneumothorax type: spontaneous, primary Qualified Code(s): J93.11 - Primary spontaneous pneumothorax Physician Review: Patient Assessed, Agree with Above Assessment and Plan Physician Review Additional Text: Physical Exam General: Unresponsive, intubated, sedated HEENT: ETT, NGT in place Respiratory: intubated Cardiovascular: No lower extremity edema, Regular rate/rhythm Gastrointestinal: soft, Non-distended Musculoskeletal: b/l swelling in hands Integumentary: No rashes Problem List Acute respiratory failure with hypoxia Pneumonia due to COVID-19 virus new, paroxysmal Atrial fibrillation with RVR Hypertension Non-insulin dependent diabetes mellitus Acute CVA (cerebrovascular accident) Hypernatremia Decubitus ulcer, sacral stage 3 Continue on mechanical ventilation. IV solumedrol. s/p Remdesevir. Vitamin-D, vitamin-C and zinc supplementation. Chest tube in place for pneumothorax. Pulmonary is following. NG tube for medications and feeding. Feed at continuous slow rate as tolerated. Patient with high gastric residual a few days ago, improved. Check residual frequently. MRI consistent with stroke, MRA ok, carotids ok. Echo (08/08/20): normal echo. continue amiodarone 200 mg b.i.d. Xarelto was on hold given drop in hemoglobin, Eliquis restarted per pulm on 09/08 hyperkalemia yesterday, responded partially to kayexalate, given insulin as well. nephrology was consulted given increase in Cr as well Status post 1 unit PRBC transfusion. Monitor CBC and blood chemistry. Cxr unchanged, ferritin remains elevated Dispo: poor prognosis will continue to update family - have a meeting with family today at 6pm per report - daughter and are leaning towards DNR but did not make any decision on hospice or withdrawal of treatment
--- NOTE | 2020-09-11 13:14 | RAD REPORT ---
EXAM DESCRIPTION: RAD - Chest Single View - 09/11/2020 1:05 pm CLINICAL HISTORY: Respiratory failure, chest tube, pneumothorax COMPARISON: September 10 TECHNIQUE: AP portable chest image was obtained 09/11/2020 1:05 pm . FINDINGS: Tip of the endotracheal tube is top of the aortic arch. Feeding tube is curled in the prox imal stomach. Right-sided PICC line is unchanged. Chest tube remains in place with the tip in the medial right upper lung field. Lung volumes are low. Complete or near complete resolution of the pneumothorax. There may be a trace amount of remnant pneu mothorax at the apex. Lung parenchymal opacification is still present and remains most pronounced at the left base. Heart size is normal and stable. No enlarging pleural effusion. Delete select IMPRESSION: Complete or near complete resolution of the pneumothorax. There may be trace pneumothora x at the apex. Tubes and lines are unchanged. Lung parenchymal opacification has not changed.
--- NOTE | 2020-09-11 13:24 | P.PN ---
Subjective Date of Service: 09/11/20 Primary Care Provider: Sincere Luis Chief Complaint: Pneumothorax respiratory failure Subjective: No new changes (patient was hypoxic overnight briefly, found to have chest tube kinked, improved/resolved after fixing this issue. otherwise no events. no significant change) Review of Systems is unable to be obtained Physical Examination - Vital Signs Temperature: 97.2 F Blood Pressure: 140/65 Pulse: 75 Respirations: 32 Pulse Ox (%): 86 Assessment & Plan Physician Review Additional Text: Physical Exam General: Unresponsive, intubated, sedated HEENT: ETT, NGT in place Respiratory: intubated, R chest tube in place Cardiovascular: No lower extremity edema, Regular rate/rhythm Gastrointestinal: soft, Non-distended Musculoskeletal: b/l swelling in hands, 2+ edema Integumentary: No rashes Problem List Acute respiratory failure with hypoxia Pneumonia due to COVID-19 virus new, paroxysmal Atrial fibrillation with RVR Hypertension Non-insulin dependent diabetes mellitus Acute CVA (cerebrovascular accident) Hypernatremia Decubitus ulcer, sacral stage 3 MRI consistent with stroke, MRA ok, carotids ok. Echo (08/08/20): normal echo. Continue on mechanical ventilation. IV solumedrol. s/p Remdesevir. Vitamin-D, vitamin-C and zinc supplementation. Chest tube in place for pneumothorax. Pulmonary is following. NG tube for medications and feeding. Feed at continuous slow rate as tolerated. Afib - continue amiodarone 200 mg b.i.d. Xarelto was on hold given drop in hemoglobin, Eliquis restarted per pulm on 09/08 Hyperkalemia improved with kayexalate and insulin, nephrology following. multiple BMs this morning Status post 1 unit PRBC transfusion. Monitor CBC and blood chemistry. Dispo: poor prognosis discussed at length with family yesterday - initially daughter stated DNR would be appropriate, however, ~1 hour later, son, Brian, called back stating they discussed more and want to continue with full code. Son stated they are unlikely to change their mind moving forward. Will continue to update family. Time Spent Managing Pts Care (In Minutes): 35
--- NOTE | 2020-09-11 23:00 | P.PN ---
Subjective Date of Service: 09/12/20 Primary Care Provider: Sincere Luis Chief Complaint: Pneumothorax respiratory failure Subjective: No new changes Physical Examination - Vital Signs Temperature: 98.8 F Blood Pressure: 130/55 Pulse: 83 Respirations: 30 Pulse Ox (%): 100 - Physical Exam Other Physical/Emotional Findings: P.E. not done d/t covid isolation Assessment And Plan - Plan # Hypernatremia Resolved Monitor I/O & renal panel Keep pérez cath # COVID PNA Remains intubated Mngt per other services # Metabolic encephalopathy No sig improvement in mental status Mngt per other services # Htn BP stable Had shock recently but now no longer on IV vasopressors Monitor # Anemia S/p pRBC transf Monitor H/H # Prognosis Poor Famly wants to continue w/ full code Physician Review: Patient Assessed, Agree with Above Assessment and Plan Physician Review Additional Text: Physical Exam General: Unresponsive, intubated, sedated HEENT: ETT, NGT in place Respiratory: intubated, R chest tube in place Cardiovascular: No lower extremity edema, Regular rate/rhythm Gastrointestinal: soft, Non-distended Musculoskeletal: b/l swelling in hands, 2+ edema Integumentary: No rashes Problem List Acute respiratory failure with hypoxia Pneumonia due to COVID-19 virus new, paroxysmal Atrial fibrillation with RVR Hypertension Non-insulin dependent diabetes mellitus Acute CVA (cerebrovascular accident) Hypernatremia Decubitus ulcer, sacral stage 3 MRI consistent with stroke, MRA ok, carotids ok. Echo (08/08/20): normal echo. Continue on mechanical ventilation. IV solumedrol. s/p Remdesevir. Vitamin-D, vitamin-C and zinc supplementation. Chest tube in place for pneumothorax. Pulmonary is following. NG tube for medications and feeding. Feed at continuous slow rate as tolerated. Afib - continue amiodarone 200 mg b.i.d. Xarelto was on hold given drop in hemoglobin, Eliquis restarted per pulm on 09/08 Hyperkalemia improved with kayexalate and insulin, nephrology following. multiple BMs this morning Status post 1 unit PRBC transfusion. Monitor CBC and blood chemistry. Dispo: poor prognosis discussed at length with family yesterday - initially daughter stated DNR would be appropriate, however, ~1 hour later, sonBrian, called back stating they discussed more and want to continue with full code. Son stated they are unlikely to change their mind moving forward. Will continue to update family.
[2020-09-12] MEDS: LORazepam 2 MG/ML VIAL IV PRN ×5 (00:23→23:20)
[2020-09-12] MEDS: HYDROMORPHONE HCL 2 MG/ML inj IV PRN ×2 (03:34→07:50)
[2020-09-12 05:12] LABS: Absolute Lymphocytes (CBC) 0.1 K/uL (0.7-4.9); Basophils % 0.3 % (0-1.3); Hematocrit 22.1 % (39.6-49.0); Lymphocytes % 0.7 % (15.3-44.8); MPV 8.7 fL (7.6-11.3); RBC Red Blood Cell Count 2.38 M/uL (4.33-5.43)
[2020-09-12 05:30] LABS: Arterial Blood Carboxyhemoglob 1.8 % (0-1.5); Blood Gas Oxyhemoglobin 90.9 % (94-97); Blood O2 Saturation 93.5 % (92-98.5)
[2020-09-12] MEDS: AMPICILLIN/SULBACT 3 GM in NA CHLORIDE 0.9% 100 ML IVPB SCH ×4 (05:32→23:32)
[2020-09-12] MEDS: ASCORBIC ACID 500 MG TABLET PO SCH ×4 (05:33→23:33)
[2020-09-12] MEDS: METOPROLOL TAR 25 MG TAB PO SCH ×2 (05:35→17:42)
[2020-09-12] MEDS: INSULIN -REGULAR HUMAN 50 UNIT/0.5 ML ML SQ SCH ×5 (05:37→23:20)
[2020-09-12 07:08] LABS: Albumin 1.3 g/dL (3.4-5.0); C-Reactive Protein 41.8 mg/L (<3.00); Ferritin 1310.5 ng/mL (26-388); Phosphorus 3.8 mg/dL (2.5-4.9); Potassium 3.6 mmol/L (3.5-5.1)
--- NOTE | 2020-09-12 07:41 | RAD REPORT ---
EXAM DESCRIPTION: Nory Single View3 6:09 am CLINICAL HISTORY: Respiratory failure COMPARISON: September 11, 2020 FINDINGS: Mild worsening in bilateral pulmonary opacities. Tip of an endotracheal tube 12 millimeters above the top of the aortic arch. PICC line in place Feeding tube is coiled within the stomach. The tip lies a couple centimeters from the GE junction IMPRESSION: Mild worsening in moderate bilateral pulmonary opacities Tip of an endotracheal tube 11 millimeters above the top of the aortic arch. Feeding tube is coiled within the stomach. The tip lies a couple centimeters from the GE junction Patient's nurse notified 7:37 a.m. September 12, 2020
[2020-09-12] MEDS: INSULIN 70/30 100 UNITS/ML SQ SCH ×2 (07:50→16:30)
[2020-09-12] MEDS: FLUCONAZOLE 100 MG TAB PO SCH (08:02)
[2020-09-12] MEDS: ASPIRIN 81 MG CHEWABLE TABLET FT SCH (08:02)
[2020-09-12] MEDS: FAMOTIDINE 20 MG TAB PO SCH ×2 (08:02→20:47)
[2020-09-12] MEDS: ZINC SULFATE 220 MG CAP PO SCH (08:03)
[2020-09-12] MEDS: THIAMINE HCL 100 MG TABLET PO SCH ×2 (08:03→20:48)
[2020-09-12] MEDS: AMIODARONE HCL 200 MG TAB PO SCH ×2 (08:04→20:47)
[2020-09-12] MEDS: VITAMIN D 5,000 UNIT CAP PO SCH (08:04)
[2020-09-12] MEDS: METHYLPREDNISOLONE 40 MG INJ IV SCH ×2 (08:05→20:48)
[2020-09-12] MEDS: APIXABAN 5 MG TABLET PO SCH ×2 (08:05→20:47)
[2020-09-12] MEDS: DOCUSATE NA 100 MG CAP PO SCH ×2 (08:05→20:46)
[2020-09-12] MEDS: FLUDROCORTISONE 0.1 MG TAB FT SCH (08:05)
--- NOTE | 2020-09-12 09:30 | P.PN ---
Subjective Date of Service: 09/12/20 Primary Care Provider: Sincere Luis Chief Complaint: Pneumothorax respiratory failure Patient not doing well animal E responsive still on 100% FiO2 Review of Systems is unable to be obtained Physical Examination - Vital Signs Temperature: 98.2 F Blood Pressure: 157/66 Pulse: 103 Respirations: 24 Pulse Ox (%): 97 - Physical Exam General: Unresponsive Respiratory: Clear to auscultation bilaterally Cardiovascular: Normal S1 S2, Edema Other Physical/Emotional Findings: P.E. not done d/t covid isolation Assessment & Plan - Problems (Diagnosis) (1) Pneumonia due to COVID-19 virus Current Visit: Yes Status: Acute Plan: Respiratory failure still on 100% FiO2 as been in the hospital now for 40 days vital signs satisfactory white count is declining hypoxic hypercapnic chest x- ray no change prognosis poor repeat CBC chemistries reviewed blood sugars little elevated (2) Pneumothorax Current Visit: Yes Status: Acute Plan: Snow air leak Qualifiers: Pneumothorax type: spontaneous, primary Qualified Code(s): J93.11 - Primary spontaneous pneumothorax Physician Review: Patient Assessed, Agree with Above Assessment and Plan Physician Review Additional Text: Physical Exam General: Unresponsive, intubated, sedated HEENT: ETT, NGT in place Respiratory: intubated, R chest tube in place Cardiovascular: No lower extremity edema, Regular rate/rhythm Gastrointestinal: soft, Non-distended Musculoskeletal: b/l swelling in hands, 2+ edema Integumentary: No rashes Problem List Acute respiratory failure with hypoxia Pneumonia due to COVID-19 virus new, paroxysmal Atrial fibrillation with RVR Hypertension Non-insulin dependent diabetes mellitus Acute CVA (cerebrovascular accident) Hypernatremia Decubitus ulcer, sacral stage 3 MRI consistent with stroke, MRA ok, carotids ok. Echo (08/08/20): normal echo. Continue on mechanical ventilation. IV solumedrol. s/p Remdesevir. Vitamin-D, vitamin-C and zinc supplementation. Chest tube in place for pneumothorax. Pulmonary is following. NG tube for medications and feeding. Feed at continuous slow rate as tolerated. Afib - continue amiodarone 200 mg b.i.d. Xarelto was on hold given drop in hemoglobin, Eliquis restarted per pulm on 09/08 Hyperkalemia improved with kayexalate and insulin, nephrology following. multiple BMs this morning Status post 1 unit PRBC transfusion. Monitor CBC and blood chemistry. Dispo: poor prognosis discussed at length with family yesterday - initially daughter stated DNR would be appropriate, however, ~1 hour later, son, Brian, called back stating they discussed more and want to continue with full code. Son stated they are unlikely to change their mind moving forward. Will continue to update family.
--- NOTE | 2020-09-12 09:57 | RAD REPORT ---
EXAM DESCRIPTION: Nory Single View3 9:20 am CLINICAL HISTORY: Device placement endotracheal tube placement IMPRESSION: An endotracheal tube has been advanced since the prior exam. The tip of the endotracheal tube lies 4 millimeters above the top aortic arch
[2020-09-12] MEDS ORDERED: NA CHLORIDE 0.9% 50 ML ONE (10:14)
[2020-09-12] MEDS: HYDROMORPHONE HCL 1 MG/ML INJ IV PRN ×2 (12:51→20:09)
--- NOTE | 2020-09-12 12:55 | P.PN ---
Subjective Date of Service: 09/12/20 Primary Care Provider: Sincere Luis Chief Complaint: Pneumothorax respiratory failure Subjective: No new changes Physical Examination - Vital Signs Temperature: 98.2 F Blood Pressure: 157/66 Pulse: 103 Respirations: 24 Pulse Ox (%): 97 - Physical Exam Other Physical/Emotional Findings: P.E. not done d/t covid isolation Assessment And Plan - Plan # Hypernatremia Resolved Monitor I/O & renal panel Keep pérez cath until pt more lucid # COVID PNA Remains intubated Mngt per other services # Metabolic encephalopathy No sig improvement in mental status Mngt per other services # Htn BP stable Had shock recently but now no longer on IV vasopressors Monitor # Anemia S/p pRBC transf Monitor H/H # Prognosis Poor Famly wants to continue w/ full code Will sign off Pls call for any questions Thank you for this consult Physician Review: Patient Assessed, Agree with Above Assessment and Plan Physician Review Additional Text: Physical Exam General: Unresponsive, intubated, sedated HEENT: ETT, NGT in place Respiratory: intubated, R chest tube in place Cardiovascular: No lower extremity edema, Regular rate/rhythm Gastrointestinal: soft, Non-distended Musculoskeletal: b/l swelling in hands, 2+ edema Integumentary: No rashes Problem List Acute respiratory failure with hypoxia Pneumonia due to COVID-19 virus new, paroxysmal Atrial fibrillation with RVR Hypertension Non-insulin dependent diabetes mellitus Acute CVA (cerebrovascular accident) Hypernatremia Decubitus ulcer, sacral stage 3 MRI consistent with stroke, MRA ok, carotids ok. Echo (08/08/20): normal echo. Continue on mechanical ventilation. IV solumedrol. s/p Remdesevir. Vitamin-D, vitamin-C and zinc supplementation. Chest tube in place for pneumothorax. Pulmonary is following. NG tube for medications and feeding. Feed at continuous slow rate as tolerated. Afib - continue amiodarone 200 mg b.i.d. Xarelto was on hold given drop in hemoglobin, Eliquis restarted per pulm on 09/08 Hyperkalemia improved with kayexalate and insulin, nephrology following. multiple BMs this morning Status post 1 unit PRBC transfusion. Monitor CBC and blood chemistry. Dispo: poor prognosis discussed at length with family yesterday - initially daughter stated DNR would be appropriate, however, ~1 hour later, son, Brian, called back stating they discussed more and want to continue with full code. Son stated they are unlikely to change their mind moving forward. Will continue to update family.
--- NOTE | 2020-09-12 16:15 | P.PN ---
Subjective Date of Service: 09/12/20 Primary Care Provider: Sincere Luis Chief Complaint: Pneumothorax respiratory failure Subjective: No new changes (No acute events overnight. hgb this morning dropped, no signs of bleed) Review of Systems is unable to be obtained Physical Examination - Vital Signs Temperature: 98.2 F Blood Pressure: 157/66 Pulse: 103 Respirations: 24 Pulse Ox (%): 97 - Physical Exam Other Physical/Emotional Findings: P.E. not done d/t covid isolation Assessment & Plan Physician Review Additional Text: Physical Exam General: Unresponsive, intubated, sedated HEENT: ETT, NGT in place Respiratory: intubated, R chest tube in place Cardiovascular: trace lower extremity edema, Regular rate/rhythm Gastrointestinal: soft, Non-distended Musculoskeletal: b/l swelling in hands, 2+ edema Integumentary: No rashes Problem List Acute respiratory failure with hypoxia Pneumonia due to COVID-19 virus new, paroxysmal Atrial fibrillation with RVR Hypertension Non-insulin dependent diabetes mellitus Acute CVA (cerebrovascular accident) Hypernatremia Decubitus ulcer, sacral stage 3 MRI consistent with stroke, MRA ok, carotids ok. Echo (08/08/20): normal echo. Continue on mechanical ventilation. IV solumedrol. s/p Remdesevir. Vitamin-D, vitamin-C and zinc supplementation. Chest tube in place for pneumothorax. Pulmonary is following. ampicillin started a few days ago for enterococcus in sputum NG tube for medications and feeding. Feed at continuous slow rate as tolerated. Afib - continue amiodarone 200 mg b.i.d. Xarelto was on hold given drop in hemoglobin, Eliquis restarted per pulm on 09/08 Hyperkalemia improved with kayexalate and insulin, nephrology following Status post 1 unit PRBC transfusion. Hgb low today, no overt signs of bleeding. will transfuse 1u PRBC Dispo: poor prognosis Family want him to remain Full code - will not re-address with them per their wishes. Time Spent Managing Pts Care (In Minutes): 35
[2020-09-12 16:18] LABS: Hematocrit 24.6 % (39.6-49.0)
--- NOTE | 2020-09-12 16:35 | RAD REPORT ---
EXAM DESCRIPTION: RAD - Abdomen 1 View (KUB) - 09/12/2020 4:28 pm CLINICAL HISTORY: Dobhoff placement Pain COMPARISON: <Comparisons> FINDINGS: Enteric tube is coiled in the stomach.
[2020-09-12] MEDS: COLLAGENASE 30 GM OINTMENT TOP SCH (17:44)
[2020-09-12] MEDS: MIDAZOLAM HCL 2 MG/2 ML INJ IV PRN (23:42)
[2020-09-13] MEDS: HYDROMORPHONE HCL 1 MG/ML INJ IV PRN ×2 (00:10→23:38)
[2020-09-13] MEDS: HYDROMORPHONE HCL 2 MG/ML inj IV PRN ×3 (05:30→16:30)
[2020-09-13] MEDS: AMPICILLIN/SULBACT 3 GM in NA CHLORIDE 0.9% 100 ML IVPB SCH ×4 (05:35→23:28)
[2020-09-13 05:51] LABS: Hematocrit 26.5 % (39.6-49.0); MPV 8.8 fL (7.6-11.3); RBC Red Blood Cell Count 2.94 M/uL (4.33-5.43)
[2020-09-13] MEDS: INSULIN -REGULAR HUMAN 50 UNIT/0.5 ML ML SQ SCH ×4 (05:52→23:28)
[2020-09-13] MEDS: ASCORBIC ACID 500 MG TABLET PO SCH ×4 (06:38→23:28)
[2020-09-13] MEDS: METOPROLOL TAR 25 MG TAB PO SCH ×2 (06:38→17:12)
[2020-09-13 07:07] LABS: Albumin 1.4 g/dL (3.4-5.0); Ferritin 1289.7 ng/mL (26-388); Phosphorus 2.9 mg/dL (2.5-4.9); Potassium 3.3 mmol/L (3.5-5.1)
[2020-09-13 07:15] LABS: Arterial Blood Carboxyhemoglob 1.9 % (0-1.5); Blood Gas Oxyhemoglobin 85.9 % (94-97); Blood O2 Saturation 88.4 % (92-98.5)
[2020-09-13] MEDS: INSULIN 70/30 100 UNITS/ML SQ SCH ×2 (08:21→16:24)
[2020-09-13] MEDS: AMIODARONE HCL 200 MG TAB PO SCH ×2 (08:22→19:52)
[2020-09-13] MEDS: THIAMINE HCL 100 MG TABLET PO SCH ×2 (08:22→19:53)
[2020-09-13] MEDS: VITAMIN D 5,000 UNIT CAP PO SCH (08:22)
[2020-09-13] MEDS: FLUCONAZOLE 100 MG TAB PO SCH (08:23)
[2020-09-13] MEDS: FAMOTIDINE 20 MG TAB PO SCH ×2 (08:23→19:53)
[2020-09-13] MEDS: ASPIRIN 81 MG CHEWABLE TABLET FT SCH (08:24)
[2020-09-13] MEDS: APIXABAN 5 MG TABLET PO SCH ×2 (08:24→19:53)
[2020-09-13] MEDS: ZINC SULFATE 220 MG CAP PO SCH (08:31)
[2020-09-13] MEDS: FLUDROCORTISONE 0.1 MG TAB FT SCH (08:31)
[2020-09-13] MEDS: METHYLPREDNISOLONE 40 MG INJ IV SCH ×2 (08:31→19:53)
[2020-09-13 08:51] LABS: Blood Morphology Comment NOTED (NOT SEEN); Platelet Estimate DECR; White Blood Cell Scan OK (OK)
[2020-09-13 08:52] LABS: Anisocytosis 1+; Basophilic Stippling 2+
[2020-09-13 08:53] LABS: Polychromasia 1+
[2020-09-13] MEDS: DOCUSATE NA 100 MG CAP PO SCH ×2 (09:00→19:52)
[2020-09-13] MEDS: LORazepam 2 MG/ML VIAL IV PRN ×3 (10:06→21:23)
--- NOTE | 2020-09-13 11:14 | P.PN ---
Subjective Date of Service: 09/13/20 Primary Care Provider: Sincere Luis Chief Complaint: Pneumothorax respiratory failure Patient not doing well reason is unresponsive tachypneic on the ventilator at times hypertensive Review of Systems is unable to be obtained Physical Examination - Vital Signs Temperature: 97.1 F Blood Pressure: 171/78 Pulse: 93 Respirations: 30 Pulse Ox (%): 98 - Physical Exam General: Unresponsive Respiratory: Clear to auscultation bilaterally Cardiovascular: No edema, Normal S1 S2 Gastrointestinal: Normal bowel sounds, Soft and benign Other Physical/Emotional Findings: P.E. not done d/t covid isolation Assessment & Plan - Problems (Diagnosis) (1) Pneumonia due to COVID-19 virus Current Visit: Yes Status: Acute Plan: Patient is not doing well respiratory failure very poor prognosis unresponsive Enterococcus in the urine him patient is on unison chest x-ray no change still has diffuse bilateral infiltrates prognosis very poor no evidence of pneumothorax (2) Pneumothorax Current Visit: Yes Status: Acute Plan: Snow air leak chest x-ray reviewed Qualifiers: Pneumothorax type: spontaneous, primary Qualified Code(s): J93.11 - Primary spontaneous pneumothorax Physician Review: Patient Assessed, Agree with Above Assessment and Plan Physician Review Additional Text: Physical Exam General: Unresponsive, intubated, sedated HEENT: ETT, NGT in place Respiratory: intubated, R chest tube in place Cardiovascular: trace lower extremity edema, Regular rate/rhythm Gastrointestinal: soft, Non-distended Musculoskeletal: b/l swelling in hands, 2+ edema Integumentary: No rashes Problem List Acute respiratory failure with hypoxia Pneumonia due to COVID-19 virus new, paroxysmal Atrial fibrillation with RVR Hypertension Non-insulin dependent diabetes mellitus Acute CVA (cerebrovascular accident) Hypernatremia Decubitus ulcer, sacral stage 3 MRI consistent with stroke, MRA ok, carotids ok. Echo (08/08/20): normal echo. Continue on mechanical ventilation. IV solumedrol. s/p Remdesevir. Vitamin-D, vitamin-C and zinc supplementation. Chest tube in place for pneumothorax. Pulmonary is following. ampicillin started a few days ago for enterococcus in sputum NG tube for medications and feeding. Feed at continuous slow rate as tolerated. Afib - continue amiodarone 200 mg b.i.d. Xarelto was on hold given drop in hemoglobin, Eliquis restarted per pulm on 09/08 Hyperkalemia improved with kayexalate and insulin, nephrology following Status post 1 unit PRBC transfusion. Hgb low today, no overt signs of bleeding. will transfuse 1u PRBC Dispo: poor prognosis Family want him to remain Full code - will not re-address with them per their wishes.
--- NOTE | 2020-09-13 11:43 | RAD REPORT ---
EXAM DESCRIPTION: RAD - Chest Single View - 09/13/2020 6:42 am CLINICAL HISTORY: Respiratory failure Chest pain. COMPARISON: Abdomen 1 View (KUB) dated 09/12/2020; Chest Single View dated 09/12/2020; Chest Single Vi ew dated 09/12/2020; Chest Single View dated 09/11/2020 FINDINGS: Portable technique limits examination quality. Tip of the endotracheal tube is at the level of the aortic arch. Right-sided PICC line has tip in the SVC. Enteric tube is in the stomach. Bilateral pulmonary opacities are again seen.The heart is mildl y prominent.
[2020-09-13] MEDS: MIDAZOLAM HCL 2 MG/2 ML INJ IV PRN (12:05)
[2020-09-13] MEDS: SPIRONOLACTONE 25 MG TABLET PO SCH (12:07)
--- NOTE | 2020-09-13 12:45 | P.PN ---
Subjective Date of Service: 09/13/20 Primary Care Provider: Sincere Luis Chief Complaint: Pneumothorax respiratory failure Subjective: No new changes (No acute events overnight, no significant change compared to yesterday. Received 1 unit of blood yesterday, hemoglobin stable, no obvious signs of bleeding) Review of Systems is unable to be obtained Physical Examination - Vital Signs Temperature: 97.8 F Blood Pressure: 155/82 Pulse: 88 Respirations: 30 Pulse Ox (%): 93 - Physical Exam Other Physical/Emotional Findings: P.E. not done d/t covid isolation Assessment & Plan Physician Review Additional Text: Physical Exam General: Unresponsive, intubated, sedated HEENT: ETT, NGT in place Respiratory: intubated, R chest tube in place, +air leak Cardiovascular: trace lower extremity edema, Regular rate/rhythm Gastrointestinal: soft, Non-distended Musculoskeletal: b/l swelling in hands, 2+ edema Integumentary: No rashes, pressure ulcer stable on nasal bridge Problem List Acute respiratory failure with hypoxia Pneumonia due to COVID-19 virus new, paroxysmal Atrial fibrillation with RVR Hypertension Non-insulin dependent diabetes mellitus Acute CVA (cerebrovascular accident) Hypernatremia Decubitus ulcer, sacral stage 3 MRI consistent with stroke, MRA ok, carotids ok. Echo (08/08/20): normal echo. Continue on mechanical ventilation. IV solumedrol. s/p Remdesevir. Vitamin-D, vitamin-C and zinc supplementation. Chest tube in place for pneumothorax. Pulmonary is following. ampicillin started a few days ago for enterococcus in sputum. White blood cell count improved NG tube for medications and feeding. Feed at continuous slow rate as tolerated. Afib - continue amiodarone 200 mg b.i.d. Xarelto was on hold given drop in hemoglobin, Eliquis restarted per pulm on 09/08. Has remained in sinus rhythm for several days Hyperkalemia improved with kayexalate and insulin, nephrology following Status post 2 unit PRBC transfusion in total. 2nd one on 09/12 No overt signs of bleeding, hgb stable, resume eliquis Dispo: poor prognosis, continue ICU level of care Family want him to remain Full code - will not re-address with them per their wishes. Time Spent Managing Pts Care (In Minutes): 40
[2020-09-13] MEDS: COLLAGENASE 30 GM OINTMENT TOP SCH (14:34)
[2020-09-13] MEDS ORDERED: D50W 25 GM/50 ML VIAL IV PRN (16:00)
[2020-09-13 19:40] LABS: Hematocrit 24.6 % (39.6-49.0)
[2020-09-13] MEDS: VITAL AF 1,000 ML BOT RTH SCH (19:51)
[2020-09-14] MEDS: LORazepam 2 MG/ML VIAL IV PRN ×4 (03:00→23:15)
[2020-09-14] MEDS: HYDROMORPHONE HCL 2 MG/ML inj IV PRN ×3 (04:30→19:42)
[2020-09-14] MEDS: AMPICILLIN/SULBACT 3 GM in NA CHLORIDE 0.9% 100 ML IVPB SCH ×4 (05:23→23:28)
[2020-09-14] MEDS: INSULIN -REGULAR HUMAN 50 UNIT/0.5 ML ML SQ SCH ×4 (05:56→23:27)
[2020-09-14] MEDS: ASCORBIC ACID 500 MG TABLET PO SCH ×4 (05:56→23:53)
[2020-09-14] MEDS: METOPROLOL TAR 25 MG TAB PO SCH ×2 (06:10→16:15)
[2020-09-14 06:15] LABS: Hematocrit 24.5 % (39.6-49.0); MPV 8.9 fL (7.6-11.3); RBC Red Blood Cell Count 2.71 M/uL (4.33-5.43)
[2020-09-14 06:17] LABS: Arterial Blood Carboxyhemoglob 1.8 % (0-1.5); Blood Gas Oxyhemoglobin 93.4 % (94-97); Blood O2 Saturation 95.9 % (92-98.5)
[2020-09-14 07:12] LABS: Albumin 1.5 g/dL (3.4-5.0); BUN Blood Urea Nitrogen 60 mg/dL (7-18); Bicarbonate 34 mmol/L (21-32); Ferritin 1367.9 ng/mL (26-388); Glucose Level 173 mg/dL (74-106); Phosphorus 2.9 mg/dL (2.5-4.9); Potassium 3.3 mmol/L (3.5-5.1); Sodium Level 139 mmol/L (136-145)
--- NOTE | 2020-09-14 08:10 | RAD REPORT ---
EXAM DESCRIPTION: Nory Single View09/14/2020 6:05 am CLINICAL HISTORY: Respiratory failure COMPARISON: September 13 2020 FINDINGS: Tip of an endotracheal to the top of the aortic arch. Feeding tube coiled within the gastr ic stomach. No significant change in moderate bilateral pulmonary opacities. PICC line in place IMPRESSION: No significant change in moderate bilateral pulmonary opacities
[2020-09-14] MEDS: INSULIN 70/30 100 UNITS/ML SQ SCH ×2 (08:30→16:14)
[2020-09-14] MEDS: FAMOTIDINE 20 MG TAB PO SCH ×2 (08:31→19:50)
[2020-09-14] MEDS: ASPIRIN 81 MG CHEWABLE TABLET FT SCH (08:31)
[2020-09-14] MEDS: VITAMIN D 5,000 UNIT CAP PO SCH (08:31)
[2020-09-14] MEDS: FLUCONAZOLE 100 MG TAB PO SCH (08:31)
[2020-09-14] MEDS: THIAMINE HCL 100 MG TABLET PO SCH ×2 (08:32→19:51)
[2020-09-14] MEDS: APIXABAN 5 MG TABLET PO SCH ×2 (08:32→19:50)
[2020-09-14] MEDS: DOCUSATE NA 100 MG CAP PO SCH ×2 (08:32→19:50)
[2020-09-14] MEDS: ZINC SULFATE 220 MG CAP PO SCH (08:32)
[2020-09-14] MEDS: METHYLPREDNISOLONE 40 MG INJ IV SCH ×2 (08:33→19:50)
[2020-09-14] MEDS: FLUDROCORTISONE 0.1 MG TAB FT SCH (08:34)
--- NOTE | 2020-09-14 08:43 | P.PN ---
Subjective Date of Service: 09/14/20 Primary Care Provider: Sincere Luis Chief Complaint: Pneumothorax respiratory failure Subjective: No new changes (No acute events overnight. Patient's vital signs remained stable. Remains intubated/sedated Hemoglobin stable, white count down trending) Review of Systems is unable to be obtained Physical Examination - Vital Signs Temperature: 96.9 F Blood Pressure: 163/79 Pulse: 82 Respirations: 30 Pulse Ox (%): 100 - Physical Exam Other Physical/Emotional Findings: P.E. not done d/t covid isolation Assessment & Plan Physician Review: Patient Assessed, Agree with Above Assessment and Plan Physician Review Additional Text: Physical Exam General: Unresponsive, intubated, sedated HEENT: ETT, NGT in place Respiratory: intubated, R chest tube in place, +air leak Cardiovascular: trace-1+ b/l lower extremity edema, Regular rate/rhythm Gastrointestinal: soft, Non-distended Musculoskeletal: b/l swelling in hands, 2+ edema in hands Integumentary: No rashes, pressure ulcer stable on nasal bridge Problem List Acute respiratory failure with hypoxia Pneumonia due to COVID-19 virus new, paroxysmal Atrial fibrillation with RVR Hypertension Non-insulin dependent diabetes mellitus Acute CVA (cerebrovascular accident) Hypernatremia Decubitus ulcer, sacral stage 3 MRI consistent with stroke, MRA ok, carotids ok. Echo (08/08/20): normal echo. Continue on mechanical ventilation. IV solumedrol. s/p Remdesevir. Vitamin-D, vitamin-C and zinc supplementation. Chest tube in place for pneumothorax. Pulmonary is following. ampicillin started (09/10) for enterococcus in sputum. White blood cell count improving, procal remains mildly elevated NG tube for medications and feeding. Afib - continue amiodarone 200 mg b.i.d. Xarelto was on hold given drop in hemoglobin, Eliquis restarted per pulm on 09/08. Has remained in sinus rhythm for several days Status post 2 unit PRBC transfusion in total. 2nd one on 09/12 No overt signs of bleeding, hgb stable, resumed eliquis on 09/13 Dispo: poor prognosis, continue ICU level of care Family want him to remain Full code - will not re-address with them per their wishes. Time Spent Managing Pts Care (In Minutes): 40
[2020-09-14] MEDS: SPIRONOLACTONE 25 MG TABLET PO SCH (11:27)
[2020-09-14] MEDS: AMIODARONE HCL 200 MG TAB PO SCH ×2 (11:28→19:50)
--- NOTE | 2020-09-14 12:37 | P.PN ---
Subjective Date of Service: 09/14/20 Primary Care Provider: Sincere Luis Chief Complaint: Pneumothorax respiratory failure Patient is not doing well he continues to remain unresponsive although oxygenation has improved Review of Systems General: Weakness Respiratory: Shortness of Breath Physical Examination - Vital Signs Temperature: 97.9 F Blood Pressure: 147/70 Pulse: 92 Respirations: 30 Pulse Ox (%): 96 - Physical Exam General: Unresponsive Respiratory: Clear to auscultation bilaterally, Diminished Cardiovascular: Edema Other Physical/Emotional Findings: P.E. not done d/t covid isolation Assessment & Plan - Problems (Diagnosis) (1) Pneumonia due to COVID-19 virus Status: Acute Plan: Respiratory failure oxygenation has improved with increasing the level of his peep mildly anemic white count is declining chest x-ray no change (2) Pneumothorax Status: Acute Plan: Minimal air leak Qualifiers: Pneumothorax type: spontaneous, primary Qualified Code(s): J93.11 - Primary spontaneous pneumothorax Physician Review: Patient Assessed, Agree with Above Assessment and Plan Physician Review Additional Text: Physical Exam General: Unresponsive, intubated, sedated HEENT: ETT, NGT in place Respiratory: intubated, R chest tube in place, +air leak Cardiovascular: trace-1+ b/l lower extremity edema, Regular rate/rhythm Gastrointestinal: soft, Non-distended Musculoskeletal: b/l swelling in hands, 2+ edema in hands Integumentary: No rashes, pressure ulcer stable on nasal bridge Problem List Acute respiratory failure with hypoxia Pneumonia due to COVID-19 virus new, paroxysmal Atrial fibrillation with RVR Hypertension Non-insulin dependent diabetes mellitus Acute CVA (cerebrovascular accident) Hypernatremia Decubitus ulcer, sacral stage 3 MRI consistent with stroke, MRA ok, carotids ok. Echo (08/08/20): normal echo. Continue on mechanical ventilation. IV solumedrol. s/p Remdesevir. Vitamin-D, vitamin-C and zinc supplementation. Chest tube in place for pneumothorax. Pulmonary is following. ampicillin started (09/10) for enterococcus in sputum. White blood cell count improving, procal remains mildly elevated NG tube for medications and feeding. Afib - continue amiodarone 200 mg b.i.d. Xarelto was on hold given drop in hemoglobin, Eliquis restarted per pulm on 09/08. Has remained in sinus rhythm for several days Status post 2 unit PRBC transfusion in total. 2nd one on 09/12 No overt signs of bleeding, hgb stable, resumed eliquis on 09/13 Dispo: poor prognosis, continue ICU level of care Family want him to remain Full code - will not re-address with them per their wishes.
[2020-09-14] MEDS: COLLAGENASE 30 GM OINTMENT TOP SCH (14:44)
[2020-09-14] MEDS: MIDAZOLAM HCL 2 MG/2 ML INJ IV PRN (23:30)
[2020-09-14] MEDS: HYDROMORPHONE HCL 1 MG/ML INJ IV PRN (23:51)
[2020-09-15] MEDS: HYDROMORPHONE HCL 2 MG/ML inj IV PRN ×4 (03:30→21:44)
[2020-09-15 05:10] LABS: MPV 9.5 fL (7.6-11.3); RBC Red Blood Cell Count 2.27 M/uL (4.33-5.43)
[2020-09-15 05:23] LABS: Hematocrit 20.8 % (39.6-49.0)
[2020-09-15 05:24] LABS: Arterial Blood Carboxyhemoglob 2.1 % (0-1.5); Blood Gas Oxyhemoglobin 85.2 % (94-97); Blood O2 Saturation 87.9 % (92-98.5)
[2020-09-15] MEDS: INSULIN -REGULAR HUMAN 50 UNIT/0.5 ML ML SQ SCH ×3 (05:26→17:45)
[2020-09-15] MEDS: METOPROLOL TAR 25 MG TAB PO SCH ×2 (05:26→17:44)
[2020-09-15] MEDS: AMPICILLIN/SULBACT 3 GM in NA CHLORIDE 0.9% 100 ML IVPB SCH ×4 (05:26→17:46)
[2020-09-15 05:31] LABS: ALT/SGPT 146 U/L (12-78); AST/SGOT 80 U/L (15-37); Albumin 1.3 g/dL (3.4-5.0); Alkaline Phosphatase 66 U/L (45-117); BUN Blood Urea Nitrogen 73 mg/dL (7-18); Bicarbonate 36 mmol/L (21-32); Bilirubin Total 0.3 mg/dL (0.2-1.0); Ferritin 1264.7 ng/mL (26-388); Glucose Level 92 mg/dL (74-106); Potassium 4.2 mmol/L (3.5-5.1); Sodium Level 140 mmol/L (136-145)
[2020-09-15] MEDS: ASCORBIC ACID 500 MG TABLET PO SCH ×3 (05:32→17:44)
[2020-09-15] MEDS: INSULIN 70/30 100 UNITS/ML SQ SCH ×2 (07:30→17:45)
[2020-09-15] MEDS: FLUCONAZOLE 100 MG TAB PO SCH (08:02)
[2020-09-15] MEDS: AMIODARONE HCL 200 MG TAB PO SCH ×2 (08:02→20:14)
[2020-09-15] MEDS: FAMOTIDINE 20 MG TAB PO SCH (08:02)
[2020-09-15] MEDS: APIXABAN 5 MG TABLET PO SCH (08:03)
[2020-09-15] MEDS: VITAMIN D 5,000 UNIT CAP PO SCH (08:03)
[2020-09-15] MEDS: THIAMINE HCL 100 MG TABLET PO SCH ×2 (08:03→20:13)
[2020-09-15] MEDS: DOCUSATE NA 100 MG CAP PO SCH ×2 (08:03→20:14)
[2020-09-15] MEDS: ZINC SULFATE 220 MG CAP PO SCH (08:03)
[2020-09-15] MEDS: SPIRONOLACTONE 25 MG TABLET PO SCH (08:03)
[2020-09-15] MEDS: ASPIRIN 81 MG CHEWABLE TABLET FT SCH (08:03)
[2020-09-15] MEDS: METHYLPREDNISOLONE 40 MG INJ IV SCH ×2 (08:04→20:14)
[2020-09-15] MEDS: HYDROMORPHONE HCL 1 MG/ML INJ IV PRN (08:06)
[2020-09-15] MEDS: FLUDROCORTISONE 0.1 MG TAB FT SCH (08:07)
--- NOTE | 2020-09-15 08:42 | RAD REPORT ---
EXAM DESCRIPTION: RAD - Chest Single View - 09/15/2020 5:36 am CLINICAL HISTORY: Respiratory failure Chest pain. COMPARISON: Chest Single View dated 09/14/2020; Chest Single View dated 09/13/2020; Abdomen 1 View ([facility]) dated 09/12/2020; Chest Single View dated 09/12/2020 FINDINGS: Portable technique limits examination quality. Tip of the endotracheal tube is at the level of the aortic arch. Right-sided PICC line has tip in the SVC. Enteric tube coils in the stomach. Bilateral pulmonary opacities are present, moderately worse on the left since yesterday's study.Heart size is mildly enlarged.
[2020-09-15] MEDS ORDERED: SODIUM CHLORIDE 0.9% 10ML INJ IV PRN (08:43)
[2020-09-15] MEDS: PANTOPRAZOLE 40 MG INJ IVP SCH (10:10)
[2020-09-15] MEDS ORDERED: NA CHLORIDE 0.9% 50 ML ONE (12:13)
--- NOTE | 2020-09-15 16:10 | P.PN ---
Subjective Date of Service: 09/15/20 Primary Care Provider: Sincere Luis Chief Complaint: Pneumothorax respiratory failure Subjective: Other (hgb down again this morning, no overt bleed. vitals stable, hemoccult +, no significant events overnight.) Review of Systems is unable to be obtained Physical Examination - Vital Signs Temperature: 99.5 F Blood Pressure: 134/58 Pulse: 91 Respirations: 26 Pulse Ox (%): 92 - Physical Exam Other Physical/Emotional Findings: P.E. not done d/t covid isolation Assessment & Plan Physician Review Additional Text: Physical Exam General: Unresponsive, intubated, sedated HEENT: ETT, NGT in place Respiratory: intubated, R chest tube in place, +minimal air leak Cardiovascular: 1+ b/l lower extremity edema, Regular rate/rhythm Gastrointestinal: soft, Non-distended Musculoskeletal: b/l swelling in hands, 2+ edema in hands Integumentary: No rashes, pressure ulcer stable on nasal bridge, no bleeding Carney in place, no pawan blood Problem List Acute respiratory failure with hypoxia Pneumonia due to COVID-19 virus new, paroxysmal Atrial fibrillation with RVR Hypertension Non-insulin dependent diabetes mellitus Acute CVA (cerebrovascular accident) Hypernatremia Decubitus ulcer, sacral stage 3 MRI consistent with stroke Continue on mechanical ventilation. IV solumedrol. s/p Remdesevir. Vitamin-D, vitamin-C and zinc supplementation. Chest tube in place for pneumothorax. Pulmonary is following. Ampicillin started (09/10) for enterococcus in sputum. White blood cell count improving, procal remains mildly elevated NG tube for medications and feeding. Afib - continue amiodarone 200 mg b.i.d. Xarelto was on hold given drop in hemoglobin, Eliquis restarted per pulm on 09/08. Has remained in sinus rhythm f or several days Status post 2 unit PRBC transfusion in total. 2nd one on 09/12 No overt signs of bleeding Hgb down again today, will transfuse another unit PRBC, would benefit from Hgb >8.0 recheck H/H post transfusion leroy rodarte'arpan Dispo: poor prognosis, continue ICU level of care Family want him to remain Full code - will not re-address with them per their wishes. Continue to update Time Spent Managing Pts Care (In Minutes): 35
[2020-09-15] MEDS: COLLAGENASE 30 GM OINTMENT TOP SCH (16:22)
[2020-09-15 17:44] LABS: Hematocrit 24.6 % (39.6-49.0)
[2020-09-16] MEDS: HYDROMORPHONE HCL 2 MG/ML inj IV PRN ×2 (01:18→05:30)
[2020-09-16] MEDS: ASCORBIC ACID 500 MG TABLET PO SCH ×4 (01:40→18:29)
[2020-09-16] MEDS: AMPICILLIN/SULBACT 3 GM in NA CHLORIDE 0.9% 100 ML IVPB SCH ×4 (01:40→18:29)
[2020-09-16 05:35] LABS: Hematocrit 22.8 % (39.6-49.0); RBC Red Blood Cell Count 2.48 M/uL (4.33-5.43)
[2020-09-16 05:59] LABS: Arterial Blood Carboxyhemoglob 2.1 % (0-1.5); Blood O2 Saturation 87.5 % (92-98.5)
[2020-09-16] MEDS: INSULIN -REGULAR HUMAN 50 UNIT/0.5 ML ML SQ SCH ×4 (06:00→18:00)
[2020-09-16] MEDS: METOPROLOL TAR 25 MG TAB PO SCH ×2 (06:47→18:00)
[2020-09-16] MEDS: INSULIN 70/30 100 UNITS/ML SQ SCH ×2 (08:37→18:29)
[2020-09-16] MEDS: COLLAGENASE 30 GM OINTMENT TOP SCH (09:00)
[2020-09-16] MEDS: THIAMINE HCL 100 MG TABLET PO SCH ×2 (09:19→19:50)
[2020-09-16] MEDS: ZINC SULFATE 220 MG CAP PO SCH (09:19)
[2020-09-16] MEDS: VITAMIN D 5,000 UNIT CAP PO SCH (09:19)
[2020-09-16] MEDS: FLUCONAZOLE 100 MG TAB PO SCH (09:19)
[2020-09-16] MEDS: ASPIRIN 81 MG CHEWABLE TABLET FT SCH (09:19)
[2020-09-16] MEDS: DOCUSATE NA 100 MG CAP PO SCH ×2 (09:20→19:50)
[2020-09-16] MEDS: PANTOPRAZOLE 40 MG INJ IVP SCH (09:20)
[2020-09-16] MEDS: AMIODARONE HCL 200 MG TAB PO SCH ×2 (09:20→19:50)
[2020-09-16] MEDS: FLUDROCORTISONE 0.1 MG TAB FT SCH (09:20)
[2020-09-16] MEDS: METHYLPREDNISOLONE 40 MG INJ IV SCH ×2 (09:20→19:50)
[2020-09-16] MEDS: SPIRONOLACTONE 25 MG TABLET PO SCH (09:20)
[2020-09-16] MEDS: HYDROMORPHONE HCL 1 MG/ML INJ IV PRN ×4 (09:41→22:08)
[2020-09-16] MEDS: LORazepam 2 MG/ML VIAL IV PRN (11:57)
--- NOTE | 2020-09-16 13:16 | P.PN ---
Subjective Date of Service: 09/16/20 Primary Care Provider: Sincere Luis Chief Complaint: Pneumothorax respiratory failure Patient sedated and on mechanical ventilation. He is on high vent settings. Blood pressure fluctuate. Right-sided chest tube in situ. Physical Examination - Vital Signs Temperature: 98.9 F Blood Pressure: 90/53 Pulse: 86 Respirations: 30 Pulse Ox (%): 88 - Physical Exam General: Unresponsive HEENT: Other (ETT) Neck: JVD not distended Respiratory: Other (Upper airway transmitted sounds) Cardiovascular: Edema (Lower extremities), Irregular heart rate/rhythm Gastrointestinal: Soft and benign, Non-distended Musculoskeletal: No contractures Integumentary: Other (Sacral decubitus ulcer) Neurological: Other (Unresponsive) Other Physical/Emotional Findings: P.E. not done d/t covid isolation Assessment And Plan - Current Problems (Diagnosis) (1) Acute respiratory failure with hypoxia Current Visit: Yes Status: Acute (2) Atrial fibrillation with RVR Current Visit: Yes Status: Acute (3) Pneumonia due to COVID-19 virus Current Visit: Yes Status: Acute (4) Hypertension Current Visit: Yes Status: Chronic Qualifiers: Hypertension type: essential hypertension Qualified Code(s): I10 - Essential (primary) hypertension (5) Non-insulin dependent diabetes mellitus Current Visit: Yes Status: Chronic (6) Acute CVA (cerebrovascular accident) Current Visit: Yes Status: Acute (7) Hypernatremia Current Visit: Yes Status: Acute Physician Review: Patient Assessed, Agree with Above Assessment and Plan Physician Review Additional Text: Physical Exam General: Unresponsive, intubated, sedated HEENT: ETT, NGT in place Respiratory: intubated, R chest tube in place, +minimal air leak Cardiovascular: 1+ b/l lower extremity edema, Regular rate/rhythm Gastrointestinal: soft, Non-distended Musculoskeletal: b/l swelling in hands, 2+ edema in hands Integumentary: No rashes, pressure ulcer stable on nasal bridge, no bleeding Carney in place, no pawan blood Problem List Acute respiratory failure with hypoxia Pneumonia due to COVID-19 virus new, paroxysmal Atrial fibrillation with RVR Hypertension Non-insulin dependent diabetes mellitus Acute CVA (cerebrovascular accident) Hypernatremia Decubitus ulcer, sacral stage 3 Continue on mechanical ventilation. IV solumedrol. s/p Remdesevir. Vitamin-D, vitamin-C and zinc supplementation. Chest tube in place for pneumothorax. Pulmonary is following. Ampicillin started (09/10) for enterococcus in sputum. NG tube in place for medications and feeding. Afib - continue amiodarone 200 mg b.i.d. Xarelto was on hold given drop in hemoglobin, Eliquis restarted per pulm on 09/08. Has remained in sinus rhythm for several days Status post 3 unit PRBC transfusion in total. 2nd one on 09/12 No overt signs of bleeding Monitor hemoglobin and transfuse p.r.n. Dispo: poor prognosis, continue ICU level of care Family want him to remain Full code.
[2020-09-16] MEDS ORDERED: ALBUMIN HUMAN 25% 100 ML IV ONE (13:30)
[2020-09-16 13:48] LABS: Magnesium 2.4 mg/dL (1.8-2.4); Phosphorus 4.3 mg/dL (2.5-4.9); Potassium 4.9 mmol/L (3.5-5.1)
[2020-09-16] MEDS ORDERED: METOLAZONE 5 MG TABLET PO SCH (14:15)
[2020-09-16] MEDS ORDERED: FUROSEMIDE 40 MG/4 ML VIAL IV ONE (14:30)
--- NOTE | 2020-09-16 15:04 | PN ---
Date of Progress Note: 09/16/2020 Subjective: The patient was admitted with COVID pneumonia. Had acute kidney injury. Had anasarca. The patient is on 100% FiO2 with hyperkalemia. The patient had GI loss of blood. Physical Examination: Vital Signs: Blood pressure 106/70, pulse of 88. The patient had urine output of 1700. The patient is positive of 1 L. Chest: Crackles bilateral. Heart: S1, S2. Systolic murmur. Abdomen: Soft, nontender. Extremities: +3 edema. Neuro: The patient is sedated, on vent. Laboratory Data: WBC 11.8, H and H 7.6/22.8, platelet of 94. The patient received transfusion yesterday. Sodium 142, potassium 4.9, bicarb 35, BUN 96, creatinine 0.9, calcium 7.3, phosphorus 4.3, magnesium 2.3. Assessment And Plan: 1. Acute kidney injury secondary to COVID nephropathy, recovered, resolved. Currently over volume. I am going to go ahead and give the patient albumin to mobilize fluid and Lasix after, and we will follow up the patient. 2. Acidosis secondary to hypercapnic respiratory acidosis as by Pulmonary. 3. Hyponatremia, recovered, resolved. 4. Anasarca secondary to severe malnourish. We will try to establish better volume control. We will go ahead and continue on spironolactone. I will add hydrochlorothiazide to avoid further hypernatremia and we will give albumin with Lasix to mobilize fluid. We will follow up. 5. COVID pneumonia, respiratory failure as by Pulmonary. time spent examined the patient face to face s discussed with the patient placed order discussing the case with other clinical team lead including nurses , discussing with other specialist include a hospitalist 45 min DAIJA Voice ID: [id number] Report ID: [id number] RACIEL
[2020-09-17] MEDS: AMPICILLIN/SULBACT 3 GM in NA CHLORIDE 0.9% 100 ML IVPB SCH ×5 (00:30→23:59)
[2020-09-17] MEDS: HYDROMORPHONE HCL 1 MG/ML INJ IV PRN ×5 (01:30→21:44)
[2020-09-17] MEDS: ASCORBIC ACID 500 MG TABLET PO SCH ×5 (01:32→23:59)
[2020-09-17 05:15] LABS: Absolute Lymphocytes (CBC) 0.4 K/uL (0.7-4.9); Basophils % 0.1 % (0-1.3); Lymphocytes % 5.7 % (15.3-44.8); MPV 9.7 fL (7.6-11.3)
[2020-09-17 05:29] LABS: Hematocrit 18.4 % (39.6-49.0)
[2020-09-17 06:00] LABS: Arterial Blood Carboxyhemoglob 2.5 % (0-1.5); Blood Gas Oxyhemoglobin 84.7 % (94-97); Blood O2 Saturation 87.7 % (92-98.5)
[2020-09-17] MEDS: INSULIN -REGULAR HUMAN 50 UNIT/0.5 ML ML SQ SCH ×4 (06:00→17:46)
[2020-09-17] MEDS: METOPROLOL TAR 25 MG TAB PO SCH ×2 (06:03→18:00)
[2020-09-17 08:36] LABS: Basophilic Stippling 2+; Blood Morphology Comment NOTED (NOT SEEN); Platelet Estimate DECR; Polychromasia SLIGHT
[2020-09-17] MEDS: ZINC SULFATE 220 MG CAP PO SCH (09:11)
[2020-09-17] MEDS: AMIODARONE HCL 200 MG TAB PO SCH ×2 (09:11→21:11)
[2020-09-17] MEDS: VITAMIN D 5,000 UNIT CAP PO SCH (09:11)
[2020-09-17] MEDS: ASPIRIN 81 MG CHEWABLE TABLET FT SCH (09:11)
[2020-09-17] MEDS: DOCUSATE NA 100 MG CAP PO SCH ×2 (09:11→21:00)
[2020-09-17] MEDS: FLUCONAZOLE 100 MG TAB PO SCH (09:11)
[2020-09-17] MEDS: THIAMINE HCL 100 MG TABLET PO SCH ×2 (09:12→21:11)
[2020-09-17] MEDS: SPIRONOLACTONE 25 MG TABLET PO SCH (09:12)
[2020-09-17] MEDS: PANTOPRAZOLE 40 MG INJ IVP SCH (09:12)
[2020-09-17] MEDS: INSULIN 70/30 100 UNITS/ML SQ SCH ×2 (09:12→17:45)
[2020-09-17] MEDS: METHYLPREDNISOLONE 40 MG INJ IV SCH ×2 (09:12→21:10)
[2020-09-17] MEDS ORDERED: NA CHLORIDE 0.9% 250 ML ONE (10:43)
--- NOTE | 2020-09-17 12:15 | PN ---
Date of Progress Note: 09/17/2020 Subjective: The patient was admitted with COVID pneumonia, respiratory failure, sepsis. The patient had CVA, has stroke, on vent. Blood pressure has been marginally low. Physical Examination: Vital Signs: When I saw the patient; blood pressure 101/49, pulse of 83. The patient had urine output of 1700. Chest: Crackles bilateral. Heart: S1, S2. Systolic murmur. Abdomen: Soft, nontender. Extremity: +3 edema. Neuro: The patient is sedated, vent setting, FiO2 100%. Laboratory Data: WBC 6.9, H and H 6.2/18.4. Sodium 142, potassium 4.9, bicarb 35, BUN 96, creatinine 0.9, calcium 7.3, phosphorus 4.3, magnesium 2.4. Assessment And Plan: 1. 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 The patient has marginally low blood pressure. We will use p.r.n. diuresis to establish better volume control. The patient has overall poor prognosis. 2. Hypertension, currently hypotension. Hold all blood pressure medications. I will diurese with metolazone today. 3. Hypernatremia. We will use collecting tube, diuresis to establish better volume control. We will give metolazone today. 4. Anemia. The patient is on transfusion today. We will give diuresis after transfusion. 5. Respiratory failure, COVID pneumonia as by Pulmonary. time spent examined the patient face to face s discussed with the patient placed order discussing the case with other team guide including nurses , discussing with other specialist include a hospitalist 45 min DAIJA Voice ID: [id number] Report ID: [id number] RACIEL
[2020-09-17] MEDS: HYDROMORPHONE HCL 2 MG/ML inj IV PRN (13:06)
[2020-09-17] MEDS ORDERED: METOLAZONE 5 MG TABLET PO SCH (15:00)
[2020-09-17] MEDS: COLLAGENASE 30 GM OINTMENT TOP SCH (17:00)
[2020-09-17] MEDS: VITAL AF 1,000 ML BOT RTH SCH (18:00)
--- NOTE | 2020-09-17 18:38 | P.PN ---
Subjective Date of Service: 09/17/20 Primary Care Provider: Sincere Luis Chief Complaint: Pneumothorax respiratory failure No changes from yesterday except drop in hemoglobin. He is on high vent settings. Blood pressure fluctuate. Physical Examination - Vital Signs Temperature: 98.9 F Blood Pressure: 125/62 Pulse: 94 Respirations: 50 Pulse Ox (%): 85 - Physical Exam General: Unresponsive HEENT: Other (ETT) Respiratory: Other (Labored breathing) Cardiovascular: Edema, Irregular heart rate/rhythm Gastrointestinal: Non-distended Musculoskeletal: No swelling Integumentary: Other (Ulcer at bridge of nose.) Neurological: Other (Unresponsive) Other Physical/Emotional Findings: P.E. not done d/t covid isolation Assessment And Plan - Current Problems (Diagnosis) (1) Acute respiratory failure with hypoxia Current Visit: Yes Status: Acute (2) Atrial fibrillation with RVR Current Visit: Yes Status: Acute (3) Pneumonia due to COVID-19 virus Current Visit: Yes Status: Acute (4) Hypertension Current Visit: Yes Status: Chronic Qualifiers: Hypertension type: essential hypertension Qualified Code(s): I10 - Essential (primary) hypertension (5) Non-insulin dependent diabetes mellitus Current Visit: Yes Status: Chronic (6) Acute CVA (cerebrovascular accident) Current Visit: Yes Status: Acute (7) Hypernatremia Current Visit: Yes Status: Acute Physician Review: Patient Assessed, Agree with Above Assessment and Plan Physician Review Additional Text: Physical Exam General: Unresponsive, intubated, sedated HEENT: ETT, NGT in place Respiratory: intubated, R chest tube in place, +minimal air leak Cardiovascular: 1+ b/l lower extremity edema, Regular rate/rhythm Gastrointestinal: soft, Non-distended Musculoskeletal: b/l swelling in hands, 2+ edema in hands Integumentary: No rashes, pressure ulcer stable on nasal bridge, no bleeding Carney in place, no pawan blood Problem List Acute respiratory failure with hypoxia Pneumonia due to COVID-19 virus new, paroxysmal Atrial fibrillation with RVR Hypertension Non-insulin dependent diabetes mellitus Acute CVA (cerebrovascular accident) Hypernatremia Decubitus ulcer, sacral stage 3 Continue on mechanical ventilation. IV solumedrol. s/p Remdesevir. Vitamin-D, vitamin-C and zinc supplementation. Chest tube in place for pneumothorax. Pulmonary is following. Ampicillin started (09/10) for enterococcus in sputum. Continue NG tube in place for medications and feeding. Afib - continue amiodarone 200 mg b.i.d. Xarelto was on hold given drop in hemoglobin, Eliquis restarted per pulm on 09/08. Has remained in sinus rhythm for several days Status post 3 unit PRBC transfusion in total. Transfuse another unit for drop in hemoglobin to 6.2 No overt signs of bleeding Monitor hemoglobin and transfuse p.r.n. Dispo: poor prognosis, continue ICU level of care. Patient made DNR by his family.
[2020-09-18] MEDS: HYDROMORPHONE HCL 2 MG/ML inj IV PRN ×4 (01:23→14:33)
[2020-09-18 05:34] LABS: Absolute Lymphocytes (CBC) 0.4 K/uL (0.7-4.9); Basophils % 0.3 % (0-1.3); Hematocrit 20.4 % (39.6-49.0); Lymphocytes % 4.5 % (15.3-44.8); MPV 9.8 fL (7.6-11.3)
[2020-09-18 05:34] LABS: Arterial Blood Carboxyhemoglob 2.6 % (0-1.5); Blood Gas Oxyhemoglobin 71.7 % (94-97); Blood O2 Saturation 74.2 % (92-98.5)
[2020-09-18] MEDS: AMPICILLIN/SULBACT 3 GM in NA CHLORIDE 0.9% 100 ML IVPB SCH ×4 (05:40→23:11)
[2020-09-18] MEDS: ASCORBIC ACID 500 MG TABLET PO SCH ×4 (05:40→23:11)
[2020-09-18 05:47] LABS: C-Reactive Protein 71.9 mg/L (<3.00); Ferritin 1830.7 ng/mL (26-388)
[2020-09-18] MEDS: INSULIN -REGULAR HUMAN 50 UNIT/0.5 ML ML SQ SCH ×5 (05:54→23:38)
[2020-09-18] MEDS: METOPROLOL TAR 25 MG TAB PO SCH ×2 (06:00→17:47)
[2020-09-18 06:02] VITALS: BMI 26.8
[2020-09-18] MEDS ORDERED: NA CHLORIDE 0.9% 250 ML ONE (08:12)
[2020-09-18] MEDS: INSULIN 70/30 100 UNITS/ML SQ SCH ×2 (08:21→17:46)
[2020-09-18] MEDS: DOCUSATE NA 100 MG CAP PO SCH ×2 (09:00→20:12)
[2020-09-18] MEDS: ASPIRIN 81 MG CHEWABLE TABLET FT SCH (09:00)
[2020-09-18] MEDS: COLLAGENASE 30 GM OINTMENT TOP SCH (09:00)
[2020-09-18 09:22] LABS: Blood Morphology Comment NOTED (NOT SEEN); Platelet Estimate DECR; White Blood Cell Scan OK (OK)
[2020-09-18 09:23] LABS: Anisocytosis 2+; Basophilic Stippling 2+; Polychromasia 1+
[2020-09-18] MEDS: PANTOPRAZOLE 40 MG INJ IVP SCH (10:09)
[2020-09-18] MEDS: SPIRONOLACTONE 25 MG TABLET PO SCH (10:10)
[2020-09-18] MEDS: FLUCONAZOLE 100 MG TAB PO SCH (10:11)
[2020-09-18] MEDS: ZINC SULFATE 220 MG CAP PO SCH (10:11)
[2020-09-18] MEDS: AMIODARONE HCL 200 MG TAB PO SCH ×2 (10:12→20:12)
[2020-09-18] MEDS: VITAMIN D 5,000 UNIT CAP PO SCH (10:12)
[2020-09-18] MEDS: THIAMINE HCL 100 MG TABLET PO SCH ×2 (10:12→20:12)
[2020-09-18] MEDS: METHYLPREDNISOLONE 40 MG INJ IV SCH ×2 (10:14→20:12)
[2020-09-18] MEDS ORDERED: METOLAZONE 5 MG TABLET PO SCH (12:00)
[2020-09-18] MEDS: HYDROMORPHONE HCL 1 MG/ML INJ IV PRN ×3 (12:37→21:00)
--- NOTE | 2020-09-18 12:40 | PN ---
Date of Progress Note: 09/18/2020 Subjective: The patient was admitted with COVID pneumonia, respiratory failure, septic shock. The patient had bleed, has pneumothorax requiring chest tube, required recurrent transfusion. Physical Examination: Vital Signs: Blood pressure 96/43, pulse of 81, afebrile. The patient yesterday was given a dose of metolazone. His urine output has been improved to 2800. The patient is negative only 100. Chest: Crackles bilateral. Heart: S1, S2. Systolic murmur. Abdomen: Soft, nontender. Extremities: +3 edema. Neuro: The patient is sedated. Laboratory Data: WBC 8.5, H and H 6.9/20.4, platelets 71. Sodium 142, potassium 5, bicarb 39, BUN 90, creatinine 0.8, calcium 8.0, ferritin 1830. Cortisol 12. Current Medications: The patient on include; 1. Aspirin. 2. Ampicillin sulbactam. 3. Fluconazole. 4. Amiodarone. 5. Metoprolol 25 b.i.d. 6. Spironolactone. 7. Midazolam. 8. Metolazone yesterday. 9. Zinc sulfate. 10. Insulin. 11. Free water flushes. Assessment And Plan: 1. 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 I am going to give metolazone today after the blood transfusion and we will follow up. 2. Hyperkalemia. Discontinue spironolactone. Continue diuresis. 3. Anasarca secondary to renal failure, third spacing, severe malnourish. We will try to utilize marginal blood pressure for diuresis. I am going to discontinue spironolactone given the marginal hyperkalemia and we will decrease his metoprolol to 12.5. We will follow up. 4. Anemia secondary to blood loss. Continue p.r.n. transfusion. We will transfuse another unit today. We will give metolazone after the first one and Lasix after the second. 5. Hypernatremia, recovered. Decrease free water to 150 q.6. 6. COVID pneumonia, stable, still requiring high FiO2. We will follow up with Pulmonary. Continue current treatment. The patient has overall poor prognosis. time spent examined the patient face to face s discussed with the patient placed order discussing the case with other steam bone press tender including nurses , discussing with other specialist include a hospitalist 45 min DAIJA Voice ID: [id number] Report ID: [id number] MTDD
[2020-09-18] MEDS: CISATRACURIUM INJECTION 2 MG/ML (10 ML Vial) IV PRN ×2 (12:59→17:21)
--- NOTE | 2020-09-18 13:17 | P.PN ---
Subjective Date of Service: 09/18/20 Primary Care Provider: Sincere Luis Chief Complaint: Pneumothorax respiratory failure Patient is hypoxic on ABG. No major changes clinically. He has anasarca. Physical Examination - Vital Signs Temperature: 97.6 F Blood Pressure: 91/43 Pulse: 83 Respirations: 34 Pulse Ox (%): 97 - Physical Exam General: Unresponsive HEENT: Other (ETT) Respiratory: Other (Upper airway transmitted sounds.) Cardiovascular: Edema (Bilateral upper and lower extremities, worse on the upper extremity), Irregular heart rate/rhythm Gastrointestinal: Soft and benign, Non-distended Musculoskeletal: Swelling (Bilateral upper extremities) Integumentary: Other (Unstageable sacral decubitus ulcer) Neurological: Other (Unresponsive) Other Physical/Emotional Findings: P.E. not done d/t covid isolation Assessment And Plan - Current Problems (Diagnosis) (1) Acute respiratory failure with hypoxia Current Visit: Yes Status: Acute (2) Atrial fibrillation with RVR Current Visit: Yes Status: Acute (3) Pneumonia due to COVID-19 virus Current Visit: Yes Status: Acute (4) Hypertension Current Visit: Yes Status: Chronic Qualifiers: Hypertension type: essential hypertension Qualified Code(s): I10 - Essential (primary) hypertension (5) Non-insulin dependent diabetes mellitus Current Visit: Yes Status: Chronic (6) Acute CVA (cerebrovascular accident) Current Visit: Yes Status: Acute (7) Hypernatremia Current Visit: Yes Status: Acute Physician Review: Patient Assessed, Agree with Above Assessment and Plan Physician Review Additional Text: Physical Exam General: Unresponsive, intubated, sedated HEENT: ETT, NGT in place Respiratory: intubated, R chest tube in place, +minimal air leak Cardiovascular: 1+ b/l lower extremity edema, Regular rate/rhythm Gastrointestinal: soft, Non-distended Musculoskeletal: b/l swelling in hands, 2+ edema in hands Integumentary: No rashes, pressure ulcer stable on nasal bridge, no bleeding Carney in place, no pawan blood Problem List Acute respiratory failure with hypoxia Pneumonia due to COVID-19 virus new, paroxysmal Atrial fibrillation with RVR Hypertension Non-insulin dependent diabetes mellitus Acute CVA (cerebrovascular accident) Hypernatremia Decubitus ulcer, sacral stage 3 Continue on mechanical ventilation. IV solumedrol. vitamin-D, vitamin-C and zinc supplementation. Chest tube in place for pneumothorax. Pulmonary is following. On Ampicillin (started 09/10) for enterococcus in sputum. Continue NG tube in place for medications and feeding. Afib - continue amiodarone 200 mg b.i.d. Xarelto was on hold given drop in hemoglobin, Eliquis restarted per pulm on 09/08. Has remained in sinus rhythm for several days. Her lipase discontinued due to drop in hemoglobin. Status post 4 unit PRBC transfusion in total. Transfuse another unit for drop in hemoglobin to 6.9 No overt signs of bleeding Monitor hemoglobin and transfuse p.r.n. Dispo: poor prognosis, continue ICU level of care. Patient made DNR by his family.
[2020-09-18] MEDS ORDERED: FUROSEMIDE 40 MG/4 ML VIAL IV ONE (16:00)
[2020-09-18] MEDS ORDERED: FUROSEMIDE 40 MG in NA CHLORIDE 0.9% 50 ML IV SCH (16:00)
[2020-09-18 18:17] VITALS: O2SAT 99
[2020-09-18 20:14] LABS: Hematocrit 29.5 % (39.6-49.0)
[2020-09-18] MEDS ORDERED: HYDROMORPHONE HCL 1 MG/ML INJ IV ONE (22:45)
[2020-09-19] MEDS: HYDROMORPHONE HCL 2 MG/ML inj IV PRN ×2 (02:20→05:00)
[2020-09-19] MEDS: AMPICILLIN/SULBACT 3 GM in NA CHLORIDE 0.9% 100 ML IVPB SCH (05:35)
[2020-09-19] MEDS: METOPROLOL TAR 25 MG TAB PO SCH (05:35)
[2020-09-19] MEDS: ASCORBIC ACID 500 MG TABLET PO SCH (05:35)
[2020-09-19 05:45] LABS: Arterial Blood Carboxyhemoglob 2.3 % (0-1.5); Blood O2 Saturation 60.9 % (92-98.5)
[2020-09-19] MEDS: INSULIN -REGULAR HUMAN 50 UNIT/0.5 ML ML SQ SCH (06:00)
[2020-09-19] MEDS ORDERED: NOREPINEPHRINE 4 MG in D5W 250 ML IV PRN (06:18)
[2020-09-19 06:35] LABS: C-Reactive Protein 58.9 mg/L (<3.00); Ferritin 2171.1 ng/mL (26-388)
[2020-09-19] MEDS ORDERED: D5W 250 ML IV ONE (06:36)
[2020-09-19] MEDS ORDERED: NOREPINEPHRINE 4 MG/4 ML VIAL ONE (06:36)
--- NOTE | 2020-09-19 11:23 | P.DS ---
Admission Date: 08/06/20 Discharge Date: 09/19/20 Primary Care Provider: Sincere Luis Disposition: Reason for Admission: Pneumothorax respiratory failure Consultations: Cardiology Pulmonary Nephrology - Problems (1) Acute respiratory failure with hypoxia Current Visit: Yes Status: Acute (2) Atrial fibrillation with RVR Current Visit: Yes Status: Acute (3) Pneumonia due to COVID-19 virus Current Visit: Yes Status: Acute (4) Hypertension Current Visit: Yes Status: Chronic Qualifiers: Hypertension type: essential hypertension Qualified Code(s): I10 - Essential (primary) hypertension (5) Non-insulin dependent diabetes mellitus Current Visit: Yes Status: Chronic (6) Acute CVA (cerebrovascular accident) Current Visit: Yes Status: Acute (7) Hypernatremia Current Visit: Yes Status: Acute Brief History of Present Illness: 70-year-old patient the gentleman with a history of diabetes, hypertension, and thyroid dysfunction presented to the emergency department with a complaint of progressive shortness of breath. He was diagnosed with covid infection on 07/31/2020. Patient was hypoxic on room air in the ED. Chest x-ray demonstrated bilateral infiltrates consistent with conveyed pneumonia. Patient was admitted for further management. Hospital Course: Patient admitted to the general medical floor and treated for coffee pneumonia with IV methylprednisolone, vitamin supplementation. His respiratory condition got worse and was transitioned to high-flow oxygen and BiPAP. He did not respond to treatment and required intubation with mechanical ventilation during the course of treatment. Patient developed sepsis and acute CVA, atrial fibrillation. He was seen by multiple subspecialties including cardiology, renal and pulmonary why assisted with management of his multiorgan issues. Patient clinical condition continued to decline and became hypoxic on the ventilator. He also developed hypotension which was managed with multiple crystalloid infusions, and vasopressors. He was also given multiple blood transfusions for recurrent anemia. Patient overall did not respond to treatment. He had a prolonged hospital stay, family eventually decided to make him DNR. He developed severe hypotension to the ER with hypoxia and eventually on 09/19/2020 at 0631 hours. Vital Signs/Physical Exam: Temp Pulse Resp BP Pulse Ox 98.9 F 28 L 7 L 33/22 L 70 L 09/19/20 05:00 09/19/20 06:30 09/19/20 06:30 09/19/20 06:27 09/19/20 05:30 Other Physical/Emotional Findings: P.E. not done d/t covid isolation Laboratory Data at Discharge: WBC 8.50 K/uL (4.3-10.9) D 09/18/20 04:45 Hgb 9.8 g/dL (13.6-17.9) L D 09/18/20 20:08 Hct 29.5 % (39.6-49.0) L D 09/18/20 20:08 Plt Count 71 K/uL (152-406) L 09/18/20 04:45 PT 10.7 SECONDS (9.5-12.5) 08/06/20 20:30 INR 0.93 08/06/20 20:30 APTT 29.2 SECONDS (24.3-36.9) 08/06/20 20:30 Sodium 142 mmol/L (136-145) 09/18/20 04:45 Potassium 5.0 mmol/L (3.5-5.1) 09/18/20 04:45 BUN 90 mg/dL (7-18) H 09/18/20 04:45 Creatinine 0.85 mg/dL (0.55-1.3) 09/18/20 04:45 Glucose 151 mg/dL (74-106) H 09/18/20 04:45 Uric Acid 5.2 mg/dL (3.5-7.2) 09/10/20 05:05 Phosphorus 4.3 mg/dL (2.5-4.9) 09/16/20 05:00 Magnesium 2.4 mg/dL (1.8-2.4) 09/16/20 05:00 Total Bilirubin 0.3 mg/dL (0.2-1.0) 09/15/20 04:50 AST 80 U/L (15-37) H 09/15/20 04:50 ALT 146 U/L (12-78) H 09/15/20 04:50 Alkaline Phosphatase 66 U/L (45-117) 09/15/20 04:50 Troponin I Cancelled 08/28/20 21:30 Triglycerides 129 mg/dL (<150) 08/07/20 05:10 Cholesterol 131 mg/dL (<200) 08/07/20 05:10 HDL Cholesterol 51 mg/dL (40-60) 08/07/20 05:10 Cholesterol/HDL Ratio 2.57 08/07/20 05:10 Lipase 185 U/L (73-393) 08/06/20 20:30 Home Medications: Levothyroxine [Synthroid] 50 mcg PO [id number] 03/23/17 Metformin HCl [Glucophage] 1,000 mg PO BID 03/23/17 lisinopriL [Lisinopril] 30 mg PO DAILY 03/23/17 Memantine HCl [Namenda] 5 mg PO DAILY 08/07/20 Carboxymethylcellulose Sodium [Lubricant Eye Drop] 15 ml OP DAILY 08/10/20 Prednisolone Acetate/Pf [Prednisolone Acet 1% Eye Drop] 5 ml OP DAILY 08/10/20 Followup: [place] Luis, [Primary Care Provider] -
[2020-09-28 11:12] VITALS: BP 147/70; TEMP 97.9
== END 2020-09-19 06:31 | disposition expired | DRG 870 ==
LOC: ER 19:53 → ERHOLD 22:27 → 3RD-ICU 08-07 11:17
PROVIDERS: ADMIT Internal Medicine Sleep Medicine; ATTEND Internal Medicine
PROC: 5A1955Z Respiratory Ventilation, Greater than 96 Consecutive Hours (ICD-10-PCS; principal; 2020-08-06)
PROC: 0BH17EZ Insertion of Endotracheal Airway into Trachea, Via Natural or Artificial Opening (ICD-10-PCS; 2020-08-06)
PROC: 5A09557 Assistance with Respiratory Ventilation, Greater than 96 Consecutive Hours, Continuous Positive Airway Pressure (ICD-10-PCS; 2020-08-06)
PROC: XW033E5 Introduction of Remdesivir Anti-infective into Peripheral Vein, Percutaneous Approach, New Technology Group 5 (ICD-10-PCS; 2020-08-06)
PROC: 8E0ZXY6 Isolation (ICD-10-PCS; 2020-08-06)
PROC: 02HV33Z Insertion of Infusion Device into Superior Vena Cava, Percutaneous Approach (ICD-10-PCS; 2020-08-29)
PROC: 0W9930Z Drainage of Right Pleural Cavity with Drainage Device, Percutaneous Approach (ICD-10-PCS; 2020-09-04)
PROC: 30233N1 Transfusion of Nonautologous Red Blood Cells into Peripheral Vein, Percutaneous Approach (ICD-10-PCS; 2020-09-06)
DX: A41.89 Other specified sepsis (principal); L89.153 Pressure ulcer of sacral region, stage 3; U07.1 COVID-19; J12.82 Pneumonia due to coronavirus disease 2019; J96.01 Acute respiratory failure with hypoxia; I63.9 Cerebral infarction, unspecified; G93.41 Metabolic encephalopathy; R65.21 Severe sepsis with septic shock; E87.0 Hyperosmolality and hypernatremia; I47.1 Supraventricular tachycardia; E87.1 Hypo-osmolality and hyponatremia; J93.11 Primary spontaneous pneumothorax; T79.7XXA Traumatic subcutaneous emphysema, initial encounter; N17.9 Acute kidney failure, unspecified; E87.2 Acidosis; E44.0 Moderate protein-calorie malnutrition; Z78.1 Physical restraint status; Z79.890 Hormone replacement therapy; Z79.899 Other long term (current) drug therapy; Z79.84 Long term (current) use of oral hypoglycemic drugs; E11.9 Type 2 diabetes mellitus without complications; E78.5 Hyperlipidemia, unspecified; I10 Essential (primary) hypertension; E03.9 Hypothyroidism, unspecified; H54.7 Unspecified visual loss; R77.8 Other specified abnormalities of plasma proteins; F41.9 Anxiety disorder, unspecified; F32.9 Major depressive disorder, single episode, unspecified; J34.0 Abscess, furuncle and carbuncle of nose; E83.51 Hypocalcemia; I48.0 Paroxysmal atrial fibrillation; E87.5 Hyperkalemia; D50.9 Iron deficiency anemia, unspecified; B95.2 Enterococcus as the cause of diseases classified elsewhere; Z68.26 Body mass index [BMI] 26.0-26.9, adult
CPT/HCPCS: 36415; 36430; 36569; 70450; 70496; 70498; 71045; 74018; 80048; 80053; 80061; 80069; 80076; 81003; 81015; 82274; 82533; 82550; 82553; 82570; 82607; 82728; 82746; 82805; 82947; 83540; 83605; 83690; 83735; 83930; 83935; 84100; 84132; 84145; 84156; 84300; 84439; 84443; 84466; 84484; 84550; 85014; 85018; 85025; 85027; 85044; 85610; 85730; 86140; 86850; 86900; 86901; 87040; 87070; 87077; 87086; 87088; 87186; 87205; 87324; 87449; 92610; 93005; 93306; 93880; 94002; 94003; 94660; 94760; 96360; 96361; 96365; 96367; 96372; 96375; 97110; 97112; 97161; 97530; 99251; 99284; 99285; C9113; J0153; J0282; J0295; J0330; J0456; J0610; J0692; J0696; J1160; J1170; J1650; J1815; J1940; J2250; J2270; J2704; J2920; J2930; J2997; J3010; J3411; J3486; J3590; J7030; J7050; J7060; J7120; J7512; J7799; P9016; P9047; Q9967; U0002; U0003